=== PATIENT | female | born 1955 | race Caucasian/White ===

== ENCOUNTER → 2021-02-15 14:41 | Outpatient (BNVA) | payer OTHER, SELFPAY | PROVIDERS: Visit Provider Internal Medicine Cardiovascular Disease | DX: I51.81 Takotsubo syndrome (principal) | CPT/HCPCS: 93005 ==

== ENCOUNTER 2021-03-30 07:24 | Outpatient (REF) | payer OTHER, SELFPAY ==
--- NOTE | ~2021-03-30 | MM_ITS ---
EXAMINATION: MM SCREENING DIGITAL BREAST TOMOSYNTHESIS, BILATERAL CLINICAL INFORMATION: Screening. Asymptomatic. Remote prior outside mammography over 15 years ago at unknown facility. Age 65. No known family history breast cancer. The lifetime risk of breast cancer based on the Tyrer-Cuzick Model is 5%. COMPARISON: None. TECHNIQUE: Digital breast tomosynthesis is performed in both the craniocaudal and mediolateral oblique views along with computer-aided detection (CAD). Synthesized 2D images are generated from the tomosynthesis. FINDINGS: There are scattered areas of fibroglandular density (ACR BI-RADS breast composition Category b). There are no significant masses, abnormal calcifications, or other abnormalities. The axilla and skin contours are unremarkable. MM/MM tomosynthesis screening BI IMPRESSION: No mammographic evidence of malignancy. ASSESSMENT: BI-RADS 1: Negative RECOMMENDATION: Routine annual mammography screening. This patient's information was entered into a reminder system with a target due date for their next mammogram.
== END 2021-03-30 07:25 | disposition home or self-care (01) ==
LOC: HO.MAMMO 07:24
PROVIDERS: PCP Internal Medicine; Visit Provider Internal Medicine
DX: Z12.31 Encounter for screening mammogram for malignant neoplasm of breast (principal)
CPT/HCPCS: 77063; 77067

== ENCOUNTER 2021-10-10 12:03 | Outpatient (REF) | payer OTHER, SELFPAY ==
[2021-10-10 13:18] LABS: Influenza A PCR NEGATIVE (Negative); Influenza B PCR NEGATIVE (Negative); Resp Syncy Virus RNA Qual PCR NEGATIVE (Negative); SARS COV2 PCR INHOUSE NEGATIVE (Negative)
== END 2021-10-10 12:04 | disposition home or self-care (01) ==
LOC: HO.LNP 12:03
PROVIDERS: Visit Provider Physician Assistant
DX: Z20.822 Contact with and (suspected) exposure to COVID-19 (principal)
CPT/HCPCS: 0241U

== ENCOUNTER 2021-11-12 04:31 | Inpatient (IN) | payer OTHER, SELFPAY ==
[2021-11-12] VITALS (9 sets, daily range): BP systolic 117–155; BP diastolic 54–82; PULSE 62–76; RESP 9–18; TEMP 36.6–36.9; O2SAT 99–100; BMI 20.2
--- NOTE | ~2021-11-12 | XR_ITS ---
EXAMINATION: XR CHEST CLINICAL INFORMATION: Weakness, shortness of breath COMPARISON: 12/20/2019 TECHNIQUE: Frontal view of the chest was obtained. FINDINGS: Lung volumes are symmetric. No focal consolidation is seen. No evidence of pneumothorax, pleural effusion, or pulmonary edema. The cardiomediastinal contour is unremarkable. No acute osseous findings are seen. XR/XR chest 1V IMPRESSION: No acute cardiopulmonary findings.
--- NOTE | ~2021-11-12 | CT_ITS ---
EXAMINATION: CT HEAD WITHOUT CONTRAST CLINICAL INFORMATION: Dizziness. COMPARISON: CT head 12/20/2019 TECHNIQUE: Contiguous axial imaging was performed from the skull base to vertex without intravenous administration of contrast. Coronal and sagittal reformatted images are performed at CT scanner This CT examination was performed using dose optimization techniques as appropriate, variously including the following: *Automated exposure control *Adjustment of mA and/or kV according to patient size (this includes techniques or standardized protocols for targeted exams where dose is matched to indication/reason for exam; i.e. extremities or head) *Use of iterative reconstruction technique DLP: 645 mGy-cm FINDINGS: Status post left frontal temporal craniotomy. 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 Surgical clips and embolization material in the expected area the left MCA artery causing streak artifact. No acute intracranial hemorrhage. No mass effect. No acute parenchymal lesion. There is generalized global volume loss. There is mild prominence of the ventricles and the sulci . There is mild hypodensity of the periventricular white matter due to chronic small vessel ischemic disease. There is a small air-fluid level in the left maxillary sinus. The mastoid air cells and middle ear cavities are normally aerated. CT/CT head/brain wo con IMPRESSION: No acute intracranial abnormality. Stable chronic changes of old infarct in left frontal lobe and surgical clip and embolization material in the area the left MCA artery. Status post left frontal temporal craniotomy.
--- NOTE | ~2021-11-12 | CT_ITS ---
EXAMINATION: CT ABDOMEN AND PELVIS WITH CONTRAST CLINICAL INFORMATION: Colonic mass. COMPARISON: None TECHNIQUE: Multidetector volumetric images were obtained from the superior aspect of the liver through the pubic symphysis following administration 85 mL of Omnipaque 350 intravenous contrast. Sagittal and coronal reformatted images were obtained on the technologist's workstation. Oral contrast: No This CT examination was performed using dose optimization techniques as appropriate, variously including the following: *Automated exposure control *Adjustment of mA and/or kV according to patient size (this includes techniques or standardized protocols for targeted exams where dose is matched to indication/reason for exam; i.e. extremities or head) *Use of iterative reconstruction technique DLP: 202 mGy-cm FINDINGS: The injected IV contrast extravasated into the left forearm. The images obtained show no enhancement therefore. LUNG BASES: Normal aeration of lung bases. Heart size normal. Large volume of coronary artery calcification. No pericardial effusion. LIVER, GALLBLADDER, AND BILIARY TREE: The liver is normal in size, shape, and attenuation. No focal hepatic lesion or biliary ductal dilatation is present. The gallbladder is unremarkable with no evidence of radiopaque gallstones, gallbladder wall thickening, or obvious pericholecystic inflammatory changes. PANCREAS: Unremarkable. SPLEEN: Unremarkable. ADRENAL GLANDS: Unremarkable. KIDNEYS AND URETERS: No calculus or hydronephrosis. Kidneys are of normal size and contour. BLADDER: Unremarkable. GASTROINTESTINAL TRACT: No acute inflammatory change of bowel. There is question of an apple core lesion of the distal sigmoid with circumferential bowel wall thickening axial image 408 2/622 series 7, coronal image 52/74 series 5. Clinically correlate. There is no bowel obstruction. There is a large volume of stool in the colon. The appendix is nonvisualized . The small bowel loops are unremarkable. The stomach is normal. There is no hiatal hernia. ABDOMINAL WALL: No significant hernia is appreciated. LYMPH NODES: Normal. VASCULAR: Vascular calcifications of aorta and iliac arteries. There is no aneurysm. PELVIC VISCERA: Unremarkable. OSSEOUS STRUCTURES: Marked degenerative spondylosis of the spine. Moderate degenerative joint disease of hips bilateral. CT/CT abdomen pelvis w con IMPRESSION: 1. Injected IV contrast extravasated into left forearm. The obtained images were therefore noncontrast. 2. Question of an apple core lesion of the distal sigmoid colon. Clinically correlate. Large volume of stool in the colon. No acute change of the bowel. 3. No evidence of metastatic change of the abdomen or pelvis. Fleischner guidelines were followed.
[2021-11-12 05:13] LABS: MANUAL DIFF FLAG NO
[2021-11-12 05:14] LABS: Basophils Percent Auto 0.4 % (0-2); Eosinophils Percent Auto 0.8 % (0-4); Hematocrit 21.6 % (37.0-47.0); Imm Gran Abs Auto 0.02 X10*3/uL (0.00-0.03); Imm Gran Pct Auto 0.4 % (0.0-0.4); Lymphocytes Absolute Auto 1.1 X10*3/uL (1.2-4.9); Lymphocytes Percent Auto 22.9 % (20-40); Mean Corpuscular HGB Conc 29.2 g/dl (31.0-35.0); Mean Corpuscular Hemoglobin 21.3 pg (27.0-33.0); Monocytes Absolute Auto 0.8 X10*3/uL (0.1-1.2); Monocytes Percent Auto 15.7 % (2-11); Neutrophils Absolute Auto 2.9 x10*3/uL (2.0-8.3); Neutrophils Percent Auto 59.8 % (45-73); Platelet Count 281 X10*3/uL (160-400); Red Blood Count 2.96 X10*6/uL (4.20-5.50); Red Cell Distribution Width 17.1 % (11.0-16.0); White Blood Count 4.8 X10*3/uL (4.8-10.8)
[2021-11-12 05:16] LABS: Hemoglobin 6.3 g/dl (12.0-16.0)
--- NOTE | 2021-11-12 05:27 | ECG_ITS ---
Test Reason : DIZZINESS Blood Pressure : / mmHG Vent. Rate : 063 BPM Atrial Rate : 063 BPM P-R Int : 166 ms QRS Dur : 074 ms QT Int : 412 ms P-R-T Axes : 059 -08 015 degrees QTc Int : 421 ms Normal sinus rhythm Nonspecific ST and T wave abnormality Borderline ECG When compared with ECG of 20-DEC-2019 11:19, Nonspecific ST and T wave abnormality now present Referred By: Elder Emerson Electronically Signed By:DEBORAH MAYNARD
[2021-11-12 05:47] LABS: INTERNATIONAL NORM RATIO 0.9 (0.9-1.1); Prothrombin Time 10.6 SEC (9.9-13.0)
--- NOTE | 2021-11-12 05:49 | ED_ITS ---
HPI - Nausea/Vomiting/Diarrhea General Chief complaint: Nausea/Vomiting/Diarrhea Stated complaint: nausea and vomiting Time Seen by Provider: 11/12/21 05:24 Source: patient and family () Mode of arrival: EMS Limitations: no limitations History of Present Illness HPI Narrative: 66-year-old female who presents emergency department for evaluation of nausea, vomiting, dizziness and weakness times 1-2 weeks. Patient states that over the past 2 weeks she has been feeling dizzy. This seems to be worse when she gets up from the sitting to standing position and worse when she walks around. She describes the dizziness is feeling like she is going to pass out. Patient states that she has had nausea for the past week. She states she vomited twice yesterday morning. She has had no diarrhea. She denied dark tarry stools or blood per rectum. The patient denied abdominal pain. Prior to coming to the emergency department she was too weak to get out of bed therefore an ambulance was called and she was brought to the emergency department The patient states that she has had 3 COVID vaccinations with her booster shot on 10/10/2021. She states that she developed right arm redness and pain after getting her booster shot. Related Data Home Medications Medication Instructions Recorded Confirmed carvedilol 6.25 mg tablet 6.25 mg PO BID tab 02/15/21 02/15/21 lamotrigine 250 mg tablet,extended 750 mg PO DAILY tab 02/15/21 02/15/21 release 24 hr phenytoin 50 mg chewable tablet 50 mg PO DAILY 02/15/21 02/15/21 phenytoin sodium extended 100 mg 100 mg PO TID 02/15/21 02/15/21 capsule Previous Rx's Medication Instructions Recorded aspirin 81 mg tablet,delayed 81 mg PO DAILY #90 tab 03/21/21 release prednisone 10 mg tablet 10 mg PO DAILY #28 tab 06/29/21 Allergies Allergy/AdvReac Type Severity Reaction Status Date / Time Penicillins [PENICILLINS] Allergy Unknown UNKNOWN Verified 10/10/21 09:20 Review of Systems Verdana 4l Review of Systems: Yes all other systems are reviewed and Verdana 4d are negative [facility] Past Medical History [facility] Narrative: Past medical history: Seizures, takotsubo cardiomyopathy, hypertension. Past surgical history: She states that she had a brain aneurysm which was repaired. Past social history: Patient occasionally smokes cigarettes, she denies alcohol use. She denies drug use. Medical History Takotsubo cardiomyopathy Social History Social History Alcohol intake: never Patient Tobacco Use Status: Never used Tobacco Use of substances other than those prescribed or required for medical reasons: No Advance Directives: No Advance Directives Information Provided: No Patient : No Physical Exam Verdana 4l Vital Signs: Verdana 4d Verdana 4d Vital Signs: Verdana 4d Verdana 4Bd Last Vital Signs Verdana 4d French Instructor New 4d French Instructor New 4d Temp 98.5 F 11/12/21 06:46 French Instructor New 4d Pulse 68 11/12/21 06:46 French Instructor New 4d Resp 12 11/12/21 06:46 BP 125/68 11/12/21 06:46 BMI result Body Mass Index 20.2 Const: Other: Awake, alert, female patient, BMI of 20, appears pale, does not appear to be in distress, answers all questions appropriately HENMT: Head: Yes normal to inspection, Yes normocephalic and Yes atraumatic Ears: external ears normal General nose exam: Normal external nose present Face and sinus: Yes normal facial exam Mouth: Normal oral and palatal mucosa present Throat: Yes posterior oropharynx normal Eyes: General: appearance normal, both eyes and all related structures Pupils: Equal, round and reactive pupils present Neck: Neck: Yes normal visual inspection, Yes no lymphadenopathy, Yes trachea midline and Yes supple Chest: Chest palpation & inspection: normal inspection of the chest and normal palpation of entire chest wall Resp: Effort & Inspection: normal respiratory effort and able to speak in complete sentences Auscultation: clear to auscultation bilaterally Cardio: Rate: regular rate Rhythm: regular rhythm Heart sounds: S1 normal heart sound present, S2 normal heart sound present and no murmurs GI: Inspection: Yes normal to inspection Palpation (GI): Soft to palpation, nontender and no guarding Auscultation: normal bowel sounds Rectal Exam - Female: heme positive stool (Loose brown stool strongly Hemoccult positive) : General: Yes no CVA tenderness Back/Spine/Pelvis: Back: no CVA tenderness Skin: General skin exam: no rashes or lesions noted Neuro: Cranial nerves: Yes CN's II-XII intact bilaterally and Yes Equal, round and reactive pupils present Cognition (Neuro): normal cognition Motor exam (neuro): 5/5 motor strength present throughout Extrem: General: Yes normal to inspection Psych: Appearance: grossly normal Speech and movement: Normal speech and movement present Affect: normal affect Attitude: cooperative Thought process: Normal thought process present Thought content: Normal thought content present Course Course Course Narrative: 66-year-old female who presents emergency department for evaluation lightheadedness, dizziness and weakness times 1-2 weeks. Patient was unable to get out of bed this morning secondary to severe weakness. Vital signs were normal. Abdominal exam revealed no tenderness. Rectal examination revealed loose brown stool which was strongly Hemoccult positive. Laboratory evaluation revealed severe anemia with an H&H of 6.3 and 21.6 with a low MCV of 73, and a normal platelet count of 281,000. CMP was normal. COVID-19, influenza and RSV were negative. Chest x-ray was unremarkable. Twelve EKG revealed a normal sinus rhythm with no significant abnormalities. I ordered transfusion of 1 unit packed red blood cells. I will discuss admission with the covering hospitalist. 0 800: I did tiger text the covering hospitalist, Dr. Torres and Dr. Lockett will be the admitting hospitalist. MDM - Nausea/Vomiting/Diarrhea Lab Data Result diagrams: 11/12/21 05:09 11/12/21 05:09 Labs: Lab Results 11/12/21 11/12/21 11/12/21 Range/Units 05:09 05:09 05:34 WBC 4.8 (4.8-10.8) X10*3/uL RBC 2.96 L (4.20-5.50) X10*6/uL Hgb 6.3 L* (12.0-16.0) g/dl Hct 21.6 L (37.0-47.0) % MCV 73.0 L (80.0-98.0) fL MCH 21.3 L (27.0-33.0) pg MCHC 29.2 L (31.0-35.0) g/dl RDW 17.1 H (11.0-16.0) % Plt Count 281 (160-400) X10*3/uL MPV 9.0 L (9.4-12.3) fL Immature Gran % (Auto) 0.4 (0.0-0.4) % Neut % (Auto) 59.8 (45-73) % Lymph % (Auto) 22.9 (20-40) % Love % (Auto) 15.7 H (2-11) % Eos % (Auto) 0.8 (0-4) % Baso % (Auto) 0.4 (0-2) % Lymph # (Auto) 1.1 L (1.2-4.9) X10*3/uL Love # (Auto) 0.8 (0.1-1.2) X10*3/uL Eos # (Auto) 0.0 (0.0-0.4) X10*3/uL Baso # (Auto) 0.0 (0.0-0.2) X10*3/uL Abs Immat Gran (auto) 0.02 (0.00-0.03) X10*3/uL Absolute Neuts (auto) 2.9 (2.0-8.3) x10*3/uL Absolute Nucleated RBC 0.000 (0.0-0.012) X10*3/uL Nucleated RBC % (auto) 0.0 (0.0-0.2) /100WBC PT (9.9-13.0) SEC INR (0.9-1.1) APTT (24.1-38.0) SEC Sodium 139 (135-145) mmol/L Potassium 3.9 (3.3-5.1) mmol/L Chloride 106 (96-108) mmol/L Carbon Dioxide 25 (22-29) mmol/L Anion Gap 12 (12-20) BUN 12 (9-16) mg/dL Creatinine 0.71 (0.5-1.4) mg/dL Estim Creat Clear Calc 60.4 Estimated GFR > 60 Random Glucose 99 (60-115) mg/dL Calcium 8.5 (8.4-10.2) mg/dL Total Bilirubin 0.2 (0.0-1.0) mg/dL Direct Bilirubin < 0.2 (0.0-0.5) mg/dL AST 14 (5-31) U/L ALT 9 (0-31) U/L Alkaline Phosphatase 76 (39-117) U/L Total Protein 5.8 L (6.5-8.0) g/dL Albumin 3.5 (3.5-5.0) g/dL Lipase 16 (8-78) U/L Blood Type O Positive Antibody Screen NEGATIVE Crossmatch See Detail 11/12/21 Range/Units 05:34 WBC (4.8-10.8) X10*3/uL RBC (4.20-5.50) X10*6/uL Hgb (12.0-16.0) g/dl Hct (37.0-47.0) % MCV (80.0-98.0) fL MCH (27.0-33.0) pg MCHC (31.0-35.0) g/dl RDW (11.0-16.0) % Plt Count (160-400) X10*3/uL MPV (9.4-12.3) fL Immature Gran % (Auto) (0.0-0.4) % Neut % (Auto) (45-73) % Lymph % (Auto) (20-40) % Love % (Auto) (2-11) % Eos % (Auto) (0-4) % Baso % (Auto) (0-2) % Lymph # (Auto) (1.2-4.9) X10*3/uL Love # (Auto) (0.1-1.2) X10*3/uL Eos # (Auto) (0.0-0.4) X10*3/uL Baso # (Auto) (0.0-0.2) X10*3/uL Abs Immat Gran (auto) (0.00-0.03) X10*3/uL Absolute Neuts (auto) (2.0-8.3) x10*3/uL Absolute Nucleated RBC (0.0-0.012) X10*3/uL Nucleated RBC % (auto) (0.0-0.2) /100WBC PT 10.6 (9.9-13.0) SEC INR 0.9 (0.9-1.1) APTT 19.2 L (24.1-38.0) SEC Sodium (135-145) mmol/L Potassium (3.3-5.1) mmol/L Chloride (96-108) mmol/L Carbon Dioxide (22-29) mmol/L Anion Gap (12-20) BUN (9-16) mg/dL Creatinine (0.5-1.4) mg/dL Estim Creat Clear Calc Estimated GFR Random Glucose (60-115) mg/dL Calcium (8.4-10.2) mg/dL Total Bilirubin (0.0-1.0) mg/dL Direct Bilirubin (0.0-0.5) mg/dL AST (5-31) U/L ALT (0-31) U/L Alkaline Phosphatase (39-117) U/L Total Protein (6.5-8.0) g/dL Albumin (3.5-5.0) g/dL Lipase (8-78) U/L Blood Type Antibody Screen Crossmatch ECG Data Attestation: I personally reviewed and interpreted this ECG as follows: Interpretation: 0751: Normal sinus rhythm rate of 63, normal VT interval QRS duration and QTC interval, no ST segment elevation, no ST segment depression, no PACs, no PVCs, this is a normal EKG Critical Care Time Critical Care Time Critical Care Time: Yes Total Critical Care Time: 45 Attestation: Critical Care: The patient was critically ill with a high probability of imminent or life threatening deterioration. I spent greater than 30 minutes of discontinuous time evaluating the patient,delivering critical care at the bedside, discussing and evaluating pertinent data with consultants. Critical care time does not include time spent performing separately billable procedures or teaching. Total time spent performing critical care was 45 minutes. Discharge Plan Discharge Patient Disposition: Admitted As Inpatient
[2021-11-12 05:52] LABS: Partial Thromboplastin Time 19.2 SEC (24.1-38.0)
[2021-11-12 05:58] LABS: Alanine Aminotransferase 9 U/L (0-31); Albumin Level 3.5 g/dL (3.5-5.0); Alkaline Phosphatase 76 U/L (39-117); Anion Gap 12 (12-20); Aspartate Amino Transferase 14 U/L (5-31); Bilirubin Direct < 0.2 mg/dL (0.0-0.5); Bilirubin Total 0.2 mg/dL (0.0-1.0); Blood Urea Nitrogen 12 mg/dL (9-16); Calcium 8.5 mg/dL (8.4-10.2); Carbon Dioxide 25 mmol/L (22-29); Chloride 106 mmol/L (96-108); Creatinine Clr Calc Pharmacy 60.4; Estimated Glomerular Filt Rate > 60; Glucose Random 99 mg/dL (60-115); Lipase 16 U/L (8-78); Potassium 3.9 mmol/L (3.3-5.1); Sodium 139 mmol/L (135-145); Total Protein 5.8 g/dL (6.5-8.0)
--- NOTE | 2021-11-12 07:54 | PC.NURSE ---
report taken from gomez lacey pt here for s/s of syncope, weakness, found to have low blood count. no previous hx of similar episodes, no definitive bleeding source. pt being transfused at this time, no obvious s/s of hemolytic reaction. at bedside. pt offers no significant complaints at this time. given some ice chips, tolerating po.
[2021-11-12 08:31] LABS: COVID-19 Test Negative (Negative)
--- NOTE | 2021-11-12 08:39 | PHA.MEDREC ---
Pharmacy Consult ? Medication Reconciliation Pharmacy has completed the medication reconciliation. Pt stated that she takes 6.25mg of carvedilol BID, claim history shows a new rx for 12.5mg BID and previous rx that eludes to her taking 2 tabs of 6.25mg BID. When I asked her about this, she stated that she did see her PCP recently but insisted it is still 6.25mg BID. She also clarified that she takes 150mg total of phenytoin QAM and 200mg QPM. Imelda Jackson, IamD
--- NOTE | 2021-11-12 09:58 | PC.NURSE ---
ambulating to and from bathroom w slow, steady gait using standby assist. first unit prbc finsihed transfusing. no s/s distress noted.
--- NOTE | 2021-11-12 10:09 | P.HPHOSP_ITS ---
History of Present Illness Date of Service: 11/12/21 Chief Complaint: Dizziness 66-year-old woman presenting to the ER with complaints of dizziness. She reported her symptoms started approximately 2 weeks ago where she would get up from bed and feel very unsteady and feeling as though the room was spinning. She denied any history of this in the past. She went to see her primary care provider 2 days ago and was prescribed meclizine. She did report that she took 1 pill but had not seen any significant difference. She reported that prior to arrival to the emergency department she had gotten up and almost fell however her was there and caught her. She subsequently came to the ER for further management. She denied chest pain, shortness of breath. She did report an episode of vomiting. She did not notice any blood or dark emesis or stool for that matter. She reported that she has not had a colonoscopy previously. In the ER her blood counts were noted to be significantly 6.3/20.6. All of her other labs are within acceptable limits, blood pressure was also noted to be stable. She was given a unit of packed red blood cells and some IV fluids. She will be admitted for further management and treatment of acute blood loss anemia. Review of Systems Verdana 4l Review of Systems: Verdana 4d Verdana 4d Denies any recent fever chills or decrease in appetite respiratory denies any shortness of breath coverage production cardiovascular denies chest pain gastrointestinal denies any dysphagia abdominal pain nausea vomiting or diarrhea genitourinarygenitourinary denies any dysuria frequency or hematuria musculoskeletal denies any joint pain or swelling neuropsych denies any weakness or seizures all other systems reviewed are negative [facility] Medical History (Updated 11/12/21 @ 10:18 by Disha Merino NP) Seizure Takotsubo cardiomyopathy Pertinent family history: No cardiac disease Social History Alcohol intake: never Patient Tobacco Use Status: Never used Tobacco Use of substances other than those prescribed or required for medical reasons: No Advance Directives: No Advance Directives Information Provided: No Patient : No Meds Allergies Allergy/AdvReac Type Severity Reaction Status Date / Time Penicillins [PENICILLINS] Allergy Unknown UNKNOWN Verified 10/10/21 09:20 Active Medications: Current Medications Acetaminophen (Acetaminophen 325 Mg Tablet) 650 mg PO Q6H PRN PRN Reason: Pain, Mild (Pain Scale 1-3) Ondansetron HCl (Ondansetron Hcl 4 Mg/2 Ml Vial) 4 mg IVPUSH Q8H PRN PRN Reason: Nausea and Vomiting Pharmacy Consult (Consult Rx Perform Med Rec) 1 each MISCELLANE ONCE PRN PRN Reason: Consult order Pharmacy Consult (Consult Rx Perform Med Rec) 1 each MISCELLANE ONCE PRN PRN Reason: Consult order Sodium Chloride (0.9 % Sodium Chloride Flush 3 Ml Syringe) 3 ml IVFLUSH [facility] Medications Medication Instructions Recorded Confirmed Last Taken Type lamotrigine 250 750 mg PO 02/15/21 11/12/21 11/11/21 History mg BEDTIME tab tablet,extended release 24 hr aspirin 81 mg 81 mg PO BEDTIME 11/12/21 11/12/21 11/11/21 History tablet,delayed release carvedilol 6.25 1 tab PO BID 11/12/21 11/12/21 11/11/21 History mg tablet clobetasol 0.05 % 1 applic TOPICAL 11/12/21 11/12/21 Unknown History topical ointment BID phenytoin 50 mg 1 tab PO DAILY 11/12/21 11/12/21 11/11/21 History chewable tablet phenytoin sodium 1 cap PO DAILY 11/12/21 11/12/21 11/11/21 History extended 100 mg capsule phenytoin sodium 2 cap PO BEDTIME 11/12/21 11/12/21 11/11/21 History extended 100 mg capsule Physical Exam Verdana 4l Vital Signs and Narrative: Verdana 4d Verdana 4d Vital Signs: Verdana 4d Verdana 4Bd Last Vital Signs Verdana 4d Meat Passer New 4d Meat Passer New 4d Temp 98.5 F 11/12/21 06:46 Meat Passer New 4d Pulse 63 11/12/21 09:48 Meat Passer New 4d Resp 14 11/12/21 09:48 BP 155/82 H 11/12/21 09:48 Pulse Ox 99 11/12/21 09:48 BMI result Body Mass Index 20.2 Appearing in no acute distress head is normocephalic atraumatic eyes pupils are PERRLA sclera is anicteric mouth throat mucous membranes are intact and moist neck is supple no lymphadenopathy, no JVD noted lung sounds are clear to auscultation heart regular rate rhythm, clear S1, S2 positive bowel sounds, abdomen is soft, nontender neuro patient is alert x3, no focal deficits Results Labs CBC and Chem 7: 11/12/21 05:09 11/12/21 05:09 Labs: Laboratory Results - last 24 hr 11/12/21 11/12/21 11/12/21 05:09 05:09 05:34 MCV 73.0 L MCH 21.3 L MCHC 29.2 L RDW 17.1 H Plt Count 281 MPV 9.0 L Immature Gran % (Auto) 0.4 Neut % (Auto) 59.8 Lymph % (Auto) 22.9 [place] % (Auto) 15.7 H Eos % (Auto) 0.8 Baso % (Auto) 0.4 Lymph # (Auto) 1.1 L [place] # (Auto) 0.8 Eos # (Auto) 0.0 Baso # (Auto) 0.0 Abs Immat Gran (auto) 0.02 Absolute Neuts (auto) 2.9 Absolute Nucleated RBC 0.000 Nucleated RBC % (auto) 0.0 PT INR APTT Anion Gap 12 Estim Creat Clear Calc 60.4 Estimated GFR > 60 Random Glucose 99 Calcium 8.5 Total Bilirubin 0.2 Direct Bilirubin < 0.2 AST 14 ALT 9 Alkaline Phosphatase 76 Total Protein 5.8 L Albumin 3.5 Lipase 16 COVID-19 (SKY) COVID-19 Clin Com Blood Type O Positive Antibody Screen NEGATIVE Crossmatch See Detail 11/12/21 11/12/21 05:34 08:09 MCV MCH MCHC RDW Plt Count MPV Immature Gran % (Auto) Neut % (Auto) Lymph % (Auto) [place] % (Auto) Eos % (Auto) Baso % (Auto) Lymph # (Auto) [place] # (Auto) Eos # (Auto) Baso # (Auto) Abs Immat Gran (auto) Absolute Neuts (auto) Absolute Nucleated RBC Nucleated RBC % (auto) PT 10.6 INR 0.9 APTT 19.2 L Anion Gap Estim Creat Clear Calc Estimated GFR Random Glucose Calcium Total Bilirubin Direct Bilirubin AST ALT Alkaline Phosphatase Total Protein Albumin Lipase COVID-19 (SKY) Negative COVID-19 Clin Com See Note Blood Type Antibody Screen Crossmatch Imaging Radiologist's Impressions: Impressions Chest X-Ray 11/12/21 05:50 IMPRESSION: No acute cardiopulmonary findings. Assessment and Plan (1) Anemia: Status: Acute Plan 66-year-old woman admitted with acute blood loss anemia, unknown etiology Acute blood loss anemia, unknown etiology 1 unit packed red blood cells transfused, will recheck H&H and transfuse as necessary GI consultation will likely need EGD and colonoscopy Anemia workup History of seizure disorder Last seizure 2 years ago Continue home medications History of takotsubo cardiomyopathy Continue beta-momo DVT prophylaxis with mechanical compression boots due to acute anemia Attending Dr. Torres Full code Quality Stroke Does the patient have a stroke diagnosis?: No VTE Prior VTE?: No VTE Risk Level:: Medical - moderate - high VTE Device Contraindication: N/A - Device Ordered VTE Drug Contraindication: Treatment Not Indicated
--- NOTE | 2021-11-12 11:43 | MHC.SHP ---
Pre-Procedural Eval Section A Date of Service: 11/12/21 The patient is an INPATIENT: Yes Changes since office visit: No Cold of Flu in the past 2 weeks, No New Medical Problems, No Changes in Medication and No Patient answered all questions The History & Physical has been completed within 30 days and I have reviewed it.: Yes Section B Chief Complaint: gi bleed anemia Allergies: Allergies Allergy/AdvReac Type Severity Reaction Status Date / Time Penicillins [PENICILLINS] Allergy Unknown UNKNOWN Verified 10/10/21 09:20 Plan I have reviewed the history and physical and performed a pertinent physical examination on my patient. No changes have occurred unless specified.
[2021-11-12 11:48] LABS: Hematocrit 28.9 % (37.0-47.0); Hemoglobin 8.7 g/dl (12.0-16.0); Mean Corpuscular HGB Conc 30.1 g/dl (31.0-35.0); Mean Corpuscular Hemoglobin 23.2 pg (27.0-33.0); Mean Corpuscular Volume 77.1 fL (80.0-98.0); Mean Platelet Volume 9.1 fL (9.4-12.3); Platelet Count 276 X10*3/uL (160-400); Red Blood Count 3.75 X10*6/uL (4.20-5.50); Red Cell Distribution Width 19.4 % (11.0-16.0); White Blood Count 5.1 X10*3/uL (4.8-10.8)
--- NOTE | 2021-11-12 12:16 | CONS_ITS ---
DATE OF SERVICE: 11/12/2021 REFERRING PHYSICIAN: Disha Merino NP REASON FOR CONSULTATION: Anemia and Hemoccult-positive stools. HISTORY OF PRESENT ILLNESS: The patient is a pleasant 66-year-old woman who was admitted to the hospital after presenting to the emergency room this morning by ambulance with complaints of dizziness and weakness. She reports about 1 month of symptoms of generalized weakness as well as some dizziness with associated nonbloody vomiting once about a month ago and once the day of admission. She was evaluated in the emergency department where she was noted to be significantly anemic with a hematocrit of 21.6, which was significantly lower than her last hematocrit of 42 in December 2019. MCV was low consistent with iron deficiency and stool occult blood testing was positive. The patient denies any generalized GI symptoms. She has no history of chronic reflux, peptic ulcer disease, or rectal bleeding. She has never undergone colonoscopy. PAST MEDICAL HISTORY: 1. History of brain aneurysm status post craniotomy and coil placement with seizure disorder. 2. Takotsubo cardiomyopathy. She denies other medical or surgical illnesses. CURRENT MEDICATIONS: Her current medication list is reviewed in the chart. ALLERGIES: SHE IS ALLERGIC TO PENICILLIN. FAMILY HISTORY: This is negative for GI malignancy. SOCIAL HISTORY: She does not drink but did prior to her aneurysm. She does occasionally uses tobacco. REVIEW OF SYSTEMS: SKIN: No pruritus. HEENT: Negative. CARDIOPULMONARY: She denies shortness of breath or chest pain. GASTROINTESTINAL: As above. GENITOURINARY: Negative. NEUROPSYCHIATRIC: Negative. PHYSICAL EXAMINATION: GENERAL: Shows pleasant female, lying comfortably in bed. VITAL SIGNS: Reviewed in electronic medical record and are stable. SKIN: Anicteric. HEENT: Shows no scleral icterus. NECK: Without lymphadenopathy or thyromegaly. LUNGS: Clear. HEART: Shows regular rate and rhythm. S1, S2. No murmur. ABDOMEN: Soft without focal masses or tenderness. Bowel sounds are present. No organomegaly is noted. EXTREMITIES: Without edema. LABORATORY DATA: Reviewed. She did receive 1 unit of packed red blood cells in the emergency department. Hence, reports improvement in her symptomatic weakness. IMPRESSION: Anemia and Hemoccult-positive stools. Her presentation is consistent with a slow gastrointestinal tract blood loss and her iron studies are pending, but her microcytic anemia is consistent with iron deficiency. I have recommended further evaluation with upper endoscopy and colonoscopy to rule out gastrointestinal lesion as a cause for her bleeding. We discussed risks and benefits of both procedures today. She understands these and agrees to proceed. She will have a bowel prep tomorrow and be scheduled for an endoscopy and colonoscopy on Sunday. Thank you for asking me to see her. I will follow her in the hospital with you. MD WENDY Reyes/REBEKAH / [id number]
[2021-11-12 12:20] LABS: Iron 55 mcg/dL (30-160); Percent Iron Saturation 14 % (15-50); Total Iron Binding Capacity 391 mcg/dL (228-428); Unsaturated Iron Binding 336 ug/dL
[2021-11-12 12:41] LABS: Ferritin 18 ng/mL (10-250)
[2021-11-12 12:57] LABS: Vitamin B12 > 2000 pg/mL (200-900)
[2021-11-12 15:36] LABS: Appearance Urine CLEAR; Color Urine YELLOW; Glucose Urine UA NEG (NEG); Leukocyte Esterase Urine NEG (NEG); Nitrite Urine NEG (NEG); Specific Gravity - Urine 1.025 (1.005-1.025); Urine Blood NEG (NEG); Urine Ketones NEG (NEG); Urine Protein NEG (NEG-TRACE)
--- NOTE | 2021-11-12 15:42 | MHC.CM.PN ---
PT REPORTS SHE LIVES AT HOME WITH HER AND IS INDEPENDENT WITH CARE PT REPORTS SHE HAS NO DME AND NO SERVICES AND WORKS PT REPORTS HER PCP IS DR TATI MENDEZ IN [facility] PT REPORTS HER IS HER HCP, COPY REQUESTED CURRENT DC PLAN IS HOME WITH NO SERVICES TO TRANSPORT
[2021-11-12] MEDS: Aspirin Enteric Coated 81 MG TABLET.DR PO (20:44)
[2021-11-12] MEDS: Phenytoin Sodium Extended 100 MG CAPSULE 200 MG PO (20:44)
[2021-11-12] MEDS: carvediloL 6.25 MG TABLET PO (20:44)
[2021-11-13 00:11] VITALS: BP 117/63; PULSE 69; RESP 16; O2SAT 98
[2021-11-13] MEDS: 0.9 % Sodium Chloride Flush 3 ML SYRINGE IVFLUSH (00:54)
[2021-11-13 04:20] VITALS: BP 138/81; PULSE 70; RESP 14; O2SAT 99
[2021-11-13 08:09] LABS: Hemoglobin 8.9 g/dl (12.0-16.0); Mean Corpuscular HGB Conc 30.7 g/dl (31.0-35.0); Mean Corpuscular Hemoglobin 23.2 pg (27.0-33.0); Mean Corpuscular Volume 75.7 fL (80.0-98.0); Mean Platelet Volume 9.1 fL (9.4-12.3); Platelet Count 278 X10*3/uL (160-400); Red Blood Count 3.83 X10*6/uL (4.20-5.50); Red Cell Distribution Width 19.7 % (11.0-16.0); White Blood Count 4.8 X10*3/uL (4.8-10.8)
[2021-11-13 08:29] VITALS: BP 122/63; PULSE 68; RESP 12; TEMP 36.9; O2SAT 100
[2021-11-13 08:40] LABS: Anion Gap 12 (12-20); Blood Urea Nitrogen 11 mg/dL (9-16); Calcium 9.1 mg/dL (8.4-10.2); Carbon Dioxide 28 mmol/L (22-29); Chloride 104 mmol/L (96-108); Estimated Glomerular Filt Rate > 60; Glucose Random 89 mg/dL (60-115); Potassium 4.9 mmol/L (3.3-5.1); Sodium 139 mmol/L (135-145)
[2021-11-13] MEDS: carvediloL 6.25 MG TABLET PO ×2 (08:57→21:35)
[2021-11-13] MEDS: Phenytoin Sodium Extended 100 MG CAPSULE PO (08:57)
--- NOTE | 2021-11-13 08:58 | PC.NURSE ---
Pt has been awake, alert, ambulatory to BR with steady gait. Skin pwd. nsr on monitor. aware of clears only. is missing her am and PM pharmcy labled creams. The PM dose of topical lamictal is very expensive and this RN will contact PM nurse to find out where it was storred. family to bring more in the meantime. pt denies rectal bleeding. n/v/d. and abd pain. has moist MM. taking clear liquids well.
--- NOTE | 2021-11-13 09:18 | PC.NURSE ---
all meds found in patient bin on shelf with ACLS box in [facility] room.
[2021-11-13] MEDS: Phenytoin Chewable 50 MG TAB.CHEW PO (09:21)
--- NOTE | 2021-11-13 10:11 | P.PNIM_ITS ---
Subjective Subjective Date of Service: 11/13/21 Review of Systems Follow up anemia, GI Bleed feels better today Physical Exam Verdana 4l Vital Signs: Verdana 4d Verdana 4d Vital Signs: Verdana 4d Verdana 4Bd Last Vital Signs Verdana 4d Farm Equipment Engine Mechanic New 4d Rashawn New 4d Temp 98.4 F 11/13/21 08:29 Farm Equipment Engine Mechanic New 4d Pulse 68 11/13/21 08:29 Farm Equipment Engine Mechanic New 4d Resp 12 11/13/21 08:29 BP 122/63 11/13/21 08:29 Pulse Ox 100 11/13/21 08:29 BMI result Body Mass Index 20.2 Appearing in no acute distress lung sounds are clear to auscultation heart regular rate rhythm, clear S1, S2 positive bowel sounds, abdomen is soft, nontender neuro patient is alert x3, no focal deficits Objective Data Active Medications Acetaminophen (Acetaminophen 325 Mg Tablet) 650 mg PO Q6H PRN PRN Reason: Pain, Mild (Pain Scale 1-3) Aspirin (Aspirin Enteric Coated 81 Mg Tablet.) 81 mg PO BEDTIME [facility] Last Admin: 11/12/21 20:44 Dose: 81 mg Documented by: CAT Carvedilol (Carvedilol 6.25 Mg Tablet) 6.25 mg PO BID [facility]; Protocol Last Admin: 11/13/21 08:57 Dose: 6.25 mg Documented by: LEONARDO Eastman Own Med ( Clobetasol 0.05% Ointment) 1 each TOPICAL BID [facility] Last Admin: 11/13/21 09:22 Dose: 1 each Documented by: LEONARDO Eastman Own Med ( Lamotrigine 250 Mg Tablet Extended Release 24hr) 750 each PO BEDTIME [facility] Last Admin: 11/12/21 21:59 Dose: 750 each Documented by: CAT Ondansetron HCl (Ondansetron Hcl 4 Mg/2 Ml Vial) 4 mg IVPUSH Q8H PRN PRN Reason: Nausea and Vomiting Pharmacy Consult (Consult Rx Perform Med Rec) 1 each MISCELLANE ONCE PRN PRN Reason: Consult order Pharmacy Consult (Consult Rx Perform Med Rec) 1 each MISCELLANE ONCE PRN PRN Reason: Consult order Phenytoin (Phenytoin Chewable 50 Mg Tab.Chew) 50 mg PO DAILY [facility] Last Admin: 11/13/21 09:21 Dose: 50 mg Documented by: LEONARDO Phenytoin Sodium (Phenytoin Sodium Extended 100 Mg Capsule) 100 mg PO DAILY [facility] Last Admin: 11/13/21 08:57 Dose: 100 mg Documented by: LEONARDO Phenytoin Sodium (Phenytoin Sodium Extended 100 Mg Capsule) 200 mg PO BEDTIME [facility] Last Admin: 11/12/21 20:44 Dose: 200 mg Documented by: CAT Polyethylene Glycol/Electrolytes (Peg 3350/Na Sulf,Bicarb,Cl/Kcl 4,000 Ml Soln.Recon) 4,000 ml PO ONCE ONE Stop: 11/13/21 14:01 Sodium Chloride (0.9 % Sodium Chloride Flush 3 Ml Syringe) 3 ml IVFLUSH QSHIFT [facility] Last Admin: 11/13/21 08:57 Dose: Not Given Documented by: LEONARDO Non-Admin Reason: Med Not Available Labs CBC & Chem 7: 11/13/21 07:30 11/13/21 07:30 Labs: Laboratory Results - last 24 hr 11/12/21 11/12/21 11/12/21 05:34 11:07 11:07 MCV 77.1 L MCH 23.2 L MCHC 30.1 L RDW 19.4 H Plt Count 276 MPV 9.1 L Absolute Nucleated RBC 0.000 Nucleated RBC % (auto) 0.0 Anion Gap Estim Creat Clear Calc Estimated GFR Random Glucose Calcium Iron 55 TIBC 391 % Saturation 14 L Unsat Iron Binding 336 Ferritin 18 Vitamin B12 Folate Urine Color Urine Appearance Urine pH Ur Specific [place] Urine Protein Urine Glucose (UA) Urine Ketones Urine Blood Urine Nitrite Ur Leukocyte Esterase Crossmatch See Detail 11/12/21 11/12/21 11/13/21 11:07 15:25 07:30 MCV 75.7 L MCH 23.2 L MCHC 30.7 L RDW 19.7 H Plt Count 278 MPV 9.1 L Absolute Nucleated RBC 0.000 Nucleated RBC % (auto) 0.0 Anion Gap Estim Creat Clear Calc Estimated GFR Random Glucose Calcium Iron TIBC % Saturation Unsat Iron Binding Ferritin Vitamin B12 > 2000 H Folate 5.0 Urine Color YELLOW Urine Appearance CLEAR Urine pH 6.0 Ur Specific [place] 1.025 Urine Protein NEG Urine Glucose (UA) NEG Urine Ketones NEG Urine Blood NEG Urine Nitrite NEG Ur Leukocyte Esterase NEG Crossmatch 11/13/21 07:30 MCV MCH MCHC RDW Plt Count MPV Absolute Nucleated RBC Nucleated RBC % (auto) Anion Gap 12 Estim Creat Clear Calc 63.0 Estimated GFR > 60 Random Glucose 89 Calcium 9.1 D Iron TIBC % Saturation Unsat Iron Binding Ferritin Vitamin B12 Folate Urine Color Urine Appearance Urine pH Ur Specific [place] Urine Protein Urine Glucose (UA) Urine Ketones Urine Blood Urine Nitrite Ur Leukocyte Esterase Crossmatch Assessment and Plan (1) Anemia: Status: Acute Plan 66-year-old woman admitted with acute blood loss anemia, unknown etiology Acute blood loss anemia, likely from GI source 1 unit packed red blood cells transfused, will recheck H&H and transfuse as necessary HH stable today, no overt bleeding GI consultation rec EGD and colonoscopy to better assess where bleeding is coming from, clears and prep this evening Anemia workup History of seizure disorder Last seizure 2 years ago Continue home medications History of takotsubo cardiomyopathy Continue beta-momo DVT prophylaxis with mechanical compression boots due to acute anemia Attending Dr. Lockett Full code Quality Stroke Does the patient have a stroke diagnosis?: No VTE Prior VTE?: No VTE Risk Level:: Medical - moderate - high VTE Device Contraindication: N/A - Device Ordered VTE Drug Contraindication: Treatment Not Indicated
[2021-11-13 10:46] VITALS: BP 107/64; PULSE 64; RESP 14; TEMP 36.7; O2SAT 98
[2021-11-13 14:52] VITALS: BP 108/64; PULSE 72; RESP 18; TEMP 36.2; O2SAT 100
[2021-11-13] MEDS: PEG 3350/Na Sulf,Bicarb,Cl/KCL 4,000 ML SOLN.RECON 4000 ML PO (14:55)
--- NOTE | 2021-11-13 15:33 | PC.NURSE ---
At 1445, this RN resumed patient's care to overflow bed 7. bed management called and notified.
[2021-11-13] MEDS: ondansetron HCL 4 MG/2 ML VIAL IVPUSH ×2 (17:16→22:16)
--- NOTE | 2021-11-13 19:30 | PC.NURSE ---
Assumed care of pt Pt drinking colon prep Ambulatory to bathroom NAD Will continue to monitor
[2021-11-13] MEDS: Phenytoin Sodium Extended 100 MG CAPSULE 200 MG PO (21:35)
[2021-11-13] MEDS: Aspirin Enteric Coated 81 MG TABLET.DR PO (21:35)
--- NOTE | 2021-11-13 22:30 | PC.NURSE ---
Pt c/o nausea Dr. Brooks made aware. Pt's Qtc = 472. Per Dr. Brooks ok to give next dose of zofran early. Pt medicated per DEC Pt tolerating night meds. Will continue to monitor
--- NOTE | 2021-11-13 23:30 | PC.NURSE ---
Pt finished bowel prep Pt tolerating well Pt ambulated multiple times to bathroom for loose stool NAD Will continue to monitor
[2021-11-14] VITALS (17 sets, daily range): BP systolic 93–156; BP diastolic 47–97; PULSE 68–83; RESP 16–20; TEMP 36.2–37.1; O2SAT 95–100
--- NOTE | 2021-11-14 00:30 | PC.NURSE ---
Pt given bedside commode Pt tolerating well Will continue to monitor
[2021-11-14 06:27] LABS: Glucose, Whole Blood 80 mg/dL (60-115)
--- NOTE | 2021-11-14 06:30 | PC.NURSE ---
Pt woke up feeling dizzy. Pt states feels the same as when she initially came in. Pt feels unsteady on feet. Pt assisted back to hospital bed BG = 80 Dr. Brooks made aware. Per Dr. Brooks, give pt sugars. Clarified that pt is on clear diet for egd/colonoscopy today. Awaiting orders for D50. biometrics technician obtaining orthostatic v/s per MD orders Will continue to monitor
--- NOTE | 2021-11-14 06:43 | PC.NURSE ---
Othostatic blood pressure rt upper arm: supine 124/62, sitting 126/63, Standing 127/69.
[2021-11-14] MEDS: Dextrose 50 % 25 GM/50 ML SYRINGE IVPUSH (06:47)
[2021-11-14 07:13] LABS: Glucose, Whole Blood 201 mg/dL (60-115)
[2021-11-14 07:34] LABS: Estimated Average Glucose 108 mg/dL; Hemoglobin A1c % 5.4 %
--- NOTE | 2021-11-14 08:07 | PC.NURSE ---
Pt received from manager care: Pt AOX4 and states intermittent dizziness jeremy with movement. Pt states the whole room feels like it's spinning. NSR noted and lungs clear. Pt pending EGD/colonscopy today- pt finished all of bowel prep last night. Pt denies any dark tarry stools last night.
--- NOTE | 2021-11-14 09:16 | PC.NURSE ---
Nurse to nurse report given to SHARIF Rodriguez from [facility]. Pending EGD/colonscopy around 1400.
[2021-11-14 09:29] LABS: Hematocrit 29.2 % (37.0-47.0); Hemoglobin 8.8 g/dl (12.0-16.0)
[2021-11-14] MEDS: Phenytoin Chewable 50 MG TAB.CHEW PO (09:36)
[2021-11-14] MEDS: Phenytoin Sodium Extended 100 MG CAPSULE PO (09:36)
--- NOTE | 2021-11-14 11:51 | PC.NURSE ---
Pt still c/o intermittent dizziness. JULY Merino made aware and communication order received to hold coreg.
--- NOTE | 2021-11-14 12:14 | P.PNIM_ITS ---
Subjective Subjective Date of Service: 11/14/21 Review of Systems Follow up anemia, GI Bleed Has dizziness today especially Physical Exam Verdana 4l Vital Signs: Verdana 4d Verdana 4d Vital Signs: Verdana 4d Verdana 4Bd Last Vital Signs Verdana 4d Tax Accountant New 4d Rashawn Estrada 4d Temp 98.4 F 11/14/21 08:07 Tax Accountant New 4d Pulse 76 11/14/21 08:07 Tax Accountant New 4d Resp 16 11/14/21 08:07 BP 112/64 11/14/21 08:07 Pulse Ox 98 11/14/21 08:07 BMI result Body Mass Index 20.2 Appearing in no acute distress lung sounds are clear to auscultation heart regular rate rhythm, clear S1, S2 positive bowel sounds, abdomen is soft, nontender neuro patient is alert x3, no focal deficits Objective Data Active Medications Acetaminophen (Acetaminophen 325 Mg Tablet) 650 mg PO Q6H PRN PRN Reason: Pain, Mild (Pain Scale 1-3) Carvedilol (Carvedilol 6.25 Mg Tablet) 6.25 mg PO BID [facility]; Protocol Last Admin: 11/14/21 09:36 Dose: Not Given Documented by: SANGEETA Non-Admin Reason: Physician Held Med Dextrose (Dextrose 50 % 25 Gm/50 Ml Syringe) 25 gm IVPUSH Q15M PRN; Protocol PRN Reason: per Hypoglycemia Standing Ord. Last Admin: 11/14/21 06:47 Dose: 25 gm Documented by: RALF Glucose (Glucose Gel 15 Gm Gel..Gram.) 15 gm PO Q15M PRN; Protocol PRN Reason: per Hypoglycemia Standing Ord. Pt Own Med ( Clobetasol 0.05% Ointment) 1 each TOPICAL BID [facility] Last Admin: 11/14/21 09:36 Dose: 1 each Documented by: SANGEETA Pt Own Med ( Lamotrigine 250 Mg Tablet Extended Release 24hr) 750 each PO BEDTIME [facility] Last Admin: 11/13/21 21:35 Dose: 750 each Documented by: RALF Ondansetron HCl (Ondansetron Hcl 4 Mg/2 Ml Vial) 4 mg IVPUSH Q8H PRN PRN Reason: Nausea and Vomiting Last Admin: 11/13/21 22:16 Dose: 4 mg Documented by: RALF Pharmacy Consult (Consult Rx Perform Med Rec) 1 each MISCELLANE ONCE PRN PRN Reason: Consult order Pharmacy Consult (Consult Rx Perform Med Rec) 1 each MISCELLANE ONCE PRN PRN Reason: Consult order Phenytoin (Phenytoin Chewable 50 Mg Tab.Chew) 50 mg PO DAILY [facility] Last Admin: 11/14/21 09:36 Dose: 50 mg Documented by: SANGEETA Phenytoin Sodium (Phenytoin Sodium Extended 100 Mg Capsule) 100 mg PO DAILY [facility] Last Admin: 11/14/21 09:36 Dose: 100 mg Documented by: SANGEETA Phenytoin Sodium (Phenytoin Sodium Extended 100 Mg Capsule) 200 mg PO BEDTIME [facility] Last Admin: 11/13/21 21:35 Dose: 200 mg Documented by: RALF Sodium Chloride (0.9 % Sodium Chloride Flush 3 Ml Syringe) 3 ml IVFLUSH QSHIFT [facility] Last Admin: 11/14/21 08:10 Dose: Not Given Documented by: SANGEETA Non-Admin Reason: Med Not Available Labs CBC & Chem 7: 11/14/21 09:23 11/13/21 07:30 Labs: Laboratory Results - last 24 hr 11/12/21 11/14/21 11/14/21 05:09 06:24 06:47 Smear Path Review POC Glucose 80 Estimat Average Glucose 108 Hemoglobin A1c % 5.4 11/14/21 07:10 Smear Path Review POC Glucose 201 H Estimat Average Glucose Hemoglobin A1c % Assessment and Plan (1) Anemia: Status: Acute Plan 66-year-old woman admitted with acute blood loss anemia, unknown etiology Acute blood loss anemia, likely from GI source 1 unit packed red blood cells transfused, will recheck H&H and transfuse as necessary HH stable today, no overt bleeding EGD and colo today Anemia workup Dizziness HH stable, no active bleeding Check orthostatic Brain CT r/o posterior stroke History of seizure disorder Last seizure 2 years ago Continue home medications History of takotsubo cardiomyopathy Continue beta-momo DVT prophylaxis with mechanical compression boots due to acute anemia Attending Dr. Salmon Full code Quality Stroke Does the patient have a stroke diagnosis?: No VTE Prior VTE?: No VTE Risk Level:: Medical - moderate - high VTE Device Contraindication: N/A - Device Ordered VTE Drug Contraindication: Treatment Not Indicated
[2021-11-14 13:11] LABS: Glucose, Whole Blood 66 mg/dL (60-115)
--- NOTE | 2021-11-14 13:27 | PC.NURSE ---
Pt to EGD/colonscopy at [facility] at this time
--- NOTE | 2021-11-14 14:10 | HO.ANESPROP2 ---
HPI - Anesthesia Eval Consult details Narrative: Acute GI bleed PMFSH Active Problems Active Problems: All Active Problems (Updated 11/13/21 @ 10:13 by Disha Merino NP) Anemia (Acute) Anemia (Acute) Microcytic anemia (Acute) Weakness (Acute) Occult blood positive stool (Acute) Contact dermatitis (Acute) Takotsubo cardiomyopathy (Acute) Past Medical History Medical History Seizure Takotsubo cardiomyopathy Family History Family history of problems with anesthesia: No Surgical History History of Problems with Anesthesia: No Social History Social History Alcohol intake: never Patient Tobacco Use Status: Former Tobacco user Use of substances other than those prescribed or required for medical reasons: No Are you DNR?: No Advance Directives: No Advance Directives Information Provided: No Patient : No service: No Current occupational status: employed Meds Allergies Allergy/AdvReac Type Severity Reaction Status Date / Time Penicillins [PENICILLINS] Allergy Unknown UNKNOWN Verified 10/10/21 09:20 Active Medications: Current Medications Acetaminophen (Acetaminophen 325 Mg Tablet) 650 mg PO Q6H PRN PRN Reason: Pain, Mild (Pain Scale 1-3) Carvedilol (Carvedilol 6.25 Mg Tablet) 6.25 mg PO BID [facility]; Protocol Last Admin: 11/14/21 09:36 Dose: Not Given Documented by: Dextrose (Dextrose 50 % 25 Gm/50 Ml Syringe) 25 gm IVPUSH Q15M PRN; Protocol PRN Reason: per Hypoglycemia Standing Ord. Last Admin: 11/14/21 06:47 Dose: 25 gm Documented by: Glucose (Glucose Gel 15 Gm Gel..Gram.) 15 gm PO Q15M PRN; Protocol PRN Reason: per Hypoglycemia Standing Ord. Pt Own Med ( Clobetasol 0.05% Ointment) 1 each TOPICAL BID [facility] Last Admin: 11/14/21 09:36 Dose: 1 each Documented by: Pt Own Med ( Lamotrigine 250 Mg Tablet Extended Release 24hr) 750 each PO BEDTIME [facility] Last Admin: 11/13/21 21:35 Dose: 750 each Documented by: Ondansetron HCl (Ondansetron Hcl 4 Mg/2 Ml Vial) 4 mg IVPUSH Q8H PRN PRN Reason: Nausea and Vomiting Last Admin: 11/13/21 22:16 Dose: 4 mg Documented by: Pharmacy Consult (Consult Rx Perform Med Rec) 1 each MISCELLANE ONCE PRN PRN Reason: Consult order Pharmacy Consult (Consult Rx Perform Med Rec) 1 each MISCELLANE ONCE PRN PRN Reason: Consult order Phenytoin (Phenytoin Chewable 50 Mg Tab.Chew) 50 mg PO DAILY [facility] Last Admin: 11/14/21 09:36 Dose: 50 mg Documented by: Phenytoin Sodium (Phenytoin Sodium Extended 100 Mg Capsule) 100 mg PO DAILY [facility] Last Admin: 11/14/21 09:36 Dose: 100 mg Documented by: Phenytoin Sodium (Phenytoin Sodium Extended 100 Mg Capsule) 200 mg PO BEDTIME [facility] Last Admin: 11/13/21 21:35 Dose: 200 mg Documented by: Sodium Chloride (0.9 % Sodium Chloride Flush 3 Ml Syringe) 3 ml IVFLUSH QSHIFT [facility] Last Admin: 11/14/21 08:10 Dose: Not Given Documented by: Home Medications Medication Instructions Recorded Confirmed Last Taken Type lamotrigine 250 mg tablet,extended 750 mg PO BEDTIME tab 02/15/21 11/12/21 11/11/21 History release 24 hr aspirin 81 mg tablet,delayed 81 mg PO BEDTIME 11/12/21 11/12/21 11/11/21 History release carvedilol 6.25 mg tablet 1 tab PO BID 11/12/21 11/12/21 11/11/21 History clobetasol 0.05 % topical ointment 1 applic TOPICAL BID 11/12/21 11/12/21 Unknown History phenytoin 50 mg chewable tablet 1 tab PO DAILY 11/12/21 11/12/21 11/11/21 History phenytoin sodium extended 100 mg 1 cap PO DAILY 11/12/21 11/12/21 11/11/21 History capsule phenytoin sodium extended 100 mg 2 cap PO BEDTIME 11/12/21 11/12/21 11/11/21 History capsule Exam Exam Date and Time: November 14, 2021 1410 Height,Weight and Vital Signs: Height 5 ft 1 in Weight 48.534 kg Last Vital Signs Temp 98.3 F 11/14/21 13:57 Pulse 83 11/14/21 13:57 Resp 16 11/14/21 13:57 BP 144/69 H 11/14/21 13:57 Pulse Ox 99 11/14/21 13:57 Pertinent Lab Results Pertinent Lab Results: Laboratory Tests 11/12/21 11/12/21 11/12/21 05:09 05:09 05:34 WBC 4.8 RBC 2.96 L Hgb 6.3 L* Hct 21.6 L MCV 73.0 L MCH 21.3 L MCHC 29.2 L RDW 17.1 H Plt Count 281 MPV 9.0 L Immature Gran % (Auto) 0.4 Neut % (Auto) 59.8 Lymph % (Auto) 22.9 [place] % (Auto) 15.7 H Eos % (Auto) 0.8 Baso % (Auto) 0.4 Lymph # (Auto) 1.1 L [place] # (Auto) 0.8 Eos # (Auto) 0.0 Baso # (Auto) 0.0 Abs Immat Gran (auto) 0.02 Absolute Neuts (auto) 2.9 Absolute Nucleated RBC 0.000 Nucleated RBC % (auto) 0.0 Smear Path Review PT INR APTT Sodium 139 Potassium 3.9 Chloride 106 Carbon Dioxide 25 Anion Gap 12 BUN 12 Creatinine 0.71 Estim Creat Clear Calc 60.4 Estimated GFR > 60 POC Glucose Random Glucose 99 Estimat Average Glucose Hemoglobin A1c % Calcium 8.5 Iron TIBC % Saturation Unsat Iron Binding Ferritin Total Bilirubin 0.2 Direct Bilirubin < 0.2 AST 14 ALT 9 Alkaline Phosphatase 76 Total Protein 5.8 L Albumin 3.5 Lipase 16 Vitamin B12 Folate Urine Color Urine Appearance Urine pH Ur Specific [place] Urine Protein Urine Glucose (UA) Urine Ketones Urine Blood Urine Nitrite Ur Leukocyte Esterase COVID-19 (SKY) COVID-19 Clin Com Blood Type O Positive Antibody Screen NEGATIVE Crossmatch See Detail 11/12/21 11/12/21 11/12/21 05:34 08:09 11:07 WBC 5.1 RBC 3.75 L D Hgb 8.7 L D Hct 28.9 L D MCV 77.1 L MCH 23.2 L MCHC 30.1 L RDW 19.4 H Plt Count 276 MPV 9.1 L Immature Gran % (Auto) Neut % (Auto) Lymph % (Auto) [place] % (Auto) Eos % (Auto) Baso % (Auto) Lymph # (Auto) [place] # (Auto) Eos # (Auto) Baso # (Auto) Abs Immat Gran (auto) Absolute Neuts (auto) Absolute Nucleated RBC 0.000 Nucleated RBC % (auto) 0.0 Smear Path Review PT 10.6 INR 0.9 APTT 19.2 L Sodium Potassium Chloride Carbon Dioxide Anion Gap BUN Creatinine Estim Creat Clear Calc Estimated GFR POC Glucose Random Glucose Estimat Average Glucose Hemoglobin A1c % Calcium Iron TIBC % Saturation Unsat Iron Binding Ferritin Total Bilirubin Direct Bilirubin AST ALT Alkaline Phosphatase Total Protein Albumin Lipase Vitamin B12 Folate Urine Color Urine Appearance Urine pH Ur Specific [place] Urine Protein Urine Glucose (UA) Urine Ketones Urine Blood Urine Nitrite Ur Leukocyte Esterase COVID-19 (SKY) Negative COVID-19 Clin Com See Note Blood Type Antibody Screen Crossmatch 11/12/21 11/12/21 11/12/21 11:07 11:07 15:25 WBC RBC Hgb Hct MCV MCH MCHC RDW Plt Count MPV Immature Gran % (Auto) Neut % (Auto) Lymph % (Auto) [place] % (Auto) Eos % (Auto) Baso % (Auto) Lymph # (Auto) [place] # (Auto) Eos # (Auto) Baso # (Auto) Abs Immat Gran (auto) Absolute Neuts (auto) Absolute Nucleated RBC Nucleated RBC % (auto) Smear Path Review PT INR APTT Sodium Potassium Chloride Carbon Dioxide Anion Gap BUN Creatinine Estim Creat Clear Calc Estimated GFR POC Glucose Random Glucose Estimat Average Glucose Hemoglobin A1c % Calcium Iron 55 TIBC 391 % Saturation 14 L Unsat Iron Binding 336 Ferritin 18 Total Bilirubin Direct Bilirubin AST ALT Alkaline Phosphatase Total Protein Albumin Lipase Vitamin B12 > 2000 H Folate 5.0 Urine Color YELLOW Urine Appearance CLEAR Urine pH 6.0 Ur Specific [place] 1.025 Urine Protein NEG Urine Glucose (UA) NEG Urine Ketones NEG Urine Blood NEG Urine Nitrite NEG Ur Leukocyte Esterase NEG COVID-19 (SKY) COVID-19 Clin Com Blood Type Antibody Screen Crossmatch 11/13/21 11/13/21 11/14/21 07:30 07:30 06:24 WBC 4.8 RBC 3.83 L Hgb 8.9 L Hct 29.0 L MCV 75.7 L MCH 23.2 L MCHC 30.7 L RDW 19.7 H Plt Count 278 MPV 9.1 L Immature Gran % (Auto) Neut % (Auto) Lymph % (Auto) [place] % (Auto) Eos % (Auto) Baso % (Auto) Lymph # (Auto) [place] # (Auto) Eos # (Auto) Baso # (Auto) Abs Immat Gran (auto) Absolute Neuts (auto) Absolute Nucleated RBC 0.000 Nucleated RBC % (auto) 0.0 Smear Path Review PT INR APTT Sodium 139 Potassium 4.9 D Chloride 104 Carbon Dioxide 28 Anion Gap 12 BUN 11 Creatinine 0.68 Estim Creat Clear Calc 63.0 Estimated GFR > 60 POC Glucose 80 Random Glucose 89 Estimat Average Glucose Hemoglobin A1c % Calcium 9.1 D Iron TIBC % Saturation Unsat Iron Binding Ferritin Total Bilirubin Direct Bilirubin AST ALT Alkaline Phosphatase Total Protein Albumin Lipase Vitamin B12 Folate Urine Color Urine Appearance Urine pH Ur Specific [place] Urine Protein Urine Glucose (UA) Urine Ketones Urine Blood Urine Nitrite Ur Leukocyte Esterase COVID-19 (SKY) [email or web address] Blood Type Antibody Screen Crossmatch 11/14/21 11/14/21 11/14/21 06:47 07:10 09:23 WBC RBC Hgb 8.8 L Hct 29.2 L MCV MCH MCHC RDW Plt Count MPV Immature Gran % (Auto) Neut % (Auto) Lymph % (Auto) [place] % (Auto) Eos % (Auto) Baso % (Auto) Lymph # (Auto) [place] # (Auto) Eos # (Auto) Baso # (Auto) Abs Immat Gran (auto) Absolute Neuts (auto) Absolute Nucleated RBC Nucleated RBC % (auto) Smear Path Review PT INR APTT Sodium Potassium Chloride Carbon Dioxide Anion Gap BUN Creatinine Estim Creat Clear Calc Estimated GFR POC Glucose 201 H Random Glucose Estimat Average Glucose 108 Hemoglobin A1c % 5.4 Calcium Iron TIBC % Saturation Unsat Iron Binding Ferritin Total Bilirubin Direct Bilirubin AST ALT Alkaline Phosphatase Total Protein Albumin Lipase Vitamin B12 Folate Urine Color Urine Appearance Urine pH Ur Specific [place] Urine Protein Urine Glucose (UA) Urine Ketones Urine Blood Urine Nitrite Ur Leukocyte Esterase COVID-19 (SKY) COVID-19 [place] Blood Type Antibody Screen Crossmatch 11/14/21 12:58 WBC RBC Hgb Hct MCV MCH MCHC RDW Plt Count MPV Immature Gran % (Auto) Neut % (Auto) Lymph % (Auto) [place] % (Auto) Eos % (Auto) Baso % (Auto) Lymph # (Auto) [place] # (Auto) Eos # (Auto) Baso # (Auto) Abs Immat Gran (auto) Absolute Neuts (auto) Absolute Nucleated RBC Nucleated RBC % (auto) Smear Path Review PT INR APTT Sodium Potassium Chloride Carbon Dioxide Anion Gap BUN Creatinine Estim Creat Clear Calc Estimated GFR POC Glucose 66 Random Glucose Estimat Average Glucose Hemoglobin A1c % Calcium Iron TIBC % Saturation Unsat Iron Binding Ferritin Total Bilirubin Direct Bilirubin AST ALT Alkaline Phosphatase Total Protein Albumin Lipase Vitamin B12 Folate Urine Color Urine Appearance Urine pH Ur Specific [place] Urine Protein Urine Glucose (UA) Urine Ketones Urine Blood Urine Nitrite Ur Leukocyte Esterase COVID-19 (SKY) COVID-19 Clin Com Blood Type Antibody Screen Crossmatch Airway Mallampati Class: II TM Dist: >3cm Neck ROM: Full Denture: Upper and Lower Loose/Missing/Broken Teeth: Yes Heart: [id number] Lungs: cta b/l Assessment and Plan Assessment Anesthesia Assessment: Anesthesia Plan Discussed and Chart Reviewed Final Anesthetic Review Family History of Problems with Anesthesia: No History of Problems with Anesthesia: No NPO: Yes ASA Class: III and Emergency Final Preanesthetic Review: No Changes in Pt Med Stat, Meds/Allgs Chart Reviewed and Consent Obtained/Reviewed Patient Risk: Intermediate Procedure Risk: Low Assessment/Block/Sedation in SS: Assess/Block/Sedation-SS Anesthetic Plan Anesthetic Plan: MAC: and Agree w/ Assess. and Plan Disposition: Standard PACU
--- NOTE | 2021-11-14 15:00 | PM.OP ---
Brief Operative Note Date of Service: 11/14/21 Pre-op diagnosis: anemia, heme pos stool Post-op diagnosis: same (gastritis, rectal mass) Procedure: egd, flex sig Surgeon: Barney Lala Anesthesia: MAC Was an Desktop Administrator used for this Procedure?: No Estimated blood loss (mL): 5 Pathology: other (bxs antrum, duodenum, esophagus) Condition: stable Disposition: PACU
--- NOTE | 2021-11-14 15:02 | PM.EVENT ---
Event Note Date of Service: 11/14/21 Event Note: EGD/Flex sig dictated EGD shows dickson esophagitis, gastritis, and normal duodenum Flex sig to 30 cm, unable to proceed further due to poor prep 10 cm apple core mass lesion between 5-15cm with luminal narrowing (80%), biopsied 2 small polyps above the lesion, not removed due to prep. rec gen surg, onc consults, check cea advance diet.
--- NOTE | 2021-11-14 15:48 | PC.NURSE ---
Pt still remains in SSS. Pending CT(head) when back.
[2021-11-14 17:22] LABS: Glucose, Whole Blood 78 mg/dL (60-115)
[2021-11-14 20:38] LABS: Glucose, Whole Blood 124 mg/dL (60-115)
[2021-11-14] MEDS: Phenytoin Sodium Extended 100 MG CAPSULE 200 MG PO (20:49)
--- NOTE | 2021-11-14 20:59 | PC.NURSE ---
pt medicated as per emar. Report given to SHARIF Cooney pt moved to floor in NAD. pt denies complaints. HL flushes easily w/o resistance. site intact.
--- NOTE | 2021-11-14 21:51 | OP_ITS ---
SURGEON: Barney Lala MD INDICATIONS: Iron deficiency anemia and hemoccult-positive stools. PREOPERATIVE DIAGNOSIS: POSTOPERATIVE DIAGNOSIS: PROCEDURE PERFORMED: 1. Upper endoscopy with biopsy. 2. Flexible sigmoidoscopy to 30 cm with biopsy. ESTIMATED BLOOD LOSS: COMPLICATIONS: ANESTHESIA: Medications, monitored anesthesia care. ASSISTANTS: SPECIMENS: DESCRIPTION OF PROCEDURE: History and physical performed. The risks and benefits of the procedure were explained to the patient. Informed consent was obtained. The patient was placed in the left lateral decubitus position. The Olympus video gastroscope was introduced into the esophagus, stomach, and duodenum. Examination was performed. The scope was removed. She was repositioned for colonoscopy. Digital rectal exam was performed and revealed a rectal mass that was circumferential. The Olympus pediatric video colonoscope was introduced into the rectum. The scope was advanced to 30 cm, at which point further advancement was not possible due to the poor prep. Examination was performed, and the scope was removed. She tolerated both procedures well, was returned to the recovery area in stable condition. FINDINGS: Upper endoscopy: 1. Esophagus: The esophagus showed multiple whitish plaques in the upper and mid esophagus. Biopsies were obtained. The appearance was consistent with Lori esophagitis. 2. Stomach: The stomach showed mild erythema scattered throughout the body consistent with gastritis. Biopsies were obtained from the antrum to evaluate for H pylori. 3. Duodenum: The bulb and second portion were normal. The random duodenal biopsies were obtained. Colonoscopy: There was a circumferential rectal mass with ulceration extending from 5 to 15 cm. There was luminal narrowing, although the scope was able to pass through this. The prep was extremely poor, and there was a large amount of formed and liquid stool, which was tediously washed and suctioned, but could not clear the colon to allow for further examination. Two polyps were identified, 1 at about 30 cm, which was only partially seen due to the poor prep and the 2nd at about 12 cm just above the rectal lesion. Neither were removed due to the quality of the prep. Retroflexed examination showed internal hemorrhoids. The colonic lumen was narrowed approximately to 20% of its normal diameter. IMPRESSION: 1. Gastritis. 2. Rectal mass. RECOMMENDATIONS: Follow up the biopsy results. MD WENDY Reyes/MARIANOL / [id number]
[2021-11-14] MEDS: 0.9 % Sodium Chloride Flush 3 ML SYRINGE IVFLUSH (22:56)
[2021-11-15 03:39] VITALS: BP 119/54; PULSE 77; RESP 17; TEMP 36.7; O2SAT 98
[2021-11-15 05:42] LABS: Hematocrit 30.3 % (37.0-47.0); Hemoglobin 9.2 g/dl (12.0-16.0); Mean Corpuscular HGB Conc 30.4 g/dl (31.0-35.0); Mean Corpuscular Hemoglobin 23.2 pg (27.0-33.0); Mean Corpuscular Volume 76.3 fL (80.0-98.0); Mean Platelet Volume 8.7 fL (9.4-12.3); Platelet Count 288 X10*3/uL (160-400); Red Blood Count 3.97 X10*6/uL (4.20-5.50); Red Cell Distribution Width 20.2 % (11.0-16.0); White Blood Count 5.5 X10*3/uL (4.8-10.8)
[2021-11-15 06:02] LABS: Anion Gap 16 (12-20); Blood Urea Nitrogen 11 mg/dL (9-16); Calcium 9.3 mg/dL (8.4-10.2); Carbon Dioxide 28 mmol/L (22-29); Chloride 101 mmol/L (96-108); Creatinine Clr Calc Pharmacy 61.2; Estimated Glomerular Filt Rate > 60; Glucose Random 99 mg/dL (60-115); Potassium 4.5 mmol/L (3.3-5.1); Sodium 140 mmol/L (135-145)
[2021-11-15 07:11] VITALS: BP 124/62; PULSE 79; RESP 20; TEMP 36.6; O2SAT 97
[2021-11-15 07:43] LABS: Glucose, Whole Blood 83 mg/dL (60-115)
--- NOTE | 2021-11-15 07:52 | P.CONGS_ITS ---
History of Present Illness Consult details Consult date: 11/15/21 Requesting physician: Barney Lala Narrative: 66-year-old female patient admitted to the hospice service after presenting to the emergency department with dizziness which began approximately 2 weeks prior to admission. He reports in dizziness occurring loosely in the morning when getting out of bed. She reports a history of seizures which have been treated [facility]. She subsequently presented to the emergency department for further evaluation. She denies abdominal pain but did have nausea and vomiting with a. The he reports moving her bowels on a daily basis but is unclear if this was been bloody. Upon presentation to emergency department she was noted to have extremely low blood count of 6.3/20.6. she underwent EGD and colonoscopy yesterday with Dr. Lala with findings of a circumferential rectal mass between 5 and 15 cm. Biopsies were obtained. The appearance is suggestive of a rectal carcinoma. Review of Systems Review of Systems: Yes all other systems are reviewed and are negative Constitutional: Constitutional: Denies chills, Denies fever(s), Denies headache(s), Denies poor appetite and Reports weakness ENT: Reports dizziness and Denies headache(s) Cardiovascular: Cardiovascular: Denies chest pain, Denies rapid heart rate, Denies palpitations and Denies slow heart rate Respiratory: Respiratory: Denies chest congestion, Denies cough, Denies pain on inspiration and Denies wheezing Gastrointestinal: Gastrointestinal: Denies abdominal pain, Denies bloating, Reports change in stool character, Denies constipation, Denies diarrhea, Reports nausea, Reports vomiting and Denies hematemesis Musculoskeletal: Musculoskeletal: Denies back pain, Denies arthralgias, Denies joint swelling and Denies numbness Integumentary/Breasts: Skin/Breast: Denies change in pigmentation, Denies erythema and Denies rash Neurologic: Reports dizziness, Denies headache(s), Denies numbness and Reports weakness Psychiatric: Psychiatric: Denies anxiety and Denies depression Endocrine: Endocrine: Denies palpitations Hematologic/Lymphatic: Hematologic/Lymphatic: Denies easy bleeding, Denies easy bruising and Denies lymphadenopathy Allergic/Immunologic: Allergic/Immunologic: Denies wheezing PMFSH Past Medical History Medical History Seizure Takotsubo cardiomyopathy Social History Social History Household Members: Spouse Housing: House Alcohol intake: never Patient Tobacco Use Status: Former Tobacco user service: No Current occupational status: employed Meds Allergies Allergy/AdvReac Type Severity Reaction Status Date / Time Penicillins [PENICILLINS] Allergy Unknown UNKNOWN Verified 10/10/21 09:20 Active Medications: Current Medications Acetaminophen (Acetaminophen 325 Mg Tablet) 650 mg PO Q6H PRN PRN Reason: Pain, Mild (Pain Scale 1-3) Acetaminophen (Acetaminophen 325 Mg Tablet) 650 mg PO ONCE PRN PRN Reason: Pain, Mild (Pain Scale 1-3) Carvedilol (Carvedilol 6.25 Mg Tablet) 6.25 mg PO BID [facility]; Protocol Last Admin: 11/14/21 20:45 Dose: Not Given Documented by: Dextrose (Dextrose 50 % 25 Gm/50 Ml Syringe) 25 gm IVPUSH Q15M PRN; Protocol PRN Reason: per Hypoglycemia Standing Ord. Last Admin: 11/14/21 06:47 Dose: 25 gm Documented by: Glucose (Glucose Gel 15 Gm Gel..Gram.) 15 gm PO Q15M PRN; Protocol PRN Reason: per Hypoglycemia Standing Ord. Pt Own Med ( Clobetasol 0.05% Ointment) 1 each TOPICAL BID [facility] Last Admin: 11/14/21 21:01 Dose: Not Given Documented by: Pt Own Med ( Lamotrigine 250 Mg Tablet Extended Release 24hr) 750 each PO BEDTIME [facility] Last Admin: 11/14/21 20:53 Dose: 750 each Documented by: Ondansetron HCl (Ondansetron Hcl 4 Mg/2 Ml Vial) 4 mg IVPUSH Q8H PRN PRN Reason: Nausea and Vomiting Last Admin: 11/13/21 22:16 Dose: 4 mg Documented by: Ondansetron HCl (Ondansetron Hcl 4 Mg/2 Ml Vial) 4 mg IVPUSH ONCE PRN PRN Reason: Nausea and Vomiting Pharmacy Consult (Consult Rx Perform Med Rec) 1 each MISCELLANE ONCE PRN PRN Reason: Consult order Pharmacy Consult (Consult Rx Perform Med Rec) 1 each MISCELLANE ONCE PRN PRN Reason: Consult order Phenytoin (Phenytoin Chewable 50 Mg Tab.Chew) 50 mg PO DAILY [facility] Last Admin: 11/14/21 09:36 Dose: 50 mg Documented by: Phenytoin Sodium (Phenytoin Sodium Extended 100 Mg Capsule) 100 mg PO DAILY [facility] Last Admin: 11/14/21 09:36 Dose: 100 mg Documented by: Phenytoin Sodium (Phenytoin Sodium Extended 100 Mg Capsule) 200 mg PO BEDTIME S Last Admin: 11/14/21 20:49 Dose: 200 mg Documented by: Sodium Chloride (0.9 % Sodium Chloride Flush 3 Ml Syringe) 3 ml IVFLUSH QSHIFT [facility] Last Admin: 11/14/21 22:56 Dose: 3 ml Documented by: Home Medications Medication Instructions Recorded Confirmed Last Taken Type lamotrigine 250 mg tablet,extended 750 mg PO BEDTIME tab 02/15/21 11/12/21 11/11/21 History release 24 hr aspirin 81 mg tablet,delayed 81 mg PO BEDTIME 11/12/21 11/12/21 11/11/21 History release carvedilol 6.25 mg tablet 1 tab PO BID 11/12/21 11/12/21 11/11/21 History clobetasol 0.05 % topical ointment 1 applic TOPICAL BID 11/12/21 11/12/21 Unknown History phenytoin 50 mg chewable tablet 1 tab PO DAILY 11/12/21 11/12/21 11/11/21 Histo ry phenytoin sodium extended 100 mg 1 cap PO DAILY 11/12/21 11/12/21 11/11/21 History capsule phenytoin sodium extended 100 mg 2 cap PO BEDTIME 11/12/21 11/12/21 11/11/21 History capsule Physical Exam Vital Signs: Vital Signs: Last Vital Signs Temp 97.8 F 11/15/21 07:11 Pulse 79 11/15/21 07:11 Resp 20 11/15/21 07:11 BP 124/62 11/15/21 07:11 Pulse Ox 97 11/15/21 07:11 BMI result Body Mass Index 20.2 Const: General: cooperative, comfortable and well developed Nutritional Appearance: well nourished Orientation/consciousness: patient oriented x3 HENMT: Head: Yes normocephalic and Yes atraumatic Ears: hearing grossly normal bilaterally Eyes: Sclerae: sclerae normal EOM: EOMs intact bilaterally Neck: Neck: Yes normal visual inspection Resp: Effort & Inspection: normal respiratory effort, no cough, no respiratory distress and no stridor Cardio: Jugular venous distension: no JVD GI: Inspection: Yes normal to inspection Palpation (GI): Soft to palpation, nontender, no guarding, not rigid and no masses Percussion: Yes normal to percussion Auscultation: normal bowel sounds Rectal Exam - Female: deferred Skin: General skin exam: dry skin Rashes: no rashes Neuro: General: patient oriented x3 and no focal motor deficits Extrem: General: Yes full ROM and Yes no clubbing, cyanosis or edema Psych: Appearance: grossly normal Results Labs Result diagrams: 11/15/21 05:31 11/15/21 05:31 Labs: Abnormal lab results 11/14/21 11/14/21 11/15/21 Range/Units 09:23 20:18 05:31 RBC 3.97 L (4.20-5.50) X10*6/uL Hgb 8.8 L 9.2 L (12.0-16.0) g/dl Hct 29.2 L 30.3 L (37.0-47.0) % MCV 76.3 L (80.0-98.0) fL MCH 23.2 L (27.0-33.0) pg MCHC 30.4 L (31.0-35.0) g/dl RDW 20.2 H (11.0-16.0) % MPV 8.7 L (9.4-12.3) fL POC Glucose 124 H (60-115) mg/dL Short CBC 11/14/21 11/15/21 Range/Units 09:23 05:31 WBC 5.5 (4.8-10.8) X10*3/uL Hgb 8.8 L 9.2 L (12.0-16.0) g/dl Hct 29.2 L 30.3 L (37.0-47.0) % Plt Count 288 (160-400) X10*3/uL BMP 11/15/21 05:31 Sodium 140 Potassium 4.5 Chloride 101 Carbon Dioxide 28 BUN 11 Creatinine 0.70 Calcium 9.3 Urine 11/12/21 Range/Units 15:25 Urine Color YELLOW Urine Appearance CLEAR Urine pH 6.0 (5.0-8.0) Ur Specific [place] 1.025 (1.005-1.025) Urine Protein NEG (NEG-TRACE) MG/DL Urine Glucose (UA) NEG (NEG) MG/DL All other labs normal. Assessment and Plan (1) Occult blood positive stool: Status: Acute (2) Rectal mass: Status: Acute Plan 66-year-old female patient presenting with weakness and severe anemia found to have guaiac-positive stool. 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 Pathology results are pending. If pathology is positive for rectal cancer, recommend a metastatic workup including CT abdomen and pelvis as well as possible MRI to evaluate extent of disease. Oncology consultation for possible neoadjuvant treatment. Will follow along with you during this hospitalization and as an outpatient upon discharge. Procedures Date of Service Date of Service: 11/15/21
[2021-11-15] MEDS: Phenytoin Chewable 50 MG TAB.CHEW PO (07:57)
[2021-11-15] MEDS: Phenytoin Sodium Extended 100 MG CAPSULE PO (07:57)
[2021-11-15] MEDS: carvediloL 6.25 MG TABLET PO (07:58)
[2021-11-15] MEDS: Fluconazole 100 MG TABLET 400 MG PO (08:22)
[2021-11-15] MEDS: 0.9 % Sodium Chloride Flush 3 ML SYRINGE IVFLUSH (08:23)
--- NOTE | 2021-11-15 08:27 | HO.POSTANES ---
Post Anesthesia Evaluation Post Anesthesia Evaluation Vital Signs: Vital Signs Temp Pulse Resp BP Pulse Ox 11/15/21 07:11 97.8 F 79 20 124/62 97 11/15/21 03:39 98.1 F 77 17 119/54 L 98 11/14/21 23:26 98.2 F 76 18 106/53 L 98 11/14/21 21:04 98.7 F 72 18 120/63 99 Anesthesia: Monitored Mental Status: Awake Pain Control: Satisfactory Nausea/Vomiting: None Hydration: Adequate Anesthesia-Related Issues: No Anes. Related Issues
[2021-11-15 11:42] LABS: Glucose, Whole Blood 92 mg/dL (60-115)
[2021-11-15 11:44] VITALS: BP 116/67; PULSE 74; RESP 18; TEMP 36.8; O2SAT 98
--- NOTE | 2021-11-15 13:45 | PM.DS ---
DS: Providers Provider Date of Service: 11/15/21 Date of admission: 11/12/21 08:40 Primary care physician: Vaughn Mahmood MD Consults: 11/12/21 10:22 Consult to Gastroenterology Routine Consulting Provider: Barney Lala Reason for consultation: anemia, ? gi bleed Has provider been notified: No 11/14/21 15:21 Consult to General Surgery Routine Consulting Provider: [facility] [place] General Surgeons Reason for consultation: rectal mass Consult to Hematology / Oncology Routine Consulting Provider: [facility] [place] Oncology/Hematology Reason for consultation: rectal mass Has provider been notified: No Attending physician on discharge: Uriel Salmon Discharging clinician: Disha Merino DS: Diagnosis Discharge Diagnosis (1) Occult blood positive stool: Status: Acute (2) Rectal mass: Status: Acute (3) Lori esophagitis: Status: Acute (4) Microcytic anemia: Status: Acute DS: Summary Hospital Course Hospital Course: 66-year-old woman presenting to the ER with complaints of dizziness.? She reported her symptoms started approximately 2 weeks ago where she would get up from bed and feel very unsteady and feeling as though the room was spinning.? She denied any history of this in the past.? She went to see her primary care provider 2 days ago and was prescribed meclizine.? She did report that she took 1 pill but had not seen any significant difference.? She reported that prior to arrival to the emergency department she had gotten up and almost fell however her was there and caught her.? She subsequently came to the ER for further management.? She denied chest pain, shortness of breath.? She did report an episode of vomiting.? She did not notice any blood or dark emesis or stool for that matter.? She reported that she has not had a colonoscopy previously.? In the ER her blood counts were noted to be significantly 6.3/20.6.? All of her other labs are within acceptable limits, blood pressure was also noted to be stable.? She was given a unit of packed red blood cells and some IV fluids.? She will be admitted for further management and treatment of acute blood loss anemia. Acute blood loss anemia, from GI source. Bladder mass noted on colonoscopy, General surgery and oncology aware and will follow up with pathology as outpatient. while inpatient she was tx 1 unit packed red blood cells transfused. Hemoglobin and hematocrit remained stable Dizziness likely from anemia and blood loss. Brain CT neg for acute abnormality, orthostatics negative. Resolved. History of seizure disorder, no seizure during hospitalization. Time Spent with Patient Time attestation: Total time spent providing and/or coordinating discharge services: Discharge coordination time: Greater than 30 minutes Quality: Stroke Does the patient have a stroke diagnosis?: No Physical Exam Vital Signs: Vital Signs: Last Vital Signs Temp 98.3 F 11/15/21 11:44 Pulse 74 11/15/21 11:44 Resp 18 11/15/21 11:44 BP 116/67 11/15/21 11:44 Pulse Ox 98 11/15/21 11:44 BMI result Body Mass Index 20.2 Appearing in no acute distress head is normocephalic atraumatic eyes pupils are PERRLA sclera is anicteric mouth throat mucous membranes are intact and moist neck is supple no lymphadenopathy, no JVD noted lung sounds are clear to auscultation heart regular rate rhythm, clear S1, S2 positive bowel sounds, abdomen is soft, nontender neuro patient is alert x3, no focal deficits DS: Data Data Completed and Pending Pending studies at discharge: Pending at discharge 11/14/21 14:30 Surgical [PTH] Routine Labs on day of discharge: Laboratory Results - last 24 hr 11/14/21 11/14/21 11/15/21 17:11 20:18 05:31 WBC 5.5 RBC 3.97 L Hgb 9.2 L Hct 30.3 L MCV 76.3 L MCH 23.2 L MCHC 30.4 L RDW 20.2 H Plt Count 288 MPV 8.7 L Absolute Nucleated RBC 0.000 Nucleated RBC % (auto) 0.0 Sodium Potassium Chloride Carbon Dioxide Anion Gap BUN Creatinine Estim Creat Clear Calc Estimated GFR POC Glucose 78 124 H Random Glucose Calcium 11/15/21 11/15/21 11/15/21 05:31 07:38 11:38 WBC RBC Hgb Hct MCV MCH MCHC RDW Plt Count MPV Absolute Nucleated RBC Nucleated RBC % (auto) Sodium 140 Potassium 4.5 Chloride 101 Carbon Dioxide 28 Anion Gap 16 BUN 11 Creatinine 0.70 Estim Creat Clear Calc 61.2 Estimated GFR > 60 POC Glucose 83 92 Random Glucose 99 Calcium 9.3 Discharge Plan Discharge Anticipated Discharge Date/Time: 11/15/21 15:00 Patient Disposition: Home, Self-Care Discharge Diagnosis: Anemia GI bleed Colon mass Lori esophagitis Referrals: Giovanna Lockwood MD [Physician] - 1 Week Eduardo English MD [Physician] - 1 Week Vaughn Mahmood MD [Primary Care Provider] - 1 Week Discharge Medications: New fluconazole 100 mg Tablet 200 mg PO DAILY 13 Days Qty: 26 0RF Continued phenytoin sodium extended 100 mg capsule 2 cap PO BEDTIME 0RF clobetasol 0.05 % ointment 1 applic topical BID 0RF phenytoin 50 mg tablet,chewable 1 tab PO DAILY 0RF carvedilol 6.25 mg tablet 1 tab PO BID 0RF phenytoin sodium extended 100 mg capsule 1 cap PO DAILY 0RF aspirin 81 mg tablet,delayed release (DR/EC) 81 mg PO BEDTIME 0RF lamotrigine 250 mg tablet extended release 24hr 750 mg PO BEDTIME 0RF Discharge Orders: Discharge Order (Routine); Ordered 11/15/21 Ordered By: Disha Merino Diet: advance to usual diet Activity on Discharge: As tolerated Stand Alone Forms: Patient Portal Discharge page Care Plan Goals: Follow up for continued necessary treatment Health Concerns: Anemia GI bleed Colon mass Lori esophagitis Plan of Treatment: Follow up with oncology for pathology results Follow up with general surgery for any needed procedures Assessment: See discharge summary
[2021-11-15 14:08] LABS: Lactate Dehydrogenase 228 U/L (122-220)
--- NOTE | 2021-11-15 14:39 | MHC.CM.PN ---
ELECTRONIC MEDICAL RECORD REVIEWED AND CASE DISUCSSED ON MULTIPLE DISCIPLIANRY ROUNDS PATIENT WILL BE DISCHARGED HOME TODAY WITH NO SERVICES DISCHARGE PLAN HOME NO SERVICES PCP PATIENT TO [facility] follow up ' transportation family
[2021-11-15] MEDS: iohexoL 350 MG/ML 100 ML INFUS..BTL 85 ML IV (14:59)
[2021-11-15 15:36] VITALS: BP 137/69; PULSE 66; RESP 18; TEMP 36.8; O2SAT 100
[2021-11-15 15:53] LABS: Glucose, Whole Blood 111 mg/dL (60-115)
[2021-11-15] MEDS: iohexoL 350 MG/ML 100 ML INFUS..BTL IV (16:04)
== END 2021-11-15 16:25 | disposition home or self-care (01) | DRG 393 ==
LOC: HO.ED 07:52 → HO.EDOVER 09:06 → HO.S3 11-14 19:02
PROVIDERS: Hospitalist; Internal Medicine; Internal Medicine Gastroenterology; Admitting Provider Nurse Practitioner Acute Care; Emergency Provider Emergency Medicine Emergency Medical Services; PCP Internal Medicine; Visit Provider Nurse Practitioner Acute Care
PROC: 0DB98ZX Excision of Duodenum, Via Natural or Artificial Opening Endoscopic, Diagnostic (ICD-10-PCS; principal; 2021-11-14 14:00)
DX: K62.89 Other specified diseases of anus and rectum (principal); K29.71 Gastritis, unspecified, with bleeding; D62 Acute posthemorrhagic anemia; I51.81 Takotsubo syndrome; B37.81 Candidal esophagitis; G40.909 Epilepsy, unspecified, not intractable, without status epilepticus; Z20.822 Contact with and (suspected) exposure to COVID-19; Z86.79 Personal history of other diseases of the circulatory system; Z88.0 Allergy status to penicillin; Z79.82 Long term (current) use of aspirin; Z79.899 Other long term (current) drug therapy
CPT/HCPCS: 36415; 36430; 70450; 71045; 74177; 80048; 80076; 81003; 82378; 82607; 82728; 82746; 82947; 83036; 83540; 83615; 83690; 85014; 85018; 85025; 85027; 85610; 85730; 86850; 86900; 86901; 86923; 87635; 88305; 88312; 88341; 88342; 93005; 99285; 99291; J2405; P9016; Q9967

== ENCOUNTER 2021-11-16 04:08 | Inpatient (IN) | payer OTHER, SELFPAY ==
[2021-11-16] VITALS (8 sets, daily range): BP systolic 97–147; BP diastolic 46–71; PULSE 61–67; RESP 16–20; TEMP 36.3–37.1; O2SAT 97–100; BMI 20.8
--- NOTE | ~2021-11-16 | MR_ITS ---
EXAMINATION: MR PELVIS WITHOUT AND WITH CONTRAST CLINICAL INFORMATION: Rectal cancer COMPARISON: Previous CT 11/17/2021 TECHNIQUE: Sagittal axial and coronal sequences through the pelvis with and without contrast. Patient received 10 mL intravenous gadolinium contrast. FINDINGS: Exam is somewhat limited. Axial T2 without fat saturation and diffusion weighted sequences were not performed. There is abnormal circumferential wall thickening of the midrectum. This extends over a length of 7 cm. The most inferior margin is 3 cm above internal sphincter. This demonstrates abnormal increased signal on T2 weighted sequences and enhancement suggestive of transmural wall involvement. There is also abnormal signal and enhancement seen in the adjacent perirectal fat. There are enlarged perirectal lymph nodes. Largest lymph node measures 1.3 cm along the right side of the rectum. Findings are suggestive of a stage TIII C lesion based on the available sequences. Follow-up axial T2 without fat saturation and diffusion weighted sequences is recommended. There is stool in the colon suggestive of constipation. The patient's known sigmoid colon cancer is not well appreciated. No ascites is seen. No hernia is seen. The bladder is normal. The uterus and adnexa appear unremarkable. There are small bilateral inguinal lymph nodes. There are degenerative changes of the lower lumbar spine. No fracture or suspicious bone lesion is seen. MR/MR pelvis wo/w con IMPRESSION: Circumferential wall thickening of the mid rectum with abnormal signal and enhancement and abnormal signal in the surrounding perirectal fat. Abnormal enlarged perirectal lymph nodes. Based on the available sequences this is suggestive of a stage T3C lesion. Additional axial T2 weighted sequences without fat saturation and diffusion weighted sequences is recommended. Addendum will be made when these images are available.
--- NOTE | ~2021-11-16 | CT_ITS ---
EXAMINATION: CT ABDOMEN AND PELVIS WITH CONTRAST CLINICAL INFORMATION: Abdominal mass COMPARISON: CT scan and pelvis November, TECHNIQUE: Multidetector volumetric images were obtained from the superior aspect of the liver through the pubic symphysis following administration 85 mL of Omnipaque 350 intravenous contrast. Sagittal and coronal reformatted images were obtained on the technologist's workstation. Oral contrast: Was administered This CT examination was performed using dose optimization techniques as appropriate, variously including the following: *Automated exposure control *Adjustment of mA and/or kV according to patient size (this includes techniques or standardized protocols for targeted exams where dose is matched to indication/reason for exam; i.e. extremities or head) *Use of iterative reconstruction technique DLP: 214 mGy-cm FINDINGS: LUNG BASES: Normal aeration of lung bases. Heart size normal. Large volume of coronary artery calcification. No pericardial effusion. LIVER, GALLBLADDER, AND BILIARY TREE: There are 2 adjacent approximately 4 to 6 mm hypodensities in the anterior left lobe liver segment 4 adjacent to the ligamentum teres. Axial image 184/651 series 4, coronal image 12/74 series 7.. No intrahepatic bile duct dilatation. The gallbladder is unremarkable with no evidence of radiopaque gallstones, gallbladder wall thickening, or obvious pericholecystic inflammatory changes. PANCREAS: Unremarkable. SPLEEN: Unremarkable. ADRENAL GLANDS: Unremarkable. KIDNEYS AND URETERS: The kidneys are normal in size, shape, and attenuation. No hydronephrosis, hydroureter, or calculi seen. No perinephric stranding. BLADDER: Unremarkable. GASTROINTESTINAL TRACT: Redemonstration of the irregular thickening of the distal sigmoid colon over length of at least 7 cm. This is similar to prior CAT scan 11/12/2021. Finding remains concerning for malignancy. Consider direct visualization. Large volume of stool in the colon. No abnormally dilated bowel loop. Small bowel loops are normal. ABDOMINAL WALL: No significant hernia is appreciated. LYMPH NODES: Normal. VASCULAR: Vascular calcifications of aorta and iliac arteries. There is no aneurysm. PELVIC VISCERA: Unremarkable. OSSEOUS STRUCTURES: Marked degenerative spondylosis of the spine. Moderate degenerative joint disease of hips bilateral. CT/CT abdomen pelvis w con IMPRESSION: 1. Redemonstration of irregular thickening of the distal sigmoid colon. This is concerning for malignancy. Consider direct visualization. 2. 2 small hypodensities in left lobe of liver. These can be further characterized with dynamic MRI imaging. Fleischner guidelines were followed.
--- NOTE | ~2021-11-16 | CT_ITS ---
EXAMINATION: CT HEAD WITHOUT CONTRAST (STROKE PROTOCOL) CLINICAL INFORMATION: Stroke protocol. Dizziness, right upper extremity ataxia COMPARISON: 11/14/2021 TECHNIQUE: Contiguous axial imaging was performed from the skull base to vertex without intravenous administration of contrast. This CT examination was performed using dose optimization techniques as appropriate, variously including the following: *Automated exposure control *Adjustment of mA and/or kV according to patient size (this includes techniques or standardized protocols for targeted exams where dose is matched to indication/reason for exam; i.e. extremities or head) *Use of iterative reconstruction technique DLP: 631 mGy-cm FINDINGS: Redemonstrated postoperative changes from left frontoparietal craniotomy. Stable appearance of infarct in the inferior left frontal lobe with ex vacuo dilatation of the adjacent lateral ventricle. Surgical clips and embolization material redemonstrated in the left middle cranial fossa in keeping with history of clipping and coiling of a giant left MCA bifurcation aneurysm, with resultant streak artifact limiting assessment of the surrounding structures. There is no appreciable acute intracranial hemorrhage, hematoma, or extra-axial fluid collection. There is no acute hydrocephalus, edema, or mass effect. The simmons-white matter differentiation appears symmetric. There is no appreciable acute infarct or mass lesion. There is mild periventricular white matter hypoattenuation consistent with chronic small vessel ischemic disease. There is no pneumocephalus or orbital emphysema. Partially opacified left maxillary sinus. The mastoid air cells are well-aerated. CT/CT head for stroke IMPRESSION: No acute intracranial pathology identified. 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 This stroke protocol result was discussed with Dr. Pickett on 11/16/2021 6:28 AM.
--- NOTE | ~2021-11-16 | MR_ITS ---
EXAMINATION: MRI ABDOMEN WITH AND WITHOUT CONTRAST CLINICAL INFORMATION: RECTAL MASS AND Liver lesions COMPARISON: 11/17/2019 CT scan TECHNIQUE: Multiple routine MRI sequences through the abdomen were obtained on a high-field 1.5Tesla MRI. Pre-and postcontrast images with 5 mL of Gadavist intravenous contrast were obtained. This included a dynamic contrast-enhanced technique. FINDINGS: Visualized lung bases are unremarkable. Specific attention was given to the liver. Along the anterior subcapsular aspect of segment 4 and segment 2 of the liver there are tiny subcentimeter T2 bright nonenhancing cysts identified. Tiny 5 mm T2 bright nonenhancing cyst abutting the right hepatic vein in segment 7 of the liver noted as well. There is also a tiny well-demarcated T2 bright enhancing subcapsular 0.8 cm hemangioma in the lateral left lobe the liver near the junction of segments 2 and 3 there is an additional subtle T2 bright enhancing 5 mm probable hemangioma in the medial aspect of the right lobe the liver segment 7. I do not appreciate any suspicious hepatic lesions otherwise. No biliary ductal dilatation. Gallbladder is unremarkable. Normal appearance to the pancreas with the incidental duodenal diverticulum in the region the ectatic head/ampulla. Negative spleen. Negative kidneys and adrenals. Degenerative changes in the spine. MR/MR abdomen wo/w con IMPRESSION: There are small subcentimeter T2 bright nonenhancing cysts within the liver parenchyma as well as 2 small subcentimeter T2 bright enhancing small hemangiomas. I do not appreciate any suspicious hepatic lesions.
--- NOTE | ~2021-11-16 | CT_ITS ---
EXAMINATION: CTA NECK WITH CONTRAST (STROKE) CTA BRAIN WITH CONTRAST (STROKE) CLINICAL INFORMATION: Dizziness, right upper extremity ataxia COMPARISON: 08/01/2017 TECHNIQUE: Test bolus sequences followed by intravenous administration 70 mL of Omnipaque 350. Helical imaging was performed in the axial plane from the thoracic inlet to the skull vertex. Delayed postcontrast imaging of the head was also performed. The data was processed at the anesthesiology technologist's workstation for generation of MIP sequences. Angled MIPs and volume rendered reformatted images were also generated at an offline 3D workstation. Stenoses are assessed in accordance with NASCET criteria unless otherwise indicated. DOSE LOWERING TECHNIQUES: This CT examination was performed using dose optimization techniques as appropriate, variously including the following: - Automated exposure control - Adjustment of mA and/or kV according to patient size (this includes techniques or standardized protocols for targeted exams were dose is matched to indication/reason for exam; i.e. extremities or head) - Use of iterative reconstruction technique DLP: 1463 mGy-cm FINDINGS: Neck CTA: There is a classic 3 vessel branching pattern of the aortic arch. There are calcifications at the origins of the great vessels, without appreciable significant stenosis. Both vertebral arteries are widely patent throughout their extracranial cervical course. Calcifications are noted at the bilateral common carotid artery bifurcations, left greater than right, with mild to moderate narrowing on the left and no significant stenosis on the right. Cervical portions of the internal carotid arteries are otherwise widely patent. Normal appearance of the common and internal carotid arteries without focal stenosis. Brain CTA: Normal appearance of the intradural vertebral arteries. Normal appearance of the basilar and superior cerebellar arteries. Bilateral posterior cerebral arteries appear well-opacified. Normal appearance of the intradural internal carotid arteries without focal stenosis. 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 Resultant streak artifact limits assessment of the vessels in this region. Otherwise, the bilateral MCA vasculature appears patent without appreciable occlusion. Normal appearance of the anterior arteries without focal occlusion or stenosis. Normal anterior communicating artery. CT Head: No intracranial mass, hemorrhage, extra-axial collection, or midline shift. Redemonstrated postoperative changes from left frontoparietal craniotomy. Redemonstrated chronic infarct in the inferior left frontal lobe with ex vacuo dilatation of the adjacent lateral ventricle. Streak artifact from postprocedural coiling material in the left middle cranial fossa limits assessment of the surrounding structures. The simmons-white matter differentiation is otherwise preserved. No pathologic intra-axial enhancement or regional oligemia. No hydrocephalus. Layering fluid noted in the left maxillary sinus. CT Neck: The thyroid gland and remaining cervical soft tissues are normal in appearance. Degenerative changes noted in the mid cervical spine. Upper Chest: Lung apices demonstrate emphysema and scarring. 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 Resultant streak artifact limits assessment of the vessels in this region. Otherwise, no occlusion or significant stenosis is identified. This stroke protocol result was discussed with Dr. Pickett on 11/16/2021 6:59 AM.
--- NOTE | ~2021-11-16 | CT_ITS ---
EXAMINATION: CT HEAD WITHOUT CONTRAST CLINICAL INFORMATION: Transient ischemic attack. COMPARISON: CT head from 11/16/2021. TECHNIQUE: Contiguous axial imaging was performed from the skull base to vertex without intravenous administration of contrast. This CT examination was performed using dose optimization techniques as appropriate, variously including the following: *Automated exposure control. *Adjustment of mA and/or kV according to patient size (this includes techniques or standardized protocols for targeted exams where dose is matched to indication/reason for exam; i.e. extremities or head). *Use of iterative reconstruction technique. DLP: 999 mGy-cm FINDINGS: Changes of prior left pterional craniotomy for treatment of a left MCA aneurysm. Metallic coil embolization material and surgical clips are noted in the region of the M1-M2 junction of the left MCA. Chronic encephalomalacia and gliosis of the left anterior frontal lobe, anterior temporal lobe, left insula, and left-sided caudate/lentiform nuclei. No evidence of acute intracranial hemorrhage or edematous territorial infarction. A few foci of hypoattenuation in the periventricular and deep white matter are consistent with mild microangiopathy. No new loss of simmons-white matter differentiation. Ex vacuo dilatation of the left lateral ventricle. Otherwise are proportional prominence of the ventricles and sulcal spaces. No evidence for obstructive hydrocephalus. No abnormal mass effect or midline shift. No extra-axial fluid collections. No acute soft tissue or osseous abnormalities. Mild mucosal thickening of the paranasal sinuses. Small volume layering fluid within the left maxillary sinus. The mastoid air cells and middle ear cavities are clear. Moderate degenerative arthropathy of the left temporomandibular joint. CT/CT head/brain wo con IMPRESSION: 1. No evidence of acute intracranial hemorrhage or edematous territorial infarction. 2. Chronic posttreatment changes of a left MCA aneurysm. Chronic encephalomalacia of the left frontotemporal lobes, left insula, and left-sided deep nuclei. Mild underlying microangiopathy and generalized cerebral volume loss.
[2021-11-16 05:30] LABS: MANUAL DIFF FLAG NO
[2021-11-16 05:32] LABS: Basophils Percent Auto 0.3 % (0-2); Eosinophils Absolute Auto 0.1 X10*3/uL (0.0-0.4); Eosinophils Percent Auto 1.3 % (0-4); Hematocrit 30.5 % (37.0-47.0); Hemoglobin 9.4 g/dl (12.0-16.0); Imm Gran Abs Auto 0.03 X10*3/uL (0.00-0.03); Imm Gran Pct Auto 0.5 % (0.0-0.4); Lymphocytes Absolute Auto 1.2 X10*3/uL (1.2-4.9); Lymphocytes Percent Auto 19.6 % (20-40); Mean Corpuscular HGB Conc 30.8 g/dl (31.0-35.0); Mean Corpuscular Hemoglobin 23.3 pg (27.0-33.0); Mean Corpuscular Volume 75.7 fL (80.0-98.0); Mean Platelet Volume 8.8 fL (9.4-12.3); Monocytes Absolute Auto 0.7 X10*3/uL (0.1-1.2); Neutrophils Absolute Auto 4.2 x10*3/uL (2.0-8.3); Neutrophils Percent Auto 67.3 % (45-73); Platelet Count 280 X10*3/uL (160-400); Red Blood Count 4.03 X10*6/uL (4.20-5.50); Red Cell Distribution Width 20.4 % (11.0-16.0); White Blood Count 6.2 X10*3/uL (4.8-10.8)
[2021-11-16 05:48] LABS: Alanine Aminotransferase 10 U/L (0-31); Albumin Level 3.6 g/dL (3.5-5.0); Alkaline Phosphatase 79 U/L (39-117); Anion Gap 15 (12-20); Aspartate Amino Transferase 12 U/L (5-31); Bilirubin Total 0.3 mg/dL (0.0-1.0); Blood Urea Nitrogen 9 mg/dL (9-16); Calcium 8.9 mg/dL (8.4-10.2); Carbon Dioxide 26 mmol/L (22-29); Chloride 101 mmol/L (96-108); Estimated Glomerular Filt Rate > 60; Glucose Random 100 mg/dL (60-115); Potassium 3.5 mmol/L (3.3-5.1); Sodium 138 mmol/L (135-145)
--- NOTE | 2021-11-16 05:51 | ECG_ITS ---
Test Reason : DIZZINESS Blood Pressure : / mmHG Vent. Rate : 067 BPM Atrial Rate : 067 BPM P-R Int : 150 ms QRS Dur : 070 ms QT Int : 398 ms P-R-T Axes : 055 -12 021 degrees QTc Int : 420 ms Normal sinus rhythm Low voltage QRS Nonspecific ST abnormality Abnormal ECG When compared with ECG of 12-NOV-2021 05:56, No significant change was found Referred By: Ynes Pickett Electronically Signed By:Damián Rubalcava
--- NOTE | 2021-11-16 05:54 | ED_ITS ---
HPI - General Adult General Chief complaint: General Medical Stated complaint: DIFF AMB,? SEIZURE ACTIVITY Time Seen by Provider: 11/16/21 04:57 Source: patient and family (Daughter) Mode of arrival: EMS History of Present Illness HPI narrative: 0550: Called code stroke, [id number] 66-year-old female who was brought in by EMS and initial report was for ?shaking arms and legs? but family states that she had slurred speech but was completely awake that was inconsistent with her underlying seizure history. Family also reports that she was somewhat confused and patient reports that she was significantly dizzy and was unable to sit. Currently patient states that she feels better, no longer dizzy, and denies any fever, chills, GI or symptoms. Related Data Home Medications Medication Instructions Recorded Confirmed lamotrigine 250 mg tablet,extended 750 mg PO BEDTIME tab 02/15/21 11/12/21 release 24 hr aspirin 81 mg tablet,delayed 81 mg PO BEDTIME 11/12/21 11/12/21 release carvedilol 6.25 mg tablet 1 tab PO BID 11/12/21 11/12/21 clobetasol 0.05 % topical ointment 1 applic TOPICAL BID 11/12/21 11/12/21 phenytoin 50 mg chewable tablet 1 tab PO DAILY 11/12/21 11/12/21 phenytoin sodium extended 100 mg 1 cap PO DAILY 11/12/21 11/12/21 capsule phenytoin sodium extended 100 mg 2 cap PO BEDTIME 11/12/21 11/12/21 capsule Previous Rx's Medication Instructions Recorded fluconazole 100 mg tablet 200 mg PO DAILY 13 Days #26 tab 11/15/21 Allergies Allergy/AdvReac Type Severity Reaction Status Date / Time Penicillins [PENICILLINS] Allergy Unknown UNKNOWN Verified 10/10/21 09:20 Review of Systems Review of Systems: Pertinent positives and negatives as stated in HPI 10 point review of systems is otherwise negative. [facility] Past Medical History Source: nursing notes reviewed Medical History Seizure Takotsubo cardiomyopathy Social History Social History Household Members: Spouse Housing: House Alcohol intake: never Patient Tobacco Use Status: Former Tobacco user Advance Directives: No service: No Current occupational status: employed Physical Exam Vital Signs: Vital Signs: Last Vital Signs Temp 98.4 F 11/16/21 04:51 Pulse 66 11/16/21 04:51 Resp 16 11/16/21 04:51 BP 147/70 H 11/16/21 04:51 Pulse Ox 99 11/16/21 04:51 BMI result Body Mass Index 20.8 VITAL SIGNS: Reviewed. GENERAL: Well developed, well nourished, in no acute distress. HEAD: Normocephalic/atraumatic EYES: PERRLA, EOMI OROPHARYNX: no oral lesions noted, posterior pharynx clear LUNGS: Normal breath sounds. No adventitious sounds or accessory muscle use. SpO2<99> CARDIOVASCULAR: Regular rate and rhythm without noted murmurs, no JVD or lower extremity edema. ABDOMEN: Soft, non-tender, non-distended with bowel sounds. MUSCULOSKELETAL: No tenderness, deformities, or effusions noted on gross inspection. EXTREMITIES: No cyanosis, clubbing or edema. SKIN: Inspection of the skin reveals no rashes, ulcerations, jaundice, pallor, or petechiae. NEUROLOGIC: Alert and oriented x 4. Strength and sensation to light touch were grossly intact x 4, no facial asymmetry, no pronator drift, however on pass pointing patient is unable to bring her right upper extremity to midline and has limited control when asked to raise it over her head, but strength/hand distribution warehouse manager is strong. In addition, on heel to lowry testing there is not appear to be any difficulty. NIH Stroke Scale Time: 05:45 Level of Consciousness: Alert Level of Consciousness Questions: Answers both questions correctly Level of Consciousness Commands: Performs both tasks correctly Best Gaze: Normal Visual: No visual loss Facial Palsy: Normal Motor Arm (Right): No drift Motor Arm (Left): No drift Motor Leg (Right): No drift Motor Leg (Left): No drift Limb Ataxia: Present in two limbs Sensory: Normal Best Language: No aphasia Dysarthia: Normal Extinction and Inattention: No abnormality Score: 2 Course Course Course Narrative: 66-year-old female with history and clinical presentation concerning for CVA. However, patient had a recent GI bleed and was found to have a colonic mass. Review of all investigations demonstrates the patient remains chronically anemic and on re-evaluation right upper extremity continues to be ataxic with good hand distribution warehouse manager and sensation intact. I discussed this case with inpatient hospit alist who accepts admission. Reevaluation(s) Reevaluation #1: CT head negative Time: 06:30 Reevaluation #2: Dr Head recommends no tPA as pathology is unclear, patient has colonic mass, and a recent GI bleed. Time: 06:36 Reevaluation #3: CTA head/Neck without acute findings. Time: 07:00 Medical Decision Making Lab Data Result diagrams: 11/16/21 05:26 11/16/21 05:26 Labs: Lab Results 11/16/21 11/16/21 11/16/21 Range/Units 05:26 05:26 06:55 WBC 6.2 (4.8-10.8) X10*3/uL RBC 4.03 L (4.20-5.50) X10*6/uL Hgb 9.4 L (12.0-16.0) g/dl Hct 30.5 L (37.0-47.0) % MCV 75.7 L (80.0-98.0) fL MCH 23.3 L (27.0-33.0) pg MCHC 30.8 L (31.0-35.0) g/dl RDW 20.4 H (11.0-16.0) % Plt Count 280 (160-400) X10*3/uL MPV 8.8 L (9.4-12.3) fL Immature Gran % (Auto) 0.5 H (0.0-0.4) % Neut % (Auto) 67.3 (45-73) % Lymph % (Auto) 19.6 L (20-40) % Kay % (Auto) 11.0 (2-11) % Eos % (Auto) 1.3 (0-4) % Baso % (Auto) 0.3 (0-2) % Lymph # (Auto) 1.2 (1.2-4.9) X10*3/uL Kay # (Auto) 0.7 (0.1-1.2) X10*3/uL Eos # (Auto) 0.1 (0.0-0.4) X10*3/uL Baso # (Auto) 0.0 (0.0-0.2) X10*3/uL Abs Immat Gran (auto) 0.03 (0.00-0.03) X10*3/uL Absolute Neuts (auto) 4.2 (2.0-8.3) x10*3/uL Absolute Nucleated RBC 0.000 (0.0-0.012) X10*3/uL Nucleated RBC % (auto) 0.0 (0.0-0.2) /100WBC Sodium 138 (135-145) mmol/L Potassium 3.5 D (3.3-5.1) mmol/L Chloride 101 (96-108) mmol/L Carbon Dioxide 26 (22-29) mmol/L Anion Gap 15 (12-20) BUN 9 (9-16) mg/dL Creatinine 0.68 (0.5-1.4) mg/dL Estim Creat Clear Calc 60.0 Estimated GFR > 60 Random Glucose 100 (60-115) mg/dL Calcium 8.9 (8.4-10.2) mg/dL Total Bilirubin 0.3 (0.0-1.0) mg/dL AST 12 (5-31) U/L ALT 10 (0-31) U/L Alkaline Phosphatase 79 (39-117) U/L Total Protein 6.0 L (6.5-8.0) g/dL Albumin 3.6 (3.5-5.0) g/dL Urine Color YELLOW Urine Appearance CLEAR Urine pH 7.0 (5.0-8.0) Ur Specific [place] 1.010 (1.005-1.025) Urine Protein NEG (NEG-TRACE) MG/DL Urine Glucose (UA) NEG (NEG) MG/DL Urine Ketones NEG (NEG) MG/DL Urine Blood NEG (NEG) Urine Nitrite NEG (NEG) Ur Leukocyte Esterase NEG (NEG) ECG Data Attestation: I personally reviewed and interpreted this ECG as follows: Prior ECG tracings: available for review Interpretation: NSR, HR-67, no STEMI, PA/QRS/QTc wnl Discharge Plan Discharge Clinical Impression: Focal neurological deficit, Anemia, Rectal mass, History of seizures Patient Disposition: Admitted As Inpatient Prescriptions: No Action phenytoin sodium extended 100 mg capsule 2 cap PO BEDTIME 0RF clobetasol 0.05 % ointment 1 applic topical BID 0RF phenytoin 50 mg tablet,chewable 1 tab PO DAILY 0RF carvedilol 6.25 mg tablet 1 tab PO BID 0RF phenytoin sodium extended 100 mg capsule 1 cap PO DAILY 0RF aspirin 81 mg tablet,delayed release (DR/EC) 81 mg PO BEDTIME 0RF fluconazole 100 mg Tablet 200 mg PO DAILY 13 Days Qty: 26 0RF lamotrigine 250 mg tablet extended release 24hr 750 mg PO BEDTIME 0RF
--- NOTE | 2021-11-16 06:29 | PC.NURSE ---
MD in room, pt to CT in stretcher, IV placed for CTA. pt speaking in full clear sentences. Pt has equal strong hand grasps, pt able to hold arms out without drifting. smile is equal. pt able to recall date and year wihtout difficulty. Pt alert, respirations easy n/l.
[2021-11-16] MEDS: iohexoL 350 MG/ML 100 ML INFUS..BTL IV (06:44)
[2021-11-16 07:05] LABS: Appearance Urine CLEAR; Color Urine YELLOW; Glucose Urine UA NEG (NEG); Leukocyte Esterase Urine NEG (NEG); Nitrite Urine NEG (NEG); Urine Blood NEG (NEG); Urine Ketones NEG (NEG); Urine Protein NEG (NEG-TRACE)
--- NOTE | 2021-11-16 07:51 | ED.GENADULT ---
HPI - General Adult General Chief complaint: General Medical Stated complaint: DIFF AMB,? SEIZURE ACTIVITY Time Seen by Provider: 11/16/21 04:57 Source: patient and family (Daughter) Mode of arrival: EMS Related Data Home Medications Medication Instructions Recorded Confirmed lamotrigine 250 mg tablet,extended 750 mg PO BEDTIME tab 02/15/21 11/16/21 release 24 hr aspirin 81 mg tablet,delayed 81 mg PO BEDTIME 11/12/21 11/16/21 release carvedilol 6.25 mg tablet 1 tab PO BID 11/12/21 11/16/21 clobetasol 0.05 % topical ointment 1 applic TOPICAL BID 11/12/21 11/16/21 phenytoin 50 mg chewable tablet 1 tab PO DAILY 11/12/21 11/16/21 phenytoin sodium extended 100 mg 1 cap PO DAILY 11/12/21 11/16/21 capsule phenytoin sodium extended 100 mg 2 cap PO BEDTIME 11/12/21 11/16/21 capsule cholecalciferol (vitamin D3) 25 25 mcg PO DAILY 11/16/21 11/16/21 mcg (1,000 unit) tablet (Vitamin D3) cyanocobalamin (vitamin B-12) 1,000 mcg PO DAILY 11/16/21 11/16/21 1,000 mcg tablet meclizine 25 mg tablet 25 mg PO DAILY PRN 11/16/21 11/16/21 Previous Rx's Medication Instructions Recorded fluconazole 100 mg tablet 200 mg PO DAILY 13 Days #26 tab 11/15/21 Allergies Allergy/AdvReac Type Severity Reaction Status Date / Time Penicillins [PENICILLINS] Allergy Unknown UNKNOWN Verified 10/10/21 09:20 [facility] Past Medical History Medical History Seizure Takotsubo cardiomyopathy Social History Social History Household Members: Spouse Household Members Other:: 2 Housing: House Do you presently have visiting nurse or other home services: No Alcohol intake: never Patient Tobacco Use Status: Former Tobacco user service: No Current occupational status: employed Medical Decision Making Lab Data Result diagrams: 11/19/21 10:17 11/20/21 05:13 Labs: Lab Results 11/16/21 11/16/21 11/16/21 Range/Units 05:26 05:26 05:26 WBC 6.2 (4.8-10.8) X10*3/uL RBC 4.03 L (4.20-5.50) X10*6/uL Hgb 9.4 L (12.0-16.0) g/dl Hct 30.5 L (37.0-47.0) % MCV 75.7 L (80.0-98.0) fL MCH 23.3 L (27.0-33.0) pg MCHC 30.8 L (31.0-35.0) g/dl RDW 20.4 H (11.0-16.0) % Plt Count 280 (160-400) X10*3/uL MPV 8.8 L (9.4-12.3) fL Immature Gran % (Auto) 0.5 H (0.0-0.4) % Neut % (Auto) 67.3 (45-73) % Lymph % (Auto) 19.6 L (20-40) % [place] % (Auto) 11.0 (2-11) % Eos % (Auto) 1.3 (0-4) % Baso % (Auto) 0.3 (0-2) % Lymph # (Auto) 1.2 (1.2-4.9) X10*3/uL [place] # (Auto) 0.7 (0.1-1.2) X10*3/uL Eos # (Auto) 0.1 (0.0-0.4) X10*3/uL Baso # (Auto) 0.0 (0.0-0.2) X10*3/uL Abs Immat Gran (auto) 0.03 (0.00-0.03) X10*3/uL Absolute Neuts (auto) 4.2 (2.0-8.3) x10*3/uL Absolute Nucleated RBC 0.000 (0.0-0.012) X10*3/uL Nucleated RBC % (auto) 0.0 (0.0-0.2) /100WBC Sodium 138 (135-145) mmol/L Potassium 3.5 D (3.3-5.1) mmol/L Chloride 101 (96-108) mmol/L Carbon Dioxide 26 (22-29) mmol/L Anion Gap 15 (12-20) BUN 9 (9-16) mg/dL Creatinine 0.68 (0.5-1.4) mg/dL Estim Creat Clear Calc 60.0 Estimated GFR > 60 Random Glucose 100 (60-115) mg/dL Estimat Average Glucose 108 mg/dL Hemoglobin A1c % 5.4 % Calcium 8.9 (8.4-10.2) mg/dL Total Bilirubin 0.3 (0.0-1.0) mg/dL Direct Bilirubin < 0.2 (0.0-0.5) mg/dL AST 12 (5-31) U/L ALT 10 (0-31) U/L Alkaline Phosphatase 79 (39-117) U/L Total Protein 6.0 L (6.5-8.0) g/dL Albumin 3.6 (3.5-5.0) g/dL Urine Color Urine Appearance Urine pH (5.0-8.0) Ur Specific [place] (1.005-1.025) Urine Protein (NEG-TRACE) MG/DL Urine Glucose (UA) (NEG) MG/DL Urine Ketones (NEG) MG/DL Urine Blood (NEG) Urine Nitrite (NEG) Ur Leukocyte Esterase (NEG) 11/16/21 Range/Units 06:55 WBC (4.8-10.8) X10*3/uL RBC (4.20-5.50) X10*6/uL Hgb (12.0-16.0) g/dl Hct (37.0-47.0) % MCV (80.0-98.0) fL MCH (27.0-33.0) pg MCHC (31.0-35.0) g/dl RDW (11.0-16.0) % Plt Count (160-400) X10*3/uL MPV (9.4-12.3) fL Immature Gran % (Auto) (0.0-0.4) % Neut % (Auto) (45-73) % Lymph % (Auto) (20-40) % [place] % (Auto) (2-11) % Eos % (Auto) (0-4) % Baso % (Auto) (0-2) % Lymph # (Auto) (1.2-4.9) X10*3/uL [place] # (Auto) (0.1-1.2) X10*3/uL Eos # (Auto) (0.0-0.4) X10*3/uL Baso # (Auto) (0.0-0.2) X10*3/uL Abs Immat Gran (auto) (0.00-0.03) X10*3/uL Absolute Neuts (auto) (2.0-8.3) x10*3/uL Absolute Nucleated RBC (0.0-0.012) X10*3/uL Nucleated RBC % (auto) (0.0-0.2) /100WBC Sodium (135-145) mmol/L Potassium (3.3-5.1) mmol/L Chloride (96-108) mmol/L Carbon Dioxide (22-29) mmol/L Anion Gap (12-20) BUN (9-16) mg/dL Creatinine (0.5-1.4) mg/dL Estim Creat Clear Calc Estimated GFR Random Glucose (60-115) mg/dL Estimat Average Glucose mg/dL Hemoglobin A1c % % Calcium (8.4-10.2) mg/dL Total Bilirubin (0.0-1.0) mg/dL Direct Bilirubin (0.0-0.5) mg/dL AST (5-31) U/L ALT (0-31) U/L Alkaline Phosphatase (39-117) U/L Total Protein (6.5-8.0) g/dL Albumin (3.5-5.0) g/dL Urine Color YELLOW Urine Appearance CLEAR Urine pH 7.0 (5.0-8.0) Ur Specific [place] 1.010 (1.005-1.025) Urine Protein NEG (NEG-TRACE) MG/DL Urine Glucose (UA) NEG (NEG) MG/DL Urine Ketones NEG (NEG) MG/DL Urine Blood NEG (NEG) Urine Nitrite NEG (NEG) Ur Leukocyte Esterase NEG (NEG) Discharge Plan Discharge Clinical Impression: Focal neurological deficit, Anemia, Rectal mass, History of seizures Patient Disposition: Admitted As Inpatient Interventions: Admission Worksheet (ED) Last Done: 11/16/21 12:58 Discharge Date/Time: 11/16/21 12:58
[2021-11-16] MEDS: Aspirin Enteric Coated 81 MG TABLET.DR 162 MG PO (07:58)
--- NOTE | 2021-11-16 08:56 | PHA.MEDREC ---
Pharmacy Consult ? Medication Reconciliation Pharmacy has completed the medication reconciliation. There re no remarkable issues. Patient has not start the fluconazole yet. Shereen Mccormick, PharmD
--- NOTE | 2021-11-16 09:17 | P.HPHOSP_ITS ---
History of Present Illness Date of Service: 11/16/21 Attending physician on admission: Candelaria Dumont Chief Complaint: ataxia 66 y/o f with lossing control of her ext, shakin, difficult to stand - she says on and off symptoms going for 1 month -last night she has similar episode -so decided to come to ed, has nystagmus , did not pass out, She had some saliva frothing during the episode. she denies any palpitation or chest pain or shortness of breath during this episode. She said last episode- when she woke up around 3 am- this morning. no bowel or bladder incontinence Or tongue bite. denies any blurry vision or headache. Review of Systems Review of Systems: as above. Yes all other systems are reviewed and are negative [facility] Medical History Seizure Takotsubo cardiomyopathy Social History Household Members: Spouse Housing: House Alcohol intake: never Patient Tobacco Use Status: Former Tobacco user Use of substances other than those prescribed or required for medical reasons: No Advance Directives: No service: No Current occupational status: employed Meds Allergies Allergy/AdvReac Type Severity Reaction Status Date / Time Penicillins [PENICILLINS] Allergy Unknown UNKNOWN Verified 10/10/21 09:20 Active Medications: Current Medications Pharmacy Consult (Consult Rx Perform Med Rec) 1 each MISCELLANE ONCE PRN PRN Reason: Consult order Home Medications Medication Instructions Recorded Confirmed Last Taken Type lamotrigine 250 mg tablet,extended 750 mg PO BEDTIME tab 02/15/21 11/16/21 11/15/21 History release 24 hr aspirin 81 mg tablet,delayed 81 mg PO BEDTIME 11/12/21 11/16/21 11/15/21 History release carvedilol 6.25 mg tablet 1 tab PO BID 11/12/21 11/16/21 11/15/21 History clobetasol 0.05 % topical ointment 1 applic TOPICAL BID 11/12/21 11/16/21 0 11/15/21 History phenytoin 50 mg chewable tablet 1 tab PO DAILY 11/12/21 11/16/21 11/15/21 History phenytoin sodium extended 100 mg 1 cap PO DAILY 11/12/21 11/16/21 11/15/21 History capsule phenytoin sodium extended 100 mg 2 cap PO BEDTIME 11/12/21 11/16/21 11/15/21 History capsule cholecalciferol (vitamin D3) 25 25 mcg PO DAILY 11/16/21 11/16/21 11/15/21 History mcg (1,000 unit) tablet (Vitamin D3) cyanocobalamin (vitamin B-12) 1,000 mcg PO DAILY 11/16/21 11/16/21 11/15/21 History 1,000 mcg tablet meclizine 25 mg tablet 25 mg PO DAILY PRN 11/16/21 11/16/21 Unknown History Physical Exam Vital Signs and Narrative: Vital Signs: Last Vital Signs Temp 98.3 F 11/16/21 07:54 Pulse 67 11/16/21 07:54 Resp 16 11/16/21 07:54 BP 136/71 11/16/21 07:54 Pulse Ox 100 11/16/21 07:54 BMI result Body Mass Index 20.8 physical exam: Appearance: Alert.? Oriented X3.? not in distress.? Eyes: Pupils equal, round and reactive to light.? Sclera nonicteric.? ENT: Pharynx normal.? Moist mucous membranes. cvs: rrr, [id number] , no murmur res: clear to auscultation ,no rhonchii or wheezing abd: no rebound or guarding ,nt, bs present. ext pulses present , no cyanosis. neuro: axo3 ,has possible positional nystagmus seems very unstaedy with standin otherwise moves all ext finger to nose test seems fine sensations intact. Results Labs CBC and Chem 7: 11/16/21 05:26 11/16/21 05:26 Labs: Laboratory Results - last 24 hr 11/16/21 11/16/21 11/16/21 05:26 05:26 06:55 MCV 75.7 L MCH 23.3 L MCHC 30.8 L RDW 20.4 H Plt Count 280 MPV 8.8 L Immature Gran % (Auto) 0.5 H Neut % (Auto) 67.3 Lymph % (Auto) 19.6 L [place] % (Auto) 11.0 Eos % (Auto) 1.3 Baso % (Auto) 0.3 Lymph # (Auto) 1.2 [place] # (Auto) 0.7 Eos # (Auto) 0.1 Baso # (Auto) 0.0 Abs Immat Gran (auto) 0.03 Absolute Neuts (auto) 4.2 Absolute Nucleated RBC 0.000 Nucleated RBC % (auto) 0.0 Anion Gap 15 Estim Creat Clear Calc 60.0 Estimated GFR > 60 Random Glucose 100 Calcium 8.9 Total Bilirubin 0.3 AST 12 ALT 10 Alkaline Phosphatase 79 Total Protein 6.0 L Albumin 3.6 Urine Color YELLOW Urine Appearance CLEAR Urine pH 7.0 Ur Specific [place] 1.010 Urine Protein NEG Urine Glucose (UA) NEG Urine Ketones NEG Urine Blood NEG Urine Nitrite NEG Ur Leukocyte Esterase NEG Imaging Radiologist's Impressions: Impressions Head CT 11/16/21 06:09 IMPRESSION: No acute intracranial pathology identified. 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 This stroke protocol result was discussed with Dr. Pickett on 11/16/2021 6:28 AM. Head/Neck CTA 11/16/21 06:30 IMPRESSION: Redemonstrated postprocedural sequelae of clipping and coiling of giant left MCA bifurcation aneurysm. Resultant streak artifact limits assessment of the vessels in this region. Otherwise, no occlusion or significant stenosis is identified. This stroke protocol result was discussed with Dr. Pickett on 11/16/2021 6:59 AM. Assessment and Plan (1) Weakness: Status: Acute (2) Anemia: Status: Acute (3) Rectal mass: Status: Acute Plan 66-year-old woman admitted with Recent admission due to acute blood loss anemia required PRBC, also possible colon mass- she got discharged yesterday and recommended to follow up outpatient with surgery and Oncology. in addition has History of takotsubo cardiomyopathy, seizure, history of brain aneurysm and clipping in 2013- came to the hospital because of episode of unsteadiness. 1.possible ataxia/nystagmus : ? 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 Resultant streak artifact limits assessment of the vessels in this region. Otherwise, no occlusion or significant stenosis is identified. check orthostasis , moniter on tele continue asa , lipid panel mri might not be possible due to hx of brain aneurysm and clipping in 2012. specch pt/ot neurology eval. 2.Acute blood loss anemia, likely from GI source-last admit found to have colon mass pathology pendin h/h stable 9.4 outpatient fu wiith oncology/surgery. 3.History of takotsubo cardiomyopathy Continue beta-momo DVT prophylaxis with mechanical compression boots due to acute anemia recent. above management discussed with patient and her family at bedside is the her daughter- about understand and in agreement with the above plan, time spent 70 minute Quality Stroke Does the patient have a stroke diagnosis?: No VTE Prior VTE?: No VTE Risk Level:: Medical - moderate - high VTE Device Contraindication: N/A - Device Ordered VTE Drug Contraindication: N/A - Med Ordered
[2021-11-16] MEDS: Cyanocobalamin (Vitamin B-12) 1,000 MCG TABLET 1000 MCG PO (10:04)
[2021-11-16] MEDS: Fluconazole 100 MG TABLET 200 MG PO (10:04)
[2021-11-16] MEDS: carvediloL 6.25 MG TABLET PO (10:04)
[2021-11-16] MEDS: Cholecalciferol (Vitamin D3) 25 MCG TABLET PO (10:04)
[2021-11-16] MEDS: Phenytoin Sodium Extended 100 MG CAPSULE PO (10:04)
[2021-11-16] MEDS: Phenytoin Chewable 50 MG TAB.CHEW PO (10:29)
[2021-11-16 10:35] LABS: COVID-19 Test Negative (Negative); IDNOW Serial# 08D9AD1C
[2021-11-16 10:59] LABS: Troponin-I High Sensitivity < 3.5 ng/L (<3.5-17.0)
[2021-11-16 11:11] LABS: Prothrombin Time 11.5 SEC (9.9-13.0)
[2021-11-16 11:14] LABS: Partial Thromboplastin Time 33.5 SEC (24.1-38.0)
[2021-11-16 11:15] LABS: Stroke Lab Use COMPLETE
--- NOTE | 2021-11-16 12:36 | P.CNNE_ITS ---
History of Present Illness Data of Consult Service Date: 11/16/21 Primary Care Provider: Unknown Physician HPI Reason for consult: Possible stroke 66 years old woman who came to hospital with stating that her legs were giving away. When I asked how long that has been happening, she stated for few weeks. She could not tell me why she decided to come to hospital yesterday but apparently she almost fell yesterday and that might have been the reason. There was no associated pain nausea or vomiting or visual symptom. Review of Systems Review of Systems: No recent cold or flu-like symptoms PMFSH Past Medical History Medical History Seizure Takotsubo cardiomyopathy Social History Social History Household Members: Spouse Housing: House Alcohol intake: never Patient Tobacco Use Status: Former Tobacco user Use of substances other than those prescribed or required for medical reasons: No Advance Directives: No service: No Current occupational status: employed Meds Allergies Allergy/AdvReac Type Severity Reaction Status Date / Time Penicillins [PENICILLINS] Allergy Unknown UNKNOWN Verified 10/10/21 09:20 Active Medications: Current Medications Aspirin (Aspirin Enteric Coated 81 Mg Tablet.) 81 mg PO BEDTIME [facility] Betamethasone Dipropion Augmented (Betamethasone Dip Aug 0.05% Cr 15 Gm Tube) 1 appl TOPICAL BID [facility] Last Admin: 11/16/21 10:04 Dose: Not Given Documented by: Carvedilol (Carvedilol 6.25 Mg Tablet) 6.25 mg PO BID [facility]; Protocol Last Admin: 11/16/21 10:04 Dose: 6.25 mg Documented by: Cyanocobalamin (Cyanocobalamin (Vitamin B-12) 1,000 Mcg Tablet) 1,000 mcg PO DAILY [facility] Last Admin: 11/16/21 10:04 Dose: 1,000 mcg Documented by: Fluconazole (Fluconazole 100 Mg Tablet) 200 mg PO DAILY [facility] Last Admin: 11/16/21 10:04 Dose: 200 mg Documented by: Meclizine HCl (Meclizine Hcl 25 Mg Tablet) 25 mg PO DAILY PRN PRN Reason: Vertigo Patient Own Medication ( Lamotrigine 250 Mg Tablet Extended Release 24hr) 3 each PO BEDTIME [facility] Omeprazole (Omeprazole 20 Mg Capsule.Dr) 20 mg PO BEDTIME [facility] Pharmacy Consult (Consult Rx Perform Med Rec) 1 each MISCELLANE ONCE PRN PRN Reason: Consult order Phenytoin (Phenytoin Chewable 50 Mg Tab.Chew) 50 mg PO DAILY [facility] Last Admin: 11/16/21 10:29 Dose: 50 mg Documented by: Phenytoin Sodium (Phenytoin Sodium Extended 100 Mg Capsule) 100 mg PO DAILY [facility] Last Admin: 11/16/21 10:04 Dose: 100 mg Documented by: Phenytoin Sodium (Phenytoin Sodium Extended 100 Mg Capsule) 200 mg PO BEDTIME [facility] Vitamin D (Cholecalciferol (Vitamin D3) 25 Mcg Tablet) 25 mcg PO DAILY [facility] Last Admin: 11/16/21 10:04 Dose: 25 mcg Documented by: Home Medications Medication Instructions Recorded Confirmed Last Taken Type lamotrigine 250 mg tablet,extended 750 mg PO BEDTIME tab 02/15/21 11/16/21 11/15/21 History release 24 hr aspirin 81 mg tablet,delayed 81 mg PO BEDTIME 11/12/21 11/16/21 11/15/21 History release carvedilol 6.25 mg tablet 1 tab PO BID 11/12/21 11/16/21 11/15/21 History clobetasol 0.05 % topical ointment 1 applic TOPICAL BID 11/12/21 11/16/21 11/15/21 History phenytoin 50 mg chewable tablet 1 tab PO DAILY 11/12/21 11/16/21 11/15/21 History phenytoin sodium extended 100 mg 1 cap PO DAILY 11/12/21 11/16/21 11/15/21 History capsule phenytoin sodium extended 100 mg 2 cap PO BEDTIME 11/12/21 11/16/21 11/15/21 History capsule cholecalciferol (vitamin D3) 25 25 mcg PO DAILY 11/16/21 11/16/21 11/15/21 History mcg (1,000 unit) tablet (Vitamin D3) cyanocobalamin (vitamin B-12) 1,000 mcg PO DAILY 11/16/21 11/16/21 11/15/21 History 1,000 mcg tablet meclizine 25 mg tablet 25 mg PO DAILY PRN 11/16/21 11/16/21 Unknown History Physical Exam Vital Signs: Vital Signs: Last Vital Signs Temp 98.3 F 11/16/21 07:54 Pulse 67 11/16/21 07:54 Resp 16 11/16/21 07:54 BP 128/46 L 11/16/21 10:05 Pulse Ox 100 11/16/21 07:54 BMI result Body Mass Index 20.8 Neuro: Other: She was alert and awake with normal spontaneity of speech fluency comprehension and affect. She has position changing nystagmus beating rightward with right morejon gaze, left word with leftward gaze, and upward with upward gaze. Face is symmetrical. Visual guaman are full. Plantars are bilaterally extensor Results Labs CBC & Chem 7: 11/16/21 05:26 11/16/21 05:26 Labs: Short CBC 11/16/21 Range/Units 05:26 WBC 6.2 (4.8-10.8) X10*3/uL Hgb 9.4 L (12.0-16.0) g/dl Hct 30.5 L (37.0-47.0) % Plt Count 280 (160-400) X10*3/uL BMP 11/16/21 05:26 Sodium 138 Potassium 3.5 D Chloride 101 Carbon Dioxide 26 BUN 9 Creatinine 0.68 Calcium 8.9 Liver Function 11/16/21 Range/Units 05:26 Total Bilirubin 0.3 (0.0-1.0) mg/dL AST 12 (5-31) U/L ALT 10 (0-31) U/L Alkaline Phosphatase 79 (39-117) U/L Albumin 3.6 (3.5-5.0) g/dL Urine 11/16/21 Range/Units 06:55 Urine Color YELLOW Urine Appearance CLEAR Urine pH 7.0 (5.0-8.0) Ur Specific [place] 1.010 (1.005-1.025) Urine Protein NEG (NEG-TRACE) MG/DL Urine Glucose (UA) NEG (NEG) MG/DL CT and CTA of brain revealed evidence of left middle cerebral artery aneurysm coiling with small associated encephalomalacia. Assessment and Plan (1) Ataxia: Status: Acute 66 years old woman who came to hospital stating that her legs were giving way. Her examination revealed position changing nystagmus in both eyes and bilateral extensor plantars. Her CT of brain revealed quiet Ling of left middle cerebral artery aneurysm in the past with some encephalomalacia. MRI probably cannot be done because of coiling. At this time my recommendation is involving PT and OT, reassuring the patient, and continuing baseline treatment. Stroke is a possibility but we have to consider that in tentative manner in treated accordingly. Procedures Date of Service Date of Service: 11/16/21
[2021-11-16 15:45] LABS: Bilirubin Direct < 0.2 mg/dL (0.0-0.5)
[2021-11-16 16:03] LABS: Estimated Average Glucose 108 mg/dL; Hemoglobin A1c % 5.4 %
[2021-11-16 16:14] LABS: Glucose Random 98 mg/dL (60-115)
--- NOTE | 2021-11-16 17:16 | MHC.SL.SWA ---
Speech Pathologist Impression: Oral Phase Dysphagia Risk of Aspiration Due to: Neurological Condition Dysphasia Diet Status: Upgrade Liquid Consistency and Strategies for Safe Swallow: Liquid Intake Recommendation: Thin Liquid Intake Strategies: Small Sips Solid Food Consistency: Dietary Recommendations: Regular Additional Modifications to Solid Foods: Patient is edentulous and does not have dentures. She presents with mild oral dysphagia secondary to having no teeth, characterized by mildly prolonged chewing and mashing. Nevertheless, she is able to adequately chew solids. Recommend unmodified diet REGULAR solids and THIN liquids, pills WHOLE in LIQUID. Recommend patient to self-select foods, avoiding tough, difficult to chew items. Further ST intervention is no longer warranted as patient displayed no overt s/s of aspiration and tolerated regular consistencies. Please re-refer with any changes or further concern. Notified MD, RN, RD. Oral Medication Intake: Whole with Liquid Compensatory Strategies and Precautions to be Taken for Safe Swallow: Sitting Upright (90 deg) Small Bites and Sips Alternate Liquids/Solids Rate of Ingestion Change Avoid Specific Foods Supervision While Eating and Drinking for Safe Swallow: Intermittent Supervision Foods to Avoid: tough, difficult to chew solids Recommendation for Speech: NA:Typical Evaluation Mall Plant Caretaker Clinican/Clinical Fellow: No Supervisory Statement: I have reviewed and agree with the student/clinical fellow's documentation: N/A Speech Language Pathologist: Iris Becerra M.A., CCC-POLYGRAPH EXAMINER
[2021-11-16] MEDS: Omeprazole 20 MG CAPSULE.DR PO (20:32)
[2021-11-16] MEDS: Aspirin Enteric Coated 81 MG TABLET.DR PO (20:32)
[2021-11-16] MEDS: Phenytoin Sodium Extended 100 MG CAPSULE 200 MG PO (20:32)
[2021-11-17 03:57] VITALS: BP 119/63; PULSE 63; RESP 19; TEMP 36.5; O2SAT 99
[2021-11-17 07:31] VITALS: BP 119/58; PULSE 67; RESP 17; TEMP 36.2; O2SAT 98
[2021-11-17 07:56] LABS: Cholesterol 239 mg/dL; HDL Cholesterol 67 mg/dL; LDL Cholesterol Calculated 156 mg/dl; Triglycerides 84 mg/dL
[2021-11-17] MEDS: Atorvastatin Calcium 40 MG TABLET PO ×2 (09:37→20:51)
[2021-11-17] MEDS: Cyanocobalamin (Vitamin B-12) 1,000 MCG TABLET 1000 MCG PO (09:37)
[2021-11-17] MEDS: carvediloL 6.25 MG TABLET PO ×2 (09:37→20:51)
[2021-11-17] MEDS: Phenytoin Chewable 50 MG TAB.CHEW PO (09:37)
[2021-11-17] MEDS: Fluconazole 100 MG TABLET 200 MG PO (09:37)
[2021-11-17] MEDS: Cholecalciferol (Vitamin D3) 25 MCG TABLET PO (09:38)
[2021-11-17] MEDS: Phenytoin Sodium Extended 100 MG CAPSULE PO (09:38)
--- NOTE | 2021-11-17 11:16 | MHC.CM.PN ---
nurse rn acute care note\ met with patient and her and daughter , patient is active , independent in all adlls and mobiltiy without any devices , she is e,mployed 30 hrs weekly at the [employer] , she has no vna no dme services. she has maria recommended to go to acute rehab , iniated referrals to [facility] , await bed offer anticipate d/c today or tomorrow /. has health care proxy copy requested , confirmed pcp [facility] in [place] and neurologist [facility]. confimred that she had the covid vaccination pfzier at the [facility] . discharge plan - acute rehab- pending bed availability and would be transferred via [facility] when ready for d/c
[2021-11-17 11:39] VITALS: BP 119/64; PULSE 70; RESP 16; TEMP 37; O2SAT 98
--- NOTE | 2021-11-17 13:59 | P.PNIM_ITS ---
Subjective Subjective Date of Service: 11/17/21 Interval History: possible tia Review of Systems seems slightly better , still unsteady. Denies any chest pain or shortness of breath or abdominal pain or fever chills Physical Exam Vital Signs: Vital Signs: Last Vital Signs Temp 98.6 F 11/17/21 11:39 Pulse 70 11/17/21 11:39 Resp 16 11/17/21 11:39 BP 119/64 11/17/21 11:39 Pulse Ox 98 11/17/21 11:39 BMI result Body Mass Index 20.8 ?Appearance: Alert.? Oriented X3.? not in distress.? Eyes: Pupils equal, round and reactive to light.? Sclera nonicteric.? ENT: Pharynx normal.? Moist mucous membranes. cvs: rrr, [id number] , no murmur res: clear to auscultation ,no rhonchii or wheezing abd: no rebound or guarding ,nt, bs present. ext pulses present , no cyanosis. neuro: axo3 ,has possible positional nystagmus moves clinton xt, still unsteady . Objective Data Active Medications Aspirin (Aspirin Enteric Coated 81 Mg Tablet.) 81 mg PO BEDTIME [facility] Last Admin: 11/16/21 20:32 Dose: 81 mg Documented by: DENAE Atorvastatin Calcium (Atorvastatin Calcium 40 Mg Tablet) 40 mg PO BEDTIME [facility] Last Admin: 11/17/21 09:37 Dose: 40 mg Documented by: JENN Betamethasone Dipropion Augmented (Betamethasone Dip Aug 0.05% Cr 15 Gm Tube) 1 appl TOPICAL BID [facility] Last Admin: 11/17/21 09:38 Dose: Not Given Documented by: JENN Non-Admin Reason: not available Carvedilol (Carvedilol 6.25 Mg Tablet) 6.25 mg PO BID [facility]; Protocol Last Admin: 11/17/21 09:37 Dose: 6.25 mg Documented by: JENN Cyanocobalamin (Cyanocobalamin (Vitamin B-12) 1,000 Mcg Tablet) 1,000 mcg PO DAILY [facility] Last Admin: 11/17/21 09:37 Dose: 1,000 mcg Documented by: JENN Fluconazole (Fluconazole 100 Mg Tablet) 200 mg PO DAILY [facility] Last Admin: 11/17/21 09:37 Dose: 200 mg Documented by: JENN Meclizine HCl (Meclizine Hcl 25 Mg Tablet) 25 mg PO DAILY PRN PRN Reason: Vertigo Patient Own Medication ( Lamotrigine 250 Mg Tablet Extended Release 24hr) 3 each PO BEDTIME [facility] Last Admin: 11/16/21 21:23 Dose: 3 each Documented by: DENAE Omeprazole (Omeprazole 20 Mg Capsule.) 20 mg PO BEDTIME [facility] Last Admin: 11/16/21 20:32 Dose: 20 mg Documented by: DENAE Pharmacy Consult (Consult Rx Perform Med Rec) 1 each MISCELLANE ONCE PRN PRN Reason: Consult order Phenytoin (Phenytoin Chewable 50 Mg Tab.Chew) 50 mg PO DAILY [facility] Last Admin: 11/17/21 09:37 Dose: 50 mg Documented by: JENN Phenytoin Sodium (Phenytoin Sodium Extended 100 Mg Capsule) 100 mg PO DAILY [facility] Last Admin: 11/17/21 09:38 Dose: 100 mg Documented by: JENN Phenytoin Sodium (Phenytoin Sodium Extended 100 Mg Capsule) 200 mg PO BEDTIME [facility] Last Admin: 11/16/21 20:32 Dose: 200 mg Documented by: DENAE Vitamin D (Cholecalciferol (Vitamin D3) 25 Mcg Tablet) 25 mcg PO DAILY [facility] Last Admin: 11/17/21 09:38 Dose: 25 mcg Documented by: JENN Labs CBC & Chem 7: 11/16/21 05:26 11/16/21 10:32 Labs: Laboratory Results - last 24 hr 11/16/21 11/16/21 11/16/21 05:26 05:26 10:32 Random Glucose 98 Estimat Average Glucose 108 Hemoglobin A1c % 5.4 Direct Bilirubin < 0.2 Triglycerides Cholesterol LDL Cholesterol, Calc HDL Cholesterol 11/17/21 05:43 Random Glucose Estimat Average Glucose Hemoglobin A1c % Direct Bilirubin Triglycerides 84 Cholesterol 239 LDL Cholesterol, Calc 156 HDL Cholesterol 67 Assessment and Plan (1) Anemia: Status: Acute Plan 66-year-old woman admitted with? Recent admission due to acute blood loss anemia required PRBC, also possible colon mass- she got discharged yesterday and recommended to follow up outpatient with surgery and Oncology. in addition? has History of takotsubo cardiomyopathy, seizure, history of? brain aneurysm and clipping in 2013- came to the hospital because of episode of unsteadiness. 1.possible ataxia/nystagmus : ? 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 Resultant streak artifact limits assessment of the vessels in this region. Otherwise, no occlusion or significant stenosis is identified. repeat ct head seems no new cva check orthostasis , moniter on tele continue asa , lipid panel mri might not be possible due to hx of?brain aneurysm and clipping in 2012. speech pt/ot neurology eval noted -unclear if had cva vs tia, patient has symptoms from 1 month -since patient cannot get MRI?brain aneurysm and clipping , will repeat ct head. 2.recent admission for Acute blood loss anemia, likely from GI source-last admit found to have colon mass pathology pendin h/h stable 9.4 outpatient fu prith oncology/surgery. d/w surgery -add fu ct abd with iv contrast-since last abdominal CT with IV contrast last time had extravasation of contrast so was technically without IV contrast study. moniter any blood in stool 3.History of takotsubo cardiomyopathy Continue beta-momo DVT prophylaxis with mechanical compression boots due to acute anemia recent. Quality Stroke Does the patient have a stroke diagnosis?: No VTE Prior VTE?: No VTE Risk Level:: Medical - moderate - high VTE Device Contraindication: N/A - Device Ordered VTE Drug Contraindication: N/A - Med Ordered
[2021-11-17 15:25] VITALS: BP 132/66; PULSE 67; RESP 16; TEMP 36.8; O2SAT 99
[2021-11-17] MEDS: iohexoL 350 MG/ML 100 ML INFUS..BTL 85 ML IV (16:29)
[2021-11-17 20:00] VITALS: BP 122/63; PULSE 61; RESP 16; TEMP 36.7
[2021-11-17] MEDS: Aspirin Enteric Coated 81 MG TABLET.DR PO (20:51)
[2021-11-17] MEDS: Omeprazole 20 MG CAPSULE.DR PO (20:51)
[2021-11-17] MEDS: Phenytoin Sodium Extended 100 MG CAPSULE 200 MG PO (20:51)
[2021-11-17 23:28] VITALS: BP 105/58; PULSE 62; RESP 17; TEMP 36.2; O2SAT 98
[2021-11-18] VITALS (7 sets, daily range): BP systolic 96–144; BP diastolic 50–98; PULSE 60–73; RESP 17–18; TEMP 36.2–37.2; O2SAT 94–100
--- NOTE | 2021-11-18 | ECG_ITS ---
Test Reason : elev phenytion levels Blood Pressure : / mmHG Vent. Rate : 069 BPM Atrial Rate : 069 BPM P-R Int : 170 ms QRS Dur : 074 ms QT Int : 378 ms P-R-T Axes : 072 -13 016 degrees QTc Int : 405 ms Normal sinus rhythm Septal infarct , age undetermined Abnormal ECG When compared with ECG of 16-NOV-2021 07:19, Septal infarct is now Present Referred By: Candelaria Dumont Electronically Signed By:AB GENTILE MD
--- NOTE | 2021-11-18 06:05 | PC.NURSE ---
pt had a couple of episodes of what looked like spasms of her arms and legs lasting less than 30 seconds.pt was conscious and talking the whole time.She states she has been having theses episodes at home usually in the morning.Dr. Tierney notified.
--- NOTE | 2021-11-18 07:48 | P.CONGS_ITS ---
History of Present Illness Consult details Consult date: 11/17/21 Requesting physician: Candelaria Dumont Narrative: 66-year-old female patient re-admitted to the hospitalist service after presenting to the emergency department with TIA symptoms. She was previously a dmitted last week for dizziness and weakness and found to have a lower GI bleed? She reports a history of seizures which have been treated [facility].? She subsequently presented to the emergency department for further evaluation.? ?On her previously admission, she was noted to have extremely low blood count of 6.3/20.6. A colonoscopy performed by Dr. Lala revealed a circumferential r ectal mass between 5 and 15 cm.? Biopsies were obtained but are pending at this time.? The appearance is suggestive of a rectal carcinoma. CT of the abdomen and pelvis reveals 2 adjacent approximately 4 to 6 mm hypodensities in the anterior left lobe liver segment 4 adjacent to the ligamentum teres; ?irregular thickening of the distal sigmoid colon. This is concerning for malignancy. Review of Systems Review of Systems: Yes all other systems are reviewed and are negative Constitutional: Constitutional: Denies chills, Denies fever(s), Denies headache(s), Denies poor appetite and Reports weakness ENT: Reports dizziness and Denies headache(s) Cardiovascular: Cardiovascular: Denies chest pain, Denies rapid heart rate, Denies palpitations and Denies slow heart rate Respiratory: Respiratory: Denies chest congestion, Denies cough, Denies pain on inspiration and Denies wheezing Gastrointestinal: Gastrointestinal: Denies abdominal pain, Denies bloating, Reports change in stool character, Denies constipation, Denies diarrhea, Reports nausea, Reports vomiting and Denies hematemesis Musculoskeletal: Musculoskeletal: Denies back pain, Denies arthralgias, Denies joint swelling and Denies numbness Integumentary/Breasts: Skin/Breast: Denies change in pigmentation, Denies erythema and Denies rash Neurologic: Reports dizziness, Denies headache(s), Denies numbness and Reports weakness Psychiatric: Psychiatric: Denies anxiety and Denies depression Endocrine: Endocrine: Denies palpitations Hematologic/Lymphatic: Hematologic/Lymphatic: Denies easy bleeding, Denies easy bruising and Denies lymphadenopathy Allergic/Immunologic: Allergic/Immunologic: Denies wheezing PMFSH Past Medical History Medical History Seizure Takotsubo cardiomyopathy Social History Social History Household Members: Spouse Household Members Other:: 2 Housing: House Do you presently have visiting nurse or other home services: No Alcohol intake: never Patient Tobacco Use Status: Former Tobacco user service: No Current occupational status: employed Meds Allergies Allergy/AdvReac Type Severity Reaction Status Date / Time Penicillins [PENICILLINS] Allergy Unknown UNKNOWN Verified 10/10/21 09:20 Active Medications: Current Medications Aspirin (Aspirin Enteric Coated 81 Mg Tablet.) 81 mg PO BEDTIME [facility] Last Admin: 11/17/21 20:51 Dose: 81 mg Documented by: Atorvastatin Calcium (Atorvastatin Calcium 40 Mg Tablet) 40 mg PO BEDTIME [facility] Last Admin: 11/17/21 20:51 Dose: 40 mg Documented by: Betamethasone Dipropion Augmented (Betamethasone Dip Aug 0.05% Cr 15 Gm Tube) 1 appl TOPICAL BID [facility] Last Admin: 11/17/21 20:53 Dose: Not Given Documented by: Carvedilol (Carvedilol 6.25 Mg Tablet) 6.25 mg PO BID [facility]; Protocol Last Admin: 11/17/21 20:51 Dose: 6.25 mg Documented by: Cyanocobalamin (Cyanocobalamin (Vitamin B-12) 1,000 Mcg Tablet) 1,000 mcg PO DAILY [facility] Last Admin: 11/17/21 09:37 Dose: 1,000 mcg Documented by: Fluconazole (Fluconazole 100 Mg Tablet) 200 mg PO DAILY [facility] Last Admin: 11/17/21 09:37 Dose: 200 mg Documented by: Meclizine HCl (Meclizine Hcl 25 Mg Tablet) 25 mg PO DAILY PRN PRN Reason: Vertigo Patient Own Medication ( Lamotrigine 250 Mg Tablet Extended Release 24hr) 3 each PO BEDTIME [facility] Last Admin: 11/17/21 20:50 Dose: 3 each Documented by: Omeprazole (Omeprazole 20 Mg Capsule.) 20 mg PO BEDTIME [facility] Last Admin: 11/17/21 20:51 Dose: 20 mg Documented by: Pharmacy Consult (Consult Rx Perform Med Rec) 1 each MISCELLANE ONCE PRN PRN Reason: Consult order Phenytoin (Phenytoin Chewable 50 Mg Tab.Chew) 50 mg PO DAILY [facility] Last Admin: 11/17/21 09:37 Dose: 50 mg Documented by: Phenytoin Sodium (Phenytoin Sodium Extended 100 Mg Capsule) 100 mg PO DAILY [facility] Last Admin: 11/17/21 09:38 Dose: 100 mg Documented by: Phenytoin Sodium (Phenytoin Sodium Extended 100 Mg Capsule) 200 mg PO BEDTIME [facility] Last Admin: 11/17/21 20:51 Dose: 200 mg Documented by: Vitamin D (Cholecalciferol (Vitamin D3) 25 Mcg Tablet) 25 mcg PO DAILY [facility] Last Admin: 11/17/21 09:38 Dose: 25 mcg Documented by: Home Medications Medication Instructions Recorded Confirmed Last Taken Type lamotrigine 250 mg tablet,extended 750 mg PO BEDTIME tab 02/15/21 11/16/21 11/15/21 History release 24 hr aspirin 81 mg tablet,delayed 81 mg PO BEDTIME 11/12/21 11/16/21 11/15/21 History release carvedilol 6.25 mg tablet 1 tab PO BID 11/12/21 11/16/21 11/15/21 History clobetasol 0.05 % topical ointment 1 applic TOPICAL BID 11/12/21 11/16/21 11/15/21 History phenytoin 50 mg chewable tablet 1 tab PO DAILY 11/12/21 11/16/21 11/15/21 History phenytoin sodium extended 100 mg 1 cap PO DAILY 11/12/21 11/16/21 11/15/21 History capsule phenytoin sodium extended 100 mg 2 cap PO BEDTIME 11/12/21 11/16/21 11/15/21 History capsule cholecalciferol (vitamin D3) 25 25 mcg PO DAILY 11/16/21 11/16/21 11/15/21 History mcg (1,000 unit) tablet (Vitamin D3) cyanocobalamin (vitamin B-12) 1,000 mcg PO DAILY 11/16/21 11/16/21 11/15/21 History 1,000 mcg tablet meclizine 25 mg tablet 25 mg PO DAILY PRN 11/16/21 11/16/21 Unknown History Physical Exam Vital Signs: Vital Signs: Last Vital Signs Temp 98.2 F 11/18/21 07:26 Pulse 65 11/18/21 07:26 Resp 18 11/18/21 07:26 BP 144/98 H 02/11/22 07:26 Pulse Ox 100 11/18/21 07:26 BMI result Body Mass Index 20.8 Const: General: no acute distress Nutritional Appearance: well nourished Orientation/consciousness: patient oriented x3 Limitations: no limitations HENMT: Head: Yes normocephalic and Yes atraumatic Ears: hearing grossly normal bilaterally Resp: Effort & Inspection: normal respiratory effort, no audible wheezes, no cough and no respiratory distress GI: Palpation (GI): Soft to palpation, nontender, no guarding, not rigid and no hepatosplenomegaly Skin: General skin exam: no rashes or lesions noted Neuro: General: patient oriented x3 Extrem: General: Yes no clubbing, cyanosis or edema Results Labs Result diagrams: 11/16/21 05:26 11/16/21 10:32 Labs: Urine 11/16/21 Range/Units 06:55 Urine Color YELLOW Urine Appearance CLEAR Urine pH 7.0 (5.0-8.0) Ur Specific [place] 1.010 (1.005-1.025) Urine Protein NEG (NEG-TRACE) MG/DL Urine Glucose (UA) NEG (NEG) MG/DL All other labs normal. Imaging Abdomen CT scan report/results: image reviewed Assessment and Plan (1) Occult blood positive stool: Status: Acute (2) Rectal mass: Status: Acute Plan 66-year-old female patient presenting with weakness and severe anemia found to have guaiac-positive stool. 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 Pathology results are pending. CT with 2 possible liver lesion noted, dynamic MRI recommended to further evaluate the rectal tumor and liver lesions. By CT the rectal tumor is low lying, coming very close to the vagina. If path positive, recommend Oncology consult to evaluate for neoadjuvant therapy. Procedures Date of Service Date of Service: 11/17/21
--- NOTE | 2021-11-18 08:00 | CA_ITS ---
Transthoracic Echocardiogram Patient (Last, First, Middle): Carole Walters K Gender: Female Date of : 1955 Age: 66 Procedure Date: 11/18/2021 Procedure Type: Transthoracic Echocardiogram Location: S3E Height: 152.4 cm Weight: 48.08 kg BSA: 1.43 m2 Heart Rate: bpm BP: 144 / 98 mmHg Capability Lead: Referring MD: Candelaria Dumont MD Symptoms: TIA Study Quality: Fair ECG Rhythm: Sinus Conclusions: - Normal left ventricular size and systolic function. There is mildly increased left ventricular wall thickness. The visually estimated ejection fraction is between 60-65%. - Normal right ventricular cavity size and systolic function. - The left atrium is mildly dilated. There is no evidence of interatrial shunt by color Doppler. Findings Left Ventricle Normal left ventricular size and systolic function. There is mildly increased left ventricular wall thickness. The visually estimated ejection fraction is between 60-65%. There is no evidence of regional wall motion abnormalities. Diastolic function is normal for age. Right Ventricle Normal right ventricular cavity size and systolic function. Atria The left atrium is mildly dilated. There is no evidence of interatrial shunt by color Doppler. Aortic Valve Normal aortic valve structure and function. There is no aortic valve stenosis. There is no aortic valve regurgitation. Mitral Valve Normal mitral valve structure and function. There is trace mitral valve regurgitation. There is no mitral valve stenosis. Pulmonic Valve Normal pulmonic valve structure and function. There is trace pulmonic valve regurgitation. Tricuspid Valve Normal tricuspid valve structure and function. There is trace tricuspid valve regurgitation. Normal right atrial pressure. There is no evidence of pulmonary hypertension. Great Vessels There is mild dilatation of the ascending aorta measuring 3.60 cm. The visualized portions of the pulmonary artery and branches are normal. Venous The inferior vena cava is normal in size and collapses greater than 50% with inspiration. Pericardium/Pleural There is no evidence of pericardial effusion. Measurements 2D Linear Measurements IVSd: 0.95 0.6-0.9/0.6-1.0 cm LVIDd: 4.26 3.9-5.3/4.2-5.9 cm LVIDd Index: 2.98 2.4-3.2/2.2-3.1 cm/m2 LVIDs: 2.39 2.0-3.6 cm LVPWd: 1.01 0.7-1.1 cm Ao Root: 2.90 2.1-3.5 cm LA Diam: 3.60 2.7-3.8/3.0-4.0 cm LAIDs Index: 2.52 1.5-2.3 cm/m2 LV Mass: 169.75 67-162/88-224 g LV Mass Index: 118.70 43-95/49-115 g/m2 LVOT Diam: 1.90 3.0+(-)1.3 cm Mitral Valve MV Pk E: 0.81 MV PK A: 0.54 MV Decel Time: 178.00 E/A: 1.50 E'Lateral: 10.30 E'Medial: 8.70 E/E' Med: 9.30 E/E' Lat: 7.80 PHT: 52.00 MVA PHT: 4.23 Decel Cabell: 4.53 Aortic Valve AoV Pk Griffin: 1.35 AoV Mn Griffin: 0.90 AoV VTI: 0.31 AoV Pk Grad: 7.00 Aov Mn Grad: 4.00 JONATHAN Cont.VTI: 2.29 LVOT LVOT Pk Griffin: 1.21 LVOT Mn Griffin: 0.76 LVOT VTI: 0.25 LVOT Pk Grad: 6.00 LVOT Mn Grad: 3.00 LVOT Diam: 1.90 LVOT Area: 2.84 Diastolic Function MV Pk E: 0.81 MV Pk A: 0.54 E/A: 1.50 E'Medial: 8.70 E/E' Med: 9.30 E' Laterial: 10.30 E/E' Lat: 7.80 Tricuspid Valve TR Pk Griffin: 1.82 TR Pk Grad: 13.00 Great Vessels Aorta Ao Root-2D: 2.90 2.0-3.7 cm Ao Asc: 3.60 2.1-3.4 cm Pulmonary Valve PV Pk Griffin: 0.92 Peak PV Grad: 3.00 Updated in Other Vendor System with Status of Final Damián Rubalcava MD electronically signed on 11/18/2021 11:26:43 PM with status of Final
[2021-11-18] MEDS: ondansetron HCL 4 MG/2 ML VIAL IVPUSH (08:30)
[2021-11-18] MEDS: Cyclobenzaprine HCl 5 MG TABLET PO (08:33)
[2021-11-18] MEDS: Lactated Ringers 1,000 ML 80 ML IVCONT ×2 (08:34→21:00)
[2021-11-18] MEDS: Phenytoin Sodium Extended 100 MG CAPSULE PO (08:34)
[2021-11-18] MEDS: Cyanocobalamin (Vitamin B-12) 1,000 MCG TABLET 1000 MCG PO (08:34)
[2021-11-18] MEDS: Nystatin Oral Susp 500,000 UNIT/5 ML ORAL.SUSP 500000 UNIT PO ×2 (08:35→20:59)
[2021-11-18] MEDS: Phenytoin Chewable 50 MG TAB.CHEW PO (08:35)
[2021-11-18] MEDS: Cholecalciferol (Vitamin D3) 25 MCG TABLET PO (08:35)
[2021-11-18] MEDS: carvediloL 6.25 MG TABLET PO ×2 (08:35→21:00)
[2021-11-18 09:30] LABS: Anion Gap 15 (12-20); Blood Urea Nitrogen 6 mg/dL (9-16); Carbon Dioxide 26 mmol/L (22-29); Chloride 103 mmol/L (96-108); Creatinine Clr Calc Pharmacy 58.3; Estimated Glomerular Filt Rate > 60; Glucose Random 94 mg/dL (60-115); Potassium 4.7 mmol/L (3.3-5.1); Sodium 139 mmol/L (135-145)
[2021-11-18 11:48] LABS: Hematocrit 28.1 % (37.0-47.0); Hemoglobin 8.4 g/dl (12.0-16.0)
--- NOTE | 2021-11-18 13:37 | MHC.CLN ---
NUTRITION DAUGHTER REPORTED THAT PATIENT NOT EATING WELL. HAD BITES OF SANDWICH AT LUNCH TODAY. WILL EAT FRUIT AND YOGURT. PATIENT AGREES TO TRY ENSURE. WILL ADD ENSURE BID (700 KCAL, 40 G PROTEIN).
--- NOTE | 2021-11-18 13:51 | P.PNIM_ITS ---
Subjective Subjective Date of Service: 11/18/21 Interval History: ataxia , blood in stool Review of Systems still has atxia moverments right ext. denies any chest pain or sob or abd pain Physical Exam Vital Signs: Vital Signs: Last Vital Signs Temp 98.2 F 11/18/21 10:53 Pulse 67 11/18/21 12:11 Resp 18 11/18/21 10:53 BP 96/50 L 11/18/21 12:11 Pulse Ox 97 11/18/21 12:11 BMI result Body Mass Index 20.8 Appearance: Alert.? Oriented X3.? not in distress.? Eyes: Pupils equal, round and reactive to light.? Sclera nonicteric.? ENT: Pharynx normal.? Moist mucous membranes. cvs: rrr, [id number] , no murmur res: clear to auscultation ,no rhonchii or wheezing abd: no rebound or guarding ,nt, bs present. ext pulses present , no cyanosis. neuro: axo3 ,has possible positional nystagmus moves clinton xt, still unsteady . Objective Data Active Medications Aspirin (Aspirin Enteric Coated 81 Mg Tablet.) 81 mg PO BEDTIME [facility] Last Admin: 11/17/21 20:51 Dose: 81 mg Documented by: DENAE Atorvastatin Calcium (Atorvastatin Calcium 40 Mg Tablet) 40 mg PO BEDTIME [facility] Last Admin: 11/17/21 20:51 Dose: 40 mg Documented by: DENAE Betamethasone Dipropion Augmented (Betamethasone Dip Aug 0.05% Cr 15 Gm Tube) 1 appl TOPICAL BID [facility] Last Admin: 11/18/21 08:35 Dose: Not Given Documented by: JENN Non-Admin Reason: not available Carvedilol (Carvedilol 6.25 Mg Tablet) 6.25 mg PO BID [facility]; Protocol Last Admin: 11/18/21 08:35 Dose: 6.25 mg Documented by: JENN Cyanocobalamin (Cyanocobalamin (Vitamin B-12) 1,000 Mcg Tablet) 1,000 mcg PO DAILY [facility] Last Admin: 11/18/21 08:34 Dose: 1,000 mcg Documented by: JENN Ferrous Sulfate (Ferrous Sulfate 300 Mg/5 Ml Liquid) 300 mg PO BIDWM [facility] Fluconazole (Fluconazole 100 Mg Tablet) 200 mg PO DAILY [facility] Last Admin: 11/17/21 09:37 Dose: 200 mg Documented by: JENN Lactated Ringer's (Lr) 1,000 mls @ 80 mls/hr IVCONT .[id number] [facility] Last Admin: 11/18/21 08:34 Dose: 80 mls/hr Documented by: JENN Meclizine HCl (Meclizine Hcl 25 Mg Tablet) 25 mg PO DAILY PRN PRN Reason: Vertigo Patient Own Medication ( Lamotrigine 250 Mg Tablet Extended Release 24hr) 3 each PO BEDTIME [facility] Last Admin: 11/17/21 20:50 Dose: 3 each Documented by: DENAE Nystatin (Nystatin Oral Susp 500,000 Unit/5 Ml Oral.Susp) 500,000 unit PO QID [facility]; Protocol Last Admin: 11/18/21 08:35 Dose: 500,000 unit Documented by: JENN Omeprazole (Omeprazole 20 Mg Capsule.Dr) 20 mg PO BEDTIME [facility] Last Admin: 11/17/21 20:51 Dose: 20 mg Documented by: DENAE Pharmacy Consult (Consult Rx Perform Med Rec) 1 each MISCELLANE ONCE PRN PRN Reason: Consult order Phenytoin (Phenytoin Chewable 50 Mg Tab.Chew) 50 mg PO DAILY [facility] Last Admin: 11/18/21 08:35 Dose: 50 mg Documented by: JENN Phenytoin Sodium (Phenytoin Sodium Extended 100 Mg Capsule) 100 mg PO DAILY [facility] Last Admin: 11/18/21 08:34 Dose: 100 mg Documented by: JENN Phenytoin Sodium (Phenytoin Sodium Extended 100 Mg Capsule) 200 mg PO BEDTIME [facility] Last Admin: 11/17/21 20:51 Dose: 200 mg Documented by: DENAE Vitamin D (Cholecalciferol (Vitamin D3) 25 Mcg Tablet) 25 mcg PO DAILY [facility] Last Admin: 11/18/21 08:35 Dose: 25 mcg Documented by: JENN Labs CBC & Chem 7: 11/18/21 11:29 11/18/21 08:24 Labs: Laboratory Results - last 24 hr 11/18/21 08:24 Anion Gap 15 Estim Creat Clear Calc 58.3 Estimated GFR > 60 Random Glucose 94 Calcium 9.0 Assessment and Plan (1) Ataxia: Status: Acute Plan 66-year-old woman admitted with? Recent admission due to acute blood loss anemia required PRBC, also possible colon mass- she got discharged yesterday and recommended to follow up outpatient with surgery and Oncology. in addition? has History of takotsubo cardiomyopathy, seizure, history of? brain aneurysm and clipping in 2013- came to the hospital because of episode of unsteadiness. 1.possible ataxia/nystagmus : ? 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 Resultant streak artifact limits assessment of the vessels in this region. Otherwise, no occlusion or significant stenosis is identified. repeat ct head seems no new cva moniter on tele continue asa , statin mri might not be possible due to hx of?brain aneurysm and clipping in 2013. speech pt/ot neurology eval noted -unclear if had cva vs tia, patient has symptoms from 1 month -since patient cannot get MRI?brain aneurysm and clipping?, will? repeat ct head-noted -simialr neuro eval -since has ataxia worsening Dilantin level is 31.5, monitored and dilantin level q.day once Dilantin level go below 20 then we may need to start back Dilantin again. 2.recent admission for Acute blood loss anemia, likely from GI source-last admit found to have colon mass pathology pendin h/h around 8.4 typw [facility] d/w surgery -add fu ct abd with iv contrast-?Redemonstration of irregular t hickening of the distal sigmoid colon. This is concerning for malignancy. Consider direct visualization. 2. 2 small hypodensities in left lobe of liver. has on/off some bleeding instool Gi eval oncology followup. surgery follow up noted-recoemnded mri for abd, waiting for . 3.History of takotsubo cardiomyopathy Continue beta-momo DVT prophylaxis with mechanical compression boots due to acute anemia recent. Quality Stroke Does the patient have a stroke diagnosis?: No VTE Prior VTE?: No VTE Risk Level:: Medical - moderate - high VTE Device Contraindication: N/A - Device Ordered VTE Drug Contraindication: N/A - Med Ordered
--- NOTE | 2021-11-18 14:42 | PM.NEUROCN ---
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 She's had the clipping off and aneurysm 7 years ago and coiling of for major left MCA aneurysm 5 years ago in [place] and is followed by a doctor in [place]. She is on [id number] mg a day and lamotrigine 750 at bedtime Review of Systems Review of Systems: still has atxia moverments right ext. ? diplopia denies any chest pain or sob or abd pain Yes all other systems are reviewed and are negative Constitutional: Constitutional: Denies chills, Denies fever(s), Denies headache(s), Denies poor appetite and Reports weakness ENT: Reports dizziness and Denies headache(s) Cardiovascular: Cardiovascular: Denies chest pain, Denies rapid heart rate, Denies palpitations and Denies slow heart rate Respiratory: Respiratory: Denies chest congestion, Denies cough, Denies pain on inspiration and Denies wheezing Gastrointestinal: Gastrointestinal: Denies abdominal pain, Denies bloating, Reports change in stool character, Denies constipation, Denies diarrhea, Reports nausea, Reports vomiting and Denies hematemesis Musculoskeletal: Musculoskeletal: Denies back pain, Denies arthralgias, Denies joint swelling and Denies numbness Integumentary/Breasts: Skin/Breast: Denies change in pigmentation, Denies erythema and Denies rash Neurologic: Reports dizziness, Denies headache(s), Denies numbness and Reports weakness Psychiatric: Psychiatric: Denies anxiety and Denies depression Endocrine: Endocrine: Denies palpitations Hematologic/Lymphatic: Hematologic/Lymphatic: Denies easy bleeding, Denies easy bruising and Denies lymphadenopathy Allergic/Immunologic: Allergic/Immunologic: Denies wheezing PMFSH Past Medical History Medical History (Updated 11/18/21 @ 14:46 by Stone Mae MD) Seizure Takotsubo cardiomyopathy Social History Social History Household Members: Spouse Household Members Other:: 2 Housing: House Do you presently have visiting nurse or other home services: No Alcohol intake: never Patient Tobacco Use Status: Former Tobacco user service: No Current occupational status: employed Meds Allergies Allergy/AdvReac Type Severity Reaction Status Date / Time Penicillins [PENICILLINS] Allergy Unknown UNKNOWN Verified 10/10/21 09:20 Active Medications: Current Medications Aspirin (Aspirin Enteric Coated 81 Mg Tablet.) 81 mg PO BEDTIME [facility] Last Admin: 11/17/21 20:51 Dose: 81 mg Documented by: Atorvastatin Calcium (Atorvastatin Calcium 40 Mg Tablet) 40 mg PO BEDTIME [facility] Last Admin: 11/17/21 20:51 Dose: 40 mg Documented by: Betamethasone Dipropion Augmented (Betamethasone Dip Aug 0.05% Cr 15 Gm Tube) 1 appl TOPICAL BID [facility] Last Admin: 11/18/21 08:35 Dose: Not Given Documented by: Carvedilol (Carvedilol 6.25 Mg Tablet) 6.25 mg PO BID [facility]; Protocol Last Admin: 11/18/21 08:35 Dose: 6.25 mg Documented by: Cyanocobalamin (Cyanocobalamin (Vitamin B-12) 1,000 Mcg Tablet) 1,000 mcg PO DAILY [facility] Last Admin: 11/18/21 08:34 Dose: 1,000 mcg Documented by: Ferrous Sulfate (Ferrous Sulfate 300 Mg/5 Ml Liquid) 300 mg PO BIDWM [facility] Fluconazole (Fluconazole 100 Mg Tablet) 200 mg PO DAILY [facility] Last Admin: 11/17/21 09:37 Dose: 200 mg Documented by: Lactated Ringer's (Lr) 1,000 mls @ 80 mls/hr IVCONT .[id number] [facility] Last Admin: 11/18/21 08:34 Dose: 80 mls/hr Documented by: Meclizine HCl (Meclizine Hcl 25 Mg Tablet) 25 mg PO DAILY PRN PRN Reason: Vertigo Patient Own Medication ( Lamotrigine 250 Mg Tablet Extended Release 24hr) 3 each PO BEDTIME [facility] Last Admin: 11/17/21 20:50 Dose: 3 each Documented by: Nystatin (Nystatin Oral Susp 500,000 Unit/5 Ml Oral.Susp) 500,000 unit PO QID [facility]; Protocol Last Admin: 11/18/21 14:37 Dose: Not Given Documented by: Omeprazole (Omeprazole 20 Mg Capsule.) 20 mg PO BEDTIME [facility] Last Admin: 11/17/21 20:51 Dose: 20 mg Documented by: Pharmacy Consult (Consult Rx Perform Med Rec) 1 each MISCELLANE ONCE PRN PRN Reason: Consult order Phenytoin (Phenytoin Chewable 50 Mg Tab.Chew) 50 mg PO DAILY [facility] Last Admin: 11/18/21 08:35 Dose: 50 mg Documented by: Phenytoin Sodium (Phenytoin Sodium Extended 100 Mg Capsule) 100 mg PO DAILY [facility] Last Admin: 11/18/21 08:34 Dose: 100 mg Documented by: Phenytoin Sodium (Phenytoin Sodium Extended 100 Mg Capsule) 200 mg PO BEDTIME [facility] Last Admin: 11/17/21 20:51 Dose: 200 mg Documented by: Vitamin D (Cholecalciferol (Vitamin D3) 25 Mcg Tablet) 25 mcg PO DAILY [facility] Last Admin: 11/18/21 08:35 Dose: 25 mcg Documented by: Home Medications Medication Instructions Recorded Confirmed Last Taken Type lamotrigine 250 mg tablet,extended 750 mg PO BEDTIME tab 02/15/21 11/16/21 11/15/21 History release 24 hr aspirin 81 mg tablet,delayed 81 mg PO BEDTIME 11/12/21 11/16/21 11/15/21 History release carvedilol 6.25 mg tablet 1 tab PO BID 11/12/21 11/16/21 11/15/21 History clobetasol 0.05 % topical ointment 1 applic TOPICAL BID 11/12/21 11/16/21 11/15/21 History phenytoin 50 mg chewable tablet 1 tab PO DAILY 11/12/21 11/16/21 11/15/21 History phenytoin sodium extended 100 mg 1 cap PO DAILY 11/12/21 11/16/21 11/15/21 History capsule phenytoin sodium extended 100 mg 2 cap PO BEDTIME 11/12/21 11/16/21 11/15/21 History capsule cholecalciferol (vitamin D3) 25 25 mcg PO DAILY 11/16/21 11/16/21 11/15/21 History mcg (1,000 unit) tablet (Vitamin D3) cyanocobalamin (vitamin B-12) 1,000 mcg PO DAILY 11/16/21 11/16/21 11/15/21 History 1,000 mcg tablet meclizine 25 mg tablet 25 mg PO DAILY PRN 11/16/21 11/16/21 Unknown History Physical Exam Vital Signs: Vital Signs: Last Vital Signs Temp 98.2 F 02/11/22 10:53 Pulse 67 11/18/21 12:11 Resp 18 11/18/21 10:53 BP 96/50 L 11/18/21 12:11 Pulse Ox 97 11/18/21 12:11 BMI result Body Mass Index 20.8 Const: General: no acute distress Nutritional Appearance: well nourished Orientation/consciousness: patient oriented x3 Limitations: no limitations HENMT: Head: Yes normocephalic and Yes atraumatic Ears: hearing grossly normal bilaterally Resp: Effort & Inspection: normal respiratory effort, no audible wheezes, no cough and no respiratory distress GI: Palpation (GI): Soft to palpation, nontender, no guarding, not rigid and no hepatosplenomegaly Skin: General skin exam: no rashes or lesions noted Neuro: Other: She was alert and awake with normal spontaneity of speech fluency comprehension and affect. She has rotatory ccentral nystagmus that reverses on lateral gaze as well as vertically. Ataxic gait General: patient oriented x3 Extrem: General: Yes no clubbing, cyanosis or edema Results Labs CBC & Chem 7: 11/18/21 11:29 11/18/21 08:24 Labs: Short CBC 11/18/21 Range/Units 11:29 Hgb 8.4 L (12.0-16.0) g/dl Hct 28.1 L (37.0-47.0) % BMP 11/18/21 08:24 Sodium 139 Potassium 4.7 D Chloride 103 Carbon Dioxide 26 BUN 6 L Creatinine 0.70 Calcium 9.0 Assessment and Plan (1) Ataxia: Status: Acute Probable Dilantin toxicity. Check stat Dilantin level. (2) Seizure: Status: Acute Currently under control. Plan 66-year-old woman admitted with? Recent admission due to acute blood loss anemia required PRBC, also possible colon mass- she got discharged yesterday and recommended to follow up outpatient with surgery and Oncology. in addition? has History of takotsubo cardiomyopathy, seizure, history of? brain aneurysm and clipping in 2013- came to the hospital because of episode of unsteadiness. 1.possible ataxia/nystagmus : ? 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 Resultant streak artifact limits assessment of the vessels in this region. Otherwise, no occlusion or significant stenosis is identified. repeat ct head seems no new cva moniter on tele continue asa , statin mri might not be possible due to hx of?brain aneurysm and clipping in 2012. speech pt/ot neurology eval noted -unclear if had cva vs tia, patient has symptoms from 1 month -since patient cannot get MRI?brain aneurysm and clipping?, will? repeat ct head-noted -simialr neuro eval -since has ataxia worsening/diplopia. 2.recent admission for Acute blood loss anemia, likely from GI source-last admit found to have colon mass pathology pendin h/h around 8.4 outpatient fu [facility] oncology/surgery. d/w surgery -add fu ct abd with iv contrast-?Redemonstration of irregular thickening of the distal sigmoid colon. This is concerning for malignancy. Consider direct visualization. 2. 2 small hypodensities in left lobe of liver. has on/off some bleeding instool Gi eval oncology followup. surgery follow up noted-recoemnded mri for abd, waiting for . 3.History of takotsubo cardiomyopathy Continue beta-momo DVT prophylaxis with mechanical compression boots due to acute anemia recent. Procedures Date of Service Date of Service: 11/18/21
--- NOTE | 2021-11-18 15:40 | PC.NURSE ---
Ok to take off automation tender for MRI per Dr Dumont.
[2021-11-18 15:56] LABS: Phenytoin Dilantin 31.5 ug/mL (10.0-20.0)
--- NOTE | 2021-11-18 16:09 | MHC.CM.PN ---
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;lectronic medical record reviewed along with case discussed on multiple dispinary rounds, reassedd nu neurolohy (please see note 11/08/21) , colonoscopy 11/17/21 irregular thicjkening of the distal sigmoid colon biopsies ataken also 2 small hypodensities in left lobe of liver, met with p patient and her son are aware that she will remain here through the weekend secondary to we will b not be able to get insurance auth unitl sunday discharge plan [facility] and they are continuong to follow patient , in light of new medical information ,they will nt be able to get insurance auth , uiuntil sunday. (clinical updates sent )
--- NOTE | 2021-11-18 16:36 | P.CNID_ITS ---
History of Present Illness Data of Consult Service Date: 11/18/21 Requesting physician: Candelaria Dumont Primary Care Provider: Vaughn Mahmood MD HPI Reason for consult: esophageal candidiasis She presents to hospital with shakiness and slurred speech before admission She has no fever or chills She has esophageal candidiasis reported Review of Systems Review of Systems: Yes all other systems are reviewed and are negative PMFSH Past Medical History Medical History Seizure Takotsubo cardiomyopathy Family History Family history: reviewed and not pertinent Social History Social History Household Members: Spouse Household Members Other:: 2 Housing: House Do you presently have visiting nurse or other home services: No Alcohol intake: never Patient Tobacco Use Status: Former Tobacco user service: No Current occupational status: employed Meds Allergies Allergy/AdvReac Type Severity Reaction Status Date / Time Penicillins [PENICILLINS] Allergy Unknown UNKNOWN Verified 10/10/21 09:20 Active Medications: Current Medications Aspirin (Aspirin Enteric Coated 81 Mg Tablet.) 81 mg PO BEDTIME [facility] Last Admin: 11/17/21 20:51 Dose: 81 mg Documented by: Atorvastatin Calcium (Atorvastatin Calcium 40 Mg Tablet) 40 mg PO BEDTIME [facility] Last Admin: 11/17/21 20:51 Dose: 40 mg Documented by: Betamethasone Dipropion Augmented (Betamethasone Dip Aug 0.05% Cr 15 Gm Tube) 1 appl TOPICAL BID [facility] Last Admin: 11/18/21 08:35 Dose: Not Given Documented by: Carvedilol (Carvedilol 6.25 Mg Tablet) 6.25 mg PO BID [facility]; Protocol Last Admin: 11/18/21 08:35 Dose: 6.25 mg Documented by: Cyanocobalamin (Cyanocobalamin (Vitamin B-12) 1,000 Mcg Tablet) 1,000 mcg PO DAILY [facility] Last Admin: 11/18/21 08:34 Dose: 1,000 mcg Documented by: Ferrous Sulfate (Ferrous Sulfate 300 Mg/5 Ml Liquid) 300 mg PO BIDWM [facility] Fluconazole (Fluconazole 100 Mg Tablet) 200 mg PO DAILY [facility] Last Admin: 11/17/21 09:37 Dose: 200 mg Documented by: Lactated Ringer's (Lr) 1,000 mls @ 80 mls/hr IVCONT .[id number] [facility] Last Admin: 11/18/21 08:34 Dose: 80 mls/hr Documented by: Meclizine HCl (Meclizine Hcl 25 Mg Tablet) 25 mg PO DAILY PRN PRN Reason: Vertigo Patient Own Medication ( Lamotrigine 250 Mg Tablet Extended Release 24hr) 3 each PO BEDTIME [facility] Last Admin: 11/17/21 20:50 Dose: 3 each Documented by: Nystatin (Nystatin Oral Susp 500,000 Unit/5 Ml Oral.Susp) 500,000 unit PO QID [facility]; Protocol Last Admin: 11/18/21 14:37 Dose: Not Given Documented by: Omeprazole (Omeprazole 20 Mg Capsule.Dr) 20 mg PO BEDTIME [facility] Last Admin: 11/17/21 20:51 Dose: 20 mg Documented by: Pharmacy Consult (Consult Rx Perform Med Rec) 1 each MISCELLANE ONCE PRN PRN Reason: Consult order Phenytoin (Phenytoin Chewable 50 Mg Tab.Chew) 50 mg PO DAILY [facility] Last Admin: 11/18/21 08:35 Dose: 50 mg Documented by: Phenytoin Sodium (Phenytoin Sodium Extended 100 Mg Capsule) 100 mg PO DAILY [facility] Last Admin: 11/18/21 08:34 Dose: 100 mg Documented by: Phenytoin Sodium (Phenytoin Sodium Extended 100 Mg Capsule) 200 mg PO BEDTIME [facility] Last Admin: 11/17/21 20:51 Dose: 200 mg Documented by: Vitamin D (Cholecalciferol (Vitamin D3) 25 Mcg Tablet) 25 mcg PO DAILY [facility] Last Admin: 11/18/21 08:35 Dose: 25 mcg Documented by: Home Medications Medication Instructions Recorded Confirmed Last Taken Type lamotrigine 250 mg tablet,extended 750 mg PO BEDTIME tab 02/15/21 11/16/21 11/15/21 History release 24 hr aspirin 81 mg tablet,delayed 81 mg PO BEDTIME 11/12/21 11/16/21 11/15/21 History release carvedilol 6.25 mg tablet 1 tab PO BID 11/12/21 11/16/21 11/15/21 History clobetasol 0.05 % topical ointment 1 applic TOPICAL BID 11/12/21 11/16/21 11/15/21 History cholecalciferol (vitamin D3) 25 25 mcg PO DAILY 11/16/21 11/16/21 11/15/21 History mcg (1,000 unit) tablet (Vitamin D3) cyanocobalamin (vitamin B-12) 1,000 mcg PO DAILY 11/16/21 11/16/21 11/15/21 History 1,000 mcg tablet meclizine 25 mg tablet 25 mg PO DAILY PRN 11/16/21 11/16/21 Unknown History Physical Exam Vital Signs: Vital Signs: Last Vital Signs Temp 98.9 F 11/18/21 15:17 Pulse 66 11/18/21 15:17 Resp 18 11/18/21 15:17 BP 115/61 11/18/21 15:17 Pulse Ox 97 11/18/21 15:17 BMI result Body Mass Index 20.8 Const: General: cooperative Resp: Effort & Inspection: normal respiratory effort Cardio: Rate: regular rate Rhythm: regular rhythm GI: Palpation (GI): Soft to palpation and nontender Extrem: General: Yes normal to inspection Results Labs CBC & Chem 7: 11/19/21 10:17 11/23/21 08:22 Labs: Short CBC 11/18/21 Range/Units 11:29 Hgb 8.4 L (12.0-16.0) g/dl Hct 28.1 L (37.0-47.0) % BMP 11/18/21 08:24 Sodium 139 Potassium 4.7 D Chloride 103 Carbon Dioxide 26 BUN 6 L Creatinine 0.70 Calcium 9.0 Assessment and Plan (1) Lori esophagitis: Status: Resolved Patient has h/o seizures and possible seizure on admission Plan Would continue Diflucan She should continue to take for fourteen days
[2021-11-18 17:27] LABS: Alanine Aminotransferase 10 U/L (0-31); Albumin Level 3.6 g/dL (3.5-5.0); Alkaline Phosphatase 85 U/L (39-117); Aspartate Amino Transferase 16 U/L (5-31); Bilirubin Direct < 0.2 mg/dL (0.0-0.5); Bilirubin Total < 0.2 mg/dL (0.0-1.0)
[2021-11-18] MEDS: Aspirin Enteric Coated 81 MG TABLET.DR PO (21:00)
[2021-11-18] MEDS: Omeprazole 20 MG CAPSULE.DR PO (21:00)
[2021-11-19] VITALS (9 sets, daily range): BP systolic 88–138; BP diastolic 48–72; PULSE 64–78; RESP 17–20; TEMP 36.1–37; O2SAT 96–100
--- NOTE | 2021-11-19 05:19 | PM.EVENT ---
Event Note Date of Service: 11/19/21 Event Note: pt having seizure like activity, w constant twitching and muscle spasms given 1 dose of iv ativan
[2021-11-19] MEDS: LORazepam 2 MG/ML VIAL 1 MG IVPUSH (05:28)
--- NOTE | 2021-11-19 06:45 | PC.NURSE ---
EKG done at 0[address] was forwarded to Dr. Tierney. Pt started to have spastic movement at 0320, started as short periods in few seconds and abating on its own, Dr. Tierney was notified, she continued to have spasm and increasing in intensity intermittently,pt now is also confused, Dr. Tierney was updated, and she came to see the pt, Lorazepam 1 mg IV given at around 0530, pt noted to settle down and slept after.
--- NOTE | 2021-11-19 06:53 | P.CNHO_ITS ---
Subjective - Subjective Chief complaint: rectal mass Patient: new to practice Consult date: 11/18/21 Primary Care Provider: Vaughn Mahmood MD HPI - Consult Narrative Reason for consult: rectal mass Narrative: Carole Walters is a 66 year old female who came to the er with seizing and GI bleeding with hematocrit of 21.6. GI evaluation showed dickson esophagitis, gastritis and a mass at 5-15 cm in the rectum. Pathology is pending. A second CT of the abdomen describes two 4-6 mm lesions in the liver of uncertain nature. She has been transfuse to hematocrit of 29% and is no longer bleeding. She was seen by Dr. de dios and Farnaz. She has an intracranial coil from a past aneurysm repair and is concerned about having an MRI. Review of Systems - Constitutional Reports anorexia, Reports weakness - ENT Reports system reviewed and no additional complaints, except as documented - Cardiovascular Reports shortness of breath - Respiratory Reports dyspnea on exertion - Gastrointestinal Reports bright, red blood in stools - Genitourinary Reports absent period - Integumentary/Breasts Skin/Breast: Reports dry skin - Neurologic Reports system reviewed and no additional complaints, except as documented, Reports weakness, Denies headache(s), Denies numbness PMFSH Medical History: Medical History (Last Reviewed 11/18/21 @ 16:37 by Alida Salinas MD) Seizure Takotsubo cardiomyopathy Family history: reviewed and not pertinent Social History: Social History (Last Reviewed 11/18/21 @ 16:37 by Alida Salinas MD) Living Situation History: Household Members: Spouse Household Members Other:: 2 Housing: House Do you presently have visiting nurse or other home services: No Tobacco History: Patient Tobacco Use Status: Former Tobacco user Occupation Assessmet: service: No Current occupational status: employed Home Medications and Allergies Current Medications: Current Medications Aspirin (Aspirin Enteric Coated 81 Mg Tablet.) 81 mg PO BEDTIME [facility] Last Admin: 11/18/21 21:00 Dose: 81 mg Documented by: Atorvastatin Calcium (Atorvastatin Calcium 40 Mg Tablet) 40 mg PO BEDTIME [facility] Last Admin: 11/17/21 20:51 Dose: 40 mg Documented by: Betamethasone Dipropion Augmented (Betamethasone Dip Aug 0.05% Cr 15 Gm Tube) 1 appl TOPICAL BID [facility] Last Admin: 11/18/21 22:16 Dose: Not Given Documented by: Carvedilol (Carvedilol 6.25 Mg Tablet) 6.25 mg PO BID [facility]; Protocol Last Admin: 11/18/21 21:00 Dose: 6.25 mg Documented by: Cyanocobalamin (Cyanocobalamin (Vitamin B-12) 1,000 Mcg Tablet) 1,000 mcg PO DAILY [facility] Last Admin: 11/18/21 08:34 Dose: 1,000 mcg Documented by: Ferrous Sulfate (Ferrous Sulfate 300 Mg/5 Ml Liquid) 300 mg PO BIDWM [facility] Last Admin: 11/18/21 17:12 Dose: Not Given Documented by: Fluconazole (Fluconazole 100 Mg Tablet) 200 mg PO DAILY [facility] Last Admin: 11/17/21 09:37 Dose: 200 mg Documented by: Lactated Ringer's (Lr) 1,000 mls @ 80 mls/hr IVCONT .[id number] [facility] Last Admin: 11/18/21 21:00 Dose: 80 mls/hr Documented by: Meclizine HCl (Meclizine Hcl 25 Mg Tablet) 25 mg PO DAILY PRN PRN Reason: Vertigo Patient Own Medication ( Lamotrigine 250 Mg Tablet Extended Release 24hr) 3 each PO BEDTIME [facility] Last Admin: 11/18/21 21:00 Dose: 3 each Documented by: Nystatin (Nystatin Oral Susp 500,000 Unit/5 Ml Oral.Susp) 500,000 unit PO QID [facility]; Protocol Last Admin: 11/18/21 20:59 Dose: 500,000 unit Documented by: Omeprazole (Omeprazole 20 Mg Capsule.Dr) 20 mg PO BEDTIME [facility] Last Admin: 11/18/21 21:00 Dose: 20 mg Documented by: Pharmacy Consult (Consult Rx Perform Med Rec) 1 each MISCELLANE ONCE PRN PRN Reason: Consult order Phenytoin (Phenytoin Chewable 50 Mg Tab.Chew) 50 mg PO DAILY [facility] Last Admin: 11/18/21 08:35 Dose: 50 mg Documented by: Phenytoin Sodium (Phenytoin Sodium Extended 100 Mg Capsule) 100 mg PO DAILY [facility] Last Admin: 11/18/21 08:34 Dose: 100 mg Documented by: Phenytoin Sodium (Phenytoin Sodium Extended 100 Mg Capsule) 200 mg PO BEDTIME [facility] Last Admin: 11/17/21 20:51 Dose: 200 mg Documented by: Vitamin D (Cholecalciferol (Vitamin D3) 25 Mcg Tablet) 25 mcg PO DAILY [facility] Last Admin: 11/18/21 08:35 Dose: 25 mcg Documented by: Home Medications Medication Instructions Recorded Confirmed Type lamotrigine 250 mg tablet,extended 750 mg PO BEDTIME tab 02/15/21 11/16/21 History release 24 hr aspirin 81 mg tablet,delayed 81 mg PO BEDTIME 11/12/21 11/16/21 History release carvedilol 6.25 mg tablet 1 tab PO BID 11/12/21 11/16/21 History clobetasol 0.05 % topical ointment 1 applic TOPICAL BID 11/12/21 11/16/21 History phenytoin 50 mg chewable tablet 1 tab PO DAILY 11/12/21 11/16/21 History phenytoin sodium extended 100 mg 1 cap PO DAILY 11/12/21 11/16/21 History capsule phenytoin sodium extended 100 mg 2 cap PO BEDTIME 11/12/21 11/16/21 History capsule cholecalciferol (vitamin D3) 25 25 mcg PO DAILY 11/16/21 11/16/21 History mcg (1,000 unit) tablet (Vitamin D3) cyanocobalamin (vitamin B-12) 1,000 mcg PO DAILY 11/16/21 11/16/21 History 1,000 mcg tablet meclizine 25 mg tablet 25 mg PO DAILY PRN 11/16/21 11/16/21 History Allergies Allergy/AdvReac Type Severity Reaction Status Date / Time Penicillins [PENICILLINS] Allergy Unknown UNKNOWN Verified 10/10/21 09:20 Physical Exam Vital signs: Vital Signs Temp 98.2 F 11/18/21 23:20 Pulse 73 11/18/21 23:20 Resp 17 11/18/21 23:20 BP 105/63 11/18/21 23:20 Pulse Ox 94 11/18/21 23:20 Intake & Output 11/18/21 11/18/21 11/19/21 06:59 18:59 06:59 Intake Total 221 / 701 1050.667 / 1170.667 120 / 1170.667 Output Total 3 / 3 Balance 221 / 699 1050.667 / 1167.667 117 / 1167.667 Urine Output (Average ml/kg/hr) 0.01 Intake: Intake, Oral Amount 221 / 701 360 / 480 120 / 480 Intake, IV Amount 690.667 / 690.667 0 / 690.667 Lactated Ringers 1,000 ml @ 80 690.667 / 690.667 0 / 690.667 mls/hr IVCONT .[id number] [facility] Rx#: [id number] Output: Output, Urine Amount 3 / 3 Other: Meal Refused No No NPO No No Breakfast % Eaten 50% Lunch % Eaten 75% Dinner % Eaten 100% Number of Unmeasured Voids 1 Urine Bedside Commode Bathroom Urine Color Yellow Yellow Last Bowel Movement 11/18/21 Weight 48.4 kg - Constitutional Present: no acute distress - Routine HEENT Exam Head: Present: atraumatic Eye: Present: normal appearance - Routine Neck Exam Present: supple - Routine Respiratory Exam Present: decreased breath sounds - Routine Cardiovascular Exam Cardiovascular: Present: RRR - Routine Abdominal Exam Present: diminished bowel sounds - Routine Extremities Exam Present: nontender - Routine Skin Exam Present: intact Hem/Onc Consult Result - Labs CBC & Chem 7: 11/18/21 11:29 11/18/21 08:24 Labs: Short CBC 11/18/21 Range/Units 11:29 Hgb 8.4 L (12.0-16.0) g/dl Hct 28.1 L (37.0-47.0) % BMP 11/18/21 08:24 Sodium 139 Potassium 4.7 D Chloride 103 Carbon Dioxide 26 BUN 6 L Creatinine 0.70 Calcium 9.0 Liver Function 11/18/21 Range/Units 08:24 Total Bilirubin < 0.2 (0.0-1.0) mg/dL Direct Bilirubin < 0.2 (0.0-0.5) mg/dL AST 16 (5-31) U/L ALT 10 (0-31) U/L Alkaline Phosphatase 85 (39-117) U/L Albumin 3.6 (3.5-5.0) g/dL Assessment and Plan Patient Active problem list reviewed?: Yes (1) Rectal mass Start date: 11/19/21 Status: Acute Assessment and plan: She may be able to have an MRI of the abdomen to characterize the liver and stage the mass. We ill await pathology and MSI status. If early stage she is a candate surgery and possibly/likely neoadjuvant chemotherapy and radiation prior to surgery. She will likely not need a permanent colostomy. - Time Spent With Patient Time Spent with Patient (in minutes): 30
[2021-11-19 07:51] LABS: Phenytoin Dilantin 26.4 ug/mL (10.0-20.0)
[2021-11-19 08:04] LABS: Anion Gap 14 (12-20); Blood Urea Nitrogen 7 mg/dL (9-16); Calcium 8.3 mg/dL (8.4-10.2); Carbon Dioxide 25 mmol/L (22-29); Chloride 103 mmol/L (96-108); Creatinine Clr Calc Pharmacy 59.2; Estimated Glomerular Filt Rate > 60; Glucose Random 96 mg/dL (60-115); Sodium 138 mmol/L (135-145)
[2021-11-19 08:24] LABS: Alanine Aminotransferase 7 U/L (0-31); Albumin Level 3.3 g/dL (3.5-5.0); Alkaline Phosphatase 76 U/L (39-117); Aspartate Amino Transferase 14 U/L (5-31); Total Protein 5.3 g/dL (6.5-8.0)
[2021-11-19 08:35] LABS: Bilirubin Direct < 0.2 mg/dL (0.0-0.5); Bilirubin Total 0.2 mg/dL (0.0-1.0)
--- NOTE | 2021-11-19 08:38 | PM.GICN ---
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 Patient was admitted recently for unsteadiness and anemia with hx of rectal bleeding and had EGD and colonoscopy done by Mike revealing candidal esophagitis and rectal cancer. She was d/c'ed just few days ago with plan for o/p surgery and oncology assessment, but was readmitted with poor balance, dizziness and seizure like activity. hgb was noted to be slightly lower than her d/c HGB patient denies rectal bleeding but blood was seen in stool by nurse and Dr Dumont Review of Systems Review of Systems: Constitutional : No Weight loss, No Fever, No Chills ENT/Mouth : No sore throat, No Rhinorrhea Eyes: No Swelling, No Redness Cardiovascular : No Chest Pain, No SOB, No Edema Respiratory : No Cough, No Sputum, No Wheezing Gastrointestinal : see HPI Genitourinary : NO Dysuria, No Urinary Frequency, No Hematuria, No Urgency Musculoskeletal : No joint pain, No Myalgias, No Joint Swelling Skin : No Skin Lesions, No rash Neuro : + Weakness, No Numbness, + Dizziness, No Headache Psych : No Anxiety/Panic, No Depression Heme/Lymph: No Bruising, No Lymphadenopathy Endocrine : No Polyuria, No Polydipsia All other systems reviewed and are negative. [facility] Past Medical History Medical History Seizure Takotsubo cardiomyopathy Family History Family history: reviewed and not pertinent Social History Social History Household Members: Spouse Household Members Other:: 2 Housing: House Do you presently have visiting nurse or other home services: No Alcohol intake: never Patient Tobacco Use Status: Former Tobacco user service: No Current occupational status: employed Meds Allergies Allergy/AdvReac Type Severity Reaction Status Date / Time Penicillins [PENICILLINS] Allergy Unknown UNKNOWN Verified 10/10/21 09:20 Active Medications: Current Medications Aspirin (Aspirin Enteric Coated 81 Mg Tablet.) 81 mg PO BEDTIME [facility] Last Admin: 11/18/21 21:00 Dose: 81 mg Documented by: Atorvastatin Calcium (Atorvastatin Calcium 40 Mg Tablet) 40 mg PO BEDTIME [facility] Last Admin: 11/17/21 20:51 Dose: 40 mg Documented by: Betamethasone Dipropion Augmented (Betamethasone Dip Aug 0.05% Cr 15 Gm Tube) 1 appl TOPICAL BID [facility] Last Admin: 11/18/21 22:16 Dose: Not Given Documented by: Carvedilol (Carvedilol 6.25 Mg Tablet) 6.25 mg PO BID [facility]; Protocol Last Admin: 11/18/21 21:00 Dose: 6.25 mg Documented by: Cyanocobalamin (Cyanocobalamin (Vitamin B-12) 1,000 Mcg Tablet) 1,000 mcg PO DAILY [facility] Last Admin: 11/18/21 08:34 Dose: 1,000 mcg Documented by: Ferrous Sulfate (Ferrous Sulfate 300 Mg/5 Ml Liquid) 300 mg PO BIDWM [facility] Last Admin: 11/18/21 17:12 Dose: Not Given Documented by: Fluconazole (Fluconazole 100 Mg Tablet) 200 mg PO DAILY [facility] Last Admin: 11/17/21 09:37 Dose: 200 mg Documented by: Lactated Ringer's (Lr) 1,000 mls @ 80 mls/hr IVCONT .[id number] [facility] Last Admin: 11/18/21 21:00 Dose: 80 mls/hr Documented by: Meclizine HCl (Meclizine Hcl 25 Mg Tablet) 25 mg PO DAILY PRN PRN Reason: Vertigo Patient Own Medication ( Lamotrigine 250 Mg Tablet Extended Release 24hr) 3 each PO BEDTIME [facility] Last Admin: 11/18/21 21:00 Dose: 3 each Documented by: Nystatin (Nystatin Oral Susp 500,000 Unit/5 Ml Oral.Susp) 500,000 unit PO QID [facility]; Protocol Last Admin: 11/18/21 20:59 Dose: 500,000 unit Documented by: Omeprazole (Omeprazole 20 Mg Capsule.) 20 mg PO BEDTIME [facility] Last Admin: 11/18/21 21:00 Dose: 20 mg Documented by: Pharmacy Consult (Consult Rx Perform Med Rec) 1 each MISCELLANE ONCE PRN PRN Reason: Consult order Phenytoin (Phenytoin Chewable 50 Mg Tab.Chew) 50 mg PO DAILY [facility] Last Admin: 11/18/21 08:35 Dose: 50 mg Documented by: Phenytoin Sodium (Phenytoin Sodium Extended 100 Mg Capsule) 100 mg PO DAILY [facility] Last Admin: 11/18/21 08:34 Dose: 100 mg Documented by: Phenytoin Sodium (Phenytoin Sodium Extended 100 Mg Capsule) 200 mg PO BEDTIME [facility] Last Admin: 11/17/21 20:51 Dose: 200 mg Documented by: Vitamin D (Cholecalciferol (Vitamin D3) 25 Mcg Tablet) 25 mcg PO DAILY [facility] Last Admin: 11/18/21 08:35 Dose: 25 mcg Documented by: Home Medications Medication Instructions Recorded Confirmed Last Taken Type lamotrigine 250 mg tablet,extended 750 mg PO BEDTIME tab 02/15/21 11/16/21 11/15/21 History release 24 hr aspirin 81 mg tablet,delayed 81 mg PO BEDTIME 11/12/21 11/16/21 11/15/21 History release carvedilol 6.25 mg tablet 1 tab PO BID 11/12/21 11/16/21 11/15/21 History clobetasol 0.05 % topical ointment 1 applic TOPICAL BID 11/12/21 11/16/21 11/15/21 History phenytoin 50 mg chewable tablet 1 tab PO DAILY 11/12/21 11/16/21 11/15/21 History phenytoin sodium extended 100 mg 1 cap PO DAILY 11/12/21 11/16/21 11/15/21 History capsule phenytoin sodium extended 100 mg 2 cap PO BEDTIME 11/12/21 11/16/21 11/15/21 History capsule cholecalciferol (vitamin D3) 25 25 mcg PO DAILY 11/16/21 11/16/21 11/15/21 History mcg (1,000 unit) tablet (Vitamin D3) cyanocobalamin (vitamin B-12) 1,000 mcg PO DAILY 11/16/21 11/16/21 11/15/21 History 1,000 mcg tablet meclizine 25 mg tablet 25 mg PO DAILY PRN 11/16/21 11/16/21 Unknown History Physical Exam Vital Signs: Vital Signs: Last Vital Signs Temp 97.5 F 11/19/21 07:45 Pulse 71 11/19/21 07:45 Resp 20 11/19/21 07:45 BP 109/62 11/19/21 07:45 Pulse Ox 96 11/19/21 07:45 BMI result Body Mass Index 20.8 Results Labs CBC & Chem 7: 11/19/21 10:17 11/19/21 05:56 Labs: Short CBC 11/18/21 Range/Units 11:29 Hgb 8.4 L (12.0-16.0) g/dl Hct 28.1 L (37.0-47.0) % BMP 11/18/21 11/19/21 08:24 05:56 Sodium 139 138 Potassium 4.7 D 4.0 Chloride 103 103 Carbon Dioxide 26 25 BUN 6 L 7 L Creatinine 0.70 0.69 Calcium 9.0 8.3 L D Liver Function 11/18/21 11/19/21 Range/Units 08:24 05:56 Total Bilirubin < 0.2 0.2 (0.0-1.0) mg/dL Direct Bilirubin < 0.2 < 0.2 (0.0-0.5) mg/dL AST 16 14 (5-31) U/L ALT 10 7 (0-31) U/L Alkaline Phosphatase 85 76 (39-117) U/L Albumin 3.6 3.3 L (3.5-5.0) g/dL Assessment and Plan (1) Anemia: Status: Acute (2) Rectal mass: Status: Acute Plan 1/ Anemia in patient with known rectal mass, some overt bleeding, may be worse recently due to biopsies from the mass and aspirin use, HGB seems to be stable, also being assessed for seizure like activity PLAN: 1/ cont to monitor, only option from GI point of view would be hemospray if ongoing bleeding, would cont aspirin due to her risk factors, transfuse in meantime and give iron infusion Procedures Date of Service Date of Service: 11/19/21
[2021-11-19] MEDS: Cyanocobalamin (Vitamin B-12) 1,000 MCG TABLET 1000 MCG PO (08:48)
[2021-11-19] MEDS: Ferrous Sulfate 300 MG/5 ML LIQUID PO ×2 (08:49→15:35)
[2021-11-19] MEDS: carvediloL 6.25 MG TABLET PO ×2 (08:49→21:18)
[2021-11-19] MEDS: Cholecalciferol (Vitamin D3) 25 MCG TABLET PO (08:49)
[2021-11-19] MEDS: Nystatin Oral Susp 500,000 UNIT/5 ML ORAL.SUSP 500000 UNIT PO ×4 (08:50→21:18)
[2021-11-19] MEDS: Lactated Ringers 1,000 ML 80 ML IVCONT (09:33)
--- NOTE | 2021-11-19 09:52 | HO.PM.IMPN ---
Subjective Subjective Date of Service: 11/19/21 Interval History: dilantin toxicity Review of Systems patient had episode of ataxia last night versus seizure- was given IV Ativan. no episode of any seizure or ataxia movement afterwards denies any chest pain or shortness of breath or abdominal pain or fever chills. Physical Exam Vital Signs: Vital Signs: Last Vital Signs Temp 97.5 F 11/19/21 07:45 Pulse 71 11/19/21 07:45 Resp 20 11/19/21 07:45 BP 109/62 11/19/21 07:45 Pulse Ox 96 11/19/21 07:45 BMI result Body Mass Index 20.8 Appearance: Alert.? Oriented X3, seems generlised weak. Eyes: Pupils equal, round and reactive to light.? Sclera nonicteric.? ENT: Pharynx normal.? Moist mucous membranes. cvs: rrr, [id number] , no murmur res: clear to auscultation ,no rhonchii or wheezing abd: no rebound or guarding ,nt, bs present. ext pulses present , no cyanosis. neuro: axo3 ,ataxia vs seizure episode Objective Data Active Medications Aspirin (Aspirin Enteric Coated 81 Mg Tablet.) 81 mg PO BEDTIME [facility] Last Admin: 11/18/21 21:00 Dose: 81 mg Documented by: MALIA Atorvastatin Calcium (Atorvastatin Calcium 40 Mg Tablet) 40 mg PO BEDTIME [facility] Last Admin: 11/17/21 20:51 Dose: 40 mg Documented by: DENAE Betamethasone Dipropion Augmented (Betamethasone Dip Aug 0.05% Cr 15 Gm Tube) 1 appl TOPICAL BID [facility] Last Admin: 11/18/21 22:16 Dose: Not Given Documented by: MALIA Non-Admin Reason: Med Not Available Carvedilol (Carvedilol 6.25 Mg Tablet) 6.25 mg PO BID [facility]; Protocol Last Admin: 11/19/21 08:49 Dose: 6.25 mg Documented by: MADINA Cyanocobalamin (Cyanocobalamin (Vitamin B-12) 1,000 Mcg Tablet) 1,000 mcg PO DAILY [facility] Last Admin: 11/19/21 08:48 Dose: 1,000 mcg Documented by: MADINA Ferrous Sulfate (Ferrous Sulfate 300 Mg/5 Ml Liquid) 300 mg PO BIDWM [facility] Last Admin: 11/19/21 08:49 Dose: 300 mg Documented by: MADINA Fluconazole (Fluconazole 100 Mg Tablet) 200 mg PO DAILY [facility] Last Admin: 11/17/21 09:37 Dose: 200 mg Documented by: JENN Lactated Ringer's (Lr) 1,000 mls @ 80 mls/hr IVCONT .[id number] [facility] Last Admin: 11/19/21 09:33 Dose: 80 mls/hr Documented by: MADINA Meclizine HCl (Meclizine Hcl 25 Mg Tablet) 25 mg PO DAILY PRN PRN Reason: Vertigo Patient Own Medication ( Lamotrigine 250 Mg Tablet Extended Release 24hr) 3 each PO BEDTIME [facility] Last Admin: 11/18/21 21:00 Dose: 3 each Documented by: MALIA Nystatin (Nystatin Oral Susp 500,000 Unit/5 Ml Oral.Susp) 500,000 unit PO QID [facility]; Protocol Last Admin: 11/19/21 08:50 Dose: 500,000 unit Documented by: MADINA Omeprazole (Omeprazole 20 Mg Capsule.Dr) 20 mg PO BEDTIME [facility] Last Admin: 11/18/21 21:00 Dose: 20 mg Documented by: MALIA Pharmacy Consult (Consult Rx Perform Med Rec) 1 each MISCELLANE ONCE PRN PRN Reason: Consult order Phenytoin (Phenytoin Chewable 50 Mg Tab.Chew) 50 mg PO DAILY [facility] Last Admin: 11/18/21 08:35 Dose: 50 mg Documented by: JENN Phenytoin Sodium (Phenytoin Sodium Extended 100 Mg Capsule) 100 mg PO DAILY [facility] Last Admin: 11/18/21 08:34 Dose: 100 mg Documented by: JENN Phenytoin Sodium (Phenytoin Sodium Extended 100 Mg Capsule) 200 mg PO BEDTIME [facility] Last Admin: 11/17/21 20:51 Dose: 200 mg Documented by: DENAE Vitamin D (Cholecalciferol (Vitamin D3) 25 Mcg Tablet) 25 mcg PO DAILY [facility] Last Admin: 11/19/21 08:49 Dose: 25 mcg Documented by: MADINA Labs CBC & Chem 7: 11/18/21 11:29 11/19/21 05:56 Labs: Laboratory Results - last 24 hr 11/18/21 11/18/21 11/18/21 08:24 13:26 15:01 Anion Gap Estim Creat Clear Calc Estimated GFR Random Glucose Calcium Total Bilirubin < 0.2 Direct Bilirubin < 0.2 AST 16 ALT 10 Alkaline Phosphatase 85 Total Protein 6.0 L Albumin 3.6 Phenytoin 31.5 H* Blood Type O Positive Antibody Screen NEGATIVE 11/19/21 05:56 Anion Gap 14 Estim Creat Clear Calc 59.2 Estimated GFR > 60 Random Glucose 96 Calcium 8.3 L D Total Bilirubin 0.2 Direct Bilirubin < 0.2 AST 14 ALT 7 Alkaline Phosphatase 76 Total Protein 5.3 L Albumin 3.3 L Phenytoin 26.4 H* Blood Type Antibody Screen Assessment and Plan (1) Lori esophagitis: Status: Acute (2) Ataxia: Status: Acute (3) Seizure: Status: Acute Plan 66-year-old woman admitted with? Recent admission due to acute blood loss anemia required PRBC, also possible colon mass- she got discharged yesterday and recommended to follow up outpatient with surgery and Oncology. in addition? has History of takotsubo cardiomyopathy, seizure, history of? brain aneurysm and clipping in 2013- came to the hospital because of episode of unsteadiness. 1.possible ataxia/nystagmus : ? 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 Resultant streak artifact limits assessment of the vessels in this region. Otherwise, no occlusion or significant stenosis is identified. repeat ct head seems no new cva ?moniter on tele-seems fine echo seems fine : ef 60-65% continue asa , statin mri might not be possible due to hx of?brain aneurysm and clipping in 2013. speech pt/ot neurology eval noted -unclear if had cva vs tia, patient has symptoms from 1 month -since patient cannot get MRI?brain aneurysm and clipping?, will? repeat ct head-noted -simialr neuro eval -since has ataxia worsening ?Dilantin level is 31.5-26.4, monitored and dilantin? level q.day? once Dilantin level go below 20 then we may need to start back Dilantin 300 mg daily . will add prn ativan meanwhile 2.recent admission for Acute blood loss anemia, likely from GI source-last admit found to have colon mass pathology -Rectum, mass, biopsy:??Superficial fragments of adenocarcinoma. h/h around 8.4 d/w surgery -add fu ct abd with iv contrast-?Redemonstration of irregular thickening of the distal sigmoid colon. This is concerning for malignancy. Consider direct visualization. 2. 2 small hypodensities in left lobe of liver. MRi abd:MR/MR abdomen wo/w con IMPRESSION: There are small subcentimeter T2 bright nonenhancing cysts within the liver parenchyma as well as 2 small subcentimeter T2 bright enhancing small hemangiomas. I do not appreciate any suspicious hepatic lesions has on/off some bleeding in stool type and cross Discussed with infectious disease: Patient has is a Physical candidiasis, since her ataxia probably related to Dilantin toxicity rather than fluconazole so fluconazole added back. Gi evalPending oncology followup. surgery follow up noted-recoemnded mri for abd, waiting for . 3.History of takotsubo cardiomyopathy Continue beta-momo DVT prophylaxis with mechanical compression boots due to acute anemia recent. Quality Stroke Does the patient have a stroke diagnosis?: No VTE Prior VTE?: No VTE Risk Level:: Medical - moderate - high VTE Device Contraindication: N/A - Device Ordered VTE Drug Contraindication: N/A - Med Ordered
[2021-11-19] MEDS: Betamethasone Dip Aug 0.05% Cr 15 GM TUBE 1 APPL TOPICAL ×2 (10:32→21:17)
[2021-11-19 10:45] LABS: Hematocrit 27.5 % (37.0-47.0); Hemoglobin 8.3 g/dl (12.0-16.0)
--- NOTE | 2021-11-19 15:48 | PC.NURSE ---
Addendum entered by Niya Douglas RN 11/19/21 16:07: BP rechecke manually 92/48 Dr. Dumont made aware Original Note: P BP low 88/54 pulse 67,patient feels tired ,no other symptoms I Dr. Dumont notified E will monitror
[2021-11-19] MEDS: Omeprazole 20 MG CAPSULE.DR PO (21:18)
[2021-11-19] MEDS: Aspirin Enteric Coated 81 MG TABLET.DR PO (21:18)
[2021-11-20 03:37] VITALS: BP 103/59; PULSE 62; RESP 17; TEMP 36.3; O2SAT 99
[2021-11-20 06:55] LABS: Alanine Aminotransferase 8 U/L (0-31); Albumin Level 3.4 g/dL (3.5-5.0); Alkaline Phosphatase 85 U/L (39-117); Anion Gap 11 (12-20); Aspartate Amino Transferase 13 U/L (5-31); Bilirubin Direct < 0.2 mg/dL (0.0-0.5); Bilirubin Total 0.2 mg/dL (0.0-1.0); Blood Urea Nitrogen 11 mg/dL (9-16); Calcium 8.9 mg/dL (8.4-10.2); Carbon Dioxide 30 mmol/L (22-29); Chloride 102 mmol/L (96-108); Creatinine Clr Calc Pharmacy 64.8; Estimated Glomerular Filt Rate > 60; Glucose Random 97 mg/dL (60-115); Potassium 4.5 mmol/L (3.3-5.1); Sodium 138 mmol/L (135-145); Total Protein 5.6 g/dL (6.5-8.0)
[2021-11-20 08:00] VITALS: BP 127/74; PULSE 75; RESP 18; TEMP 36.7; O2SAT 99
[2021-11-20 09:09] LABS: Phenytoin Dilantin 21.9 ug/mL (10.0-20.0)
[2021-11-20] MEDS: Fluconazole 100 MG TABLET 200 MG PO (09:17)
[2021-11-20] MEDS: Betamethasone Dip Aug 0.05% Cr 15 GM TUBE 1 APPL TOPICAL ×2 (09:17→20:46)
[2021-11-20] MEDS: Nystatin Oral Susp 500,000 UNIT/5 ML ORAL.SUSP 500000 UNIT PO ×4 (09:18→20:45)
[2021-11-20] MEDS: Cyanocobalamin (Vitamin B-12) 1,000 MCG TABLET 1000 MCG PO (09:18)
[2021-11-20] MEDS: Cholecalciferol (Vitamin D3) 25 MCG TABLET PO (09:18)
[2021-11-20] MEDS: carvediloL 6.25 MG TABLET PO (09:18)
[2021-11-20] MEDS: Ferrous Sulfate 300 MG/5 ML LIQUID PO ×2 (09:18→17:07)
[2021-11-20 11:42] VITALS: BP 116/67; PULSE 83; RESP 20; O2SAT 98
[2021-11-20] MEDS: Lactated Ringers 1,000 ML 80 ML IVCONT (12:54)
--- NOTE | 2021-11-20 14:01 | P.PNIM_ITS ---
Subjective Subjective Date of Service: 11/20/21 Interval History: ataxia, Dilantin toxicity Review of Systems she says that the today night she slept well, had a mild episode ataxiabut significantly better than before denies any chest pain or shortness of breath or abdominal pain or fever chills, seems significantly less drowsy Physical Exam Vital Signs: Vital Signs: Last Vital Signs Temp 98.1 F 11/20/21 08:00 Pulse 83 11/20/21 11:42 Resp 20 11/20/21 11:42 BP 116/67 11/20/21 11:42 Pulse Ox 98 11/20/21 11:42 BMI result Body Mass Index 20.8 Appearance: Alert.? Oriented X3, seems generlised weak. Eyes: Pupils equal, round and reactive to light.? Sclera nonicteric.? ENT: Pharynx normal.? Moist mucous membranes. cvs: rrr, [id number] , no murmur res: clear to auscultation ,no rhonchii or wheezing abd: no rebound or guarding ,nt, bs present. ext pulses present , no cyanosis. neuro: axo3 ,ataxia vs seizure episode Objective Data Active Medications Aspirin (Aspirin Enteric Coated 81 Mg Tablet.) 81 mg PO BEDTIME [facility] Last Admin: 11/19/21 21:18 Dose: 81 mg Documented by: RASHAD Atorvastatin Calcium (Atorvastatin Calcium 40 Mg Tablet) 40 mg PO BEDTIME [facility] Last Admin: 11/17/21 20:51 Dose: 40 mg Documented by: DENAE Betamethasone Dipropion Augmented (Betamethasone Dip Aug 0.05% Cr 15 Gm Tube) 1 appl TOPICAL BID [facility] Last Admin: 11/20/21 09:17 Dose: 1 appl Documented by: RAJESH Carvedilol (Carvedilol 6.25 Mg Tablet) 6.25 mg PO BID [facility]; Protocol Last Admin: 11/20/21 09:18 Dose: 6.25 mg Documented by: RAJESH Cyanocobalamin (Cyanocobalamin (Vitamin B-12) 1,000 Mcg Tablet) 1,000 mcg PO DAILY [facility] Last Admin: 11/20/21 09:18 Dose: 1,000 mcg Documented by: RAJESH Ferrous Sulfate (Ferrous Sulfate 300 Mg/5 Ml Liquid) 300 mg PO BIDWM [facility] Last Admin: 11/20/21 09:18 Dose: 300 mg Documented by: RAJESH Fluconazole (Fluconazole 100 Mg Tablet) 200 mg PO DAILY [facility] Last Admin: 11/20/21 09:17 Dose: 200 mg Documented by: RAJESH Lactated Ringer's (Lr) 1,000 mls @ 80 mls/hr IVCONT .[id number] [facility] Last Admin: 11/20/21 12:54 Dose: 80 mls/hr Documented by: RAJESH Lorazepam (Lorazepam 2 Mg/Ml Vial) 0.5 mg IVPUSH Q6H PRN PRN Reason: Seizures Meclizine HCl (Meclizine Hcl 25 Mg Tablet) 25 mg PO DAILY PRN PRN Reason: Vertigo Patient Own Medication ( Lamotrigine 250 Mg Tablet Extended Release 24hr) 3 each PO BEDTIME [facility] Last Admin: 11/19/21 21:17 Dose: 3 each Documented by: RASHAD Nystatin (Nystatin Oral Susp 500,000 Unit/5 Ml Oral.Susp) 500,000 unit PO QID [facility]; Protocol Last Admin: 11/20/21 12:53 Dose: 500,000 unit Documented by: RAJESH Omeprazole (Omeprazole 20 Mg Capsule.Dr) 20 mg PO BEDTIME [facility] Last Admin: 11/19/21 21:18 Dose: 20 mg Documented by: RASHAD Pharmacy Consult (Consult Rx Perform Med Rec) 1 each MISCELLANE ONCE PRN PRN Reason: Consult order Phenytoin (Phenytoin Chewable 50 Mg Tab.Chew) 50 mg PO DAILY [facility] Last Admin: 11/18/21 08:35 Dose: 50 mg Documented by: JENN Phenytoin Sodium (Phenytoin Sodium Extended 100 Mg Capsule) 100 mg PO DAILY [facility] Last Admin: 11/18/21 08:34 Dose: 100 mg Documented by: JENN Phenytoin Sodium (Phenytoin Sodium Extended 100 Mg Capsule) 200 mg PO BEDTIME [facility] Last Admin: 11/17/21 20:51 Dose: 200 mg Documented by: DENAE Vitamin D (Cholecalciferol (Vitamin D3) 25 Mcg Tablet) 25 mcg PO DAILY [facility] Last Admin: 11/20/21 09:18 Dose: 25 mcg Documented by: RAJESH Labs CBC & Chem 7: 11/19/21 10:17 11/20/21 05:13 Labs: Laboratory Results - last 24 hr 11/20/21 11/20/21 05:13 08:08 Anion Gap 11 L Estim Creat Clear Calc 64.8 Estimated GFR > 60 Random Glucose 97 Calcium 8.9 D Total Bilirubin 0.2 Direct Bilirubin < 0.2 AST 13 ALT 8 Alkaline Phosphatase 85 Total Protein 5.6 L Albumin 3.4 L Phenytoin 21.9 H Assessment and Plan (1) Lori esophagitis: Status: Acute (2) Ataxia: Status: Acute (3) Seizure: Status: Acute Plan 66-year-old woman admitted with? Recent admission due to acute blood loss anemia required PRBC, also possible colon mass- she got discharged yesterday and recommended to follow up outpatient with surgery and Oncology. in addition? has History of takotsubo cardiomyopathy, seizure, history of? brain aneurysm and clipping in 2012- came to the hospital because of episode of unsteadiness. 1.possible ataxia/nystagmus : ? 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 Resultant streak artifact limits assessment of the vessels in this region. Otherwise, no occlusion or significant stenosis is identified. repeat ct head seems no new cva ?moniter on tele-seems fine echo seems fine : ef 60-65% continue asa , statin mri might not be possible due to hx of?brain aneurysm and clipping in 2012. speech pt/ot neurology eval noted -unclear if had cva vs tia, patient has symptoms from 1 month -since patient cannot get MRI?brain aneurysm and clipping?, will? repeat ct head-noted -simialr neuro eval - repeat: symptom was thought to be related to Dilantin toxicity: Dilantin level is 31.5-26.4-21.9(today), monitored and dilantin? level q.day? once Dilantin level go below 20 then we may need to start back Dilantin 300 mg daily . will add prn ativan meanwhile 2.recent admission for Acute blood loss anemia, likely from GI source-last admit found to have colon mass pathology -Rectum, mass, biopsy:??Superficial fragments of adenocarcinoma. h/h around 8.3 d/w surgery -add fu ct abd with iv contrast-?Redemonstration of irregular thickening of the distal sigmoid colon. This is concerning for malignancy. Consider direct visualization. 2. 2 small hypodensities in left lobe of liver. MRi abd:MR/MR abdomen wo/w con IMPRESSION: There are small subcentimeter T2 bright nonenhancing cysts within the liver parenchyma as well as 2 small subcentimeter T2 bright enhancing small hemangiomas. I do not appreciate any suspicious hepatic lesions has on/off some bleeding in stool type and cross Discussed with infectious disease: Patient has is a Physical candidiasis, since her ataxia probably related to Dilantin toxicity rather than fluconazole so fluconazole added back. Gi eval noted. oncology followup. surgery follow up noted-recoemnded mri for abd, waiting for . 3.History of takotsubo cardiomyopathy Continue beta-momo DVT prophylaxis with mechanical compression boots due to acute anemia recent. Quality Stroke Does the patient have a stroke diagnosis?: No VTE Prior VTE?: No VTE Risk Level:: Medical - moderate - high VTE Device Contraindication: N/A - Device Ordered VTE Drug Contraindication: N/A - Med Ordered
[2021-11-20 15:26] VITALS: BP 99/52; PULSE 67; RESP 18; TEMP 36.1
[2021-11-20 19:23] VITALS: BP 100/55; PULSE 70; RESP 18; TEMP 36.6; O2SAT 70
[2021-11-20] MEDS: Aspirin Enteric Coated 81 MG TABLET.DR PO (20:45)
[2021-11-20] MEDS: Omeprazole 20 MG CAPSULE.DR PO (20:45)
[2021-11-21] VITALS: BP 103/53; PULSE 67; RESP 17; TEMP 36.7; O2SAT 100
[2021-11-21] MEDS: Lactated Ringers 1,000 ML 80 ML IVCONT (01:47)
[2021-11-21 04:00] VITALS: BP 106/59; PULSE 67; RESP 17; TEMP 36.4; O2SAT 2
[2021-11-21 06:06] LABS: Alanine Aminotransferase 9 U/L (0-31); Albumin Level 3.2 g/dL (3.5-5.0); Alkaline Phosphatase 79 U/L (39-117); Aspartate Amino Transferase 12 U/L (5-31); Bilirubin Direct < 0.2 mg/dL (0.0-0.5); Bilirubin Total 0.2 mg/dL (0.0-1.0)
[2021-11-21 06:15] LABS: Phenytoin Dilantin 17.4 ug/mL (10.0-20.0)
[2021-11-21] MEDS: Nystatin Oral Susp 500,000 UNIT/5 ML ORAL.SUSP 500000 UNIT PO ×4 (07:27→20:46)
[2021-11-21] MEDS: Cholecalciferol (Vitamin D3) 25 MCG TABLET PO (07:27)
[2021-11-21] MEDS: Ferrous Sulfate 300 MG/5 ML LIQUID PO ×2 (07:27→16:34)
[2021-11-21] MEDS: Cyanocobalamin (Vitamin B-12) 1,000 MCG TABLET 1000 MCG PO (07:28)
[2021-11-21] MEDS: Fluconazole 100 MG TABLET 200 MG PO (07:28)
[2021-11-21] MEDS: carvediloL 6.25 MG TABLET PO ×2 (07:28→20:46)
[2021-11-21] MEDS: Betamethasone Dip Aug 0.05% Cr 15 GM TUBE 1 APPL TOPICAL ×2 (07:29→20:49)
[2021-11-21 07:38] VITALS: BP 134/63; PULSE 74; RESP 18; TEMP 36.7; O2SAT 99
[2021-11-21] MEDS: Phenytoin Sodium Extended 100 MG CAPSULE 300 MG PO (07:40)
--- NOTE | 2021-11-21 11:51 | P.PNNE_ITS ---
Subjective Subjective Date of Service: 11/21/21 Interval History: ataxia, Dilantin toxicity Critical Care Time (minutes): 0 Physical Exam Vital Signs: Vital Signs: Last Vital Signs Temp 98.1 F 11/21/21 07:38 Pulse 74 11/21/21 07:38 Resp 18 11/21/21 07:38 BP 134/63 11/21/21 07:38 Pulse Ox 99 11/21/21 07:38 BMI result Body Mass Index 20.8 Const: General: cooperative and no acute distress Nutritional Appearance: well nourished Orientation/consciousness: patient oriented x3 Limitations: no limitations HENMT: Head: Yes normocephalic and Yes atraumatic Ears: hearing grossly normal bilaterally Resp: Effort & Inspection: normal respiratory effort, no audible wheezes, no cough and no respiratory distress Cardio: Rate: regular rate Rhythm: regular rhythm GI: Palpation (GI): Soft to palpation, nontender, no guarding, not rigid and no hepatosplenomegaly Skin: General skin exam: no rashes or lesions noted Neuro: Other: She was alert and awake oriented. Her nystagmus is gone and her ataxia is r esolved General: patient oriented x3 Extrem: General: Yes normal to inspection and Yes no clubbing, cyanosis or edema Objective Data Labs CBC & Chem 7: 11/19/21 10:17 11/20/21 05:13 Labs: Laboratory Results - last 24 hr 11/21/21 05:13 Total Bilirubin 0.2 Direct Bilirubin < 0.2 AST 12 ALT 9 Alkaline Phosphatase 79 Total Protein 5.0 L Albumin 3.2 L Phenytoin 17.4 Progress Note: A&P Assessment and plan (1) Ataxia: Status: Acute (2) Seizure: Status: Acute (3) Dilantin toxicity: Status: Acute Assessment and Plan: she is much better. Her Dilantin level has dropped from 31.5 to 17.4 over 4 days. She can be restarted on Phenytoin sod ER 100mg 1 in am and 2 hs ( total 300mg / day starting today. Recheck levels in 1 wk. Fall Risk Details Current Medications: Current Medications Aspirin (Aspirin Enteric Coated 81 Mg Tablet.) 81 mg PO BEDTIME [facility] Last Admin: 11/20/21 20:45 Dose: 81 mg Documented by: Atorvastatin Calcium (Atorvastatin Calcium 40 Mg Tablet) 40 mg PO BEDTIME [facility] Last Admin: 11/17/21 20:51 Dose: 40 mg Documented by: Betamethasone Dipropion Augmented (Betamethasone Dip Aug 0.05% Cr 15 Gm Tube) 1 appl TOPICAL BID [facility] Last Admin: 11/21/21 07:29 Dose: 1 appl Documented by: Carvedilol (Carvedilol 6.25 Mg Tablet) 6.25 mg PO BID [facility]; Protocol Last Admin: 11/21/21 07:28 Dose: 6.25 mg Documented by: Cyanocobalamin (Cyanocobalamin (Vitamin B-12) 1,000 Mcg Tablet) 1,000 mcg PO DAILY [facility] Last Admin: 11/21/21 07:28 Dose: 1,000 mcg Documented by: Ferrous Sulfate (Ferrous Sulfate 300 Mg/5 Ml Liquid) 300 mg PO BIDWM [facility] Last Admin: 11/21/21 07:27 Dose: 300 mg Documented by: Fluconazole (Fluconazole 100 Mg Tablet) 200 mg PO DAILY [facility] Last Admin: 11/21/21 07:28 Dose: 200 mg Documented by: Lorazepam (Lorazepam 2 Mg/Ml Vial) 0.5 mg IVPUSH Q6H PRN PRN Reason: Seizures Meclizine HCl (Meclizine Hcl 25 Mg Tablet) 25 mg PO DAILY PRN PRN Reason: Vertigo Patient Own Medication ( Lamotrigine 250 Mg Tablet Extended Release 24hr) 3 each PO BEDTIME [facility] Last Admin: 11/20/21 20:44 Dose: 3 each Documented by: Nystatin (Nystatin Oral Susp 500,000 Unit/5 Ml Oral.Susp) 500,000 unit PO QID [facility]; Protocol Last Admin: 11/21/21 07:27 Dose: 500,000 unit Documented by: Omeprazole (Omeprazole 20 Mg Capsule.Dr) 20 mg PO BEDTIME [facility] Last Admin: 11/20/21 20:45 Dose: 20 mg Documented by: Pharmacy Consult (Consult Rx Perform Med Rec) 1 each MISCELLANE ONCE PRN PRN Reason: Consult order Phenytoin Sodium (Phenytoin Sodium Extended 100 Mg Capsule) 300 mg PO DAILY [facility] Last Admin: 11/21/21 07:40 Dose: 300 mg Documented by: Vitamin D (Cholecalciferol (Vitamin D3) 25 Mcg Tablet) 25 mcg PO DAILY [facility] Last Admin: 11/21/21 07:27 Dose: 25 mcg Documented by: Time Spent With Patient Time: Total time spent is greater than 50% in coordination of care (as documented) at patient's floor/unit and/or counseling patient: Time with patient: 15 - 24 minutes Procedures Date of Service Date of Service: 11/21/21 Quality Stroke Does the patient have a stroke diagnosis?: No VTE Prior VTE?: No VTE Risk Level:: Medical - moderate - high VTE Device Contraindication: N/A - Device Ordered VTE Drug Contraindication: N/A - Med Ordered
[2021-11-21 11:55] VITALS: PULSE 76; RESP 18; TEMP 37.4
--- NOTE | 2021-11-21 12:38 | P.PNIM_ITS ---
Subjective Subjective Date of Service: 11/21/21 Interval History: Dilantin toxicity , colon ca Review of Systems seems improvig no new events ovenright as per patient Physical Exam Vital Signs: Vital Signs: Last Vital Signs Temp 99.3 F 11/21/21 11:55 Pulse 76 11/21/21 11:55 Resp 18 11/21/21 11:55 BP 134/63 11/21/21 07:38 Pulse Ox 99 11/21/21 07:38 BMI result Body Mass Index 20.8 Appearance: Alert.? Oriented X3, seems generalised weak. cvs: rrr, [id number] , no murmur res: clear to auscultation ,no rhonchii or wheezing abd: no rebound or guarding ,nt, bs present. ext pulses present , no cyanosis. neuro: axo3 , moving all ext Objective Data Active Medications Aspirin (Aspirin Enteric Coated 81 Mg Tablet.) 81 mg PO BEDTIME [facility] Last Admin: 11/20/21 20:45 Dose: 81 mg Documented by: GEORGI Atorvastatin Calcium (Atorvastatin Calcium 40 Mg Tablet) 40 mg PO BEDTIME [facility] Last Admin: 11/17/21 20:51 Dose: 40 mg Documented by: DENAE Betamethasone Dipropion Augmented (Betamethasone Dip Aug 0.05% Cr 15 Gm Tube) 1 appl TOPICAL BID [facility] Last Admin: 11/21/21 07:29 Dose: 1 appl Documented by: SAMARA Carvedilol (Carvedilol 6.25 Mg Tablet) 6.25 mg PO BID [facility]; Protocol Last Admin: 11/21/21 07:28 Dose: 6.25 mg Documented by: SAMARA Cyanocobalamin (Cyanocobalamin (Vitamin B-12) 1,000 Mcg Tablet) 1,000 mcg PO DAILY [facility] Last Admin: 11/21/21 07:28 Dose: 1,000 mcg Documented by: SAMARA Ferrous Sulfate (Ferrous Sulfate 300 Mg/5 Ml Liquid) 300 mg PO BIDWM [facility] Last Admin: 11/21/21 07:27 Dose: 300 mg Documented by: SAMARA Fluconazole (Fluconazole 100 Mg Tablet) 200 mg PO DAILY [facility] Last Admin: 11/21/21 07:28 Dose: 200 mg Documented by: SAMARA Lorazepam (Lorazepam 2 Mg/Ml Vial) 0.5 mg IVPUSH Q6H PRN PRN Reason: Seizures Meclizine HCl (Meclizine Hcl 25 Mg Tablet) 25 mg PO DAILY PRN PRN Reason: Vertigo Patient Own Medication ( Lamotrigine 250 Mg Tablet Extended Release 24hr) 3 each PO BEDTIME [facility] Last Admin: 11/20/21 20:44 Dose: 3 each Documented by: GEORGI Nystatin (Nystatin Oral Susp 500,000 Unit/5 Ml Oral.Susp) 500,000 unit PO QID [facility]; Protocol Last Admin: 11/21/21 07:27 Dose: 500,000 unit Documented by: SAMARA Omeprazole (Omeprazole 20 Mg Capsule.Dr) 20 mg PO BEDTIME [facility] Last Admin: 11/20/21 20:45 Dose: 20 mg Documented by: GEORGI Pharmacy Consult (Consult Rx Perform Med Rec) 1 each MISCELLANE ONCE PRN PRN Reason: Consult order Phenytoin Sodium (Phenytoin Sodium Extended 100 Mg Capsule) 300 mg PO DAILY [facility] Last Admin: 11/21/21 07:40 Dose: 300 mg Documented by: SAMARA Vitamin D (Cholecalciferol (Vitamin D3) 25 Mcg Tablet) 25 mcg PO DAILY [facility] Last Admin: 11/21/21 07:27 Dose: 25 mcg Documented by: SAMARA Labs CBC & Chem 7: 11/19/21 10:17 11/20/21 05:13 Labs: Laboratory Results - last 24 hr 11/21/21 05:13 Total Bilirubin 0.2 Direct Bilirubin < 0.2 AST 12 ALT 9 Alkaline Phosphatase 79 Total Protein 5.0 L Albumin 3.2 L Phenytoin 17.4 Assessment and Plan (1) Dilantin toxicity: Status: Acute Plan 66-year-old woman admitted with? Recent admission due to acute blood loss anemia required PRBC, also possible colon mass- she got discharged yesterday and recommended to follow up outpatient with surgery and Oncology. in addition? has History of takotsubo cardiomyopathy, seizure, history of? brain aneurysm and clipping in 2012- came to the hospital because of episode of unsteadiness. 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 Resultant streak artifact limits assessment of the vessels in this region. Otherwise, no occlusion or significant stenosis is identified. repeat ct head seems no new cva ?moniter on tele-seems fine echo seems fine : ef 60-65% mri might not be possible due to hx of?brain aneurysm and clipping in 2013. neuro eval - repeat: symptom was thought to be related to Dilantin toxicity: Dilantin level is 31.5-26.4-21.9-17, started on dilantin 100 mg tid. continue asa , statin,speech pt/ot. 2.recent admission for Acute blood loss anemia, likely from GI source-last admit found to have colon mass pathology -Rectum, mass, biopsy:??Superficial fragments of adenocarcinoma. h/h around 8.3 d/w surgery -add fu ct abd with iv contrast-?Redemonstration of irregular thickening of the distal sigmoid colon. This is concerning for malignancy. Consider direct visualization. 2. 2 small hypodensities in left lobe of liver. MRi abd:MR/MR abdomen wo/w con IMPRESSION: There are small subcentimeter T2 bright nonenhancing cysts within the liver parenchyma as well as 2 small subcentimeter T2 bright enhancing small hemangiomas. I do not appreciate any suspicious hepatic lesions had one episode of stoolwith some blood few days back seen by GI-recommended to continue aspirin for now, if continue to have new episode of bleeding may need colonoscopy / hemospray. added iron replacements. oncology and surgery fu-added MRI rectum for colon cancer stagin 3.History of takotsubo cardiomyopathy Continue beta-momo DVT prophylaxis with mechanical compression boots due to acute anemia recent. plan for rehab Quality Stroke Does the patient have a stroke diagnosis?: No VTE Prior VTE?: No VTE Risk Level:: Medical - moderate - high VTE Device Contraindication: N/A - Device Ordered VTE Drug Contraindication: N/A - Med Ordered
--- NOTE | 2021-11-21 14:42 | MHC.CM.PN ---
Addendum entered by Collette Carlos 11/21/21 16:28: OF NOW 11/21/21 4;28 PM STILLLWAITING FOR INS AUTHORIZARION INFORMED HOSPITLAIST , STAFF SKYLA AND PATIENT AND UNTI GEODETIC COMPUTATOR Addendum entered by Collette Carlos 11/21/21 15:47: PATIENT AWARE THAT DAUGHTER WAS SEEKING POWER OF LEGAL ADMINISTRATIVE ASSISTANT , [facility] and completed poa paperwork , originals given to ar , copy uploaded to [employer] and once placed in the patients chart Addendum entered by Collette Carlos 11/21/21 14:49: CALLED TO [facility] INS PHONE [phone] G [id number], POLICY- [id number] [facility] , SPOKE WITH MOISES LABA CONNECTED ME WITH ANOTHER REP [phone] ASKED FOR [facility] SPOKE WITH ISABELLA HE REPORTED [facility] FOR OUTPATIENT XRT AND CHEM ARE IN [facility] AND [facility], THIS INFORMATION WAS TIGER TEXED TO DR ALEJANDRO WITH THIS INFORMATION Original Note: nurse disability case manager NOTE ELECTRONIC MEDICAL RECORD REVIEWED ALONG WITH CASE DISCUSSED ON MULTIPLE DISCIP[ANGEL GERMÁN, MET WITH PATIENT AND HER SON JOSÉ MIGUEL, COMPLETED NEW HEALTH CARE PROXY WHERE SHE NAMED HER SON AND DAUGHTER HER AGENTS , ORIGINAL AND COPIE HGIVEN TO HER , ONE UPLOADED TO [employer] (fka [employer]) AND ONE PLACED IN HER CHART . ALSO REFERRED TO [facility] FOR Algonomics OR Space Monkey CONNECTOR , PER ONC PHYSICIAM SHE WILL BE NEED ING IN ABOUT THREE WEEKS QD XRT FOR 6 WEEKS AND WEEKLY CHEMO IN THREE WEEKS , ASLED BY ONC TO SEE WHERE HER INSURACNEN WOUD ALLOW HER TO GO [facility], [facility] OR [facility]
[2021-11-21 16:00] VITALS: BP 133/61; PULSE 74; RESP 17; TEMP 37.1; O2SAT 96
[2021-11-21 16:32] LABS: COVID-19 Test Negative (Negative)
[2021-11-21 20:00] VITALS: BP 125/61; PULSE 76; RESP 17; TEMP 36.1; O2SAT 99
[2021-11-21] MEDS: Aspirin Enteric Coated 81 MG TABLET.DR PO (20:45)
[2021-11-21] MEDS: Omeprazole 20 MG CAPSULE.DR PO (20:46)
[2021-11-22] VITALS (7 sets, daily range): BP systolic 99–136; BP diastolic 54–71; PULSE 69–75; RESP 14–18; TEMP 36.3–37; O2SAT 98–99
[2021-11-22 06:56] LABS: Phenytoin Dilantin 22.9 ug/mL (10.0-20.0)
[2021-11-22] MEDS: Phenytoin Sodium Extended 100 MG CAPSULE 300 MG PO (07:56)
[2021-11-22] MEDS: Fluconazole 100 MG TABLET 200 MG PO (07:57)
[2021-11-22] MEDS: Cyanocobalamin (Vitamin B-12) 1,000 MCG TABLET 1000 MCG PO (07:57)
[2021-11-22] MEDS: Ferrous Sulfate 300 MG/5 ML LIQUID PO ×2 (07:57→18:05)
[2021-11-22] MEDS: Nystatin Oral Susp 500,000 UNIT/5 ML ORAL.SUSP 500000 UNIT PO ×4 (07:57→20:04)
[2021-11-22] MEDS: Cholecalciferol (Vitamin D3) 25 MCG TABLET PO (07:57)
[2021-11-22] MEDS: carvediloL 6.25 MG TABLET PO ×2 (07:57→20:04)
[2021-11-22] MEDS: Betamethasone Dip Aug 0.05% Cr 15 GM TUBE 1 APPL TOPICAL ×2 (07:58→20:12)
--- NOTE | 2021-11-22 09:12 | PM.DS ---
DS: Providers Provider Date of Service: 11/23/21 Date of admission: 11/16/21 09:31 Primary care physician: Vaughn Mahmood MD Consults: 11/16/21 09:31 Consult to Neurology Routine Consulting Provider: Dawson Head Reason for consultation: ?tia Has provider been notified: No 11/18/21 07:58 Consult to Neurology Routine Consulting Provider: [facility] Reason for consultation: worsening od ataxia -accompanying spasms Has provider been notified: No 11/18/21 09:39 Consult to Infectious Diseases Routine Consulting Provider: Alida Salinas Reason for consultation: esophageal candidiasis -fluconazole ?increase seizure threshold Has provider been notified: No 11/18/21 13:59 Consult to Gastroenterology Routine Consulting Provider: [facility] Reason for consultation: possible colon ca, gi bleed Has provider been notified: No DS: Diagnosis Discharge Diagnosis (1) Dilantin toxicity: Status: Resolved DS: Summary Hospital Course Hospital Course: Admission HPI by Dr Dumont:Chief Complaint: ataxia 66 y/o f with lossing control of her ext, shakin, difficult to stand - she says on and off symptoms going for 1 month -last night she has similar episode -so decided to come to ed, has nystagmus , did not pass out,? She had some? saliva frothing? during the episode. ?she denies any palpitation or chest pain or? shortness of breath during this episode. She said last episode- when she woke up around 3 am- this morning. no bowel or bladder incontinence? Or tongue bite. denies any blurry vision or headache. Hospial course: Essentially the patient presented with ataxia due to Dilantin toxicity. she presented with Dilantin level of 31.5 her Dilantin was hold over the course of 4 days until the level came down to 17 and at that point neurology recommended lowering dose and repeat level in a week. She was on total of 350 a day and will change to 200 a day divided in 2 doses of Dilantin ER 100 bid. At this point she is feeling better, physical therapy is recommending short term rehab. Dilantin should be restarted at once level is 15 or lower, presently level is ... Time Spent with Patient Time attestation: Total time spent providing and/or coordinating discharge services: Discharge coordination time: Greater than 30 minutes Quality: Stroke Does the patient have a stroke diagnosis?: No Physical Exam Vital Signs: Vital Signs: Last Vital Signs Temp 97.6 F 11/22/21 07:29 Pulse 69 11/22/21 07:29 Resp 18 11/22/21 07:29 BP 126/71 11/22/21 07:29 Pulse Ox 98 11/22/21 07:29 BMI result Body Mass Index 20.8 Const: Other: General: AO X 3, no acute distress Resp: CTA bilateral CVS: S1,S2,RRR GI: +BS, NT, no distention Skin: No rash Neuro: motor grossly intact Psych: appropriate affect DS: Data Data Completed and Pending Completed studies during hospitalization [Text1]: Procedures Excision of Duodenum, Via Natural or Artificial Opening Endoscopic, Diagnostic (11/12/21) Excision of Middle Esophagus, Via Natural or Artificial Opening Endoscopic, Diagnostic (11/12/21) Excision of Rectum, Via Natural or Artificial Opening Endoscopic, Diagnostic (11/12/21) Excision of Stomach, Pylorus, Via Natural or Artificial Opening Endoscopic, Diagnostic (11/12/21) Excision of Upper Esophagus, Via Natural or Artificial Opening Endoscopic, Diagnostic (11/12/21) Transfusion of Nonautologous Red Blood Cells into Peripheral Vein, Percutaneous Approach (11/12/21) Labs on day of discharge: Laboratory Results - last 24 hr 11/21/21 11/22/21 15:50 06:01 Phenytoin 22.9 H COVID-19 (SKY) Negative COVID-19 Clin Com See Note Discharge Plan Discharge Anticipated Discharge Date/Time: 11/23/21 10:50 Patient Disposition: Xfer [facility] Discharge Diagnosis: dilantin toxicity , new colon cancer Referrals: [facility] [Other] - 1 Day (TRANSFER TO ACUTE REHAB AT [facility] IN [place] ONCE INSURANCE AUTHORIZATION OBTAINED, TO BE TRANSPORTED [facility]IA [facility] , ) Physician,Unknown J [Physician] - 1 Week Discharge Medications: New atorvastatin 40 mg Tablet 40 mg PO BEDTIME Qty: 30 0RF phenytoin sodium extended [Dilantin Extended] 100 mg capsule 100 mg PO BID Qty: 90 0RF Continued meclizine 25 mg Tablet 25 mg PO DAILY PRN (Reason: Vertigo) 0RF cyanocobalamin (vitamin B-12) 1,000 mcg Tablet 1,000 mcg PO DAILY 0RF cholecalciferol (vitamin D3) [Vitamin D3] 25 mcg (1,000 unit) Tablet 25 mcg PO DAILY 0RF clobetasol 0.05 % ointment 1 applic topical BID 0RF carvedilol 6.25 mg tablet 1 tab PO BID 0RF aspirin 81 mg tablet,delayed release (DR/EC) 81 mg PO BEDTIME 0RF fluconazole 100 mg Tablet 200 mg PO DAILY 13 Days Qty: 26 0RF lamotrigine 250 mg tablet extended release 24hr 750 mg PO BEDTIME 0RF Discontinued phenytoin sodium extended 100 mg capsule 2 cap PO BEDTIME 0RF phenytoin 50 mg tablet,chewable 1 tab PO DAILY 0RF phenytoin sodium extended 100 mg capsule 1 cap PO DAILY 0RF Discharge Orders: Discharge Order (Routine); Ordered 11/22/21 Ordered By: Harris Torres Diet: advance to usual diet and regular diet Activity on Discharge: As tolerated Stand Alone Forms: Patient Portal Discharge page Care Plan Goals: Full recovery from Dilantin toxicity Health Concerns: Dilantin toxicity Plan of Treatment: take Dilantin as recommended and now-- see medication changes above check daily dilantin daily and restart Dilantin at 100 mg twice a day once dilantin level is 15 or lower Check dilaint next sunday Assessment: as above
--- NOTE | 2021-11-22 10:09 | P.PNIM_ITS ---
Subjective Subjective Date of Service: 11/22/21 Interval History: f/u on Dilantin toxicity, feels better Review of Systems no dizziness, no seizure, no fever Physical Exam Vital Signs: Vital Signs: Last Vital Signs Temp 97.6 F 11/22/21 07:29 Pulse 69 11/22/21 09:48 Resp 18 11/22/21 07:29 BP 126/71 11/22/21 09:48 Pulse Ox 98 11/22/21 09:48 BMI result Body Mass Index 20.8 Const: Other: General: AO X 3, no acute distress Resp: CTA bilateral CVS: S1,S2,RRR GI: +BS, NT, no distention Skin: No rash Neuro: motor grossly intact Psych: appropriate affect Objective Data Active Medications Aspirin (Aspirin Enteric Coated 81 Mg Tablet.) 81 mg PO BEDTIME [facility] Last Admin: 11/21/21 20:45 Dose: 81 mg Documented by: SCOTT Atorvastatin Calcium (Atorvastatin Calcium 40 Mg Tablet) 40 mg PO BEDTIME [facility] Last Admin: 11/17/21 20:51 Dose: 40 mg Documented by: DENAE Betamethasone Dipropion Augmented (Betamethasone Dip Aug 0.05% Cr 15 Gm Tube) 1 appl TOPICAL BID [facility] Last Admin: 11/22/21 07:58 Dose: 1 appl Documented by: SAMARA Carvedilol (Carvedilol 6.25 Mg Tablet) 6.25 mg PO BID [facility]; Protocol Last Admin: 11/22/21 07:57 Dose: 6.25 mg Documented by: SAMARA Cyanocobalamin (Cyanocobalamin (Vitamin B-12) 1,000 Mcg Tablet) 1,000 mcg PO DAILY [facility] Last Admin: 11/22/21 07:57 Dose: 1,000 mcg Documented by: SAMARA Ferrous Sulfate (Ferrous Sulfate 300 Mg/5 Ml Liquid) 300 mg PO BIDWM [facility] Last Admin: 11/22/21 07:57 Dose: 300 mg Documented by: SAMARA Fluconazole (Fluconazole 100 Mg Tablet) 200 mg PO DAILY [facility] Last Admin: 11/22/21 07:57 Dose: 200 mg Documented by: SAMARA Lorazepam (Lorazepam 2 Mg/Ml Vial) 0.5 mg IVPUSH Q6H PRN PRN Reason: Seizures Meclizine HCl (Meclizine Hcl 25 Mg Tablet) 25 mg PO DAILY PRN PRN Reason: Vertigo Patient Own Medication ( Lamotrigine 250 Mg Tablet Extended Release 24hr) 3 each PO BEDTIME [facility] Last Admin: 11/21/21 20:46 Dose: 3 each Documented by: SCOTT Nystatin (Nystatin Oral Susp 500,000 Unit/5 Ml Oral.Susp) 500,000 unit PO QID [facility]; Protocol Last Admin: 11/22/21 07:57 Dose: 500,000 unit Documented by: SAMARA Omeprazole (Omeprazole 20 Mg Capsule.Dr) 20 mg PO BEDTIME [facility] Last Admin: 11/21/21 20:46 Dose: 20 mg Documented by: SCOTT Pharmacy Consult (Consult Rx Perform Med Rec) 1 each MISCELLANE ONCE PRN PRN Reason: Consult order Phenytoin Sodium (Phenytoin Sodium Extended 100 Mg Capsule) 300 mg PO DAILY [facility] Last Admin: 11/22/21 07:56 Dose: 300 mg Documented by: SAMARA Vitamin D (Cholecalciferol (Vitamin D3) 25 Mcg Tablet) 25 mcg PO DAILY [facility] Last Admin: 11/22/21 07:57 Dose: 25 mcg Documented by: SAMARA Labs CBC & Chem 7: 11/19/21 10:17 11/20/21 05:13 Labs: Laboratory Results - last 24 hr 11/21/21 11/22/21 15:50 06:01 Phenytoin 22.9 H COVID-19 (SKY) Negative COVID-19 Clin Com See Note Assessment and Plan (1) Dilantin toxicity: Status: Acute (2) Lori esophagitis: Status: Acute (3) Rectal mass: Status: Acute Plan 66-year-old woman admitted with? Recent admission due to acute blood loss anemia required PRBC, also possible colon mass- she got discharged yesterday and recommended to follow up outpatient with surgery and Oncology. in addition? has History of takotsubo cardiomyopathy, seizure, history of? brain aneurysm and clipping in 2013- came to the hospital because of episode of unsteadiness. 1.Dilantin toxicity with ataxia---resolved. Dilantin mónica to 22 from 31. 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 Treatment will depend on MRI finding and Pathology MSI result to determine if will need neoadjuvent chemo or surgery.. To follow up on outpatient basis with Dr. Alvarenga and Amador 3.History of takotsubo cardiomyopathy Continue beta-momo DVT prophylaxis with mechanical compression boots due to acute anemia recent. plan for rehab Quality Stroke Does the patient have a stroke diagnosis?: No VTE Prior VTE?: No VTE Risk Level:: Medical - moderate - high VTE Device Contraindication: N/A - Device Ordered VTE Drug Contraindication: N/A - Med Ordered
--- NOTE | 2021-11-22 15:02 | MHC.CM.PN ---
NURSE FINANCIAL INSTITUTION TREASURER NOTE ELECTRONIC MEDICAL RECORD REVIEWED ALONG WITH CASE DISCUSSED ON MULTIPLE DISCIPLIANRY ROUNDS AND WITH HOSPITLAIST AND ONCOLOGIST DR ALEJANDRO, (HE REP[ORTED HE WOULD BE TRANSFERRING THE [facility] FOR HER QD XRT FOR 6 WEEKS TO START IN 3 WEEKS AND CHEMOTHERAPY HE WILL ARRANGE THIS AND SPEAK WITH PATIENT AND FAMILY ) PATIENT WAS REFERRED TO [facility] EARLY FOLLOW UP ON SUNDAY AND STILL DID NOT HEAR FROM INSURANCE REGARDING AUTHORIZATION, CALLED THEM TWICE ALREADY TODAY AND THYE ARE STILL WAITING FOR INSURANCE AUTHORIXATION PATIENT IS AWAFE OF THIS [facility]PIT[facility] AND STAFF NURSE . DISCHARGE PLAN ACUTE REHAB CLINICALLY ACCEPTED AT [facility] OF [facility] IN [place] PENDING INS AUTHORIZATION TRANSPORTATION [facility] - SEIZURE PRECAUTIONS HCP POA, AND 11/21/21 COVID TEST -NEG SENT
[2021-11-22 17:02] LABS: Alanine Aminotransferase 10 U/L (0-31); Albumin Level 3.4 g/dL (3.5-5.0); Alkaline Phosphatase 94 U/L (39-117); Aspartate Amino Transferase 16 U/L (5-31); Bilirubin Direct < 0.2 mg/dL (0.0-0.5); Bilirubin Total 0.2 mg/dL (0.0-1.0); Total Protein 5.6 g/dL (6.5-8.0)
[2021-11-22] MEDS: Aspirin Enteric Coated 81 MG TABLET.DR PO (20:04)
[2021-11-22] MEDS: Omeprazole 20 MG CAPSULE.DR PO (20:04)
[2021-11-23] VITALS: BP 95/54; PULSE 67; RESP 16; TEMP 36.6; O2SAT 95
[2021-11-23 03:26] VITALS: BP 95/52; PULSE 66; RESP 15; TEMP 37; O2SAT 98
[2021-11-23 07:13] VITALS: BP 125/59; PULSE 70; RESP 16; TEMP 37.1; O2SAT 100
[2021-11-23 09:11] LABS: Anion Gap 13 (12-20); Carbon Dioxide 28 mmol/L (22-29); Chloride 103 mmol/L (96-108); Sodium 139 mmol/L (135-145)
[2021-11-23] MEDS: carvediloL 6.25 MG TABLET PO (09:16)
[2021-11-23] MEDS: Cyanocobalamin (Vitamin B-12) 1,000 MCG TABLET 1000 MCG PO (09:16)
[2021-11-23] MEDS: Fluconazole 100 MG TABLET 200 MG PO (09:16)
[2021-11-23] MEDS: Cholecalciferol (Vitamin D3) 25 MCG TABLET PO (09:16)
[2021-11-23] MEDS: Nystatin Oral Susp 500,000 UNIT/5 ML ORAL.SUSP 500000 UNIT PO ×2 (09:16→13:31)
[2021-11-23] MEDS: Betamethasone Dip Aug 0.05% Cr 15 GM TUBE 1 APPL TOPICAL (09:16)
[2021-11-23] MEDS: Ferrous Sulfate 300 MG/5 ML LIQUID PO (09:16)
[2021-11-23 10:01] VITALS: BP 125/59; PULSE 70; O2SAT 100
--- NOTE | 2021-11-23 10:01 | MHC.CM.PN ---
PT CLEARED TO DC ON , DC HELD DUE TO LACK OF INSURANCE AUTH. [facility] NOW HAS AUTH AND PT WILL DC TODAY AT 1300 HOURS [facility]IA [facility]
[2021-11-23 11:59] VITALS: BP 98/52; PULSE 71; RESP 18; TEMP 37.3; O2SAT 97
[2021-11-23 13:48] LABS: Phenytoin Dilantin 21.5 ug/mL (10.0-20.0)
== END 2021-11-23 16:04 | disposition skilled nursing facility (03) | DRG 378 ==
LOC: HO.ED 07:45 → HO.EDOVER 09:35 → HO.S3 09:38 → HO.EDOVER 09:53 → HO.S3 11:19
PROVIDERS: Admitting Provider Internal Medicine; Emergency Provider Student in an Organized Health Care Education/Training Program; PCP Internal Medicine; Visit Provider Internal Medicine
DX: K92.1 Melena (principal); D62 Acute posthemorrhagic anemia; C18.7 Malignant neoplasm of sigmoid colon; B37.81 Candidal esophagitis; I51.81 Takotsubo syndrome; R27.0 Ataxia, unspecified; T42.0X5A Adverse effect of hydantoin derivatives, initial encounter; H55.00 Unspecified nystagmus; G40.909 Epilepsy, unspecified, not intractable, without status epilepticus; Z20.822 Contact with and (suspected) exposure to COVID-19; Z87.891 Personal history of nicotine dependence; Z88.0 Allergy status to penicillin; Z79.82 Long term (current) use of aspirin; Z79.899 Other long term (current) drug therapy
CPT/HCPCS: 36415; 70450; 70496; 70498; 72197; 74177; 74183; 80048; 80051; 80053; 80061; 80076; 80185; 81003; 82248; 82947; 83036; 84484; 85014; 85018; 85025; 85610; 85730; 86850; 86900; 86901; 87635; 92610; 93005; 93306; 97116; 97162; 97166; 97530; 97535; 99285; A9585; J2060; J2405; Q9967

== ENCOUNTER 2022-01-09 12:07 | Emergency (ER) | payer OTHER, SELFPAY ==
--- NOTE | ~2022-01-09 | XR_ITS ---
EXAMINATION: XR CHEST CLINICAL INFORMATION: Right chest wall port COMPARISON: 11/12/2021 TECHNIQUE: Frontal view of the chest was obtained. FINDINGS: CT compatible right chest wall port terminates over the mid SVC. The lungs are well expanded. There is no focal consolidation, edema, or effusion. No pneumothorax. The cardiomediastinal silhouette is within normal limits. No acute osseous abnormality. Radiopaque anchors in the left humeral head. XR/XR chest 1V IMPRESSION: Clear lungs.
--- NOTE | 2022-01-09 12:12 | ED.ABDPAIN ---
HPI - Abdominal Pain General Chief Complaint: Nausea/Vomiting/Diarrhea Stated Complaint: NAUSEA/VOMITING PER EMS Time Seen by Provider: 01/09/22 12:11 Source: patient and EMS Mode of arrival: EMS Limitations: no limitations History of Present Illness HPI narrative: recent chemo for rectal cancer, now with N/V and abdominal pain. Recently placed on Vimpat for seizures, dilantin was stopped. patient with very little po intact. patient feeling very weak. MD elicited complaint: abdominal pain Pertinent past history: other (rectal cancer) Onset (ago): week(s) Pain Consistency: intermittent Location: LLQ Severity: moderate Quality: cramping Associated symptoms: nausea, vomiting and diarrhea Related Data Home Medications Medication Instructions Recorded Confirmed lamotrigine 250 mg tablet,extended 750 mg PO BEDTIME tab 02/15/21 11/16/21 release 24 hr aspirin 81 mg tablet,delayed 81 mg PO BEDTIME 11/12/21 11/16/21 release carvedilol 6.25 mg tablet 1 tab PO BID 11/12/21 11/16/21 clobetasol 0.05 % topical ointment 1 applic TOPICAL BID 11/12/21 11/16/21 cholecalciferol (vitamin D3) 25 25 mcg PO DAILY 11/16/21 11/16/21 mcg (1,000 unit) tablet (Vitamin D3) cyanocobalamin (vitamin B-12) 1,000 mcg PO DAILY 11/16/21 11/16/21 1,000 mcg tablet meclizine 25 mg tablet 25 mg PO DAILY PRN 11/16/21 11/16/21 Previous Rx's Medication Instructions Recorded fluconazole 100 mg tablet 200 mg PO DAILY 13 Days #26 tab 11/15/21 atorvastatin 40 mg tablet 40 mg PO BEDTIME #30 tab 11/17/21 phenytoin sodium extended 100 mg 100 mg PO BID #90 cap 11/21/21 capsule (Dilantin Extended) ondansetron 4 mg disintegrating 4 mg PO Q8H 4 Days #12 tab 01/09/22 tablet Allergies Allergy/AdvReac Type Severity Reaction Status Date / Time Penicillins [PENICILLINS] Allergy Unknown UNKNOWN Verified 01/09/22 15:35 Review of Systems Constitutional: Reports no additional constitutional complaints Eyes: Reports no additional eye complaints Denies dizziness Cardiovascular: Reports no additional cardiovascular complaints Respiratory: Reports as per HPI Gastrointestinal: Reports no additional gastrointestinal complaints Genitourinary: Reports no additional female genitourinary complaints Musculoskeletal: Reports no additional musculoskeletal complaints Skin/Breast: Denies rash Reports system reviewed and no additional complaints, except as documented, Denies dizziness and Denies Sensory deficit (Neuro) Psychiatric: Denies anxiety PMF Past Medical History Medical History Anemia Anemia History of seizures Occult blood positive stool Rectal mass Seizure Takotsubo cardiomyopathy Social History Social History Household Members: Spouse Household Members Other:: 2 Housing: House Do you presently have visiting nurse or other home services: No Alcohol intake: never Patient Tobacco Use Status: Former Tobacco user Smoked in Last 30 Days: No Use of substances other than those prescribed or required for medical reasons: No Advance Directives: Yes Advance Directives on File: Yes Advance Directives Date on File: 11/24/21 Patient : No service: No Current occupational status: employed Physical Exam ED Vital Signs: Vital Signs - 24 hr 01/09/22 12:37 01/09/22 12:58 Temperature 98.9 F 98.9 F Pulse Rate 69 69 Respiratory Rate 16 16 Blood Pressure 140/80 H 140/80 H Pulse Oximetry 100 100 BMI result Body Mass Index 19.3 Const Nutritional Appearance: thin Orientation/consciousness: oriented to person and patient oriented x3 Limitations: no limitations HENMT Head: Yes normal to inspection Ears: external ears normal General nose exam: Normal external nose present Mouth: Normal oral and palatal mucosa present and oropharynx normal Throat: Yes posterior oropharynx normal Eyes General: appearance normal, both eyes and all related structures Neck Neck: Yes normal visual inspection Chest Chest palpation & inspection: normal inspection of the chest Resp Auscultation: clear to auscultation bilaterally Cardio Jugular venous distension: no JVD Rate: regular rate Rhythm: regular rhythm Heart sounds: S1 normal heart sound present and S2 normal heart sound present GI Inspection: Yes normal to inspection Palpation (GI): Soft to palpation, nontender and No hepatosplenomegaly present Auscultation: normal bowel sounds General: Yes no CVA tenderness Back/Spine/Pelvis Back: no CVA tenderness Skin General skin exam: no rashes or lesions noted Neuro General: oriented to person and patient oriented x3 Cranial nerves: Yes CN's II-XII intact bilaterally Motor exam (neuro): 5/5 motor strength present throughout Sensory Exam: No Sensory deficit (Neuro) Extrem General: Yes normal to inspection Psych Appearance: grossly normal Course Reevaluation(s) Reevaluation #1: patient tolerating PO impression is nausea likely secondary to chemo therapy. Time: 16:12 MDM - Abdominal Pain Lab Data Result diagrams: 01/09/22 13:36 01/09/22 13:36 Labs: Lab Results 01/09/22 01/09/22 Range/Units 13:36 13:36 WBC 4.0 L (4.8-10.8) X10*3/uL RBC 4.05 L (4.20-5.50) X10*6/uL Hgb 10.4 L D (12.0-16.0) g/dl Hct 34.0 L D (37.0-47.0) % MCV 84.0 (80.0-98.0) fL MCH 25.7 L (27.0-33.0) pg MCHC 30.6 L (31.0-35.0) g/dl RDW 25.7 H (11.0-16.0) % Plt Count 186 D (160-400) X10*3/uL MPV 8.4 L (9.4-12.3) fL Immature Gran % (Auto) 0.3 (0.0-0.4) % Neut % (Auto) 65.6 (45-73) % Lymph % (Auto) 25.1 (20-40) % Cuming % (Auto) 4.0 (2-11) % Eos % (Auto) 4.5 H (0-4) % Baso % (Auto) 0.5 (0-2) % Lymph # (Auto) 1.0 L (1.2-4.9) X10*3/uL Cuming # (Auto) 0.2 (0.1-1.2) X10*3/uL Eos # (Auto) 0.2 (0.0-0.4) X10*3/uL Baso # (Auto) 0.0 (0.0-0.2) X10*3/uL Abs Immat Gran (auto) 0.01 (0.00-0.03) X10*3/uL Absolute Neuts (auto) 2.6 (2.0-8.3) x10*3/uL Absolute Nucleated RBC 0.000 (0.0-0.012) X10*3/uL Nucleated RBC % (auto) 0.0 (0.0-0.2) /100WBC Sodium 137 (135-145) mmol/L Potassium 5.3 H (3.3-5.1) mmol/L Chloride 102 (96-108) mmol/L Carbon Dioxide 27 (22-29) mmol/L Anion Gap 13 (12-20) BUN 15 (9-16) mg/dL Creatinine 0.74 (0.5-1.4) mg/dL Estim Creat Clear Calc 56.0 Estimated GFR > 60 Random Glucose 104 (60-115) mg/dL Calcium 9.6 D (8.4-10.2) mg/dL Total Bilirubin 0.3 (0.0-1.0) mg/dL Direct Bilirubin 0.2 (0.0-0.5) mg/dL AST 19 (5-31) U/L ALT 17 (0-31) U/L Alkaline Phosphatase 88 (39-117) U/L Total Protein 6.5 (6.5-8.0) g/dL Albumin 4.0 (3.5-5.0) g/dL Lipase 19 (8-78) U/L Imaging Data Chest x-ray: Radiologist's impression: FINDINGS: CT compatible right chest wall port terminates over the mid SVC. The lungs are well expanded. There is no focal consolidation, edema, or effusion. No pneumothorax. The cardiomediastinal silhouette is within normal limits. No acute osseous abnormality. Radiopaque anchors in the left humeral head. XR/XR chest 1V IMPRESSION: Clear lungs. ? Discharge Plan Discharge Clinical Impression: Nausea & vomiting Patient Disposition: Home, Self-Care Instructions: Acute Nausea and Vomiting (ED) Prescriptions: New ondansetron 4 mg tablet,disintegrating 4 mg PO Q8H 4 Days Qty: 12 0RF No Action meclizine 25 mg Tablet 25 mg PO DAILY PRN (Reason: Vertigo) 0RF cyanocobalamin (vitamin B-12) 1,000 mcg Tablet 1,000 mcg PO DAILY 0RF cholecalciferol (vitamin D3) [Vitamin D3] 25 mcg (1,000 unit) Tablet 25 mcg PO DAILY 0RF atorvastatin 40 mg Tablet 40 mg PO BEDTIME Qty: 30 0RF phenytoin sodium extended [Dilantin Extended] 100 mg capsule 100 mg PO BID Qty: 90 0RF clobetasol 0.05 % ointment 1 applic topical BID 0RF carvedilol 6.25 mg tablet 1 tab PO BID 0RF aspirin 81 mg tablet,delayed release (DR/EC) 81 mg PO BEDTIME 0RF fluconazole 100 mg Tablet 200 mg PO DAILY 13 Days Qty: 26 0RF lamotrigine 250 mg tablet extended release 24hr 750 mg PO BEDTIME 0RF Referrals: Vaughn Mahmood MD [Primary Care Provider] - 5 days
[2022-01-09 12:37] VITALS: BP 140/80; BP 148/76; PULSE 69; PULSE 70; RESP 16; TEMP 37.2; O2SAT 100; O2SAT 99; BMI 19.3
[2022-01-09 12:58] VITALS: BP 140/80; PULSE 69; RESP 16; TEMP 37.2; O2SAT 100
--- NOTE | 2022-01-09 13:00 | PC.NURSE ---
pt a&ox3, nausea/vomiting since med change/starting chemo last week, unable to tolerate po. increased dizziness, double vision since starting vimpat. 20G IV placed left hand, right sided port per pt - unable to feel, chest xr ordered to confirm location. labs/meds pending port access.
--- NOTE | 2022-01-09 13:13 | PC.NURSE ---
cxr ordered to determine the type of port the patient has prior to accessing it
[2022-01-09 13:41] LABS: MANUAL DIFF FLAG NO
[2022-01-09 13:42] LABS: Basophils Percent Auto 0.5 % (0-2); Eosinophils Absolute Auto 0.2 X10*3/uL (0.0-0.4); Eosinophils Percent Auto 4.5 % (0-4); Hemoglobin 10.4 g/dl (12.0-16.0); Imm Gran Abs Auto 0.01 X10*3/uL (0.00-0.03); Imm Gran Pct Auto 0.3 % (0.0-0.4); Lymphocytes Percent Auto 25.1 % (20-40); Mean Corpuscular HGB Conc 30.6 g/dl (31.0-35.0); Mean Corpuscular Hemoglobin 25.7 pg (27.0-33.0); Mean Platelet Volume 8.4 fL (9.4-12.3); Monocytes Absolute Auto 0.2 X10*3/uL (0.1-1.2); Neutrophils Absolute Auto 2.6 x10*3/uL (2.0-8.3); Neutrophils Percent Auto 65.6 % (45-73); Platelet Count 186 X10*3/uL (160-400); Red Blood Count 4.05 X10*6/uL (4.20-5.50); Red Cell Distribution Width 25.7 % (11.0-16.0)
[2022-01-09] MEDS: 0.9 % Sodium Chloride 1,000 ML 999 ML IVCONT ×2 (13:54→13:55)
[2022-01-09] MEDS: ondansetron HCL 4 MG/2 ML VIAL IVPUSH (13:54)
[2022-01-09 14:07] LABS: Alanine Aminotransferase 17 U/L (0-31); Alkaline Phosphatase 88 U/L (39-117); Anion Gap 13 (12-20); Aspartate Amino Transferase 19 U/L (5-31); Bilirubin Direct 0.2 mg/dL (0.0-0.5); Bilirubin Total 0.3 mg/dL (0.0-1.0); Blood Urea Nitrogen 15 mg/dL (9-16); Calcium 9.6 mg/dL (8.4-10.2); Carbon Dioxide 27 mmol/L (22-29); Chloride 102 mmol/L (96-108); Estimated Glomerular Filt Rate > 60; Glucose Random 104 mg/dL (60-115); Lipase 19 U/L (8-78); Potassium 5.3 mmol/L (3.3-5.1); Sodium 137 mmol/L (135-145); Total Protein 6.5 g/dL (6.5-8.0)
--- NOTE | 2022-01-09 15:02 | PC.NURSE ---
pt has 2L flds running, holding on starting the third.
--- NOTE | 2022-01-09 15:43 | PC.NURSE ---
per provider request pt given PO trial
== END 2022-01-09 16:55 | disposition home or self-care (01) ==
PROVIDERS: Emergency Provider Emergency Medicine; PCP Internal Medicine
DX: R11.2 Nausea with vomiting, unspecified (principal); D49.0 Neoplasm of unspecified behavior of digestive system; Z92.21 Personal history of antineoplastic chemotherapy
CPT/HCPCS: 36415; 71045; 80048; 80076; 83690; 85025; 96361; 96374; 99284; J2405

== ENCOUNTER 2022-01-14 02:48 | Inpatient (IN) | payer OTHER, SELFPAY ==
[2022-01-14] VITALS (10 sets, daily range): BP systolic 110–167; BP diastolic 56–89; PULSE 65–81; RESP 12–20; TEMP 36.7–36.9; O2SAT 95–100; BMI 18.6; BMI 17.3; BMI 16.8
--- NOTE | ~2022-01-14 | CT_ITS ---
EXAMINATION: CT HEAD WITHOUT CONTRAST (STROKE PROTOCOL) CLINICAL INFORMATION: Stroke protocol. Altered mental status, speech issues COMPARISON: 11/17/2021 TECHNIQUE: Contiguous axial imaging was performed from the skull base to vertex without intravenous administration of contrast. This CT examination was performed using dose optimization techniques as appropriate, variously including the following: *Automated exposure control *Adjustment of mA and/or kV according to patient size (this includes techniques or standardized protocols for targeted exams where dose is matched to indication/reason for exam; i.e. extremities or head) *Use of iterative reconstruction technique DLP: 672 mGy-cm FINDINGS: There is limited evaluation in the left middle cranial fossa due to artifact from coil embolization material and surgical clips. Redemonstrated regions of encephalomalacia in the left frontotemporal lobes, insula, and deep nuclei. There is mild periventricular white matter hypoattenuation consistent with chronic small vessel ischemic disease. Mild volume loss is noted. There is no intracranial hemorrhage, hematoma, or extra-axial fluid collection. Ex vacuo dilatation of the left lateral ventricle is similar to prior. There is no hydrocephalus, edema, or mass effect. The simmons-white matter differentiation appears symmetric. There is no acute infarct or mass lesion. Postoperative changes of the left calvarium. There is no pneumocephalus or orbital emphysema. Small fluid level in the left maxillary sinus. The mastoid air cells are well-aerated. CT/CT head for stroke IMPRESSION: No acute intracranial pathology. Redemonstrated chronic infarcts in the left cerebral hemisphere and post surgical changes. This stroke protocol result was discussed with Dr. Greco on 01/14/2022 3:28 AM.
--- NOTE | ~2022-01-14 | CT_ITS ---
CT ANGIOGRAM NECK WITH CONTRAST CT ANGIOGRAM BRAIN WITH CONTRAST CLINICAL INFORMATION: Involuntary spasms. Can't walk. COMPARISON: Head CT 01/14/2022. CTA head and neck 11/16/2021. TECHNIQUE: Test bolus sequences followed by intravenous administration 75 mL of Omnipaque 350. Helical imaging was performed in the axial plane from the thoracic inlet to the skull vertex. Delayed postcontrast imaging of the head was also performed. The data was processed at the orthopedic radiologic technologist workstation for generation of MIP sequences. Angled MIPs and volume rendered reformatted images were also generated at an offline 3D workstation under concurrent supervision. Stenoses are assessed in accordance with NASCET criteria unless otherwise indicated. This CT examination was performed using dose optimization techniques as appropriate, variously including the following: *Automated exposure control *Adjustment of mA and/or kV according to patient size (this includes techniques or standardized protocols for targeted exams where dose is matched to indication/reason for exam; i.e. 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 There is chronic encephalomalacia and gliosis within the left cerebral hemisphere associated with ex vacuo dilatation of the left lateral ventricle. [There is no intracranial hemorrhage, hydrocephalus, extra-axial surface collection, midline shift, or other herniation pattern. Cardozo to white matter differentiation is diffusely maintained without evidence of an evolved acute territorial infarct. The basilar cisterns are preserved. No significant soft tissue abnormality. No acute osseous abnormality. The paranasal sinuses and the mastoid air cells are well aerated.] CERVICAL SOFT TISSUES AND LUNG APICES: Centrilobular emphysema and biapical pleural parenchymal scarring again noted, similar when compared to exams dated back to 11/04/2017. There are no significant soft tissue findings within the neck. There is multilevel cervical spondylosis. CTA: Atherosclerotic calcification throughout the aortic arch unchanged. Lipid rich atherosclerotic plaque results in a similar moderate stenosis of the right subclavian artery/right axillary artery junction. Lipid rich atherosclerotic plaque results in similar mild luminal narrowing of the left subclavian artery and mild to moderate stenosis of the left common carotid artery origin. The vertebral arteries are codominant. Cervical vertebral arteries remain widely patent throughout their course. Lipid rich and calcific atherosclerotic plaque result in mild to moderate luminal narrowing of the proximal to the left common carotid artery which is unchanged. There is calcific atherosclerotic disease involving the proximal left internal carotid artery resulting in a less than 50% stenosis of the proximal left cervical ICA. Proximal right internal carotid artery is widely patent. There is atherosclerotic calcification throughout the carotid siphons bilaterally without significant stenosis. 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 Nondiagnostic assessment for any residual/recurrent aneurysm given the degree of artifact from the surgical changes. - There is chronic encephalomalacia and gliosis within the left cerebral hemisphere associated with ex vacuo dilatation of the left lateral ventricle. - Stable appearing atherosclerotic disease throughout the craniocervical arterial vasculature. No severe stenoses and no acute arterial occlusions within the head or neck.
--- NOTE | ~2022-01-14 | XR_ITS ---
EXAMINATION: XR CHEST CLINICAL INFORMATION: Stroke symptoms COMPARISON: 01/09/2022 TECHNIQUE: Frontal view of the chest was obtained. FINDINGS: Right IJ port catheter tip lies in the region of the mid SVC. Lung volumes are symmetric. No focal consolidation is seen. No evidence of pneumothorax, pleural effusion, or pulmonary edema. Cardiac size is within normal limits. Calcification is present at the aortic arch. No acute osseous findings are seen. XR/XR chest 1V IMPRESSION: No acute cardiopulmonary findings.
--- NOTE | 2022-01-14 02:57 | ECG_ITS ---
Test Reason : CHEST PAIN Blood Pressure : / mmHG Vent. Rate : 067 BPM Atrial Rate : 067 BPM P-R Int : 168 ms QRS Dur : 072 ms QT Int : 392 ms P-R-T Axes : 060 -13 029 degrees QTc Int : 414 ms Normal sinus rhythm Septal infarct (cited on or before 19-NOV-2021) Abnormal ECG When compared with ECG of 19-NOV-2021 02:02, No significant change was found Referred By: Apryl Greco Electronically Signed By:AB GENTILE MD
[2022-01-14 03:12] LABS: Prothrombin Time Whole Bld POC 12.5 sec (11.1-13.5)
[2022-01-14 03:18] LABS: MANUAL DIFF FLAG NO
[2022-01-14 03:19] LABS: Basophils Percent Auto 0.8 % (0-2); Eosinophils Absolute Auto 0.2 X10*3/uL (0.0-0.4); Eosinophils Percent Auto 4.2 % (0-4); Hematocrit 32.9 % (37.0-47.0); Hemoglobin 10.3 g/dl (12.0-16.0); Imm Gran Abs Auto 0.01 X10*3/uL (0.00-0.03); Imm Gran Pct Auto 0.3 % (0.0-0.4); Lymphocytes Absolute Auto 1.1 X10*3/uL (1.2-4.9); Lymphocytes Percent Auto 29.9 % (20-40); Mean Corpuscular HGB Conc 31.3 g/dl (31.0-35.0); Mean Corpuscular Hemoglobin 26.2 pg (27.0-33.0); Mean Corpuscular Volume 83.7 fL (80.0-98.0); Mean Platelet Volume 9.3 fL (9.4-12.3); Monocytes Absolute Auto 0.4 X10*3/uL (0.1-1.2); Monocytes Percent Auto 12.4 % (2-11); Neutrophils Absolute Auto 1.9 x10*3/uL (2.0-8.3); Neutrophils Percent Auto 52.4 % (45-73); Platelet Count 185 X10*3/uL (160-400); Red Blood Count 3.93 X10*6/uL (4.20-5.50); Red Cell Distribution Width 26.2 % (11.0-16.0); White Blood Count 3.5 X10*3/uL (4.8-10.8)
--- NOTE | 2022-01-14 03:19 | ED.AMS ---
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 EMS arrived and noted she was confused and twitching. Her confusion improved on arrival to the ED and they felt she was getting better. The patient notes a normal night prior to this event. States she hasn't had a seizure in 2 years MD complaint: altered mental status and confusion Onset (ago): unknown (last known normal at 9 or 930pm before bed) Severity: moderate Consistency of symptoms: waxing and waning Context: seizure disorder Associated symptoms: denies other symptoms Related Data Home Medications Medication Instructions Recorded Confirmed lamotrigine 250 mg tablet,extended 750 mg PO BEDTIME tab 02/15/21 11/16/21 release 24 hr aspirin 81 mg tablet,delayed 81 mg PO BEDTIME 11/12/21 11/16/21 release carvedilol 6.25 mg tablet 1 tab PO BID 11/12/21 11/16/21 clobetasol 0.05 % topical ointment 1 applic TOPICAL BID 11/12/21 11/16/21 cholecalciferol (vitamin D3) 25 25 mcg PO DAILY 11/16/21 11/16/21 mcg (1,000 unit) tablet (Vitamin D3) cyanocobalamin (vitamin B-12) 1,000 mcg PO DAILY 11/16/21 11/16/21 1,000 mcg tablet meclizine 25 mg tablet 25 mg PO DAILY PRN 11/16/21 11/16/21 Previous Rx's Medication Instructions Recorded fluconazole 100 mg tablet 200 mg PO DAILY 13 Days #26 tab 11/15/21 atorvastatin 40 mg tablet 40 mg PO BEDTIME #30 tab 11/17/21 phenytoin sodium extended 100 mg 100 mg PO BID #90 cap 11/21/21 capsule (Dilantin Extended) ondansetron 4 mg disintegrating 4 mg PO Q8H 4 Days #12 tab 01/09/22 tablet Allergies Allergy/AdvReac Type Severity Reaction Status Date / Time Penicillins [PENICILLINS] Allergy Unknown UNKNOWN Verified 01/14/22 04:59 Review of Systems Review of Systems: Constitutional : No Weight loss, No Fever, No Chills, No Fatigue, No Malaise ENT/Mouth : No sore throat, No Rhinorrhea Eyes: No Eye Pain, No Swelling, No Redness Cardiovascular : No Chest Pain, No SOB, No Dyspnea on Exertion, No Orthopnea, No Edema, No Palpitations Respiratory : No Cough, No Sputum, No Wheezing Gastrointestinal : No Nausea, No Vomiting, No Diarrhea, No Constipation, No abdominal Pain, No Hematochezia, No Melena Genitourinary : No Dysuria, No Urinary Frequency, No Hematuria, Musculoskeletal : No joint pain, No Myalgias, No Joint Swelling Skin : No Skin Lesions, No rash Neuro : No Weakness, No Numbness, No Dizziness, No Headache, pos confusion Psych : No Anxiety/Panic, No Depression Heme/Lymph: No Bruising, No Bleeding,No Lymphadenopathy Endocrine : No Polyuria, No Polydipsia All other systems reviewed and are negative [facility] Past Medical History Attestation statement: The following information was validated with the patient. Source: old records reviewed Medical History Anemia Anemia History of seizures Occult blood positive stool Rectal mass Seizure Takotsubo cardiomyopathy Social History Social History Household Members: Spouse Household Members Other:: 2 Housing: House Do you presently have visiting nurse or other home services: No Alcohol intake: never Patient Tobacco Use Status: Former Tobacco user Advance Directives: Yes Advance Directives on File: Yes Advance Directives Date on File: 11/24/21 service: No Current occupational status: employed Physical Exam ED Vital Signs: Vital Signs - 24 hr 01/14/22 02:54 01/14/22 04:58 Temperature 98.4 F Pulse Rate 69 81 Respiratory Rate 12 15 Blood Pressure 149/77 H 157/83 H Pulse Oximetry 95 97 BMI result Body Mass Index 17.3 Appearance: Alert. Oriented X3. No acute distress. Smiling staring off at some points but answering questions appropriately Eyes: Pupils equal, round and reactive to light. ENT: Pharynx normal. Neck: Normal inspection. Neck supple. CVS: Normal heart rate and rhythm. Pulses normal. Respiratory: No respiratory distress. Breath sounds normal. Abdomen: Soft and non-tender. Skin: Skin warm and dry. Normal skin color. Normal skin turgor. Extremities: No lower extremity edema. Neuro: Oriented X 3. No motor deficit. No sensory deficit. No drift NIH Stroke Scale Internal: Initial- Upon Arrival Level of Consciousness: Alert Level of Consciousness Questions: Answers both questions correctly Level of Consciousness Commands: Performs both tasks correctly Best Gaze: Normal Visual: No visual loss Facial Palsy: Normal Motor Arm (Right): No drift Motor Arm (Left): No drift Motor Leg (Right): No drift Motor Leg (Left): No drift Limb Ataxia: Absent Sensory: Normal Best Language: No aphasia Dysarthia: Normal Extinction and Inattention: No abnormality Score: 0 Course Course Course Narrative: discussed with and patient - acted at home as if she was post seizure. they note that she has been weaned down on her seizure medications due to nausea from chemo and was going to be cut down to 100 of vimpat today - will keep at 150mg and order her 9am dose. is requesting that PT/CM get involved as they are both unwell and he is having a hard time caring for her Patient placed in physician observation at 616am. The indication for observation is that the patient needs more time to see PT/CM to assess if they need acute rehab given ongoing weakness. At this time the patient is stable, lungs clear, CV RRR, abd nontender, neuro is intact. MDM - Altered Mental Status MDM Narrative Medical decision making narrative: 66 yo female with hx of rectal mass undergoing ?oral chemo, HLD, seizure disorder, here with c/o being found on her cough acting confused and speaking loudly to herself. EMS notes she was much more confused when they got to her and noted some twitching but improved upon arrival to the ED. At this time ?ICH vs seizure at home. Will obtain labs, CT head to r/o ICH. I do not think that she had ischemic stroke. She was last seen well around 9/930pm. Dispo per results and findings. Lab Data Result diagrams: 01/14/22 03:10 01/14/22 03:47 Labs: Lab Results 01/14/22 01/14/22 01/14/22 Range/Units 02:53 02:56 03:06 WBC (4.8-10.8) X10*3/uL RBC (4.20-5.50) X10*6/uL Hgb (12.0-16.0) g/dl Hct (37.0-47.0) % MCV (80.0-98.0) fL MCH (27.0-33.0) pg MCHC (31.0-35.0) g/dl RDW (11.0-16.0) % Plt Count (160-400) X10*3/uL MPV (9.4-12.3) fL Immature Gran % (Auto) (0.0-0.4) % Neut % (Auto) (45-73) % Lymph % (Auto) (20-40) % [place] % (Auto) (2-11) % Eos % (Auto) (0-4) % Baso % (Auto) (0-2) % Lymph # (Auto) (1.2-4.9) X10*3/uL [place] # (Auto) (0.1-1.2) X10*3/uL Eos # (Auto) (0.0-0.4) X10*3/uL Baso # (Auto) (0.0-0.2) X10*3/uL Abs Immat Gran (auto) (0.00-0.03) X10*3/uL Absolute Neuts (auto) (2.0-8.3) x10*3/uL Absolute Nucleated RBC (0.0-0.012) X10*3/uL Nucleated RBC % (auto) (0.0-0.2) /100WBC PT (9.9-13.0) SEC Whole Blood PT 12.5 (11.1-13.5) sec INR (0.9-1.1) Whole Blood INR 1.0 (0.9-1.1) APTT (24.1-38.0) SEC Sodium (135-145) mmol/L Potassium (3.3-5.1) mmol/L Chloride (96-108) mmol/L Carbon Dioxide (22-29) mmol/L Anion Gap (12-20) BUN (9-16) mg/dL Creatinine (0.5-1.4) mg/dL Estim Creat Clear Calc Estimated GFR POC Glucose 106 (60-115) mg/dL Random Glucose (60-115) mg/dL Lactic Acid (0.5-2.0) mmol/L Calcium (8.4-10.2) mg/dL Magnesium (1.6-2.6) mg/dL Total Bilirubin (0.0-1.0) mg/dL Direct Bilirubin (0.0-0.5) mg/dL AST (5-31) U/L ALT (0-31) U/L Alkaline Phosphatase (39-117) U/L Ammonia (13-55) umol/L Troponin I High Sens (<3.5-17.0) ng/L Total Protein (6.5-8.0) g/dL Albumin (3.5-5.0) g/dL Lipase (8-78) U/L TSH (0.32-4.0) uIU/mL Urine Color Urine Appearance Urine pH (5.0-8.0) Ur Specific [place] (1.005-1.025) Urine Protein (NEG-TRACE) MG/DL Urine Glucose (UA) (NEG) MG/DL Urine Ketones (NEG) MG/DL Urine Blood (NEG) Urine Nitrite (NEG) Ur Leukocyte Esterase (NEG) Urine RBC (0) /HPF Urine WBC (0-4) /HPF Ur Squamous Epith Cells /LPF Urine Bacteria /LPF Urine Opiates Screen (Not Detect) Urine Fentanyl Screen (Not Detect) Ur Barbiturates Screen (Not Detect) Phenytoin (10.0-20.0) ug/mL Ur Phencyclidine Scrn (Not Detect) Ur Amphetamines Screen (Not Detect) U Benzodiazepines Scrn (Not Detect) Urine Cocaine Screen (Not Detect) U Marijuana (THC) Screen (Not Detect) COVID-19 (SKY) Negative (Negative) COVID-19 Clin Com See Note 01/14/22 01/14/22 01/14/22 Range/Units 03:10 03:10 03:10 WBC 3.5 L (4.8-10.8) X10*3/uL RBC 3.93 L (4.20-5.50) X10*6/uL Hgb 10.3 L (12.0-16.0) g/dl Hct 32.9 L (37.0-47.0) % MCV 83.7 (80.0-98.0) fL MCH 26.2 L (27.0-33.0) pg MCHC 31.3 (31.0-35.0) g/dl RDW 26.2 H (11.0-16.0) % Plt Count 185 (160-400) X10*3/uL MPV 9.3 L (9.4-12.3) fL Immature Gran % (Auto) 0.3 (0.0-0.4) % Neut % (Auto) 52.4 (45-73) % Lymph % (Auto) 29.9 (20-40) % [place] % (Auto) 12.4 H (2-11) % Eos % (Auto) 4.2 H (0-4) % Baso % (Auto) 0.8 (0-2) % Lymph # (Auto) 1.1 L (1.2-4.9) X10*3/uL [place] # (Auto) 0.4 (0.1-1.2) X10*3/uL Eos # (Auto) 0.2 (0.0-0.4) X10*3/uL Baso # (Auto) 0.0 (0.0-0.2) X10*3/uL Abs Immat Gran (auto) 0.01 (0.00-0.03) X10*3/uL Absolute Neuts (auto) 1.9 L (2.0-8.3) x10*3/uL Absolute Nucleated RBC 0.000 (0.0-0.012) X10*3/uL Nucleated RBC % (auto) 0.0 (0.0-0.2) /100WBC PT 11.6 (9.9-13.0) SEC Whole Blood PT (11.1-13.5) sec INR 1.0 (0.9-1.1) Whole Blood INR (0.9-1.1) APTT 24.6 (24.1-38.0) SEC Sodium (135-145) mmol/L Potassium (3.3-5.1) mmol/L Chloride (96-108) mmol/L Carbon Dioxide (22-29) mmol/L Anion Gap (12-20) BUN (9-16) mg/dL Creatinine (0.5-1.4) mg/dL Estim Creat Clear Calc Estimated GFR POC Glucose (60-115) mg/dL Random Glucose (60-115) mg/dL Lactic Acid (0.5-2.0) mmol/L Calcium (8.4-10.2) mg/dL Magnesium (1.6-2.6) mg/dL Total Bilirubin (0.0-1.0) mg/dL Direct Bilirubin (0.0-0.5) mg/dL AST (5-31) U/L ALT (0-31) U/L Alkaline Phosphatase (39-117) U/L Ammonia 40 (13-55) umol/L Troponin I High Sens (<3.5-17.0) ng/L Total Protein (6.5-8.0) g/dL Albumin (3.5-5.0) g/dL Lipase (8-78) U/L TSH (0.32-4.0) uIU/mL Urine Color Urine Appearance Urine pH (5.0-8.0) Ur Specific [place] (1.005-1.025) Urine Protein (NEG-TRACE) MG/DL Urine Glucose (UA) (NEG) MG/DL Urine Ketones (NEG) MG/DL Urine Blood (NEG) Urine Nitrite (NEG) Ur Leukocyte Esterase (NEG) Urine RBC (0) /HPF Urine WBC (0-4) /HPF Ur Squamous Epith Cells /LPF Urine Bacteria /LPF Urine Opiates Screen (Not Detect) Urine Fentanyl Screen (Not Detect) Ur Barbiturates Screen (Not Detect) Phenytoin (10.0-20.0) ug/mL Ur Phencyclidine Scrn (Not Detect) Ur Amphetamines Screen (Not Detect) U Benzodiazepines Scrn (Not Detect) Urine Cocaine Screen (Not Detect) U Marijuana (THC) Screen (Not Detect) COVID-19 (SKY) (Negative) COVID-19 Clin Com 01/14/22 01/14/22 01/14/22 Range/Units 03:10 03:47 03:47 WBC (4.8-10.8) X10*3/uL RBC (4.20-5.50) X10*6/uL Hgb (12.0-16.0) g/dl Hct (37.0-47.0) % MCV (80.0-98.0) fL MCH (27.0-33.0) pg MCHC (31.0-35.0) g/dl RDW (11.0-16.0) % Plt Count (160-400) X10*3/uL MPV (9.4-12.3) fL Immature Gran % (Auto) (0.0-0.4) % Neut % (Auto) (45-73) % Lymph % (Auto) (20-40) % [place] % (Auto) (2-11) % Eos % (Auto) (0-4) % Baso % (Auto) (0-2) % Lymph # (Auto) (1.2-4.9) X10*3/uL [place] # (Auto) (0.1-1.2) X10*3/uL Eos # (Auto) (0.0-0.4) X10*3/uL Baso # (Auto) (0.0-0.2) X10*3/uL Abs Immat Gran (auto) (0.00-0.03) X10*3/uL Absolute Neuts (auto) (2.0-8.3) x10*3/uL Absolute Nucleated RBC (0.0-0.012) X10*3/uL Nucleated RBC % (auto) (0.0-0.2) /100WBC PT (9.9-13.0) SEC Whole Blood PT (11.1-13.5) sec INR (0.9-1.1) Whole Blood INR (0.9-1.1) APTT (24.1-38.0) SEC Sodium 141 (135-145) mmol/L Potassium 3.4 D (3.3-5.1) mmol/L Chloride 104 (96-108) mmol/L Carbon Dioxide 27 (22-29) mmol/L Anion Gap 13 (12-20) BUN 6 L D (9-16) mg/dL Creatinine 0.76 (0.5-1.4) mg/dL Estim Creat Clear Calc 50.7 Estimated GFR > 60 POC Glucose (60-115) mg/dL Random Glucose 108 (60-115) mg/dL Lactic Acid 0.9 (0.5-2.0) mmol/L Calcium 9.4 (8.4-10.2) mg/dL Magnesium 1.9 (1.6-2.6) mg/dL Total Bilirubin 0.4 (0.0-1.0) mg/dL Direct Bilirubin 0.2 (0.0-0.5) mg/dL AST 18 (5-31) U/L ALT 13 (0-31) U/L Alkaline Phosphatase 89 (39-117) U/L Ammonia (13-55) umol/L Troponin I High Sens 4.3 (<3.5-17.0) ng/L Total Protein 6.3 L (6.5-8.0) g/dL Albumin 4.0 (3.5-5.0) g/dL Lipase 12 (8-78) U/L TSH (0.32-4.0) uIU/mL Urine Color Urine Appearance Urine pH (5.0-8.0) Ur Specific [place] (1.005-1.025) Urine Protein (NEG-TRACE) MG/DL Urine Glucose (UA) (NEG) MG/DL Urine Ketones (NEG) MG/DL Urine Blood (NEG) Urine Nitrite (NEG) Ur Leukocyte Esterase (NEG) Urine RBC (0) /HPF Urine WBC (0-4) /HPF Ur Squamous Epith Cells /LPF Urine Bacteria /LPF Urine Opiates Screen (Not Detect) Urine Fentanyl Screen (Not Detect) Ur Barbiturates Screen (Not Detect) Phenytoin < 0.5 L* (10.0-20.0) ug/mL Ur Phencyclidine Scrn (Not Detect) Ur Amphetamines Screen (Not Detect) U Benzodiazepines Scrn (Not Detect) Urine Cocaine Screen (Not Detect) U Marijuana (THC) Screen (Not Detect) COVID-19 (SKY) (Negative) COVID-19 Clin Com 01/14/22 01/14/22 01/14/22 Range/Units 03:48 05:16 05:16 WBC (4.8-10.8) X10*3/uL RBC (4.20-5.50) X10*6/uL Hgb (12.0-16.0) g/dl Hct (37.0-47.0) % MCV (80.0-98.0) fL MCH (27.0-33.0) pg MCHC (31.0-35.0) g/dl RDW (11.0-16.0) % Plt Count (160-400) X10*3/uL MPV (9.4-12.3) fL Immature Gran % (Auto) (0.0-0.4) % Neut % (Auto) (45-73) % Lymph % (Auto) (20-40) % [place] % (Auto) (2-11) % Eos % (Auto) (0-4) % Baso % (Auto) (0-2) % Lymph # (Auto) (1.2-4.9) X10*3/uL [place] # (Auto) (0.1-1.2) X10*3/uL Eos # (Auto) (0.0-0.4) X10*3/uL Baso # (Auto) (0.0-0.2) X10*3/uL Abs Immat Gran (auto) (0.00-0.03) X10*3/uL Absolute Neuts (auto) (2.0-8.3) x10*3/uL Absolute Nucleated RBC (0.0-0.012) X10*3/uL Nucleated RBC % (auto) (0.0-0.2) /100WBC PT (9.9-13.0) SEC Whole Blood PT (11.1-13.5) sec INR (0.9-1.1) Whole Blood INR (0.9-1.1) APTT (24.1-38.0) SEC Sodium (135-145) mmol/L Potassium (3.3-5.1) mmol/L Chloride (96-108) mmol/L Carbon Dioxide (22-29) mmol/L Anion Gap (12-20) BUN (9-16) mg/dL Creatinine (0.5-1.4) mg/dL Estim Creat Clear Calc Estimated GFR POC Glucose (60-115) mg/dL Random Glucose (60-115) mg/dL Lactic Acid (0.5-2.0) mmol/L Calcium (8.4-10.2) mg/dL Magnesium (1.6-2.6) mg/dL Total Bilirubin (0.0-1.0) mg/dL Direct Bilirubin (0.0-0.5) mg/dL AST (5-31) U/L ALT (0-31) U/L Alkaline Phosphatase (39-117) U/L Ammonia (13-55) umol/L Troponin I High Sens (<3.5-17.0) ng/L Total Protein (6.5-8.0) g/dL Albumin (3.5-5.0) g/dL Lipase (8-78) U/L TSH 1.75 (0.32-4.0) uIU/mL Urine Color YELLOW Urine Appearance HAZY Urine pH 6.5 (5.0-8.0) Ur Specific [place] 1.010 (1.005-1.025) Urine Protein NEG (NEG-TRACE) MG/DL Urine Glucose (UA) NEG (NEG) MG/DL Urine Ketones NEG (NEG) MG/DL Urine Blood 3+ H (NEG) Urine Nitrite NEG (NEG) Ur Leukocyte Esterase 1+ H (NEG) Urine RBC 5-9 H (0) /HPF Urine WBC 0-2 (0-4) /HPF Ur Squamous Epith Cells TRACE /LPF Urine Bacteria TRACE /LPF Urine Opiates Screen Not Detected (Not Detect) Urine Fentanyl Screen Not Detected (Not Detect) Ur Barbiturates Screen Not Detected (Not Detect) Phenytoin (10.0-20.0) ug/mL Ur Phencyclidine Scrn Not Detected (Not Detect) Ur Amphetamines Screen Not Detected (Not Detect) U Benzodiazepines Scrn Not Detected (Not Detect) Urine Cocaine Screen Not Detected (Not Detect) U Marijuana (THC) Screen Not Detected (Not Detect) COVID-19 (SKY) (Negative) COVID-19 Clin [facility] ECG Data ECG #1: Attestation: I personally reviewed and interpreted this ECG as follows: ECG interpretation date: 01/14/22 ECG interpretation time: 03:45 Interpretation: Rate: 67 Rhythm: NSR [place]: left Normal P waves. Normal NAGI. Normal QRS complex. ST T wave : normal no MIKE, nonspecific ant leads qTC: normal prior studies: no acute ischemia The study has been interpreted contemporaneously by me. . Discharge Plan Discharge Clinical Impression: Seizure Patient Disposition: Still a Patient Prescriptions: No Action meclizine 25 mg Tablet 25 mg PO DAILY PRN (Reason: Vertigo) 0RF cyanocobalamin (vitamin B-12) 1,000 mcg Tablet 1,000 mcg PO DAILY 0RF cholecalciferol (vitamin D3) [Vitamin D3] 25 mcg (1,000 unit) Tablet 25 mcg PO DAILY 0RF atorvastatin 40 mg Tablet 40 mg PO BEDTIME Qty: 30 0RF phenytoin sodium extended [Dilantin Extended] 100 mg capsule 100 mg PO BID Qty: 90 0RF ondansetron 4 mg tablet,disintegrating 4 mg PO Q8H 4 Days Qty: 12 0RF clobetasol 0.05 % ointment 1 applic topical BID 0RF carvedilol 6.25 mg tablet 1 tab PO BID 0RF aspirin 81 mg tablet,delayed release (DR/EC) 81 mg PO BEDTIME 0RF fluconazole 100 mg Tablet 200 mg PO DAILY 13 Days Qty: 26 0RF lamotrigine 250 mg tablet extended release 24hr 750 mg PO BEDTIME 0RF
[2022-01-14 03:26] LABS: Prothrombin Time 11.6 SEC (9.9-13.0)
[2022-01-14 03:28] LABS: Partial Thromboplastin Time 24.6 SEC (24.1-38.0)
[2022-01-14 03:32] LABS: IDNOW Serial# 08D9AD1C
[2022-01-14 03:33] LABS: COVID-19 Test Negative (Negative)
[2022-01-14 03:40] LABS: Troponin-I High Sensitivity 4.3 ng/L (<3.5-17.0)
[2022-01-14 03:43] LABS: Ammonia 40 umol/L (13-55)
[2022-01-14 03:57] LABS: Glucose, Whole Blood 106 mg/dL (60-115)
[2022-01-14 04:10] LABS: Lactic Acid 0.9 mmol/L (0.5-2.0)
[2022-01-14 04:16] LABS: Alanine Aminotransferase 13 U/L (0-31); Alkaline Phosphatase 89 U/L (39-117); Anion Gap 13 (12-20); Aspartate Amino Transferase 18 U/L (5-31); Bilirubin Direct 0.2 mg/dL (0.0-0.5); Bilirubin Total 0.4 mg/dL (0.0-1.0); Blood Urea Nitrogen 6 mg/dL (9-16); Calcium 9.4 mg/dL (8.4-10.2); Carbon Dioxide 27 mmol/L (22-29); Chloride 104 mmol/L (96-108); Creatinine Clr Calc Pharmacy 50.7; Estimated Glomerular Filt Rate > 60; Glucose Random 108 mg/dL (60-115); Lipase 12 U/L (8-78); Magnesium 1.9 mg/dL (1.6-2.6); Potassium 3.4 mmol/L (3.3-5.1); Sodium 141 mmol/L (135-145); Total Protein 6.3 g/dL (6.5-8.0)
[2022-01-14 04:28] LABS: Phenytoin Dilantin < 0.5 ug/mL (10.0-20.0)
[2022-01-14 04:36] LABS: TSH reflex Free T4 1.75 uIU/mL (0.32-4.0)
[2022-01-14 05:21] LABS: Appearance Urine HAZY; Color Urine YELLOW; Glucose Urine UA NEG (NEG); Leukocyte Esterase Urine 1+ (NEG); Nitrite Urine NEG (NEG); PH 6.5 (5.0-8.0); UACC Culture Trigger YES; Urine Blood 3+ (NEG); Urine Ketones NEG (NEG); Urine Protein NEG (NEG-TRACE)
[2022-01-14 05:31] LABS: Bacteria Urine TRACE /LPF; Squamous Epithelial Cell Urine TRACE /LPF; WBC Urine 0-2 /HPF (0-4)
[2022-01-14 05:43] LABS: Amphetamine Screen Urine Not Detected (Not Detect); Barbiturates, Urine Not Detected (Not Detect); Benzodiazepines Screen Urine Not Detected (Not Detect); Cannabinoid Screen Urine Not Detected (Not Detect); Cocaine Screen Urine Not Detected (Not Detect); Fentanyl, urine Not Detected (Not Detect); Opiate Screen Urine Not Detected (Not Detect); Phencyclidine Screen Urine Not Detected (Not Detect)
--- NOTE | 2022-01-14 08:00 | PHA.MEDREC ---
Pharmacy Consult ? Medication Reconciliation Pharmacy has completed the medication reconciliation. VIMPAT: 150 MG BID FOR 01/14; STARTING 01/15 100MG BID
[2022-01-14] MEDS: Cyanocobalamin (Vitamin B-12) 1,000 MCG TABLET 1000 MCG PO (08:40)
[2022-01-14] MEDS: Aspirin Enteric Coated 81 MG TABLET.DR PO (08:40)
[2022-01-14] MEDS: carvediloL 6.25 MG TABLET PO ×2 (08:41→21:22)
[2022-01-14] MEDS: Lacosamide 100 MG TABLET 150 MG PO ×2 (08:41→21:23)
[2022-01-14] MEDS: Ascorbic Acid 500 MG TABLET PO (08:41)
[2022-01-14] MEDS: Cholecalciferol (Vitamin D3) 25 MCG TABLET PO (08:41)
--- NOTE | 2022-01-14 09:40 | PC.NURSE ---
went in to set the pt up for breakfast, complete change in presentation from this morning. pt is activity dry heaving and reports having nausea/right arm pestering almost like dyskinesia presentation with a tremor, speech at times appears thick tong as well. attempted to stand the pt but very unsuccessful pt very uncoordinated/shaky bp 74, 152/85
[2022-01-14] MEDS: iohexoL 350 MG/ML 75 ML INFUS..BTL IV (10:15)
--- NOTE | 2022-01-14 11:57 | P.HPHOSP_ITS ---
History of Present Illness Date of Service: 01/14/22 Chief Complaint: Seizures a 66 years old lady with rectal cancer, seizure disorder, CMP among others who presents to the hospital for suspected episode of seizure breakthrough. The patient has recent change of her seizure medication from Dilantin to Vimpat and last night you she went to the bed but her noticed around 02:00 that she has weird noises coming from her bed and was noted to be confused and having a lot of twitching so EMS was called to brought her to the hospital. The patient reports that she cannot remember much about the incision but her Vimpat dose was decreased recently for increased lethargy and generalized weakness. In the emergency brain images were negative for any acute findings. Admitted for further evaluation and treatment. Review of Systems Review of Systems: No fever, chills But reports generalized weakness No chest pain, palpitation No shortness of breath or coughing No abdominal pain, nausea or vomiting No urinary symptoms No any rash or wounds PMFSH Medical History Anemia Anemia History of seizures Occult blood positive stool Rectal mass Seizure Takotsubo cardiomyopathy Social History Household Members: Spouse Household Members Other:: 2 Housing: House Do you presently have visiting nurse or other home services: No Alcohol intake: never Patient Tobacco Use Status: Current someday Tobacco user Use of substances other than those prescribed or required for medical reasons: No Advance Directives: Yes Advance Directives on File: Yes Advance Directives Date on File: 11/24/21 service: No Current occupational status: employed Meds Allergies Allergy/AdvReac Type Severity Reaction Status Date / Time Penicillins [PENICILLINS] Allergy Unknown UNKNOWN Verified 01/14/22 04:59 Active Medications: Current Medications Ascorbic Acid (Ascorbic Acid 500 Mg Tablet) 500 mg PO DAILY [facility] Last Admin: 01/14/22 08:41 Dose: 500 mg Documented by: Aspirin (Aspirin Enteric Coated 81 Mg Tablet.) 81 mg PO DAILY [facility] Last Admin: 01/14/22 08:40 Dose: 81 mg Documented by: Atorvastatin Calcium (Atorvastatin Calcium 40 Mg Tablet) 40 mg PO BEDTIME [facility] Carvedilol (Carvedilol 6.25 Mg Tablet) 6.25 mg PO BID [facility]; Protocol Last Admin: 01/14/22 08:41 Dose: 6.25 mg Documented by: Cyanocobalamin (Cyanocobalamin (Vitamin B-12) 1,000 Mcg Tablet) 1,000 mcg PO DAILY [facility] Last Admin: 01/14/22 08:40 Dose: 1,000 mcg Documented by: Meclizine HCl (Meclizine Hcl 12.5 Mg Tablet) 12.5 mg PO DAILY PRN PRN Reason: Vertigo Non-Formulary Medication (Lamotrigine) 750 mg PO BEDTIME [facility] Pharmacy Consult (Consult Rx Perform Med Rec) 1 each MISCELLANE ONCE PRN PRN Reason: Consult order Vitamin D (Cholecalciferol (Vitamin D3) 25 Mcg Tablet) 25 mcg PO DAILY [facility] Last Admin: 01/14/22 08:41 Dose: 25 mcg Documented by: Home Medications Medication Instructions Recorded Confirmed Last Taken Type lamotrigine 250 mg tablet,extended 750 mg PO BEDTIME tab 02/15/21 01/14/22 01/14/22 History release 24 hr aspirin 81 mg tablet,delayed 81 mg PO DAILY 11/12/21 01/14/22 01/13/22 History release carvedilol 6.25 mg tablet 1 tab PO BID 11/12/21 01/14/22 01/13/22 History cholecalciferol (vitamin D3) 25 25 mcg PO DAILY 11/16/21 01/14/22 01/13/22 History mcg (1,000 unit) tablet (Vitamin D3) cyanocobalamin (vitamin B-12) 1,000 mcg PO DAILY 11/16/21 01/14/22 01/13/22 History 1,000 mcg tablet meclizine 25 mg tablet 12.5 mg PO DAILY PRN 11/16/21 01/14/22 Unknown History ascorbic acid (vitamin C) 500 mg 500 mg PO DAILY 01/14/22 01/14/22 01/14/22 History tablet lacosamide 150 mg tablet (Vimpat) See Rx Instructions .ROUTE .COMPLEX 01/14/22 01/14/22 Unknown History Physical Exam Vital Signs and Narrative: Vital Signs: Last Vital Signs Temp 98.4 F 01/14/22 02:54 Pulse 74 01/14/22 09:40 Resp 20 01/14/22 09:40 BP 152/85 H 01/14/22 09:40 Pulse Ox 95 01/14/22 09:40 BMI result Body Mass Index 17.3 Const: Other: Constitutional : Alert, interactive, not in distress but weak Neck : Normal inspection, Supple Cardiovascular : RRR, no JVP, no lower extremity edema Respiratory : fair bilateral air entry, no crackles, wheezes or rhonchi Gastrointestinal: soft, lax, Normal bowel sounds, Non tender Skin : Warm, Dry Neurological : Alert & oriented x3, No focal deficit , CN 2-12 within normal Results Labs CBC and Chem 7: 01/14/22 03:10 01/14/22 03:47 Labs: Laboratory Results - last 24 hr 01/14/22 01/14/22 01/14/22 02:53 02:56 03:06 MCV MCH MCHC RDW Plt Count MPV Immature Gran % (Auto) Neut % (Auto) Lymph % (Auto) [place] % (Auto) Eos % (Auto) Baso % (Auto) Lymph # (Auto) [place] # (Auto) Eos # (Auto) Baso # (Auto) Abs Immat Gran (auto) Absolute Neuts (auto) Absolute Nucleated RBC Nucleated RBC % (auto) PT Whole Blood PT 12.5 INR Whole Blood INR 1.0 APTT Anion Gap Estim Creat Clear Calc Estimated GFR POC Glucose 106 Random Glucose Lactic Acid Calcium Magnesium Total Bilirubin Direct Bilirubin AST ALT Alkaline Phosphatase Ammonia Troponin I High Sens Total Protein Albumin Lipase TSH Urine Color Urine Appearance Urine pH Ur Specific [place] Urine Protein Urine Glucose (UA) Urine Ketones Urine Blood Urine Nitrite Ur Leukocyte Esterase Urine RBC Urine WBC Ur Squamous Epith Cells Urine Bacteria Urine Opiates Screen Urine Fentanyl Screen Ur Barbiturates Screen Phenytoin Ur Phencyclidine Scrn Ur Amphetamines Screen U Benzodiazepines Scrn Urine Cocaine Screen U Marijuana (THC) Screen COVID-19 (SKY) Negative COVID-19 Clin Com See Note 01/14/22 01/14/22 01/14/22 03:10 03:10 03:10 MCV 83.7 MCH 26.2 L MCHC 31.3 RDW 26.2 H Plt Count 185 MPV 9.3 L Immature Gran % (Auto) 0.3 Neut % (Auto) 52.4 Lymph % (Auto) 29.9 [place] % (Auto) 12.4 H Eos % (Auto) 4.2 H Baso % (Auto) 0.8 Lymph # (Auto) 1.1 L [place] # (Auto) 0.4 Eos # (Auto) 0.2 Baso # (Auto) 0.0 Abs Immat Gran (auto) 0.01 Absolute Neuts (auto) 1.9 L Absolute Nucleated RBC 0.000 Nucleated RBC % (auto) 0.0 PT 11.6 Whole Blood PT INR 1.0 Whole Blood INR APTT 24.6 Anion Gap Estim Creat Clear Calc Estimated GFR POC Glucose Random Glucose Lactic Acid Calcium Magnesium Total Bilirubin Direct Bilirubin AST ALT Alkaline Phosphatase Ammonia 40 Troponin I High Sens Total Protein Albumin Lipase TSH Urine Color Urine Appearance Urine pH Ur Specific [place] Urine Protein Urine Glucose (UA) Urine Ketones Urine Blood Urine Nitrite Ur Leukocyte Esterase Urine RBC Urine WBC Ur Squamous Epith Cells Urine Bacteria Urine Opiates Screen Urine Fentanyl Screen Ur Barbiturates Screen Phenytoin Ur Phencyclidine Scrn Ur Amphetamines Screen U Benzodiazepines Scrn Urine Cocaine Screen U Marijuana (THC) Screen COVID-19 (SKY) COVID-19 [place] 01/14/22 01/14/22 01/14/22 03:10 03:47 03:47 MCV MCH MCHC RDW Plt Count MPV Immature Gran % (Auto) Neut % (Auto) Lymph % (Auto) [place] % (Auto) Eos % (Auto) Baso % (Auto) Lymph # (Auto) [place] # (Auto) Eos # (Auto) Baso # (Auto) Abs Immat Gran (auto) Absolute Neuts (auto) Absolute Nucleated RBC Nucleated RBC % (auto) PT Whole Blood PT INR Whole Blood INR APTT Anion Gap 13 Estim Creat Clear Calc 50.7 Estimated GFR > 60 POC Glucose Random Glucose 108 Lactic Acid 0.9 Calcium 9.4 Magnesium 1.9 Total Bilirubin 0.4 Direct Bilirubin 0.2 AST 18 ALT 13 Alkaline Phosphatase 89 Ammonia Troponin I High Sens 4.3 Total Protein 6.3 L Albumin 4.0 Lipase 12 TSH Urine Color Urine Appearance Urine pH Ur Specific [place] Urine Protein Urine Glucose (UA) Urine Ketones Urine Blood Urine Nitrite Ur Leukocyte Esterase Urine RBC Urine WBC Ur Squamous Epith Cells Urine Bacteria Urine Opiates Screen Urine Fentanyl Screen Ur Barbiturates Screen Phenytoin < 0.5 L* Ur Phencyclidine Scrn Ur Amphetamines Screen U Benzodiazepines Scrn Urine Cocaine Screen U Marijuana (THC) Screen COVID-19 (SKY) COVID-[employer] 01/14/22 01/14/22 01/14/22 03:48 05:16 05:16 MCV MCH MCHC RDW Plt Count MPV Immature Gran % (Auto) Neut % (Auto) Lymph % (Auto) [place] % (Auto) Eos % (Auto) Baso % (Auto) Lymph # (Auto) [place] # (Auto) Eos # (Auto) Baso # (Auto) Abs Immat Gran (auto) Absolute Neuts (auto) Absolute Nucleated RBC Nucleated RBC % (auto) PT Whole Blood PT INR Whole Blood INR APTT Anion Gap Estim Creat Clear Calc Estimated GFR POC Glucose Random Glucose Lactic Acid Calcium Magnesium Total Bilirubin Direct Bilirubin AST ALT Alkaline Phosphatase Ammonia Troponin I High Sens Total Protein Albumin Lipase TSH 1.75 Urine Color YELLOW Urine Appearance HAZY Urine pH 6.5 Ur Specific [place] 1.010 Urine Protein NEG Urine Glucose (UA) NEG Urine Ketones NEG Urine Blood 3+ H Urine Nitrite NEG Ur Leukocyte Esterase 1+ H Urine RBC 5-9 H Urine WBC 0-2 Ur Squamous Epith Cells TRACE Urine Bacteria TRACE Urine Opiates Screen Not Detected Urine Fentanyl Screen Not Detected Ur Barbiturates Screen Not Detected Phenytoin Ur Phencyclidine Scrn Not Detected Ur Amphetamines Screen Not Detected U Benzodiazepines Scrn Not Detected Urine Cocaine Screen Not Detected U Marijuana (THC) Screen Not Detected COVID-19 (SKY) COVID-19 Clin Com Imaging Radiologist's Impressions: Impressions Head CT 01/14/22 03:18 IMPRESSION: No acute intracranial pathology. Redemonstrated chronic infarcts in the left cerebral hemisphere and post surgical changes. This stroke protocol result was discussed with Dr. Greco on 01/14/2022 3:28 AM. Chest X-Ray 01/14/22 03:25 IMPRESSION: No acute cardiopulmonary findings. 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 Nondiagnostic assessment for any residual/recurrent aneurysm given the degree of artifact from the surgical changes. - There is chronic encephalomalacia and gliosis within the left cerebral hemisphere associated with ex vacuo dilatation of the left lateral ventricle. - Stable appearing atherosclerotic disease throughout the craniocervical arterial vasculature. No severe stenoses and no acute arterial occlusions within the head or neck. Assessment and Plan (1) Seizure: Status: Acute (2) Physical deconditioning: Status: Acute Plan a 66 years old lady with rectal cancer, seizure disorder, CMP among others who presents to the hospital for suspected episode of seizure breakthrough. breakthrough seizure Likely diagnosis given her history and recent change in her medication Restart home dose Vimpat next Lyme continue Lamictal Check lamotrigine level Get Neurology evaluation Seizure precautions Physical deconditioning Related likely to cancer, CMP and being on chemotherapy Partially related to seizure medications To do physical therapy CMP Continue carvedilol, atorvastatin and aspirin DVT PPX Lovenox Quality Stroke Does the patient have a stroke diagnosis?: No VTE Prior VTE?: No VTE Risk Level:: Medical - moderate - high VTE Device Contraindication: Treatment Not Indicated VTE Drug Contraindication: N/A - Med Ordered
[2022-01-14] MEDS: Enoxaparin Sodium 40 MG/0.4 ML SYRINGE SUBCUT (12:54)
--- NOTE | 2022-01-14 12:56 | PC.NURSE ---
physical therapy at bedside
--- NOTE | 2022-01-14 15:38 | MHC.CM.PN ---
Met with pt to discuss d/c planning: pt resides alone and is independent with all care needs. She has no services or equipment use or barriers to care. TOMMY given, HCP on file and verified, pt will contact her family for transportation home. Yulisa Cho x3: PCP is Dr. Elise
[2022-01-14] MEDS: 0.9 % Sodium Chloride Flush 3 ML SYRINGE IVFLUSH ×2 (16:10→20:03)
--- NOTE | 2022-01-14 16:12 | PC.NURSE ---
pt appears to be back to her baseline, clear speech/no visible tremors or right hand pestering at this time, answering questions appropriately
--- NOTE | 2022-01-14 16:43 | PC.NURSE ---
report given to bakari lacey
[2022-01-14] MEDS: Atorvastatin Calcium 40 MG TABLET PO (21:23)
[2022-01-15 03:28] VITALS: BP 118/52; PULSE 76; RESP 18; TEMP 36.4; O2SAT 98
[2022-01-15] MEDS: ondansetron HCL 4 MG/2 ML VIAL IVPUSH (03:57)
[2022-01-15] MEDS: LORazepam 2 MG/ML VIAL 1 MG IVPUSH (04:10)
[2022-01-15 04:24] LABS: Hematocrit 28.1 % (37.0-47.0); Hemoglobin 8.9 g/dl (12.0-16.0); Mean Corpuscular HGB Conc 31.7 g/dl (31.0-35.0); Mean Corpuscular Hemoglobin 26.4 pg (27.0-33.0); Mean Corpuscular Volume 83.4 fL (80.0-98.0); Mean Platelet Volume 9.8 fL (9.4-12.3); Platelet Count 145 X10*3/uL (160-400); Red Blood Count 3.37 X10*6/uL (4.20-5.50); Red Cell Distribution Width 26.2 % (11.0-16.0); White Blood Count 3.6 X10*3/uL (4.8-10.8)
[2022-01-15 04:45] LABS: Anion Gap 13 (12-20); Blood Urea Nitrogen 9 mg/dL (9-16); Calcium 8.8 mg/dL (8.4-10.2); Carbon Dioxide 26 mmol/L (22-29); Chloride 105 mmol/L (96-108); Estimated Glomerular Filt Rate > 60; Glucose Random 104 mg/dL (60-115); Potassium 3.6 mmol/L (3.3-5.1); Sodium 140 mmol/L (135-145)
[2022-01-15 07:59] VITALS: BP 128/69; PULSE 75; RESP 20; TEMP 36.4; O2SAT 99
[2022-01-15] MEDS: 0.9 % Sodium Chloride Flush 3 ML SYRINGE IVFLUSH ×3 (09:04→20:18)
[2022-01-15] MEDS: Lacosamide 100 MG TABLET 150 MG PO (09:04)
[2022-01-15] MEDS: carvediloL 6.25 MG TABLET PO ×2 (09:05→20:18)
[2022-01-15] MEDS: Cyanocobalamin (Vitamin B-12) 1,000 MCG TABLET 1000 MCG PO (09:05)
[2022-01-15] MEDS: Cholecalciferol (Vitamin D3) 25 MCG TABLET PO (09:05)
[2022-01-15] MEDS: Ascorbic Acid 500 MG TABLET PO (09:05)
[2022-01-15] MEDS: Aspirin Enteric Coated 81 MG TABLET.DR PO (09:05)
[2022-01-15] MEDS: LORazepam 2 MG/ML VIAL 0.5 MG IVPUSH (10:43)
--- NOTE | 2022-01-15 10:44 | HO.PM.IMPN ---
Subjective Subjective Date of Service: 01/15/22 Interval History: the patient was seen and evaluated this morning Laying in bed, feels comfortable when 1st seen I was called later at 1030 as she was having shaking , double vision and mildly altered, family at the bedside No reported other overnight events. Review of Systems No fever, chills But reports generalized weakness, shaking and double vision No chest pain, palpitation No shortness of breath or coughing No abdominal pain, nausea or vomiting No urinary symptoms No any rash or wounds Physical Exam Vital Signs: Vital Signs: Last Vital Signs Temp 97.5 F 01/15/22 07:59 Pulse 75 01/15/22 07:59 Resp 20 01/15/22 07:59 BP 128/69 01/15/22 07:59 Pulse Ox 99 01/15/22 07:59 BMI result Body Mass Index 16.8 Const: Other: Constitutional : Alert, interactive with even while having tremors, mildly altered but not confused Neck : Normal inspection, Supple Cardiovascular : RRR, no JVP, no lower extremity edema Respiratory : fair bilateral air entry, no crackles, wheezes or rhonchi Gastrointestinal: soft, lax, Normal bowel sounds, Non tender Skin : Warm, Dry Neurological : Alert & oriented to self and place, No focal deficit , CN 2-12 within normal, shaking tremors and reported double vision Objective Data Active Medications Acetaminophen (Acetaminophen 325 Mg Tablet) 650 mg PO Q6H PRN PRN Reason: Pain, Mild (Pain Scale 1-3) Ascorbic Acid (Ascorbic Acid 500 Mg Tablet) 500 mg PO DAILY [facility] Last Admin: 01/15/22 09:05 Dose: 500 mg Documented by: RAJESH Aspirin (Aspirin Enteric Coated 81 Mg Tablet.) 81 mg PO DAILY [facility] Last Admin: 01/15/22 09:05 Dose: 81 mg Documented by: RAJESH Atorvastatin Calcium (Atorvastatin Calcium 40 Mg Tablet) 40 mg PO BEDTIME [facility] Last Admin: 01/14/22 21:23 Dose: 40 mg Documented by: BLANE Carvedilol (Carvedilol 6.25 Mg Tablet) 6.25 mg PO BID [facility]; Protocol Last Admin: 01/15/22 09:05 Dose: 6.25 mg Documented by: RAJESH Cyanocobalamin (Cyanocobalamin (Vitamin B-12) 1,000 Mcg Tablet) 1,000 mcg PO DAILY [facility] Last Admin: 01/15/22 09:05 Dose: 1,000 mcg Documented by: RAJESH Enoxaparin Sodium (Enoxaparin Sodium 40 Mg/0.4 Ml Syringe) 40 mg SUBCUT Q24H [facility] Last Admin: 01/14/22 12:54 Dose: 40 mg Documented by: FELA Lacosamide (Lacosamide 100 Mg Tablet) 150 mg PO BID [facility] Last Admin: 01/15/22 09:04 Dose: 150 mg Documented by: RAJESH Lorazepam (Lorazepam 2 Mg/Ml Vial) 1 mg IVPUSH ONCE PRN PRN Reason: Seizures Last Admin: 01/15/22 04:10 Dose: 1 mg Documented by: BLANE Meclizine HCl (Meclizine Hcl 12.5 Mg Tablet) 12.5 mg PO DAILY PRN PRN Reason: Vertigo Non-Formulary Medication (Lamotrigine) 750 mg PO BEDTIME [facility] Last Admin: 01/14/22 21:23 Dose: 750 mg Documented by: BLANE Ondansetron HCl (Ondansetron Hcl 4 Mg/2 Ml Vial) 4 mg IVPUSH Q8H PRN PRN Reason: Nausea and Vomiting Last Admin: 01/15/22 03:57 Dose: 4 mg Documented by: BLANE Pharmacy Consult (Consult Rx Perform Med Rec) 1 each MISCELLANE ONCE PRN PRN Reason: Consult order Sodium Chloride (0.9 % Sodium Chloride Flush 3 Ml Syringe) 3 ml IVFLUSH QSHIFT [facility] Last Admin: 01/15/22 09:04 Dose: 3 ml Documented by: RAJESH Vitamin D (Cholecalciferol (Vitamin D3) 25 Mcg Tablet) 25 mcg PO DAILY [facility] Last Admin: 01/15/22 09:05 Dose: 25 mcg Documented by: RAJESH Labs CBC & Chem 7: 01/15/22 03:12 01/15/22 03:12 Labs: Laboratory Results - last 24 hr 01/15/22 01/15/22 03:12 03:12 MCV 83.4 MCH 26.4 L MCHC 31.7 RDW 26.2 H Plt Count 145 L MPV 9.8 Absolute Nucleated RBC 0.000 Nucleated RBC % (auto) 0.0 Anion Gap 13 Estim Creat Clear Calc 55.0 Estimated GFR > 60 Random Glucose 104 Calcium 8.8 D Microbiology Microbiology Results: Microbiology 01/14/22 Unknown Urine Culture - Final Urine clean catch - Clean Catch Midstream No growth. 01/14/22 03:48 Blood Culture - Preliminary Blood - Venous No growth after 24 hours. 01/14/22 03:48 Blood Culture - Preliminary Blood - Venous No growth after 24 hours. Assessment and Plan (1) Physical deconditioning: Status: Acute (2) Seizure: Status: Acute (3) Double vision: Status: Acute Plan a 66 years old lady with rectal cancer, seizure disorder, CMP among others who presents to the hospital for suspected episode of seizure breakthrough. shaking, tremors, double vision Could be secondary to breakthrough seizure or medication side effect decrease home dose Vimpat continue Lamictal start Keppra Pending Vimpat and lamotrigine level Get Neurology evaluation Seizure precautions Physical deconditioning Related likely to cancer, CMP and being on chemotherapy Partially related to seizure medications To do physical therapy CMP Continue carvedilol, atorvastatin and aspirin DVT PPX Lovenox Quality Stroke Does the patient have a stroke diagnosis?: No VTE Prior VTE?: No VTE Risk Level:: Medical - moderate - high VTE Device Contraindication: Treatment Not Indicated VTE Drug Contraindication: N/A - Med Ordered
[2022-01-15] MEDS: levETIRAcetam in NaCl (iso-os) 500 MG/100 ML PIGGYBACK 400 MG IV (11:14)
[2022-01-15] MEDS: Enoxaparin Sodium 40 MG/0.4 ML SYRINGE SUBCUT (11:14)
[2022-01-15 11:30] VITALS: BP 120/60; PULSE 70; RESP 18; TEMP 36.2; O2SAT 98
--- NOTE | 2022-01-15 11:55 | P.CNNE_ITS ---
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 For many years she was maintained on Dilantin and oxcarbazepine. Recent history was positive for Dilantin toxicity after which apparently her neurologist in [place] changed her medications and put her on Vimpat. According to her Vimpat was started couple of weeks ago while she was also taking lamotrigine 750 mg at night. She was brought to hospital after her heard a grunting noises and her mental status changed. In hospital she was in delirious state. She was unable to provide any history. No obvious convulsion was noted. Apparently patient had complain of double vision. Review of Systems Review of Systems: Could not be done with her. [facility] Past Medical History Medical History Anemia Anemia History of seizures Occult blood positive stool Rectal mass Seizure Takotsubo cardiomyopathy Social History Social History Household Members: Spouse Household Members Other:: 2 Housing: House Do you presently have visiting nurse or other home services: No Alcohol intake: never Patient Tobacco Use Status: Current everyday Tobacco user Tobacco use type: Cigarette Cigarettes Per Day: 1 Use of substances other than those prescribed or required for medical reasons: No Advance Directives: Yes Advance Directives on File: Yes Advance Directives Date on File: 11/24/21 service: No Current occupational status: employed Meds Allergies Allergy/AdvReac Type Severity Reaction Status Date / Time Penicillins [PENICILLINS] Allergy Unknown UNKNOWN Verified 01/14/22 04:59 Active Medications: Current Medications Acetaminophen (Acetaminophen 325 Mg Tablet) 650 mg PO Q6H PRN PRN Reason: Pain, Mild (Pain Scale 1-3) Ascorbic Acid (Ascorbic Acid 500 Mg Tablet) 500 mg PO DAILY [facility] Last Admin: 01/15/22 09:05 Dose: 500 mg Documented by: Aspirin (Aspirin Enteric Coated 81 Mg Tablet.) 81 mg PO DAILY [facility] Last Admin: 01/15/22 09:05 Dose: 81 mg Documented by: Atorvastatin Calcium (Atorvastatin Calcium 40 Mg Tablet) 40 mg PO BEDTIME [facility] Last Admin: 01/14/22 21:23 Dose: 40 mg Documented by: Carvedilol (Carvedilol 6.25 Mg Tablet) 6.25 mg PO BID [facility]; Protocol Last Admin: 01/15/22 09:05 Dose: 6.25 mg Documented by: Cyanocobalamin (Cyanocobalamin (Vitamin B-12) 1,000 Mcg Tablet) 1,000 mcg PO DAILY [facility] Last Admin: 01/15/22 09:05 Dose: 1,000 mcg Documented by: Enoxaparin Sodium (Enoxaparin Sodium 40 Mg/0.4 Ml Syringe) 40 mg SUBCUT Q24H [facility] Last Admin: 01/15/22 11:14 Dose: 40 mg Documented by: Levetiracetam (Keppra) 500 mg in 100 mls @ 400 mls/hr IV Q12H [facility] Last Infusion: 01/15/22 11:33 Dose: Infused Documented by: Lacosamide (Lacosamide 100 Mg Tablet) 100 mg PO BID [facility] Lorazepam (Lorazepam 2 Mg/Ml Vial) 1 mg IVPUSH ONCE PRN PRN Reason: Seizures Last Admin: 01/15/22 04:10 Dose: 1 mg Documented by: Meclizine HCl (Meclizine Hcl 12.5 Mg Tablet) 12.5 mg PO DAILY PRN PRN Reason: Vertigo Non-Formulary Medication (Lamotrigine) 750 mg PO BEDTIME [facility] Last Admin: 01/14/22 21:23 Dose: 750 mg Documented by: Ondansetron HCl (Ondansetron Hcl 4 Mg/2 Ml Vial) 4 mg IVPUSH Q8H PRN PRN Reason: Nausea and Vomiting Last Admin: 01/15/22 03:57 Dose: 4 mg Documented by: Pharmacy Consult (Consult Rx Perform Med Rec) 1 each MISCELLANE ONCE PRN PRN Reason: Consult order Sodium Chloride (0.9 % Sodium Chloride Flush 3 Ml Syringe) 3 ml IVFLUSH QSHIFT [facility] Last Admin: 01/15/22 09:04 Dose: 3 ml Documented by: Vitamin D (Cholecalciferol (Vitamin D3) 25 Mcg Tablet) 25 mcg PO DAILY [facility] Last Admin: 01/15/22 09:05 Dose: 25 mcg Documented by: Home Medications Medication Instructions Recorded Confirmed Last Taken Type lamotrigine 250 mg tablet,extended 750 mg PO BEDTIME tab 02/15/21 01/14/22 01/14/22 History release 24 hr aspirin 81 mg tablet,delayed 81 mg PO DAILY 11/12/21 01/14/22 01/13/22 History release carvedilol 6.25 mg tablet 1 tab PO BID 11/12/21 01/14/22 01/13/22 History cholecalciferol (vitamin D3) 25 25 mcg PO DAILY 11/16/21 01/14/22 01/13/22 History mcg (1,000 unit) tablet (Vitamin D3) cyanocobalamin (vitamin B-12) 1,000 mcg PO DAILY 11/16/21 01/14/22 01/13/22 History 1,000 mcg tablet meclizine 25 mg tablet 12.5 mg PO DAILY PRN 11/16/21 01/14/22 Unknown History ascorbic acid (vitamin C) 500 mg 500 mg PO DAILY 01/14/22 01/14/22 01/14/22 History tablet lacosamide 150 mg tablet (Vimpat) See Rx Instructions .ROUTE .COMPLEX 01/14/22 01/14/22 Unknown History Physical Exam Vital Signs: Vital Signs: Last Vital Signs Temp 97.1 F 01/15/22 11:30 Pulse 70 01/15/22 11:30 Resp 18 01/15/22 11:30 BP 120/60 01/15/22 11:30 Pulse Ox 98 01/15/22 11:30 BMI result Body Mass Index 16.8 Neuro: Other: Quite drowsy. Intermittently she tried to say something and mumbled but it did not make sense. She was not following commands and sometime she was trying to pull her IV line out. Pupils were about 3 mm round and reactive. There was no deviation or jerking. No obvious abnormal movement was noted in upper or lower extremities. Examination was limited. Results Labs CBC & Chem 7: 01/15/22 03:12 01/15/22 03:12 Labs: Short CBC 01/15/22 Range/Units 03:12 WBC 3.6 L (4.8-10.8) X10*3/uL Hgb 8.9 L (12.0-16.0) g/dl Hct 28.1 L (37.0-47.0) % Plt Count 145 L (160-400) X10*3/uL BMP 01/15/22 03:12 Sodium 140 Potassium 3.6 Chloride 105 Carbon Dioxide 26 BUN 9 Creatinine 0.[address] revealed no acute abnormality. It revealed left hemispheric aneurysm clip and atrophy. Hemoglobin was 8.9. Liver enzymes were okay. Microbiology Microbiology Results: Microbiology 01/14/22 Unknown Urine clean catch - Clean Catch Midstream Urine Culture - Final No growth. 01/14/22 03:48 Blood - Venous Blood Culture - Preliminary No growth after 24 hours. 01/14/22 03:48 Blood - Venous Blood Culture - Preliminary No growth after 24 hours. Assessment and Plan (1) Encephalopathy: Status: Acute 66 years old woman who has underlying history of aneurysm clipping number of years ago and after that she was taking antiepileptic for seizure prevention. Her stated that her last seizure was 2 years ago. Recently she had an admission when she had multiple neurological symptoms including nystagmus, which was found to be due to Dilantin toxicity. She also was being treated for rectal cancer and apparently has been receiving chemotherapy. At this time she was delirious and that was likely from either iatrogenic reasons with combination of chemotherapy and relatively high doses of antiepileptics, or epileptic in nature. It was probably the 1st 1 or the combination. For her age and weight she was taking relatively high dose of lamotrigine and Vimpat. My recommendation at this time is to hold lamotrigine and check its level. Also decrease Vimpat 100 mg twice a day. She would probably require total of 400 mg lamotrigine a day but I would restart lamotrigine after checking its level. If level is high should be held until level is better or her clinical status is better. In the meantime, if possible an EEG is recommended to rule out any possibility of epileptic discharges resulting in encephalopathy. Procedures Date of Service Date of Service: 01/15/22
[2022-01-15 15:49] VITALS: BP 123/86; PULSE 73; RESP 18; TEMP 36.7; O2SAT 98
[2022-01-15 19:41] VITALS: BP 101/57; PULSE 72; RESP 16; TEMP 37.2; O2SAT 97
[2022-01-15] MEDS: Atorvastatin Calcium 40 MG TABLET PO (20:18)
[2022-01-15] MEDS: Lacosamide 100 MG TABLET PO (20:18)
[2022-01-15 23:26] VITALS: BP 122/53; PULSE 76; RESP 18; TEMP 37.1; O2SAT 98
--- NOTE | 2022-01-16 | EEG_ITS ---
This is a 16-channel EEG with an EKG lead. The patient is reported awake during the tracing. Background EEG rhythm is mixed theta, beta with occasional left central sharp waves. Cardiac lead does not reveal any significant abnormality. Photic stimulation does not reveal any significant driving. Hyperventilation is not performed. IMPRESSION: Mildly abnormal electroencephalogram suggestive of left central irritability that could suggest risk for partial seizures. MD OREN Valdivia/REBEKAH / [phone]
--- NOTE | 2022-01-16 02:12 | PM.EVENT ---
Event Note Date of Service: 01/16/22 Event Note: Patient cultures showing Gram-negative rods, after reviewing her chart, seems that she had positive UA on 01/14, at this time will repeat her cultures, and start her on ceftriaxone daily
--- NOTE | 2022-01-16 02:25 | PC.NURSE ---
Lab called with 1 set of blood cultures positive for gram negative rods. notified ordered iv rocephin and stat blood cultures.
[2022-01-16] MEDS: cefTRIAXone sodium 1 GM in 0.9 % Sodium Chloride 50 ML IV (03:25)
[2022-01-16 04:00] VITALS: BP 110/69; PULSE 68; RESP 20; TEMP 36.8; O2SAT 98
[2022-01-16 07:42] VITALS: BP 132/74; PULSE 84; RESP 18; TEMP 36.9; O2SAT 98
[2022-01-16] MEDS: Cholecalciferol (Vitamin D3) 25 MCG TABLET PO (07:51)
[2022-01-16] MEDS: Lacosamide 100 MG TABLET PO ×2 (07:51→20:25)
[2022-01-16] MEDS: Ascorbic Acid 500 MG TABLET PO (07:51)
[2022-01-16] MEDS: Aspirin Enteric Coated 81 MG TABLET.DR PO (07:51)
[2022-01-16] MEDS: carvediloL 6.25 MG TABLET PO ×2 (07:52→20:26)
[2022-01-16] MEDS: Cyanocobalamin (Vitamin B-12) 1,000 MCG TABLET 1000 MCG PO (07:52)
[2022-01-16] MEDS: 0.9 % Sodium Chloride Flush 3 ML SYRINGE IVFLUSH ×2 (07:52→20:26)
[2022-01-16 11:12] VITALS: BP 117/67; PULSE 79; RESP 17; TEMP 36.4; O2SAT 98
[2022-01-16] MEDS: Enoxaparin Sodium 40 MG/0.4 ML SYRINGE SUBCUT (12:52)
[2022-01-16 12:55] VITALS: BMI 16.8
--- NOTE | 2022-01-16 13:25 | P.PNIM_ITS ---
Subjective Subjective Date of Service: 01/16/22 Interval History: the patient was seen and evaluated this morning Laying in bed, feels comfortable when 1st seen I was called later at 1030 as she was having shaking , double vision and mildly altered, family at the bedside No reported other overnight events. Review of Systems No fever, chills But reports generalized weakness, shaking and double vision No chest pain, palpitation No shortness of breath or coughing No abdominal pain, nausea or vomiting No urinary symptoms No any rash or wounds Physical Exam Vital Signs: Vital Signs: Last Vital Signs Temp 97.5 F 01/16/22 11:12 Pulse 79 01/16/22 11:12 Resp 17 01/16/22 11:12 BP 117/67 01/16/22 11:12 Pulse Ox 98 01/16/22 11:12 BMI result Body Mass Index 16.8 Const: Other: Constitutional : Alert, interactive with even while having tremors, mildly altered but not confused Neck : Normal inspection, Supple Cardiovascular : RRR, no JVP, no lower extremity edema Respiratory : fair bilateral air entry, no crackles, wheezes or rhonchi Gastrointestinal: soft, lax, Normal bowel sounds, Non tender Skin : Warm, Dry Neurological : Alert & oriented to self and place, No focal deficit , CN 2-12 within normal, shaking tremors and reported double vision Objective Data Active Medications Acetaminophen (Acetaminophen 325 Mg Tablet) 650 mg PO Q6H PRN PRN Reason: Pain, Mild (Pain Scale 1-3) Ascorbic Acid (Ascorbic Acid 500 Mg Tablet) 500 mg PO DAILY [facility] Last Admin: 01/16/22 07:51 Dose: 500 mg Documented by: JENN Aspirin (Aspirin Enteric Coated 81 Mg Tablet.) 81 mg PO DAILY [facility] Last Admin: 01/16/22 07:51 Dose: 81 mg Documented by: JENN Atorvastatin Calcium (Atorvastatin Calcium 40 Mg Tablet) 40 mg PO BEDTIME [facility] Last Admin: 01/15/22 20:18 Dose: 40 mg Documented by: IBAN Carvedilol (Carvedilol 6.25 Mg Tablet) 6.25 mg PO BID [facility]; Protocol Last Admin: 01/16/22 07:52 Dose: 6.25 mg Documented by: JENN Cyanocobalamin (Cyanocobalamin (Vitamin B-12) 1,000 Mcg Tablet) 1,000 mcg PO DAILY [facility] Last Admin: 01/16/22 07:52 Dose: 1,000 mcg Documented by: JENN Enoxaparin Sodium (Enoxaparin Sodium 40 Mg/0.4 Ml Syringe) 40 mg SUBCUT Q24H [facility] Last Admin: 01/16/22 12:52 Dose: 40 mg Documented by: JENN Ceftriaxone Sodium 1 gm/ (Sodium Chloride) 50 mls @ 100 mls/hr IV Q24H [facility] Last Infusion: 01/16/22 04:06 Dose: 0 mls/hr Documented by: IBAN Lacosamide (Lacosamide 100 Mg Tablet) 100 mg PO BID [facility] Last Admin: 01/16/22 07:51 Dose: 100 mg Documented by: JENN Lamotrigine (Lamotrigine 100 Mg Tablet) 200 mg PO BID [facility] Lorazepam (Lorazepam 2 Mg/Ml Vial) 1 mg IVPUSH ONCE PRN PRN Reason: Seizures Last Admin: 01/15/22 04:10 Dose: 1 mg Documented by: BLANE Meclizine HCl (Meclizine Hcl 12.5 Mg Tablet) 12.5 mg PO DAILY PRN PRN Reason: Vertigo Ondansetron HCl (Ondansetron Hcl 4 Mg/2 Ml Vial) 4 mg IVPUSH Q8H PRN PRN Reason: Nausea and Vomiting Last Admin: 01/15/22 03:57 Dose: 4 mg Documented by: BLANE Pharmacy Consult (Consult Rx Perform Med Rec) 1 each MISCELLANE ONCE PRN PRN Reason: Consult order Sodium Chloride (0.9 % Sodium Chloride Flush 3 Ml Syringe) 3 ml IVFLUSH QSHIFT [facility] Last Admin: 01/16/22 07:52 Dose: 3 ml Documented by: JENN Vitamin D (Cholecalciferol (Vitamin D3) 25 Mcg Tablet) 25 mcg PO DAILY [facility] Last Admin: 01/16/22 07:51 Dose: 25 mcg Documented by: JENN Labs CBC & Chem 7: 01/15/22 03:12 01/15/22 03:12 Microbiology Microbiology Results: Microbiology 01/14/22 03:48 Blood Culture - Preliminary Blood - Venous Prelim: GNR Gram Stain only 01/14/22 03:48 Blood Culture - Preliminary Blood - Venous No growth after 48 hours. Assessment and Plan (1) Double vision: Status: Acute (2) Physical deconditioning: Status: Acute (3) Severe malnutrition: Status: Acute Plan a 66 years old lady with rectal cancer, seizure disorder, CMP among others who presents to the hospital for suspected episode of seizure breakthrough. shaking, tremors, double vision Could be secondary to breakthrough seizure or medication side effect decrease home dose Vimpat continue Lamictal Pending Vimpat and lamotrigine level Neurology input appreciated, check the levels of lamotrigine and hold it meanwhile. Seizure precautions Physical deconditioning Related likely to cancer, CMP and being on chemotherapy Partially related to seizure medications To do physical therapy CMP Continue carvedilol, atorvastatin and aspirin Severe malnutrition Started on Ensure b.i.d. with meals DVT PPX Lovenox Quality Stroke Does the patient have a stroke diagnosis?: No VTE Prior VTE?: No VTE Risk Level:: Medical - moderate - high VTE Device Contraindication: Treatment Not Indicated VTE Drug Contraindication: N/A - Med Ordered
--- NOTE | 2022-01-16 13:27 | MHC.CLN ---
NUTRITION DIET=REGULAR. ADDED ENSURE BID (700 KCAL, 40 G PROTEIN) PER DISCUSSION WITH FAMILY. PATIENT WITH SIGNIFICANT WEIGHT LOSS X 2 MONTHS AND FAMILY REPORTS VERY LIMITED INTAKE X AT LEAST ONE WEEK. MODERATE FAT AND MUSCLE DEPLETION NOTED. QUALIFIES SEVERELY MALNOURISHED. MONITOR INTAKE CLOSELY.
[2022-01-16 15:52] VITALS: BP 118/64; PULSE 76; RESP 18; TEMP 36.6; O2SAT 99
[2022-01-16 19:38] VITALS: BP 105/60; PULSE 76; RESP 18; TEMP 36.6; O2SAT 99
[2022-01-16] MEDS: Atorvastatin Calcium 40 MG TABLET PO (20:26)
[2022-01-16 23:21] VITALS: BP 110/52; PULSE 80; RESP 18; TEMP 36.2; O2SAT 97
[2022-01-17 03:06] VITALS: BP 111/60; PULSE 86; RESP 18; TEMP 36.6; O2SAT 96
[2022-01-17 06:23] LABS: Hematocrit 28.9 % (37.0-47.0); Mean Corpuscular HGB Conc 31.1 g/dl (31.0-35.0); Mean Corpuscular Hemoglobin 26.8 pg (27.0-33.0); Mean Platelet Volume 9.1 fL (9.4-12.3); Platelet Count 161 X10*3/uL (160-400); Red Blood Count 3.36 X10*6/uL (4.20-5.50); White Blood Count 3.4 X10*3/uL (4.8-10.8)
[2022-01-17 06:42] LABS: Anion Gap 13 (12-20); Blood Urea Nitrogen 14 mg/dL (9-16); Carbon Dioxide 26 mmol/L (22-29); Chloride 107 mmol/L (96-108); Creatinine Clr Calc Pharmacy 54.1; Potassium 4.2 mmol/L (3.3-5.1); Sodium 142 mmol/L (135-145)
[2022-01-17 06:43] LABS: Estimated Glomerular Filt Rate > 60; Glucose Random 104 mg/dL (60-115)
[2022-01-17 07:09] VITALS: BP 111/71; PULSE 88; RESP 17; TEMP 36.2; O2SAT 93
[2022-01-17] MEDS: Aspirin Enteric Coated 81 MG TABLET.DR PO (08:14)
[2022-01-17] MEDS: Lacosamide 100 MG TABLET PO ×2 (08:15→20:58)
[2022-01-17] MEDS: Cyanocobalamin (Vitamin B-12) 1,000 MCG TABLET 1000 MCG PO (08:16)
[2022-01-17] MEDS: Ascorbic Acid 500 MG TABLET PO (08:16)
[2022-01-17] MEDS: carvediloL 6.25 MG TABLET PO ×2 (08:17→20:58)
[2022-01-17] MEDS: Cholecalciferol (Vitamin D3) 25 MCG TABLET PO (08:17)
[2022-01-17 11:13] VITALS: BP 112/67; PULSE 80; RESP 20; TEMP 36.4; O2SAT 100
[2022-01-17] MEDS: Enoxaparin Sodium 40 MG/0.4 ML SYRINGE SUBCUT (12:03)
--- NOTE | 2022-01-17 12:10 | P.PNIM_ITS ---
Subjective Subjective Date of Service: 01/17/22 Interval History: the patient was seen and evaluated this morning Laying in bed, feels comfortable Denies any more episodes of shaking , double vision family at the bedside around noontime No reported other overnight events. Review of Systems No fever, chills and reports feeling stronger No chest pain, palpitation No shortness of breath or coughing No abdominal pain, nausea or vomiting No urinary symptoms No any rash or wounds Physical Exam Vital Signs: Vital Signs: Last Vital Signs Temp 97.5 F 01/17/22 11:13 Pulse 80 01/17/22 11:13 Resp 20 01/17/22 11:13 BP 112/67 01/17/22 11:13 Pulse Ox 100 01/17/22 11:13 BMI result Body Mass Index 16.8 Const: Other: Constitutional : Alert, interactive with no confusion or tremors Neck : Normal inspection, Supple Cardiovascular : RRR, no JVP, no lower extremity edema Respiratory : fair bilateral air entry, no crackles, wheezes or rhonchi Gastrointestinal: soft, lax, Normal bowel sounds, Non tender Skin : Warm, Dry Neurological : Alert & oriented to self and place, No focal deficit , CN 2-12 within normal Objective Data Active Medications Acetaminophen (Acetaminophen 325 Mg Tablet) 650 mg PO Q6H PRN PRN Reason: Pain, Mild (Pain Scale 1-3) Ascorbic Acid (Ascorbic Acid 500 Mg Tablet) 500 mg PO DAILY [facility] Last Admin: 01/17/22 08:16 Dose: 500 mg Documented by: FREDDY Aspirin (Aspirin Enteric Coated 81 Mg Tablet.) 81 mg PO DAILY [facility] Last Admin: 01/17/22 08:14 Dose: 81 mg Documented by: FREDDY Atorvastatin Calcium (Atorvastatin Calcium 40 Mg Tablet) 40 mg PO BEDTIME [facility] Last Admin: 01/16/22 20:26 Dose: 40 mg Documented by: IBAN Carvedilol (Carvedilol 6.25 Mg Tablet) 6.25 mg PO BID [facility]; Protocol Last Admin: 01/17/22 08:17 Dose: 6.25 mg Documented by: FREDDY Comments: 111/71,88 Cyanocobalamin (Cyanocobalamin (Vitamin B-12) 1,000 Mcg Tablet) 1,000 mcg PO DAILY [facility] Last Admin: 01/17/22 08:16 Dose: 1,000 mcg Documented by: FREDDY Enoxaparin Sodium (Enoxaparin Sodium 40 Mg/0.4 Ml Syringe) 40 mg SUBCUT Q24H [facility] Last Admin: 01/17/22 12:03 Dose: 40 mg Documented by: FREDDY Lacosamide (Lacosamide 100 Mg Tablet) 100 mg PO BID [facility] Last Admin: 01/17/22 08:15 Dose: 100 mg Documented by: FREDDY Lamotrigine (Lamotrigine 100 Mg Tablet) 200 mg PO BID [facility] Lorazepam (Lorazepam 2 Mg/Ml Vial) 1 mg IVPUSH ONCE PRN PRN Reason: Seizures Last Admin: 01/15/22 04:10 Dose: 1 mg Documented by: BLANE Meclizine HCl (Meclizine Hcl 12.5 Mg Tablet) 12.5 mg PO DAILY PRN PRN Reason: Vertigo Ondansetron HCl (Ondansetron Hcl 4 Mg/2 Ml Vial) 4 mg IVPUSH Q8H PRN PRN Reason: Nausea and Vomiting Last Admin: 01/15/22 03:57 Dose: 4 mg Documented by: BLANE Pharmacy Consult (Consult Rx Perform Med Rec) 1 each MISCELLANE ONCE PRN PRN Reason: Consult order Sodium Chloride (0.9 % Sodium Chloride Flush 3 Ml Syringe) 3 ml IVFLUSH QSHIFT [facility] Last Admin: 01/17/22 09:15 Dose: Not Given Documented by: JENN Non-Admin Reason: No Access Vitamin D (Cholecalciferol (Vitamin D3) 25 Mcg Tablet) 25 mcg PO DAILY [facility] Last Admin: 01/17/22 08:17 Dose: 25 mcg Documented by: FREDDY Labs CBC & Chem 7: 01/17/22 06:00 01/17/22 06:00 Labs: Laboratory Results - last 24 hr 01/17/22 01/17/22 06:00 06:00 MCV 86.0 MCH 26.8 L MCHC 31.1 RDW TNP Plt Count 161 MPV 9.1 L Absolute Nucleated RBC 0.000 Nucleated RBC % (auto) 0.0 Anion Gap 13 Estim Creat Clear Calc 54.1 Estimated GFR > 60 Random Glucose 104 Calcium 9.0 Microbiology Microbiology Results: Microbiology 01/14/22 03:48 Blood Culture - Preliminary Blood - Venous Prelim: GNR Gram Stain only 01/16/22 02:51 Blood Culture - Preliminary Blood - Venous No growth after 24 hours. 01/16/22 02:51 Blood Culture - Preliminary Blood - Venous No growth after 24 hours. Assessment and Plan (1) Encephalopathy: Status: Acute (2) Double vision: Status: Acute (3) Physical deconditioning: Status: Acute (4) Severe malnutrition: Status: Acute Plan a 66 years old lady with rectal cancer, seizure disorder, CMP among others who presents to the hospital for suspected episode of seizure breakthrough. shaking, tremors, double vision Likely result of medication side effect decrease home dose Vimpat 200 mg b.i.d. Decrease lamotrigine to 200 mg b.i.d. Pending Vimpat and lamotrigine level , results will be back earliest by Neurology input appreciated, can be discharged on lower dose of both medications and to follow with her neurologist Seizure precautions Physical deconditioning Related likely to cancer, CMP and being on chemotherapy Partially related to seizure medications PT recommended SNF placement CMP Continue carvedilol, atorvastatin and aspirin Severe malnutrition Started on Ensure b.i.d. with meals DVT PPX Lovenox Patient will need to stay overnight for safe discharge planning and SNF placement. Quality Stroke Does the patient have a stroke diagnosis?: No VTE Prior VTE?: No VTE Risk Level:: Medical - moderate - high VTE Device Contraindication: Treatment Not Indicated VTE Drug Contraindication: N/A - Med Ordered
--- NOTE | 2022-01-17 12:12 | MHC.CM.PN ---
Patient has been accepted at her(and Daughter/Gabi at [phone]) first choice SNF/[facility] who will have a private room for Patient tomorrow. [facility] has initiated the insurance authorization process and is aware.CM will continue to follow.
[2022-01-17 15:13] VITALS: BP 123/64; PULSE 75; RESP 17; TEMP 37; O2SAT 98
[2022-01-17 19:22] VITALS: BP 118/77; PULSE 86; RESP 18; TEMP 37.2; O2SAT 98
[2022-01-17] MEDS: 0.9 % Sodium Chloride Flush 3 ML SYRINGE IVFLUSH (20:58)
[2022-01-17] MEDS: Atorvastatin Calcium 40 MG TABLET PO (20:58)
[2022-01-17 23:49] VITALS: BP 104/59; PULSE 77; RESP 18; TEMP 36.8; O2SAT 96
[2022-01-18 03:19] VITALS: BP 110/57; PULSE 66; RESP 18; TEMP 36.6; O2SAT 97
[2022-01-18 07:05] VITALS: BP 108/77; PULSE 74; RESP 18; TEMP 36.3; O2SAT 96
[2022-01-18] MEDS: Cholecalciferol (Vitamin D3) 25 MCG TABLET PO (08:55)
[2022-01-18] MEDS: Aspirin Enteric Coated 81 MG TABLET.DR PO (08:56)
[2022-01-18] MEDS: Lacosamide 100 MG TABLET PO (08:56)
[2022-01-18] MEDS: carvediloL 6.25 MG TABLET PO (08:56)
[2022-01-18] MEDS: Cyanocobalamin (Vitamin B-12) 1,000 MCG TABLET 1000 MCG PO (08:56)
[2022-01-18] MEDS: Ascorbic Acid 500 MG TABLET PO (08:57)
[2022-01-18 09:06] LABS: COVID-19 Test Negative (Negative)
--- NOTE | 2022-01-18 11:26 | MHC.CLN ---
F/U DIET=REGULAR. ENSURE BID PROVIDES 700 KCAL, 40 G PROTEIN. QUALIFIES SEVERELY MALNOURISHED. APPEARS TO BE EATING MEALS, WITH INTAKE 25-100% X 2 DAYS. MONITOR INTAKE CLOSELY.
--- NOTE | 2022-01-18 11:34 | MHC.CM.PN ---
Patient has been medically cleared for dc to SNF/[facility] today. Patient will dc to first choice SN[facility] today at 4:30 PM, via [facility]. CM has left a detailed message for Daughter/Gabi at [phone], informing her of the dc plan and IMM.
[2022-01-18 11:35] VITALS: BP 109/59; PULSE 72; RESP 15; TEMP 37.2; O2SAT 95
--- NOTE | 2022-01-18 12:36 | PM.DS ---
DS: Providers Provider Date of Service: 01/18/22 Date of admission: 01/15/22 11:39 Primary care physician: Unknown Physician Consults: 01/14/22 11:52 Consult to Neurology Routine Consulting Provider: [facility] Reason for consultation: Breakthrough seizure?, seizure medication advice DS: Diagnosis Discharge Diagnosis (1) Encephalopathy: Status: Acute (2) Double vision: Status: Acute (3) Physical deconditioning: Status: Acute (4) Severe malnutrition: Status: Acute DS: Summary Hospital Course Hospital Course: Admission note HPI ?a 66 years old lady with rectal cancer, seizure disorder,? CMP among others who presents to the hospital for suspected episode of seizure breakthrough.? The patient has recent change of her seizure medication from Dilantin to Vimpat and last night you she went to the bed but her noticed around 02:00 that she has weird noises coming from her bed and was noted to be confused and having a lot of twitching so EMS was called to brought her to the hospital.? The patient reports that she cannot remember much about the incision but her Vimpat dose was decreased recently for increased lethargy and generalized weakness.? In the emergency brain images were negative for any acute findings. Admitted for further evaluation and treatment. Hospital course The patient was admitted to the hospital for evaluation of increase shaking, double vision with associated tremor. CT scan of the brain was negative for any acute findings. She was evaluated by Neurology as an EGD was done showing no evidence of seizure activity. Believed her symptoms are secondary to high dose of lamotrigine and Vimpat. Weaned down of both medication and resumed on 100 mg of Vimpat twice daily and 200 mg of lamotrigine twice a day. She will follow-up with her neurologist as outpatient for further adjustments if needed. She was evaluated by physical therapy team who recommended short-term rehab need at time of discharge. Diagnosed with severe malnutrition and started on Ensure b.i.d. per geophysical support specialist recommendations. Time Spent with Patient Time attestation: Total time spent providing and/or coordinating discharge services: Discharge coordination time: Greater than 30 minutes Quality: Safe Use of Opioids Does Pt have an Active Cancer Diagnosis on the Problem List?: No Quality: Stroke Does the patient have a stroke diagnosis?: No Physical Exam Vital Signs: Vital Signs: Last Vital Signs Temp 98.9 F 01/18/22 11:35 Pulse 72 01/18/22 11:35 Resp 15 01/18/22 11:35 BP 109/59 L 01/18/22 11:35 Pulse Ox 95 01/18/22 11:35 BMI result Body Mass Index 16.8 Const: Other: Constitutional : Alert, interactive with no confusion or tremors Neck : Normal inspection, Supple Cardiovascular : RRR, no JVP, no lower extremity edema Respiratory : fair bilateral air entry, no crackles, wheezes or rhonchi Gastrointestinal: soft, lax, Normal bowel sounds, Non tender Skin : Warm, Dry Neurological : Alert & oriented to self and place, No focal deficit , CN 2-12 within normal DS: Data Data Completed and Pending Completed studies during hospitalization [Text1]: Procedures Excision of Duodenum, Via Natural or Artificial Opening Endoscopic, Diagnostic (11/12/21) Excision of Middle Esophagus, Via Natural or Artificial Opening Endoscopic, Diagnostic (11/12/21) Excision of Rectum, Via Natural or Artificial Opening Endoscopic, Diagnostic (11/12/21) Excision of Stomach, Pylorus, Via Natural or Artificial Opening Endoscopic, Diagnostic (11/12/21) Excision of Upper Esophagus, Via Natural or Artificial Opening Endoscopic, Diagnostic (11/12/21) Transfusion of Nonautologous Red Blood Cells into Peripheral Vein, Percutaneous Approach (11/12/21) Labs on day of discharge: Laboratory Results - last 24 hr 01/18/22 08:26 COVID-19 (SKY) Negative COVID-19 Clin Com See Note Preliminary micro results at discharge 01/14/22 03:48 Blood Culture - Preliminary Blood - Venous Gram negative sean 01/16/22 02:51 Blood Culture - Preliminary Blood - Venous No growth after 48 hours. 01/16/22 02:51 Blood Culture - Preliminary Blood - Venous No growth after 48 hours. 01/14/22 03:48 Blood Culture - Preliminary Blood - Venous No growth after 48 hours. Discharge Plan Discharge Patient Disposition: [facility] Discharge Diagnosis: Seizure medication side effects Confusion, double vision Referrals: [facility] Jens Crowell [Outside] - 1 Week Physician,Unknown J [Primary Care Provider] - 1 Week Discharge Medications: New lamotrigine 100 mg Tablet 200 mg PO BID 30 Days Qty: 120 0RF lacosamide [Vimpat] 100 mg Tablet 100 mg PO BID 30 Days Qty: 60 0RF Continued meclizine 25 mg Tablet 12.5 mg PO DAILY PRN (Reason: Vertigo) 0RF cyanocobalamin (vitamin B-12) 1,000 mcg Tablet 1,000 mcg PO DAILY 0RF cholecalciferol (vitamin D3) [Vitamin D3] 25 mcg (1,000 unit) Tablet 25 mcg PO DAILY 0RF atorvastatin 40 mg Tablet 40 mg PO BEDTIME Qty: 30 0RF ascorbic acid (vitamin C) 500 mg Tablet 500 mg PO DAILY 0RF carvedilol 6.25 mg tablet 1 tab PO BID 0RF aspirin 81 mg tablet,delayed release (DR/EC) 81 mg PO DAILY 0RF Discontinued lacosamide [Vimpat] 150 mg tablet See Rx Instructions .ROUTE .COMPLEX 0RF Rx Instructions: 150 MG BID FOR 01/14; STARTING 01/15 100MG BID lamotrigine 250 mg tablet extended release 24hr 750 mg PO BEDTIME 0RF Discharge Orders: Discharge Order (Routine); Ordered 01/18/22 Ordered By: Reed Correa Diet: advance to usual diet Activity on Discharge: As tolerated Stand Alone Forms: Patient Portal Discharge page Care Plan Goals: Read below Health Concerns: Read below Plan of Treatment: Read below Assessment: You were admitted to the hospital for evaluation of shaking, tremors and double vision which we believe a result of medication side-effects of Vimpat and lamotrigine. Images for the brain were negative for any acute findings. You were evaluated by neurologist as an EEG did not show any acute seizure activity with recommendations to decrease Vimpat and lamotrigine doses. Decrease Vimpat 100 mg twice Daily Decrease lamotrigine to 200 mg to twice daily
[2022-01-18 16:00] VITALS: BP 129/75; PULSE 73; RESP 18; TEMP 37.2; O2SAT 99
[2022-01-19 10:21] LABS: Lamotrigine Lamictal 18.2 mcg/mL (4.0-18.0)
[2022-01-19 10:42] LABS: Lacosamide 17.5 mcg/mL
== END 2022-01-18 17:25 | disposition skilled nursing facility (03) | DRG 123 ==
LOC: HO.ED 12:16 → HO.EDOVER 12:24 → HO.S3 18:37
PROVIDERS: Admitting Provider Student in an Organized Health Care Education/Training Program; Emergency Provider Emergency Medicine; Visit Provider Student in an Organized Health Care Education/Training Program
DX: H53.2 Diplopia (principal); E43 Unspecified severe protein-calorie malnutrition; I42.9 Cardiomyopathy, unspecified; Z68.1 Body mass index [BMI] 19.9 or less, adult; C20 Malignant neoplasm of rectum; G25.1 Drug-induced tremor; G40.909 Epilepsy, unspecified, not intractable, without status epilepticus; T42.6X5A Adverse effect of other antiepileptic and sedative-hypnotic drugs, initial encounter; Z20.822 Contact with and (suspected) exposure to COVID-19; F17.210 Nicotine dependence, cigarettes, uncomplicated; Z71.6 Tobacco abuse counseling; Z88.0 Allergy status to penicillin; Z79.82 Long term (current) use of aspirin; Z79.899 Other long term (current) drug therapy
CPT/HCPCS: 36415; 70450; 70496; 70498; 71045; 80048; 80076; 80175; 80185; 80235; 80307; 81001; 82140; 82947; 83605; 83690; 83735; 84443; 84484; 85025; 85027; 85610; 85730; 87040; 87076; 87086; 87205; 87635; 93005; 95816; 97116; 97162; 97530; 99285; J0696; J1650; J1953; J2060; J2405; Q9967

== ENCOUNTER → 2022-02-07 08:27 | Outpatient (BNVA) | payer OTHER, SELFPAY | PROVIDERS: PCP Internal Medicine; Visit Provider Internal Medicine Cardiovascular Disease | DX: Z13.89 Encounter for screening for other disorder (principal) ==

== ENCOUNTER → 2022-04-19 07:20 | Outpatient (REF) | payer OTHER, SELFPAY ==
--- NOTE | 2022-04-19 07:25 | CA_ITS ---
Transthoracic Echocardiogram Limited Patient (Last, First, Middle): Carole Walters K Gender: Female Date of : 1955 Age: 66 Procedure Date: 04/19/2022 Procedure Type: Transthoracic Echocardiogram Limited Location: OP Height: 152.4 cm Weight: 45.36 kg BSA: 1.39 m2 Heart Rate: bpm BP: 122 / 60 mmHg Home Care Companion: SAVI Referring MD: Linus Alejandre MD Home Service Demonstrator: Linus Alejandre MD Symptoms: I51.81 - Takotsubo syndrome/ TIA bubble needed Study Quality: Adequate ECG Rhythm: Sinus Conclusions: - 1. Normal LV systolic function with grade 1 diastolic dysfunction 2. No evidence of PFO Findings Left Ventricle Normal left ventricular size, thickness, and systolic function. The visually estimated ejection fraction is between 60-65%. Spectral Doppler is indicative of an impaired relaxation filling pattern. E/E prime ratio is <8, consistent with normal filling pressures. Evidence suggests grade I (mild) diastolic dysfunction. Atria There is no evidence of interatrial shunt by agitated saline. Prior Study Comparison No significant change compared to prior study dated: 11/18/2021. Measurements 2D Linear Measurements IVSd: 0.70 0.6-0.9/0.6-1.0 cm LVIDd: 3.96 3.9-5.3/4.2-5.9 cm LVIDd Index: 2.85 2.4-3.2/2.2-3.1 cm/m2 LVPWd: 0.85 0.7-1.1 cm LV Mass: 109.39 67-162/88-224 g LV Mass Index: 78.70 43-95/49-115 g/m2 Mitral Valve MV Pk E: 0.50 MV PK A: 0.79 MV Decel Time: 208.00 E/A: 0.60 E'Lateral: 5.87 E'Medial: 5.55 E/E' Med: 9.00 E/E' Lat: 8.50 PHT: 61.00 MVA PHT: 3.61 Decel Brooks: 2.39 Diastolic Function MV Pk E: 0.50 MV Pk A: 0.79 E/A: 0.60 E'Medial: 5.55 E/E' Med: 9.00 E' Laterial: 5.87 E/E' Lat: 8.50 Tricuspid Valve TR Pk Griffin: 1.67 TR Pk Grad: 11.00 RA Press: 3.00 RVSP: 14.00 Updated in Other Vendor System with Status of Final Linus Alejandre MD electronically signed on 04/20/2022 11:37:34 AM with status of Final
--- NOTE | 2022-04-19 07:25 | HM_ITS ---
* Total monitoring time 9 days and 11 hours. * Underlying rhythm is sinus. * Average ventricular rate 80/Min. Range 56 to 125/Min. * Rare supraventricular ectopy with minimal burden. * Very rare ventricular ectopy. * No clear patient symptoms documented. MTDD
== END ==
LOC: HO.CARD 07:20
PROVIDERS: PCP Internal Medicine; Visit Provider Internal Medicine Cardiovascular Disease
DX: I51.81 Takotsubo syndrome (principal); R55 Syncope and collapse
CPT/HCPCS: 93246; 93308

== ENCOUNTER 2022-09-07 15:00 | Emergency (ER) | payer OTHER, SELFPAY ==
--- NOTE | ~2022-09-07 | CT_ITS ---
EXAMINATION: CT ABDOMEN AND PELVIS WITHOUT CONTRAST CLINICAL INFORMATION: Abdominal pain. History of rectal cancer. COMPARISON: CT scan abdomen pelvis 11/17/2021 TECHNIQUE: Multidetector volumetric imaging was performed from the superior aspect of the liver through the pubic symphysis. Sagittal and coronal reformatted images were obtained on the technologist's workstation. This CT examination was performed using dose optimization techniques as appropriate, variously including the following: *Automated exposure control *Adjustment of mA and/or kV according to patient size (this includes techniques or standardized protocols for targeted exams where dose is matched to indication/reason for exam; i.e. extremities or head) *Use of iterative reconstruction technique DLP: 231 mGy-cm FINDINGS: LUNG BASES: Normal aeration of lung bases. No pleural effusion. Coronary artery calcifications. Heart size normal. No pericardial effusion. LIVER, GALLBLADDER, AND BILIARY TREE: The liver is normal in size, shape, and attenuation. No focal hepatic lesion or biliary ductal dilatation is present. The gallbladder is unremarkable with no evidence of radiopaque gallstones, gallbladder wall thickening, or obvious pericholecystic inflammatory changes. PANCREAS: Unremarkable. SPLEEN: Unremarkable. ADRENAL GLANDS: Unremarkable. KIDNEYS AND URETERS: There are 2 small stones in the mid upper pole of the left kidney measuring about 1 mm. No stone in the right kidney. There is no hydronephrosis. No ureteral calculus. BLADDER: Unremarkable. GASTROINTESTINAL TRACT: History of rectal cancer. Ostomy in the right mid upper abdomen. Distal sigmoid rectum is decompressed. There is no bowel obstruction. There is a moderate volume of stool in the colon. The appendix is nonvisualized . The stomach is normal. There is no hiatal hernia. ABDOMINAL WALL: No significant hernia is appreciated. LYMPH NODES: Normal. VASCULAR: Vascular calcifications in abdomen and pelvis. No aneurysm of aorta. PELVIC VISCERA: Unremarkable. OSSEOUS STRUCTURES: Multilevel degenerative spondylosis spine. CT/CT abdomen pelvis wo IV con IMPRESSION: No acute abnormality CT scan abdomen pelvis. Fleischner guidelines were followed.
[2022-09-07 15:22] VITALS: BP 106/56; PULSE 67; RESP 18; TEMP 36.5; O2SAT 98; BMI 17.9
--- NOTE | 2022-09-07 15:31 | ED_ITS ---
HPI - Female Genitourinary General Chief complaint: Urogenital-Female <GISELLE Uriostegui - Last Filed: 09/10/22 09:51> Stated complaint: uti,nausea <GISELLE Uriostegui - Last Filed: 09/10/22 09:51> Time Seen by Provider: 09/07/22 19:36 <GISELLE Uriostegui - Last Filed: 09/10/22 09:51> Source: patient <Ricki Quiros MD - Last Filed: 09/08/22 02:38> Limitations: no limitations <Ricki Quiros MD - Last Filed: 09/08/22 02:38> History of Present Illness HPI Narrative: This is a 66-year-old female with history of rectal cancer, currently undergoing radiation therapy, having completed chemo, who was diagnosed with a UTI recently and put on Bactrim double strength b.i.d.. As about fiber 6 days ago. The patient has had associated abdominal pain and some vomiting associated with taking medicine. She initially had had some dysuria for many days for the family checked her urine and diagnosed with UTI. She denies any fever. She den ies any chest pain, cough, shortness of breath. Her abdominal pain is intermittent. She was told that she likely has some pain associated with the radiation therapy. She does have a colostomy, denies any change in her stool. <Ricki Quiros MD - Last Filed: 09/08/22 02:38> Related Data Home medications: Home Medications Medication Instructions Recorded Confirmed aspirin 81 mg tablet,delayed 81 mg PO DAILY 11/12/21 02/07/22 release cholecalciferol (vitamin D3) 25 25 mcg PO DAILY 11/16/21 02/07/22 mcg (1,000 unit) tablet (Vitamin D3) cyanocobalamin (vitamin B-12) 1,000 mcg PO DAILY 11/16/21 02/07/22 1,000 mcg tablet meclizine 25 mg tablet 12.5 mg PO DAILY PRN Vertigo 11/16/21 02/07/22 ascorbic acid (vitamin C) 500 mg 500 mg PO DAILY 01/14/22 02/07/22 tablet carvedilol 6.25 mg tablet 6.25 mg PO BID 02/07/22 02/07/22 Previous Rx's Medication Instructions Recorded atorvastatin 40 mg tablet 40 mg PO BEDTIME #30 tabs 11/17/21 lacosamide 100 mg tablet (Vimpat) 100 mg PO BID 30 days #60 tabs 01/18/22 lamotrigine 100 mg tablet 200 mg PO BID 30 days #120 tabs 01/18/22 cefdinir 300 mg capsule 300 mg PO BID #14 caps 09/07/22 ondansetron 4 mg disintegrating 4 mg PO Q6H PRN nausea and 09/07/22 tablet vomiting #10 tabs <GISELLE Uriostegui - Last Filed: 09/10/22 09:51> Allergies/Adverse reactions: Allergies Allergy/AdvReac Type Severity Reaction Status Date / Time Penicillins [PENICILLINS] Allergy Unknown UNKNOWN Verified 01/14/22 04:59 <GISELLE Uriostegui - Last Filed: 09/10/22 09:51> Review of Systems Review of Systems: Yes all other systems are reviewed and are negative <Ricki Quiros MD - Last Filed: 09/08/22 02:38> Constitutional: Constitutional: Reports as per HPI and Denies fever(s) <Ricki Quiros MD - Last Filed: 09/08/22 02:38> Eyes: Eyes: Reports as per HPI and Reports no additional eye complaints <Ricki Quiros MD - Last Filed: 09/08/22 02:38> ENT: Reports system reviewed and no additional complaints, except as documented, Reports as per HPI, Denies nasal congestion, Denies nasal discharge and Denies sore throat <Ricki Quiros MD - Last Filed: 09/08/22 02:38> Cardiovascular: Cardiovascular: Reports as per HPI, Denies chest pain and Denies dyspnea <Ricki Quiros MD - Last Filed: 09/08/22 02:38> Respiratory: Respiratory: Reports as per HPI, Denies cough and Denies dyspnea <Ricki Quiros MD - Last Filed: 09/08/22 02:38> Gastrointestinal: Gastrointestinal: Reports as per HPI, Reports abdominal pain, Denies diarrhea, Reports nausea and Reports vomiting <Ricki Quiros MD - Last Filed: 09/08/22 02:38> Genitourinary: Genitourinary: Reports as per HPI, Denies hematuria, Denies urinary frequency and Reports dysuria <Ricki Quiros MD - Last Filed: 09/08/22 02:38> Musculoskeletal: Musculoskeletal: Reports no additional musculoskeletal compla ints and Denies numbness <Ricki Quiros MD - Last Filed: 09/08/22 02:38> Integumentary/Breasts: Skin/Breast: Reports as per HPI and Denies rash <Ricki Quiros MD - Last Filed: 09/08/22 02:38> Neurologic: Reports as per HPI, Denies focal weakness and Denies numbness <Ricki Quiros MD - Last Filed: 09/08/22 02:38> Psychiatric: Psychiatric: Reports no additional psychiatric complaints and Reports as per HPI <Ricki Quiros MD - Last Filed: 09/08/22 02:38> Endocrine: Endocrine: Reports no additional endocrine complaints and Reports as per HPI <Ricki Quiros MD - Last Filed: 09/08/22 02:38> Hematologic/Lymphatic: Hematologic/Lymphatic: Reports no additional hematologic/lymphatic complaints, Reports as per HPI and Reports other (No peripheral edema) <Ricki Quiros MD - Last Filed: 09/08/22 02:38> [facility] Past Medical History Medical History: Medical History Anemia Anemia History of seizures Occult blood positive stool Physical deconditioning Rectal mass Seizure Seizure Severe malnutrition Takotsubo cardiomyopathy <GISELLE Uriostegui - Last Filed: 09/10/22 09:51> Social History Social History: Social History Household Members: Spouse Household Members Other:: 2 Housing: House Do you presently have visiting nurse or other home services: No Alcohol intake: never Patient Tobacco Use Status: Current everyday Tobacco user Tobacco use type: Cigarette Cigarettes Per Day: 1 Smoked in Last 30 Days: No Use of substances other than those prescribed or required for medical reasons: No Advance Directives: Yes Advance Directives on File: Yes Advance Directives Date on File: 11/24/21 Patient : No service: No Current occupational status: employed <GISELLE Uriostegui - Last Filed: 09/10/22 09:51> Physical Exam Vital Signs: Vital Signs: Last Vital Signs Temp 98.0 F 09/07/22 20:00 Pulse 56 09/07/22 20:00 Resp 16 09/07/22 20:00 BP 116/62 09/07/22 20:00 Pulse Ox 98 09/07/22 20:00 O2 Del Method 09/07/22 20:00 BMI result Body Mass Index 17.9 <GISELLE Uriostegui - Last Filed: 09/10/22 09:51> Vital Signs: Last Vital Signs Temp 98.0 F 09/07/22 20:00 Pulse 56 09/07/22 20:00 Resp 16 09/07/22 20:00 BP 116/62 09/07/22 20:00 Pulse Ox 98 09/07/22 20:00 O2 Del Method 09/07/22 20:00 BMI result Body Mass Index 17.9 <Ricki Quiros MD - Last Filed: 09/08/22 02:38> Const: Other: PERRLA Conj [place] Mucous membranes moist Throat clear Neck supple Lungs CTA Heart RRR no murmurs rubs or gallops Abd soft, non tender, non distended Extremities no pitting edema Neuro alert and oriented x 3, non focal <Ricki Quiros MD - Last Filed: 09/08/22 02:38> Course Course Course Narrative: RME: pmh of rectal CA presents to the ED for lower abdominal pain with dysuria and nausea. labs, UA, and abdominal CT scan ordered. Vital signs stable <GISELLE Uriostegui - Last Filed: 09/10/22 09:51> MDM - Female Genitourinary MDM Narrative Medical decision making narrative: Patient undergoing treatment for rectal cancer, has a colostomy, was put on Bactrim recently for UTI but seems to have stomach upset from this with associated vomiting. Labs unremarkable except for borderline hyponatremia 125, and a urinalysis which does show continued evidence of UTI. Urine culture was sent. Patient will be started on cefdinir in taken off of Bactrim. The patient was given normal saline IV bolus during her ED stay <Ricki Quiros MD - Last Filed: 09/08/22 02:38> Lab Data Attestation: I reviewed the patient's lab results. <Ricki Quiros MD - Last Filed: 09/08/22 02:38> Result diagrams: : 09/07/22 15:36 09/07/22 15:36 <GISELLE Uriostegui - Last Filed: 09/10/22 09:51> Labs: Lab Results 09/07/22 09/07/22 09/07/22 Range/Units 15:36 15:36 15:36 WBC 7.9 (4.8-10.8) X10*3/uL RBC 4.49 D (4.20-5.50) X10*6/uL Hgb 14.2 D (12.0-16.0) g/dl Hct 40.8 D (37.0-47.0) % MCV 90.9 (80.0-98.0) fL MCH 31.6 (27.0-33.0) pg MCHC 34.8 (31.0-35.0) g/dl RDW 15.0 (11.0-16.0) % Plt Count 194 (160-400) X10*3/uL MPV 8.4 L (9.4-12.3) fL Immature Gran % (Auto) 0.4 (0.0-0.4) % Neut % (Auto) 86.2 H (45-73) % Lymph % (Auto) 1.8 L (20-40) % Luna % (Auto) 6.7 (2-11) % Eos % (Auto) 4.4 H (0-4) % Baso % (Auto) 0.5 (0-2) % Lymph # (Auto) 0.1 L (1.2-4.9) X10*3/uL Luna # (Auto) 0.5 (0.1-1.2) X10*3/uL Eos # (Auto) 0.4 (0.0-0.4) X10*3/uL Baso # (Auto) 0.0 (0.0-0.2) X10*3/uL Abs Immat Gran (auto) 0.03 (0.00-0.03) X10*3/uL Absolute Neuts (auto) 6.9 (2.0-8.3) x10*3/uL Absolute Nucleated RBC 0.040 H (0.0-0.012) X10*3/uL Nucleated RBC % (auto) 0.5 H (0.0-0.2) /100WBC PT 11.5 (10.0-13.1) SEC INR 1.0 (0.9-1.1) APTT 29.6 (26.0-36.4) SEC Sodium 125 L (135-145) mmol/L Potassium 4.3 (3.3-5.1) mmol/L Chloride 91 L (96-108) mmol/L Carbon Dioxide 21 L (22-29) mmol/L Anion Gap 17 (12-20) BUN 44 H (9-16) mg/dL Creatinine 1.28 (0.5-1.4) mg/dL Estim Creat Clear Calc 29.2 Estimated GFR 42 Random Glucose 121 H (60-115) mg/dL Calcium 9.6 D (8.4-10.2) mg/dL Total Bilirubin 0.5 (0.0-1.0) mg/dL AST 29 (5-31) U/L ALT 26 (0-31) U/L Alkaline Phosphatase 131 H (39-117) U/L Total Protein 7.5 (6.5-8.0) g/dL Albumin 4.7 (3.5-5.0) g/dL Urine Color Urine Appearance Urine pH (5.0-9.0) Ur Specific [place] (1.005-1.025) Urine Protein (Neg-Trace) mg/dL Urine Glucose (UA) (Negative) mg/dL Urine Ketones (Negative) mg/dL Urine Blood (Negative) Urine Nitrite (Negative) Ur Leukocyte Esterase (Negative) Urine RBC (0-2) /HPF Urine WBC (0-5) /HPF Ur Squamous Epith Cells (0-2) /HPF Urine Bacteria (None Seen) Hyaline Casts (0-2) /LPF Influenza Type A (PCR) (Negative) Influenza Type B (PCR) (Negative) RSV RNA Qual (PCR) (Negative) SARS-CoV-2 RNA (RT-PCR) (Negative) 09/07/22 09/07/22 Range/Units 19:59 19:59 WBC (4.8-10.8) X10*3/uL RBC (4.20-5.50) X10*6/uL Hgb (12.0-16.0) g/dl Hct (37.0-47.0) % MCV (80.0-98.0) fL MCH (27.0-33.0) pg MCHC (31.0-35.0) g/dl RDW (11.0-16.0) % Plt Count (160-400) X10*3/uL MPV (9.4-12.3) fL Immature Gran % (Auto) (0.0-0.4) % Neut % (Auto) (45-73) % Lymph % (Auto) (20-40) % Luna % (Auto) (2-11) % Eos % (Auto) (0-4) % Baso % (Auto) (0-2) % Lymph # (Auto) (1.2-4.9) X10*3/uL Luna # (Auto) (0.1-1.2) X10*3/uL Eos # (Auto) (0.0-0.4) X10*3/uL Baso # (Auto) (0.0-0.2) X10*3/uL Abs Immat Gran (auto) (0.00-0.03) X10*3/uL Absolute Neuts (auto) (2.0-8.3) x10*3/uL Absolute Nucleated RBC (0.0-0.012) X10*3/uL Nucleated RBC % (auto) (0.0-0.2) /100WBC PT (10.0-13.1) SEC INR (0.9-1.1) APTT (26.0-36.4) SEC Sodium (135-145) mmol/L Potassium (3.3-5.1) mmol/L Chloride (96-108) mmol/L Carbon Dioxide (22-29) mmol/L Anion Gap (12-20) BUN (9-16) mg/dL Creatinine (0.5-1.4) mg/dL Estim Creat Clear Calc Estimated GFR Random Glucose (60-115) mg/dL Calcium (8.4-10.2) mg/dL Total Bilirubin (0.0-1.0) mg/dL AST (5-31) U/L ALT (0-31) U/L Alkaline Phosphatase (39-117) U/L Total Protein (6.5-8.0) g/dL Albumin (3.5-5.0) g/dL Urine Color Yellow Urine Appearance Clear Urine pH 5.5 (5.0-9.0) Ur Specific [place] 1.025 (1.005-1.025) Urine Protein 30 (1+) H (Neg-Trace) mg/dL Urine Glucose (UA) Negative (Negative) mg/dL Urine Ketones Trace (Negative) mg/dL Urine Blood Moderate (2+) H (Negative) Urine Nitrite Negative (Negative) Ur Leukocyte Esterase Small (1+) H (Negative) Urine RBC 11-20 H (0-2) /HPF Urine WBC 21-50 H (0-5) /HPF Ur Squamous Epith Cells 3-5 (0-2) /HPF Urine Bacteria None Seen (None Seen) Hyaline Casts 3-5 (0-2) /LPF Influenza Type A (PCR) NEGATIVE (Negative) Influenza Type B (PCR) NEGATIVE (Negative) RSV RNA Qual (PCR) NEGATIVE (Negative) SARS-CoV-2 RNA (RT-PCR) NEGATIVE (Negative) <GISELLE Uriostegui - Last Filed: 09/10/22 09:51> Lab Results 09/07/22 09/07/22 09/07/22 Range/Units 15:36 15:36 15:36 WBC 7.9 (4.8-10.8) X10*3/uL RBC 4.49 D (4.20-5.50) X10*6/uL Hgb 14.2 D (12.0-16.0) g/dl Hct 40.8 D (37.0-47.0) % MCV 90.9 (80.0-98.0) fL MCH 31.6 (27.0-33.0) pg MCHC 34.8 (31.0-35.0) g/dl RDW 15.0 (11.0-16.0) % Plt Count 194 (160-400) X10*3/uL MPV 8.4 L (9.4-12.3) fL Immature Gran % (Auto) 0.4 (0.0-0.4) % Neut % (Auto) 86.2 H (45-73) % Lymph % (Auto) 1.8 L (20-40) % Luna % (Auto) 6.7 (2-11) % Eos % (Auto) 4.4 H (0-4) % Baso % (Auto) 0.5 (0-2) % Lymph # (Auto) 0.1 L (1.2-4.9) X10*3/uL Luna # (Auto) 0.5 (0.1-1.2) X10*3/uL Eos # (Auto) 0.4 (0.0-0.4) X10*3/uL Baso # (Auto) 0.0 (0.0-0.2) X10*3/uL Abs Immat Gran (auto) 0.03 (0.00-0.03) X10*3/uL Absolute Neuts (auto) 6.9 (2.0-8.3) x10*3/uL Absolute Nucleated RBC 0.040 H (0.0-0.012) X10*3/uL Nucleated RBC % (auto) 0.5 H (0.0-0.2) /100WBC PT 11.5 (10.0-13.1) SEC INR 1.0 (0.9-1.1) APTT 29.6 (26.0-36.4) SEC Sodium 125 L (135-145) mmol/L Potassium 4.3 (3.3-5.1) mmol/L Chloride 91 L (96-108) mmol/L Carbon Dioxide 21 L (22-29) mmol/L Anion Gap 17 (12-20) BUN 44 H (9-16) mg/dL Creatinine 1.28 (0.5-1.4) mg/dL Estim Creat Clear Calc 29.2 Estimated GFR 42 Random Glucose 121 H (60-115) mg/dL Calcium 9.6 D (8.4-10.2) mg/dL Total Bilirubin 0.5 (0.0-1.0) mg/dL AST 29 (5-31) U/L ALT 26 (0-31) U/L Alkaline Phosphatase 131 H (39-117) U/L Total Protein 7.5 (6.5-8.0) g/dL Albumin 4.7 (3.5-5.0) g/dL Urine Color Urine Appearance Urine pH (5.0-9.0) Ur Specific [place] (1.005-1.025) Urine Protein (Neg-Trace) mg/dL Urine Glucose (UA) (Negative) mg/dL Urine Ketones (Negative) mg/dL Urine Blood (Negative) Urine Nitrite (Negative) Ur Leukocyte Esterase (Negative) Urine RBC (0-2) /HPF Urine WBC (0-5) /HPF Ur Squamous Epith Cells (0-2) /HPF Urine Bacteria (None Seen) Hyaline Casts (0-2) /LPF Influenza Type A (PCR) (Negative) Influenza Type B (PCR) (Negative) RSV RNA Qual (PCR) (Negative) SARS-CoV-2 RNA (RT-PCR) (Negative) 09/07/22 09/07/22 Range/Units 19:59 19:59 WBC (4.8-10.8) X10*3/uL RBC (4.20-5.50) X10*6/uL Hgb (12.0-16.0) g/dl Hct (37.0-47.0) % MCV (80.0-98.0) fL MCH (27.0-33.0) pg MCHC (31.0-35.0) g/dl RDW (11.0-16.0) % Plt Count (160-400) X10*3/uL MPV (9.4-12.3) fL Immature Gran % (Auto) (0.0-0.4) % Neut % (Auto) (45-73) % Lymph % (Auto) (20-40) % Luna % (Auto) (2-11) % Eos % (Auto) (0-4) % Baso % (Auto) (0-2) % Lymph # (Auto) (1.2-4.9) X10*3/uL Luna # (Auto) (0.1-1.2) X10*3/uL Eos # (Auto) (0.0-0.4) X10*3/uL Baso # (Auto) (0.0-0.2) X10*3/uL Abs Immat Gran (auto) (0.00-0.03) X10*3/uL Absolute Neuts (auto) (2.0-8.3) x10*3/uL Absolute Nucleated RBC (0.0-0.012) X10*3/uL Nucleated RBC % (auto) (0.0-0.2) /100WBC PT (10.0-13.1) SEC INR (0.9-1.1) APTT (26.0-36.4) SEC Sodium (135-145) mmol/L Potassium (3.3-5.1) mmol/L Chloride (96-108) mmol/L Carbon Dioxide (22-29) mmol/L Anion Gap (12-20) BUN (9-16) mg/dL Creatinine (0.5-1.4) mg/dL Estim Creat Clear Calc Estimated GFR Random Glucose (60-115) mg/dL Calcium (8.4-10.2) mg/dL Total Bilirubin (0.0-1.0) mg/dL AST (5-31) U/L ALT (0-31) U/L Alkaline Phosphatase (39-117) U/L Total Protein (6.5-8.0) g/dL Albumin (3.5-5.0) g/dL Urine Color Yellow Urine Appearance Clear Urine pH 5.5 (5.0-9.0) Ur Specific [place] 1.025 (1.005-1.025) Urine Protein 30 (1+) H (Neg-Trace) mg/dL Urine Glucose (UA) Negative (Negative) mg/dL Urine Ketones Trace (Negative) mg/dL Urine Blood Moderate (2+) H (Negative) Urine Nitrite Negative (Negative) Ur Leukocyte Esterase Small (1+) H (Negative) Urine RBC 11-20 H (0-2) /HPF Urine WBC 21-50 H (0-5) /HPF Ur Squamous Epith Cells 3-5 (0-2) /HPF Urine Bacteria None Seen (None Seen) Hyaline Casts 3-5 (0-2) /LPF Influenza Type A (PCR) NEGATIVE (Negative) Influenza Type B (PCR) NEGATIVE (Negative) RSV RNA Qual (PCR) NEGATIVE (Negative) SARS-CoV-2 RNA (RT-PCR) NEGATIVE (Negative) <Ricki Quiros MD - Last Filed: 09/08/22 02:38> Imaging Data CT scan - abdomen: Radiologist's impression: IMPRESSION: No acute abnormality CT scan abdomen pelvis. <Ricki Quiros MD - Last Filed: 09/08/22 02:38> Discharge Plan Discharge Clinical Impression: Abdominal pain, UTI (urinary tract infection) <GISELLE Uriostegui - Last Filed: 09/10/22 09:51> Patient Disposition: Home, Self-Care <GISELLE Uriostegui - Last Filed: 09/10/22 09:51> Instructions: Hyponatremia (ED), Urinary Tract Infection in Older Adults (ED) <GISELLE Uriostegui - Last Filed: 09/10/22 09:51> Additional Instructions: Stop the trimethoprim/sulfamethoxazole. Start cefdinir as prescribed. Use ondansetron as needed for nausea. Return for any new or worsened symptoms it is worse abdominal pain, fever, unable to hold down fluids. Drink plenty of fluids <GISELLE Uriostegui - Last Filed: 09/10/22 09:51> Prescriptions: New ondansetron 4 mg tablet,disintegrating 4 mg PO Q6H PRN (Reason: nausea and vomiting) Qty: 10 0RF cefdinir 300 mg capsule 300 mg PO BID Qty: 14 0RF No Action meclizine 25 mg Tablet 12.5 mg PO DAILY PRN (Reason: Vertigo) cyanocobalamin (vitamin B-12) 1,000 mcg Tablet 1,000 mcg PO DAILY cholecalciferol (vitamin D3) [Vitamin D3] 25 mcg (1,000 unit) Tablet 25 mcg PO DAILY atorvastatin 40 mg Tablet 40 mg PO BEDTIME Qty: 30 0RF ascorbic acid (vitamin C) 500 mg Tablet 500 mg PO DAILY lamotrigine 100 mg Tablet 200 mg PO BID 30 Days Qty: 120 0RF lacosamide [Vimpat] 100 mg Tablet 100 mg PO BID 30 Days Qty: 60 0RF aspirin 81 mg tablet,delayed release (DR/EC) 81 mg PO DAILY carvedilol 6.25 mg tablet 6.25 mg PO BID <GISELLE Uriostegui - Last Filed: 09/10/22 09:51> Interventions: ED Discharge Assessment Last Done: 09/07/22 21:12 <GISELLE Uriostegui - Last Filed: 09/10/22 09:51> Discharge Date/Time: 09/07/22 21:12 <GISELLE Uriostegui - Last Filed: 09/10/22 09:51>
[2022-09-07 15:44] LABS: Basophils Percent Auto 0.5 % (0-2); Eosinophils Absolute Auto 0.4 X10*3/uL (0.0-0.4); Eosinophils Percent Auto 4.4 % (0-4); Hematocrit 40.8 % (37.0-47.0); Hemoglobin 14.2 g/dl (12.0-16.0); Imm Gran Abs Auto 0.03 X10*3/uL (0.00-0.03); Imm Gran Pct Auto 0.4 % (0.0-0.4); Lymphocytes Absolute Auto 0.1 X10*3/uL (1.2-4.9); Lymphocytes Percent Auto 1.8 % (20-40); MANUAL DIFF FLAG NO; Mean Corpuscular HGB Conc 34.8 g/dl (31.0-35.0); Mean Corpuscular Hemoglobin 31.6 pg (27.0-33.0); Mean Corpuscular Volume 90.9 fL (80.0-98.0); Mean Platelet Volume 8.4 fL (9.4-12.3); Monocytes Absolute Auto 0.5 X10*3/uL (0.1-1.2); Monocytes Percent Auto 6.7 % (2-11); NRBC Pct Auto 0.5 /100WBC (0.0-0.2); Neutrophils Absolute Auto 6.9 x10*3/uL (2.0-8.3); Neutrophils Percent Auto 86.2 % (45-73); Platelet Count 194 X10*3/uL (160-400); Red Blood Count 4.49 X10*6/uL (4.20-5.50); White Blood Count 7.9 X10*3/uL (4.8-10.8)
[2022-09-07 15:49] LABS: Prothrombin Time 11.5 SEC (10.0-13.1)
[2022-09-07 15:52] LABS: Partial Thromboplastin Time 29.6 SEC (26.0-36.4)
[2022-09-07 16:12] LABS: Alanine Aminotransferase 26 U/L (0-31); Albumin Level 4.7 g/dL (3.5-5.0); Alkaline Phosphatase 131 U/L (39-117); Anion Gap 17 (12-20); Aspartate Amino Transferase 29 U/L (5-31); Bilirubin Total 0.5 mg/dL (0.0-1.0); Blood Urea Nitrogen 44 mg/dL (9-16); Calcium 9.6 mg/dL (8.4-10.2); Carbon Dioxide 21 mmol/L (22-29); Chloride 91 mmol/L (96-108); Creatinine Clr Calc Pharmacy 29.2; Estimated Glomerular Filt Rate 42; Glucose Random 121 mg/dL (60-115); Potassium 4.3 mmol/L (3.3-5.1); Sodium 125 mmol/L (135-145); Total Protein 7.5 g/dL (6.5-8.0)
[2022-09-07 20:00] VITALS: BP 116/62; PULSE 56; RESP 16; TEMP 36.7; O2SAT 98
[2022-09-07 20:18] LABS: Appearance Urine Clear; Color Urine Yellow; Glucose Urine UA Negative (Negative); Leukocyte Esterase Urine Small (1+) (Negative); Nitrite Urine Negative (Negative); PH 5.5 (5.0-9.0); Specific Gravity - Urine 1.025 (1.005-1.025); UMIC TRIGGER UACC YES; Urine Blood Moderate (2+) (Negative); Urine Ketones Trace mg/dL (Negative); Urine Protein 30 (1+) mg/dL (Neg-Trace)
[2022-09-07 20:23] LABS: Bacteria Urine None Seen (None Seen); UACC Culture Trigger YES; WBC Urine 21-50 /HPF (0-5)
--- NOTE | 2022-09-07 20:40 | PC.NURSE ---
Colostomy bag in place. No redness, swelling or skin irritation noted around the area. Bag content emptied.
[2022-09-07 20:48] LABS: Influenza A PCR NEGATIVE (Negative); Influenza B PCR NEGATIVE (Negative); Resp Syncy Virus RNA Qual PCR NEGATIVE (Negative); SARS COV2 PCR INHOUSE NEGATIVE (Negative)
--- NOTE | 2022-09-07 21:12 | PC.NURSE ---
Discharge instructions reviewed with pt. Pt verbalizes understanding.
== END 2022-09-07 21:12 | disposition home or self-care (01) ==
PROVIDERS: Physician Assistant; Emergency Provider Emergency Medicine; PCP Family Medicine
DX: R10.9 Unspecified abdominal pain (principal); N39.0 Urinary tract infection, site not specified; E46 Unspecified protein-calorie malnutrition; Z68.1 Body mass index [BMI] 19.9 or less, adult; Z20.822 Contact with and (suspected) exposure to COVID-19; C20 Malignant neoplasm of rectum; F17.210 Nicotine dependence, cigarettes, uncomplicated; Z93.3 Colostomy status; Z92.3 Personal history of irradiation; Z92.21 Personal history of antineoplastic chemotherapy; Z79.82 Long term (current) use of aspirin; Z79.899 Other long term (current) drug therapy; Z79.02 Long term (current) use of antithrombotics/antiplatelets
CPT/HCPCS: 0241U; 36415; 74176; 80053; 81001; 85025; 85610; 85730; 87086; 99284

== ENCOUNTER 2023-07-02 14:30 | Outpatient (AMB) | payer MEDICARE, OTHER, SELFPAY ==
[2023-07-02 14:33] VITALS: BP 120/66; PULSE 77; BMI 25.0
--- NOTE | 2023-07-02 14:33 | MHC.OFFVIS ---
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: No Allergies Penicillins [PENICILLINS] Allergy (Unknown, Verified 01/14/22 04:59) UNKNOWN Medication List - Last Reconciled 07/02/23 by Linus Alejandre MD ascorbic acid (vitamin C) 500 mg PO DAILY aspirin 81 mg PO DAILY atorvastatin 40 mg PO BEDTIME carvedilol 3.125 mg PO BID cefdinir 300 mg PO BID cholecalciferol (vitamin D3) (Vitamin D3) 25 mcg PO DAILY cyanocobalamin (vitamin B-12) 1,000 mcg PO DAILY lacosamide (Vimpat) 100 mg PO BID 30 days lamotrigine 200 mg (2 x 100 mg) PO BID 30 days meclizine 12.5 mg PO DAILY PRN ondansetron 4 mg PO Q6H PRN HPI HPI Comments History of Present Illness Details Carole comes for follow-up. She has had multiple surgeries for rectal carcinoma, status post multiple surgeries status post chemo and radiation therapy. She has done well. She has been told that her rectal cancer is so far in remission. Has follow-up set with Oncology. She has not had any cardiac symptoms. Taking all her medications. Her anemia has now improved. [facility] Medical History Severe malnutrition Physical deconditioning Seizure History of seizures Rectal mass Anemia Anemia Seizure Occult blood positive stool Takotsubo cardiomyopathy Social History Household Members: Spouse Household Members Other:: 2 Housing: House Do you presently have visiting nurse or other home services: No Alcohol intake: never Patient Tobacco Use Status: Current everyday Tobacco user Tobacco use type: Cigarette Cigarettes Per Day: 1 Advance Directives Date on File: 11/24/21 service: No Current occupational status: employed Review of Systems Const Denies chills, Denies fatigue, Denies fever(s), Denies frequent falls, Denies weakness, Denies weight gain and Denies weight loss ENT Denies dizziness Card Denies chest pain, Denies leg edema, Denies lightheadedness, Denies palpitations, Denies dyspnea, Denies dyspnea on exertion, Denies orthopnea and Denies other (loss of consciousness) Resp Denies cough, Denies dyspnea and Denies dyspnea on exertion GI Denies hematochezia and Denies change in stool character Musc Denies abnormal gait, Denies muscle weakness, Denies numbness, Denies radiating pain into limb and Denies tingling Neuro Denies abnormal gait, Denies dizziness, Denies frequent falls, Denies numbness, Denies tingling and Denies weakness Endo Denies fatigue and Denies palpitations Physical Exam Vital Signs: Last Vital Signs Pulse 77 07/02/23 14:33 BP 120/66 07/02/23 14:33 BMI result Body Mass Index 25.0 Const General: cooperative, comfortable, no acute distress, alert and awake Nutritional Appearance: average body habitus Orientation/consciousness: patient oriented x3 Limitations: no limitations Neck Neck: Yes trachea midline and Yes no JVD Resp Effort & Inspection: normal respiratory effort Auscultation: clear to auscultation bilaterally Cardio Jugular venous distension: no JVD Palpation: normal PMI Rate: regular rate Rhythm: regular rhythm Heart sounds: S1 normal heart sound present and S2 normal heart sound present Skin General skin exam: no rashes or lesions noted Neuro General: patient oriented x3 and no focal motor deficits Extrem General: Yes no clubbing, cyanosis or edema Assessment & Plan Assessment & Plan (1) Takotsubo cardiomyopathy: Code(s): I51.81 - Takotsubo syndrome Plan: Prior history of takotsubo cardiomyopathy under stressful situation. LV systolic function is improved on carvedilol therapy. Mechanism of takotsubo cardiomyopathy was discussed. Continue carvedilol therapy. There is no indication for aspirin therapy which can be discontinued. Can continue statin therapy with target goal LDL less than 70 mg/dL. Advised to call me with any cardiac symptoms. Blood pressure is well optimized advised to monitor blood pressure at home maintain a log. Will follow up in the clinic if need be. Thank you for allowing me to partake in her care Medications: Changed From carvedilol 6.25 mg PO BID 90 days 180 tabs 1RF To carvedilol 3.125 mg PO BID Coding Level of Care Code Est Pt Level 3 (03907) Diagnoses Takotsubo cardiomyopathy I51.81
== END 2023-07-02 16:12 | disposition home or self-care (01) ==
PROVIDERS: PCP Family Medicine; Visit Provider Internal Medicine Cardiovascular Disease
DX: I51.81 Takotsubo syndrome (principal)
CPT/HCPCS: 99213

== ENCOUNTER → 2023-07-02 14:30 | Outpatient (BNVA) | payer MEDICARE, OTHER, SELFPAY | PROVIDERS: PCP Family Medicine; Visit Provider Internal Medicine Cardiovascular Disease | DX: I51.81 Takotsubo syndrome (principal) | CPT/HCPCS: 99212 ==